=== PATIENT | female | born 1950 | race Caucasian/White ===

== ENCOUNTER → 2020-03-22 08:25 | Outpatient (REF) | payer MEDICARE, SELFPAY ==
--- NOTE | 2020-03-22 08:33 | CA_ITS ---
Transthoracic Echocardiogram Patient (Last, First, Middle): Alyse Razo A Gender: Female Date of : 1950 Age: 69 Procedure Date: 03/22/2020 Procedure Type: Transthoracic Echocardiogram Location: OP Height: 160.02 cm Weight: 102.06 kg BSA: 2.03 m2 Heart Rate: bpm BP: 154 / 86 mmHg Toy Assembly Supervisor: Referring MD: Bhanu Ramachandran MD Symptoms: i42.2 hpertrophic cmp Study Quality: Good ECG Rhythm: Sinus Conclusions: - The left ventricular systolic function is mildly decreased. The visually estimated ejection fraction is between 45-50%. - There is mild calcification of the aortic valve. - There is mild anterior mitral leaflet thickening. - There is mild dilatation of the ascending aorta measuring 3.90 cm. Findings Procedure Information Contrast agent, definity, is being given per protocol without apparent complications. Left Ventricle Normal left ventricular cavity size. There is mildly increased left ventricular wall thickness. The left ventricular systolic function is mildly decreased. The visually estimated ejection fraction is between 45-50%. The calculated ejection fraction is 47% by biplane method. E/E prime ratio is between 8 and 15 consistent with indeterminate filling pressures. Evidence suggests grade I (mild) diastolic dysfunction. Abnormal septal motion likely from postoperative state as well as from left bundle-branch block. Right Ventricle Normal right ventricular cavity size and systolic function. Atria Both atria are normal in size. Aortic Valve There is a normal trileaflet aortic valve. There is mild calcification of the aortic valve. There is no aortic valve stenosis. There is mild aortic valve regurgitation. Mitral Valve There is mild anterior mitral leaflet thickening. There is mild mitral valve regurgitation. There is no mitral valve stenosis. Pulmonic Valve The pulmonic valve was not well visualized. There is trace pulmonic valve regurgitation. Tricuspid Valve Normal tricuspid valve structure. There is trace tricuspid valve regurgitation. The pulmonary artery systolic pressure is normal. Great Vessels There is mild dilatation of the ascending aorta measuring 3.90 cm. Venous The inferior vena cava is normal in size and collapses greater than 50% with inspiration. Pericardium/Pleural There is no evidence of pericardial effusion. Prior Study Comparison Changes noted compared to prior study dated: 10/14/2018. LVEF appears to be lower than prior study. Measurements 2D Linear Measurements RVIDd: 2.58 RVIDd Index: 1.27 IVSd: 1.12 0.6-0.9/0.6-1.0 cm LVIDd: 5.44 3.9-5.3/4.2-5.9 cm LVIDd Index: 2.68 2.4-3.2/2.2-3.1 cm/m2 LVIDs: 4.19 2.0-3.6 cm LVPWd: 1.42 0.7-1.1 cm Ao Root: 3.00 2.1-3.5 cm LA Diam: 4.80 2.7-3.8/3.0-4.0 cm LAIDs Index: 2.36 1.5-2.3 cm/m2 LV Mass: 361.07 67-162/88-224 g LV Mass Index: 177.87 43-95/49-115 g/m2 LVOT Diam: 2.00 3.0+(-)1.3 cm 2D Systolic Function EF 4C: 57.20 >55% EF 2C: 33.50 >55% EF BiP: 46.50 >55% Mitral Valve MV Pk E: 0.48 MV PK A: 0.78 MV Decel Time: 204.00 E/A: 0.60 E'Lateral: 5.13 E'Medial: 3.29 E/E' Med: 14.40 E/E' Lat: 9.30 Aortic Valve AoV Pk Missael: 1.50 AoV Mn Missael: 1.02 AoV VTI: 0.29 AoV Pk Grad: 9.00 Aov Mn Grad: 5.00 ANDIE Cont.VTI: 2.06 AI Pk Missael: 4.06 AI Stewart: 1.83 LVOT LVOT Pk Missael: 1.05 LVOT Mn Missael: 0.68 LVOT VTI: 0.19 LVOT Pk Grad: 4.00 LVOT Mn Grad: 2.00 LVOT Diam: 2.00 LVOT Area: 3.14 Diastolic Function MV Pk E: 0.48 MV Pk A: 0.78 E/A: 0.60 E'Medial: 3.29 E/E' Med: 14.40 E' Laterial: 5.13 E/E' Lat: 9.30 Tricuspid Valve TR Pk Missael: 2.14 TR Pk Grad: 18.00 RA Press: 3.00 RVSP: 21.00 Great Vessels Aorta Ao Root-2D: 3.00 2.0-3.7 cm Ao Asc: 3.90 2.1-3.4 cm Ao Arch: 3.30 Updated in Other Vendor System with Status of Final Kai Mccarthy MD electronically signed on 03/23/2020 4:00:42 PM with status of Final
[2020-03-22 10:42] LABS: MANUAL DIFF FLAG NO
[2020-03-22 10:55] LABS: Basophils Absolute Auto 0.1 X10*3/uL (0.0-0.2); Basophils Percent Auto 0.9 % (0-2); Eosinophils Absolute Auto 0.2 X10*3/uL (0.0-0.4); Eosinophils Percent Auto 4.1 % (0-4); Hematocrit 41.5 % (37-47); Hemoglobin 13.3 g/dl (12.0-16.0); Imm Gran Abs Auto 0.04 X10*3/uL (0.00-0.03); Imm Gran Pct Auto 0.8 % (0.0-0.4); Lymphocytes Absolute Auto 1.4 X10*3/uL (1.2-4.9); Lymphocytes Percent Auto 25.4 % (20-40); Mean Corpuscular Hemoglobin 27.4 pg (27.0-33.0); Mean Corpuscular Volume 85.6 fL (80-98); Mean Platelet Volume 11.3 fL (9.4-12.3); Monocytes Absolute Auto 0.3 X10*3/uL (0.1-1.2); Monocytes Percent Auto 6.4 % (2-11); Neutrophils Absolute Auto 3.3 X10*3/uL (2.0-8.3); Neutrophils Percent Auto 62.4 % (45-73); Platelet Count 193 X10*3/uL (160-400); Red Blood Count 4.85 X10*6/uL (4.20-5.50); White Blood Count 5.3 X10*3/uL (4.8-10.8)
[2020-03-22 11:08] LABS: Alanine Aminotransferase 33 U/L (0-31); Alkaline Phosphatase 93 U/L (39-117); Anion Gap 10 (12-20); Aspartate Amino Transferase 38 U/L (5-31); Bilirubin Total 0.6 mg/dL (0.0-1.0); Blood Urea Nitrogen 17 mg/dL (9-16); Calcium 8.7 mg/dL (8.4-10.2); Carbon Dioxide 26 mmol/L (22-29); Chloride 108 mmol/L (96-108); Cholesterol 189 mg/dL; Estimated Glomerular Filt Rate > 60; Glucose Random 108 mg/dL (60-115); Sodium 140 mmol/L (135-145); Total Protein 6.7 g/dL (6.5-8.0)
[2020-03-22 11:33] LABS: Free T4 (Free Thyroxine) 1.02 ng/dL (0.71-1.85); Thyroid Stimulating Hormone 0.69 mIU/mL (0.32-4.0); Vitamin D 25-OH Total 53.3 ng/mL (>30)
== END ==
LOC: HO.CARD 08:25
PROVIDERS: Visit Provider Internal Medicine
DX: I42.2 Other hypertrophic cardiomyopathy (principal)
CPT/HCPCS: 36415; 80053; 82306; 82465; 84439; 84443; 85025; 93306; Q9957

== ENCOUNTER → 2020-04-12 09:08 | Outpatient (BNVA) | payer MEDICARE, SELFPAY | PROVIDERS: PCP Internal Medicine; Referring Provider Internal Medicine; Visit Provider Internal Medicine Cardiovascular Disease | DX: I42.1 Obstructive hypertrophic cardiomyopathy (principal); I44.7 Left bundle-branch block, unspecified; E66.9 Obesity, unspecified; Z87.891 Personal history of nicotine dependence; Z88.0 Allergy status to penicillin; Z79.899 Other long term (current) drug therapy | CPT/HCPCS: 93005; 99212 ==

== ENCOUNTER 2020-04-15 07:18 | Day surgery (SDC) | payer MEDICARE, SELFPAY ==
[2020-04-12 14:11] VITALS: BMI 40.4
--- NOTE | 2020-04-13 10:41 | P.CONAN_ITS ---
Documented by User: Dora Bautista 04/13/20 10:53 HPI - Anesthesia Eval Consult details Narrative: 69yo F for Colonoscopy PMFSH Past Medical History Medical History Arthritis Depression GERD (gastroesophageal reflux disease) History of fatty infiltration of liver History of left bundle branch block (LBBB) HOCM (hypertrophic obstructive cardiomyopathy) LBBB (left bundle branch block) Morbid obesity Thyroid disease Family History Family History Father Obesity Mother COPD (chronic obstructive pulmonary disease) Brother No problems noted. Son No problems noted. Daughter No problems noted. Surgical History Surgical History H/O colonoscopy History of esophagogastroduodenoscopy (EGD) Hx of cataract surgery Hx of section Hx of tubal ligation S/P cholecystectomy S/P total knee arthroplasty Status post ventricular septal myectomy Social History Social History Alcohol intake: never Smoking Status: Former smoker Smoking Quit Date: 1979 Use of substances other than those prescribed or required for medical reasons: No Advance Directives Information Provided: No Narrative Narrative: Seen by cardiology 03/2020. FERNÁNDEZ r/t weight gain and deconditioning. Echo ordered. Meds Allergies Allergy/AdvReac Type Severity Reaction Status Date / Time Penicillins [PENICILLINS] Allergy Intermediate RASH Verified 04/12/20 14:17 Home Medications Medication Instructions Recorded Confirmed Type alprazolam 1 mg tablet 1 mg PO DAILY PRN 04/12/20 04/13/20 History escitalopram oxalate 10 mg tablet 3 mg PO Q OTHER DAY PRN 04/12/20 04/13/20 History levothyroxine 125 mcg tablet 125 mcg PO DAILY 04/12/20 04/13/20 History omeprazole 20 mg capsule,delayed 20 mg PO DAILY 04/12/20 04/13/20 History release Exam Exam Date and Time: April 13, 2020 1041 Height,Weight and Vital Signs: Height 5 ft 3 in Weight 103.419 kg Pertinent Lab Results Pertinent Lab Results: Laboratory Tests 03/22/20 03/22/20 09:53 09:53 WBC 5.3 Hgb 13.3 Hct 41.5 Plt Count 193 Sodium 140 Potassium 4.0 Chloride 108 BUN 17 H Creatinine 0.64 Narrative Narrative: EKG 03/2020: NSR with LBBB, unchanged from previous Echo 03/2020: LV sys function mild decreased, LVELF @ 45-50%, mild calc of AV, mild anterior mitral leaflet thickening, mild dilation of ascending aorta @ 3.9cm Assessment and Plan Assessment Anesthesia Assessment: Chart Reviewed Documented by User: Mirza Wang 04/15/20 08:26 [facility] Past Medical History Medical History Arthritis Depression GERD (gastroesophageal reflux disease) History of fatty infiltration of liver History of left bundle branch block (LBBB) HOCM (hypertrophic obstructive cardiomyopathy) LBBB (left bundle branch block) Morbid obesity Thyroid disease Family History Family History Father Obesity Mother COPD (chronic obstructive pulmonary disease) Brother No problems noted. Son No problems noted. Daughter No problems noted. Surgical History Surgical History H/O colonoscopy History of esophagogastroduodenoscopy (EGD) Hx of cataract surgery Hx of section Hx of tubal ligation S/P cholecystectomy S/P total knee arthroplasty Status post ventricular septal myectomy Social History Social History Alcohol intake: never Smoking Status: Former smoker Smoking Quit Date: 1979 Use of substances other than those prescribed or required for medical reasons: No Advance Directives Information Provided: No Meds Allergies Allergy/AdvReac Type Severity Reaction Status Date / Time Penicillins [PENICILLINS] Allergy Intermediate RASH Verified 04/12/20 14:17 Home Medications Medication Instructions Recorded Confirmed Type alprazolam 1 mg tablet 1 mg PO DAILY PRN 04/12/20 04/13/20 History escitalopram oxalate 10 mg tablet 3 mg PO Q OTHER DAY PRN 04/12/20 04/13/20 History levothyroxine 125 mcg tablet 125 mcg PO DAILY 04/12/20 04/13/20 History omeprazole 20 mg capsule,delayed 20 mg PO DAILY 04/12/20 04/13/20 History release Exam Airway Mallampati Class: II TM Dist: >3cm Neck ROM: Full Loose/Missing/Broken Teeth: No Heart: [id number] Lungs: cta b/l Assessment and Plan Assessment Anesthesia Assessment: Anesthesia Plan Discussed, PAT Visit and Chart Reviewed Final Anesthetic Review NPO: Yes ASA Class: III Final Preanesthetic Review: No Changes in Pt Med Stat, Meds/Allgs Chart Reviewed, Consent Obtained/Reviewed and Anes Risks/Benef Reviewed Patient Risk: Low Procedure Risk: Low Assessment/Block/Sedation in SS: Assess/Block/Sedation-SS Anesthetic Plan Anesthetic Plan: MAC: Disposition: Standard PACU
[2020-04-15 07:53] VITALS: BP 125/61; PULSE 69; RESP 18; TEMP 36.6; O2SAT 97
[2020-04-15] MEDS: Lactated Ringers 1,000 ML 50 ML IVCONT (08:01)
[2020-04-15 09:13] VITALS: BP 88/41; PULSE 61; RESP 12; TEMP 36.1; O2SAT 96
--- NOTE | 2020-04-15 09:16 | PM.OP ---
Brief Operative Note Date of procedure: 04/15/20 Pre-op diagnosis: Screening Post-op diagnosis: other (Colon polyp, Diverticulosis, Internal Hemorrhoids) Procedure: Colonoscopy to cecum with biopsy and removal of polyp Surgeon: Avila Stevenson Anesthesia: MAC Estimated blood loss (mL): 3.0 Pathology: other (A. Transverse colon polyp) Condition: stable Disposition: PACU
[2020-04-15 09:28] VITALS: BP 107/59; PULSE 66; RESP 18; TEMP 36.4; O2SAT 99
--- NOTE | 2020-04-15 09:44 | HO.POSTANES ---
Post Anesthesia Evaluation Post Anesthesia Evaluation Vital Signs: Vital Signs Temp Pulse Resp BP Pulse Ox 04/15/20 09:28 97.5 F 66 18 107/59 L 99 04/15/20 09:13 97 F 61 12 88/41 L 96 04/15/20 07:53 97.8 F 69 18 125/61 97 Anesthesia: Monitored Mental Status: Awake Pain Control: Satisfactory Nausea/Vomiting: None Hydration: Adequate Anesthesia-Related Issues: No Anes. Related Issues
--- NOTE | 2020-04-15 11:59 | OP_ITS ---
SURGEON: Avila Stevenson MD INDICATIONS: The patient presents for evaluation of colorectal cancer screening and personal history of tubular adenoma of the colon. Full consent has been obtained from her for this, including risks of bleeding and perforation. PREOPERATIVE DIAGNOSIS: POSTOPERATIVE DIAGNOSIS: PROCEDURE PERFORMED: Colonoscopy to cecum with biopsy and removal of polyp. ESTIMATED BLOOD LOSS: COMPLICATIONS: ANESTHESIA: Monitored anesthesia care. ASSISTANTS: SPECIMENS: PREOPERATIVE DIAGNOSES: Colorectal cancer screening and personal history of tubular adenoma of the colon. POSTOPERATIVE DIAGNOSES: Colorectal cancer screening and personal history of tubular adenoma of the colon, colon polyp, diverticulosis and internal hemorrhoids. DESCRIPTION OF PROCEDURE: The patient was placed in the left lateral decubitus position. The digital rectal exam revealed no abnormalities. The Olympus video pediatric colonoscope was entered into the rectum and advanced easily to the cecum. Once in the cecum, I did identify normal-appearing cecal pouch with appendiceal orifice and a normal-appearing ileocecal valve. The entire cecum and ileocecal valve were well visualized and appeared normal. There was transillumination of light deep in the right lower quadrant. The scope was slowly withdrawn assessing all mucosal surfaces carefully. Preparation was excellent. In the transverse colon, there was a flat approximately 4 mm polyp, which was biopsied and completely removed with cold biopsy forceps. I did not visualize any other polyps, colitis, nor angiodysplasia. There was a mild amount of sigmoid diverticulosis. In the rectum, scope was retroflexed visualizing internal hemorrhoids, but no other pathology. The rectal mucosa appeared normal. The scope was straightened out and withdrawn from the patient. She tolerated the procedure well and was returned to the recovery area in stable condition. IMPRESSION: 1. Colon polyp, status post biopsy and removal. 2. Diverticulosis. 3. Internal hemorrhoids. PLAN: The results of the biopsy will be checked. I would recommend a repeat colonoscopy in 5 years for further surveillance. She will otherwise see me on a p.r.n. basis. Of note, she was advised to continue her omeprazole for her reflux and previous history of dysphagia. She does report that she is doing well in this regard, and she also thinks eating slowly has helped her with that issue as well. MD THU Salgado/GENI / [phone]
== END 2020-04-15 10:15 | disposition home or self-care (01) ==
PROVIDERS: PCP Internal Medicine; Visit Provider Internal Medicine
PROC: 0DJD8ZZ Inspection of Lower Intestinal Tract, Via Natural or Artificial Opening Endoscopic (ICD-10-PCS; CPT 45378; principal; 2020-04-15 08:30)
DX: Z12.11 Encounter for screening for malignant neoplasm of colon (principal); Z86.010 Personal history of colon polyps; D12.3 Benign neoplasm of transverse colon; K57.30 Diverticulosis of large intestine without perforation or abscess without bleeding; K64.8 Other hemorrhoids; K21.9 Gastro-esophageal reflux disease without esophagitis; I42.1 Obstructive hypertrophic cardiomyopathy; I44.7 Left bundle-branch block, unspecified; Z79.899 Other long term (current) drug therapy; Z88.0 Allergy status to penicillin; Z90.49 Acquired absence of other specified parts of digestive tract; Z96.653 Presence of artificial knee joint, bilateral
CPT/HCPCS: 45380; 88305

== ENCOUNTER 2020-04-22 14:25 | Outpatient (REF) | payer SELFPAY | END 2020-04-22 14:26 | disposition home or self-care (01) | LOC: HO.HAP 14:25 | PROVIDERS: PCP Internal Medicine; Visit Provider Internal Medicine | DX: Z46.1 Encounter for fitting and adjustment of hearing aid (principal) | CPT/HCPCS: V5266; V5267 ==

== ENCOUNTER 2020-04-29 07:49 | Outpatient (REF) | payer MEDICARE, SELFPAY ==
--- NOTE | 2020-04-29 07:53 | MM_ITS ---
EXAMINATION: MM SCREENING DIGITAL BREAST TOMOSYNTHESIS, BILATERAL CLINICAL INFORMATION: Screening. Asymptomatic. The lifetime risk of breast cancer based on the Tyrer-Cuzick Model is 4%. COMPARISON: Mammography: 04/24/2019, 04/01/2018 TECHNIQUE: Digital breast tomosynthesis is performed in both the craniocaudal and mediolateral oblique views along with computer-aided detection (CAD). Synthesized 2D images are generated from the tomosynthesis. Additional left MLO view is provided. FINDINGS: There are scattered areas of fibroglandular density (ACR BI-RADS breast composition Category b). Background parenchymal pattern is predominantly fatty. Scattered fibroglandular densities are stable. There are no significant masses, abnormal calcifications, or other abnormalities. MM/MM tomosynthesis screening BI IMPRESSION: No mammographic evidence of malignancy. ASSESSMENT: BI-RADS 1: Negative RECOMMENDATION: Routine annual mammography screening. This patient's information was entered into a reminder system with a target due date for their next mammogram.
== END 2020-04-29 07:50 | disposition home or self-care (01) ==
LOC: HO.MAMMO 07:49
PROVIDERS: PCP Internal Medicine; Visit Provider Internal Medicine
DX: Z12.31 Encounter for screening mammogram for malignant neoplasm of breast (principal)
CPT/HCPCS: 77063; 77067

== ENCOUNTER → 2020-05-10 08:49 | Outpatient (BNVA) | payer MEDICARE, SELFPAY | PROVIDERS: PCP Internal Medicine; Visit Provider Physician Assistant | DX: Z76.89 Persons encountering health services in other specified circumstances (principal) ==

== ENCOUNTER → 2020-05-18 08:15 | Outpatient (BNVA) | payer MEDICARE, SELFPAY | PROVIDERS: PCP Internal Medicine; Visit Provider Physician Assistant | DX: E66.01 Morbid (severe) obesity due to excess calories (principal); Z68.41 Body mass index [BMI] 40.0-44.9, adult | CPT/HCPCS: Q3014 ==

== ENCOUNTER → 2020-05-25 12:45 | Outpatient (BNVA) | payer MEDICARE, SELFPAY | PROVIDERS: PCP Internal Medicine; Visit Provider Dietitian, Registered | DX: Z76.89 Persons encountering health services in other specified circumstances (principal) ==

== ENCOUNTER 2020-06-07 14:14 | Outpatient (REF) | payer MEDICARE, SELFPAY ==
[2020-06-08 15:03] LABS: H Pylori Breath Test DETECTED (NOT DETECTED)
== END 2020-06-07 14:15 | disposition home or self-care (01) ==
LOC: HO.LNP 14:14
PROVIDERS: PCP Internal Medicine; Visit Provider Surgery
DX: E66.01 Morbid (severe) obesity due to excess calories (principal); Z68.41 Body mass index [BMI] 40.0-44.9, adult
CPT/HCPCS: 83013; 99212

== ENCOUNTER 2020-06-08 11:35 | Outpatient (REF) | payer MEDICARE, SELFPAY ==
--- NOTE | 2020-06-08 11:43 | XR_ITS ---
EXAMINATION: XR CHEST CLINICAL INFORMATION: Shortness of breath. COMPARISON: 06/24/2019 chest radiographs. TECHNIQUE: 2 views of the chest were obtained. FINDINGS: The lungs are clear. The heart and mediastinal structures are unremarkable. Multilevel sternotomy wires are intact. XR/XR chest 2V IMPRESSION: No acute cardiopulmonary process.
== END 2020-06-08 11:36 | disposition home or self-care (01) ==
LOC: HO.XRAY 11:35
PROVIDERS: PCP Internal Medicine; Visit Provider Surgery
DX: R06.02 Shortness of breath (principal)
CPT/HCPCS: 71046

== ENCOUNTER → 2020-06-15 12:58 | Outpatient (BNVA) | payer MEDICARE, SELFPAY | PROVIDERS: PCP Internal Medicine; Visit Provider Dietitian, Registered | DX: Z76.89 Persons encountering health services in other specified circumstances (principal) ==

== ENCOUNTER → 2020-06-22 12:51 | Outpatient (BNVA) | payer MEDICARE, SELFPAY | PROVIDERS: PCP Internal Medicine; Visit Provider Dietitian, Registered | DX: Z76.89 Persons encountering health services in other specified circumstances (principal) ==

== ENCOUNTER → 2020-06-27 10:24 | Outpatient (BNVA) | payer MEDICARE, SELFPAY | PROVIDERS: PCP Internal Medicine; Visit Provider Physician Assistant ==

== ENCOUNTER → 2020-06-30 10:21 | Outpatient (BNVA) | payer MEDICARE, SELFPAY | PROVIDERS: PCP Internal Medicine; Visit Provider Surgery | DX: Z01.818 Encounter for other preprocedural examination (principal); E66.9 Obesity, unspecified; R06.02 Shortness of breath; Z68.39 Body mass index [BMI] 39.0-39.9, adult | CPT/HCPCS: 99212 ==

== ENCOUNTER 2020-07-15 09:56 | Outpatient (REF) | payer MEDICARE, SELFPAY ==
[2020-07-16 14:01] LABS: H Pylori Breath Test NOT DETECTED (NOT DETECTED)
== END 2020-07-15 09:57 | disposition home or self-care (01) ==
LOC: HO.LNP 09:56
PROVIDERS: PCP Internal Medicine; Visit Provider Physician Assistant
DX: Z01.818 Encounter for other preprocedural examination (principal); Z11.0 Encounter for screening for intestinal infectious diseases
CPT/HCPCS: 83013; 99211

== ENCOUNTER → 2020-08-18 14:54 | Outpatient (BNVA) | payer MEDICARE, SELFPAY | PROVIDERS: PCP Internal Medicine; Visit Provider Internal Medicine Cardiovascular Disease | DX: Z01.818 Encounter for other preprocedural examination (principal); I44.7 Left bundle-branch block, unspecified; Z86.79 Personal history of other diseases of the circulatory system | CPT/HCPCS: 93005; 99212 ==

== ENCOUNTER → 2020-09-02 08:14 | Outpatient (REF) | payer MEDICARE, SELFPAY ==
--- NOTE | ~2020-09-02 | NM_ITS ---
Myocardial perfusion study Indication: Preoperative cardiovascular risk stratification with left bundle branch block to evaluate for myocardial ischemia Technique: The patient was brought in for a Lexiscan perfusion study on 09/02/2020. Patient performed low-level exercise and was injected 0.4 mg of Lexiscan intravenously. Within a minute of injection, 35 mCi of sestamibi was given intravenously. Images were obtained using the SPECT gamma camera interlaced with the gating device. Images were obtained in supine position. Resting perfusion study was performed on 09/05/2020. Patient was administered 35 mCi of sestamibi intravenously at rest. Images were then obtained in supine position. Images obtained with and without CT attenuation. Total DLP 123 mGy-cm. Images were processed with the software and compared side to side in short axis, horizontal long axis and vertical long axis views. Findings: The stress perfusion study showed non attenuated images show minimal reduction in the basal septum of the LV myocardium. Attenuation corrected images show moderately reduced uptake in the septum, distal anterior and apex of the LV myocardium.. The gated study shows normal LV systolic function with calculated LVEF of 56%. LV cavity is normal in size. The gated study shows normal systolic wall thickening and contraction of segments. Resting study shows non attenuated images show mildly reduced uptake in the septum and basal inferior wall of the LV myocardium. Attenuation corrected images show moderate to severely reduced uptake in the distal anterior, apex and septum of the LV myocardium.. Gating at rest reveals normal systolic wall motion with ejection fraction at 56%. The findings are consistent with no clear reversible defect suggestive of ischemia. NM/NM mary perf SPECT rest & str Impression: 1. Myocardial perfusion imaging study shows likely normal perfusion 2. Gated LVEF is 56% 3. Transient ischemic dilatation not present EKG is nondiagnostic for ischemia
--- NOTE | 2020-09-02 08:17 | CA_ITS ---
Acquisition Time: 2020-09-02 08:26:10 Total Exercise Time: 00:02:00 Test Indications: Dyspnea Medications: Protocol: LEXISCAN Max HR: 107 BPM 71% of Pred: 150 BPM Max BP: 116/066 mmHG Max Work Load: 1.0 METS Pharmacological stress test using Lexiscan while sitting. Pt tolerated well, denies any anginal sx. EKG with LBBB no arrhythmias, non-diagnostic for ischemia. Nuclear images to follow. Normotensive response to test. Test reviewed with Dr. Mccarthy. Referred By: Jarred Vital Overread By: Gillian Carbajal NP
== END ==
LOC: HO.CARD 08:14
PROVIDERS: PCP Internal Medicine; Visit Provider Internal Medicine Cardiovascular Disease
DX: Z01.818 Encounter for other preprocedural examination (principal); I44.7 Left bundle-branch block, unspecified; R06.02 Shortness of breath; E66.01 Morbid (severe) obesity due to excess calories; Z86.79 Personal history of other diseases of the circulatory system
CPT/HCPCS: 78452; 93017; A9500; J0280; J2785

== ENCOUNTER 2020-10-05 16:00 | Outpatient (RCR) | payer MEDICARE, SELFPAY | END 2020-10-05 16:58 | disposition other institution (70) | LOC: HO.PT 16:00 | PROVIDERS: PCP Internal Medicine; Visit Provider Orthopaedic Surgery | DX: M75.41 Impingement syndrome of right shoulder (principal); M77.8 Other enthesopathies, not elsewhere classified | CPT/HCPCS: 97110; 97112; 97140; 97161; 97530 ==

== ENCOUNTER 2020-10-15 08:00 | Outpatient (REF) | payer MEDICARE, SELFPAY ==
[2020-10-15 08:38] LABS: MANUAL DIFF FLAG NO
[2020-10-15 08:50] LABS: Basophils Absolute Auto 0.1 X10*3/uL (0.0-0.2); Basophils Percent Auto 1.2 % (0-2); Eosinophils Absolute Auto 0.2 X10*3/uL (0.0-0.4); Eosinophils Percent Auto 3.3 % (0-4); Hemoglobin 14.4 g/dl (12.0-16.0); Imm Gran Abs Auto 0.01 X10*3/uL (0.00-0.03); Imm Gran Pct Auto 0.2 % (0.0-0.4); Lymphocytes Absolute Auto 1.8 X10*3/uL (1.2-4.9); Lymphocytes Percent Auto 36.8 % (20-40); Mean Corpuscular Hemoglobin 27.6 pg (27.0-33.0); Mean Corpuscular Volume 86.2 fL (80-98); Mean Platelet Volume 11.3 fL (9.4-12.3); Monocytes Absolute Auto 0.4 X10*3/uL (0.1-1.2); Monocytes Percent Auto 8.8 % (2-11); Neutrophils Absolute Auto 2.4 X10*3/uL (2.0-8.3); Neutrophils Percent Auto 49.7 % (45-73); Platelet Count 184 X10*3/uL (160-400); Red Blood Count 5.22 X10*6/uL (4.20-5.50); Red Cell Distribution Width 14.7 % (11.0-16.0); White Blood Count 4.9 X10*3/uL (4.8-10.8)
[2020-10-15 09:39] LABS: Alanine Aminotransferase 79 U/L (0-31); Albumin Level 4.3 g/dL (3.5-5.0); Alkaline Phosphatase 97 U/L (39-117); Anion Gap 10 (12-20); Aspartate Amino Transferase 70 U/L (5-31); Bilirubin Total 0.6 mg/dL (0.0-1.0); Blood Urea Nitrogen 20 mg/dL (9-16); Calcium 9.7 mg/dL (8.4-10.2); Carbon Dioxide 30 mmol/L (22-29); Chloride 106 mmol/L (96-108); Cholesterol 206 mg/dL; Estimated Glomerular Filt Rate > 60; Glucose Fasting 98 mg/dL (60-99); HDL Cholesterol 62 mg/dL; LDL Cholesterol Calculated 128 mg/dl; Potassium 4.3 mmol/L (3.3-5.1); Sodium 142 mmol/L (135-145); Total Protein 7.4 g/dL (6.5-8.0); Triglycerides 84 mg/dL
[2020-10-15 09:46] LABS: Free T4 (Free Thyroxine) 1.15 ng/dL (0.71-1.85); Thyroid Stimulating Hormone 0.17 uIU/mL (0.32-4.0)
[2020-10-17 09:15] LABS: Vitamin B12 524 pg/mL (200-900)
== END 2020-10-15 08:01 | disposition home or self-care (01) ==
LOC: HO.LAB 08:00
PROVIDERS: PCP Internal Medicine; Visit Provider Internal Medicine
DX: E03.9 Hypothyroidism, unspecified (principal); E53.8 Deficiency of other specified B group vitamins; M19.90 Unspecified osteoarthritis, unspecified site; K75.4 Autoimmune hepatitis
CPT/HCPCS: 36415; 80053; 80061; 82607; 84439; 84443; 85025

== ENCOUNTER → 2020-10-27 09:23 | Outpatient (REF) | payer MEDICARE, SELFPAY ==
--- NOTE | 2020-10-27 09:26 | CA_ITS ---
Transthoracic Echocardiogram Patient (Last, First, Middle): Alyse Razo A Gender: Female Date of : 1950 Age: 70 Procedure Date: 10/27/2020 Procedure Type: Transthoracic Echocardiogram Location: OP Height: 160.02 cm Weight: 104.33 kg BSA: 2.05 m2 Heart Rate: bpm BP: 110 / 62 mmHg Drafter Civil: ANASTACIA Referring MD: Jarred Vital MD Lead Supply Worker: Jarred Vital MD Symptoms: R06.02 - Shortness of breath Study Quality: Good ECG Rhythm: Sinus Conclusions: - 1. Mildly reduced LV systolic function with LVEF of 45-50% with impaired relaxation filling pattern with very focal basal septal hypokinesis to akinesis consistent with prior septal myectomy 2. Mildly dilated left atrium 3. Mild aortic and mitral regurgitation 4. Normal RV systolic pressure 5. No pericardial effusion Findings Left Ventricle Normal left ventricular cavity size. There is normal left ventricular wall thickness. The left ventricular systolic function is mildly decreased. The visually estimated ejection fraction is between 45-50%. There is paradoxical septal motion consistent with a left bundle branch block. Spectral Doppler is indicative of an impaired relaxation filling pattern. E/E prime ratio is between 8 and 15 consistent with indeterminate filling pressures. Wall Motion Rest Echo Findings The basal inferoseptal segment is hypokinetic. The basal anteroseptal segment is akinetic. All other scored wall segments showed normal motion. Right Ventricle Normal right ventricular cavity size and systolic function. Atria The left atrium is mildly dilated. There is no evidence of interatrial shunt. The right atrium is normal in size. Aortic Valve There is mild calcification of the aortic valve. There is no aortic valve stenosis. There is mild aortic valve regurgitation. Mitral Valve There is mild anterior and posterior mitral leaflet thickening. There is mild mitral valve regurgitation. There is no mitral valve stenosis. Pulmonic Valve The pulmonic valve was not well visualized. Tricuspid Valve Likely normal tricuspid valve structure and function. There is mild tricuspid valve regurgitation. The right ventricular systolic pressure is normal. The right ventricular systolic pressure is 22 mmHg. Normal right atrial pressure. There is no evidence of pulmonary hypertension. Great Vessels The pulmonary artery was not well visualized. There is mild dilatation of the ascending aorta measuring 4.20 cm. Venous The inferior vena cava is normal in size and collapses greater than 50% with inspiration. Pericardium/Pleural There is no evidence of pericardial effusion. Prior Study Comparison No significant change compared to prior study dated: 03/22/2020. Measurements 2D Linear Measurements IVSd: 1.10 0.6-0.9/0.6-1.0 cm LVIDd: 4.68 3.9-5.3/4.2-5.9 cm LVIDd Index: 2.28 2.4-3.2/2.2-3.1 cm/m2 LVIDs: 3.41 2.0-3.6 cm LVPWd: 1.08 0.7-1.1 cm Ao Root: 3.50 2.1-3.5 cm LA Diam: 3.50 2.7-3.8/3.0-4.0 cm LAIDs Index: 1.71 1.5-2.3 cm/m2 LV Mass: 229.14 67-162/88-224 g LV Mass Index: 111.77 43-95/49-115 g/m2 LVOT Diam: 2.20 3.0+(-)1.3 cm 2D Systolic Function EF 4C: 40.30 >55% EF 2C: 52.80 >55% EF BiP: 46.80 >55% Mitral Valve MV Pk E: 0.68 MV PK A: 0.72 MV Decel Time: 387.00 E/A: 0.90 E'Lateral: 8.38 E'Medial: 3.81 E/E' Med: 17.80 E/E' Lat: 8.10 PHT: 113.00 MVA PHT: 1.95 Decel [place]: 1.75 Aortic Valve AoV Pk Missael: 1.96 AoV Mn Missael: 1.26 AoV VTI: 0.42 AoV Pk Grad: 15.00 Aov Mn Grad: 7.00 ANDIE Cont.VTI: 2.30 AI Pk Missael: 4.82 AI [place]: 2.42 LVOT LVOT Pk Missael: 1.02 LVOT Mn Missael: 0.72 LVOT VTI: 0.25 LVOT Pk Grad: 4.00 LVOT Mn Grad: 2.00 LVOT Diam: 2.20 LVOT Area: 3.80 Diastolic Function MV Pk E: 0.68 MV Pk A: 0.72 E/A: 0.90 E'Medial: 3.81 E/E' Med: 17.80 E' Laterial: 8.38 E/E' Lat: 8.10 Tricuspid Valve TR Pk Missael: 2.16 TR Pk Grad: 19.00 RA Press: 3.00 RVSP: 22.00 Great Vessels Aorta Ao Root-2D: 3.50 2.0-3.7 cm Ao Asc: 4.20 2.1-3.4 cm Ao Arch: 3.10 Updated in Other Vendor System with Status of Final Jarred Vital MD electronically signed on 10/28/2020 3:19:59 PM with status of Final
== END ==
LOC: HO.CARD 09:23
PROVIDERS: Visit Provider Internal Medicine Cardiovascular Disease
DX: R06.02 Shortness of breath (principal)
CPT/HCPCS: 93306

== ENCOUNTER 2020-11-14 13:46 | Outpatient (REF) | payer MEDICARE, SELFPAY ==
[2020-11-14 17:12] LABS: Alanine Aminotransferase 42 U/L (0-31); Albumin Level 3.9 g/dL (3.5-5.0); Alkaline Phosphatase 90 U/L (39-117); Aspartate Amino Transferase 49 U/L (5-31); Bilirubin Direct 0.2 mg/dL (0.0-0.5); Bilirubin Total 0.7 mg/dL (0.0-1.0); Total Protein 6.5 g/dL (6.5-8.0)
== END 2020-11-14 13:47 | disposition home or self-care (01) ==
LOC: HO.LAB 13:46
PROVIDERS: PCP Internal Medicine; Visit Provider Internal Medicine
DX: R79.89 Other specified abnormal findings of blood chemistry (principal); K75.4 Autoimmune hepatitis
CPT/HCPCS: 36415; 80076

== ENCOUNTER → 2020-12-08 09:52 | Outpatient (BNVA) | payer MEDICARE, SELFPAY | PROVIDERS: PCP Internal Medicine; Referring Provider Internal Medicine; Visit Provider Physician Assistant | DX: E66.9 Obesity, unspecified (principal); Z68.37 Body mass index [BMI] 37.0-37.9, adult | CPT/HCPCS: 99212 ==

== ENCOUNTER → 2020-12-14 10:51 | Outpatient (REF) | payer MEDICARE, SELFPAY | LOC: HO.SL 10:51 | PROVIDERS: PCP Internal Medicine; Visit Provider Internal Medicine | DX: G47.33 Obstructive sleep apnea (adult) (pediatric) (principal); R06.83 Snoring | CPT/HCPCS: 95806 ==

== ENCOUNTER 2020-12-14 11:24 | Outpatient (REF) | payer SELFPAY | END 2020-12-14 11:25 | disposition home or self-care (01) | LOC: HO.HAP 11:24 | PROVIDERS: Visit Provider Internal Medicine | DX: Z46.1 Encounter for fitting and adjustment of hearing aid (principal); H90.3 Sensorineural hearing loss, bilateral | CPT/HCPCS: V5266 ==

== ENCOUNTER 2021-01-06 11:00 | Outpatient (RCR) | payer MEDICARE, SELFPAY ==
--- NOTE | 2020-10-24 10:56 | MHC.PT.EP ---
[facility] [place] Office [place] Office [place] Office [address] [place] [address] [phone] F: [phone] F: [phone] F: [phone] F: [phone] Physical Therapy Plan of Care Date of Evaluation: Date of Surgery: N/A Diagnosis: bilateral foot pain - plantar fasciitis Assessment: pt presents to physical therapy with pain, decreased range of motion, decreased strength, impaired functional mobility, impaired postural awareness, and gait deviations. pt is a good candidate for skilled PT due to age, potential remediation of impairments, typical disease/condition progression and prognosis, comorbidities, and motivation. pt would benefit from tailored strengthening and stretching exercise program, functional training, gait training, postural re-training, neuromuscular re-education, modalities as needed for pain, equipment safety demonstration. Frequency and Duration: The patient will be seen 2x/wk for 6 wks Short Term Goals: pt will be I w/ HEP to promote self-management of condition. pt will improve B ankle DF to 10 deg to normalize gait pattern on even ground. Superintendent Stevedoring Goals: pt will report a statistically significant improvement in self-reported outcome measure, LEFI, to promote return to PLOF. pt will improve B calf strength to 20 single LE heel raises to normalize functional strength and improve tolerance for walking dog around the block. Treatment Plan: Modalities to reduce pain, spasms and effusion. Manual therapy to restore motion and function. Therapeutic exercise to improve strength and flexibility. Neuromuscular re-education for posture and balance. Therapeutic activities to return to functional activities of daily living. Electronically signed by: Carito Szymanski PT, DPT Please sign and return to therapist. Thank you for your referral.
--- NOTE | 2021-01-09 10:33 | MHC.PT.DC ---
[facility] [place] Office [place] Office [place] Office [address] [facility] [phone] F: [phone] F: [phone] F: [phone] F: [phone] Physical Therapy Discharge Report Diagnosis: bilateral foot pain - plantar fasciitis Date of Surgery: N/A Date of Evaluation: 10/24/20 Date of Discharge: 01/09/21 Treatments to Date: 18 Cancellations to Date: 0 No Shows to Date: 0 Discharge Status: Achieved Goals Improved Function Independent with HEP Discharge Summary: The patient overall reported a significant improvement in her pain and has been able to return to all activities with no limitations. She was given medial wedges to wear which she feels has been the most appropriate orthotic for her feet at this time. She is independent with her home exercise program. The patient is discharged from this physical therapy plan of care at this time. Electronically signed by: Carito Szymanski PT, DPT Please sign and return to therapist. Thank you for your referral.
== END 2021-01-09 10:33 | disposition home or self-care (01) ==
LOC: HO.PT 11:00
PROVIDERS: PCP Internal Medicine; Visit Provider Internal Medicine
DX: M72.2 Plantar fascial fibromatosis (principal); M79.671 Pain in right foot
CPT/HCPCS: 97110; 97112; 97150; 97161; 97530

== ENCOUNTER → 2021-01-18 12:51 | Outpatient (BNVA) | payer MEDICARE, SELFPAY | PROVIDERS: PCP Internal Medicine; Visit Provider Internal Medicine Pulmonary Disease | DX: G47.33 Obstructive sleep apnea (adult) (pediatric) (principal); Z68.39 Body mass index [BMI] 39.0-39.9, adult | CPT/HCPCS: 99202 ==

== ENCOUNTER → 2021-02-01 19:55 | Outpatient (REF) | payer MEDICARE, SELFPAY | LOC: HO.SL 19:55 | PROVIDERS: PCP Internal Medicine; Visit Provider Internal Medicine Pulmonary Disease | DX: G47.33 Obstructive sleep apnea (adult) (pediatric) (principal); G47.31 Primary central sleep apnea | CPT/HCPCS: 95810 ==

== ENCOUNTER → 2021-02-23 08:14 | Outpatient (BNVA) | payer MEDICARE, SELFPAY | PROVIDERS: PCP Internal Medicine; Visit Provider Dietitian, Registered | DX: E66.9 Obesity, unspecified (principal) | CPT/HCPCS: 97803 ==

== ENCOUNTER → 2021-02-28 15:03 | Outpatient (BNVA) | payer MEDICARE, SELFPAY | PROVIDERS: PCP Internal Medicine; Visit Provider Internal Medicine Pulmonary Disease | DX: E66.9 Obesity, unspecified (principal); Z68.39 Body mass index [BMI] 39.0-39.9, adult | CPT/HCPCS: 99212 ==

== ENCOUNTER → 2021-03-27 08:10 | Outpatient (BNVA) | payer MEDICARE, SELFPAY | PROVIDERS: Visit Provider Dietitian, Registered | DX: E66.9 Obesity, unspecified (principal); Z68.37 Body mass index [BMI] 37.0-37.9, adult | CPT/HCPCS: 97803 ==

== ENCOUNTER → 2021-05-03 08:16 | Outpatient (BNVA) | payer MEDICARE, SELFPAY | PROVIDERS: Referring Provider Physician Assistant; Visit Provider Dietitian, Registered ==

== ENCOUNTER 2021-05-10 14:35 | Outpatient (REF) | payer MEDICARE, SELFPAY ==
--- NOTE | ~2021-05-10 | MM_ITS ---
EXAMINATION: MM SCREENING DIGITAL BREAST TOMOSYNTHESIS, BILATERAL CLINICAL INFORMATION: Screening. Asymptomatic. The lifetime risk of breast cancer based on the Tyrer-Cuzick Model is 4%. COMPARISON: Mammography: 04/29/2020, 04/24/2019, 04/01/2018, 06/23/2007 TECHNIQUE: Digital breast tomosynthesis is performed in both the craniocaudal and mediolateral oblique views along with computer-aided detection (CAD). Synthesized 2D images are generated from the tomosynthesis. Additional bilateral CC and additional left MLO view are provided. FINDINGS: There are scattered areas of fibroglandular density (ACR BI-RADS breast composition Category b). Breast tissue composition borders on predominantly fatty. There is no interval mass or architectural abnormality or abnormal calcifications. No significant changes. MM/MM tomosynthesis screening BI IMPRESSION: No mammographic evidence of malignancy. ASSESSMENT: BI-RADS 1: Negative RECOMMENDATION: Routine annual mammography screening. This patient's information was entered into a reminder system with a target due date for their next mammogram.
== END 2021-05-10 14:36 | disposition home or self-care (01) ==
LOC: HO.MAMMO 14:35
PROVIDERS: Visit Provider Internal Medicine
DX: Z12.31 Encounter for screening mammogram for malignant neoplasm of breast (principal)
CPT/HCPCS: 77063; 77067

== ENCOUNTER 2021-05-12 12:00 | Outpatient (REF) | payer MEDICARE, SELFPAY ==
[2021-05-12 13:24] LABS: Alanine Aminotransferase 23 U/L (0-31); Albumin Level 3.9 g/dL (3.5-5.0); Alkaline Phosphatase 93 U/L (39-117); Aspartate Amino Transferase 31 U/L (5-31); Bilirubin Direct 0.3 mg/dL (0.0-0.5); Bilirubin Total 0.6 mg/dL (0.0-1.0); Total Protein 6.7 g/dL (6.5-8.0)
== END 2021-05-12 12:01 | disposition home or self-care (01) ==
LOC: HO.LAB 12:00
PROVIDERS: PCP Internal Medicine; Visit Provider Internal Medicine
DX: R94.5 Abnormal results of liver function studies (principal); K75.4 Autoimmune hepatitis
CPT/HCPCS: 36415; 80076

== ENCOUNTER → 2021-05-19 08:08 | Outpatient (BNVA) | payer MEDICARE, SELFPAY | PROVIDERS: Visit Provider Dietitian, Registered | DX: E66.9 Obesity, unspecified (principal); Z68.36 Body mass index [BMI] 36.0-36.9, adult | CPT/HCPCS: 97803 ==

== ENCOUNTER → 2021-08-21 09:06 | Outpatient (BNVA) | payer MEDICARE, SELFPAY | PROVIDERS: Referring Provider Internal Medicine; Visit Provider Internal Medicine Cardiovascular Disease | DX: I44.7 Left bundle-branch block, unspecified (principal); I42.9 Cardiomyopathy, unspecified; Z86.79 Personal history of other diseases of the circulatory system | CPT/HCPCS: 93005; 99212 ==

== ENCOUNTER 2021-09-06 08:34 | Outpatient (REF) | payer MEDICARE, SELFPAY ==
--- NOTE | 2021-09-14 13:25 | MHC.AU.AHA ---
Adult Audiological Evaluation Date of Visit: 09/06/21 Reason for Appointment: History of hearing loss. Patient suspects there has been a change in hearing since her last evaluation in 2014. Previous Hearing Test Results: At this clinic on 09/21/2014- Mild to severe sensorineural hearing loss bilaterally Ear History: Recent Ear Drainage: None Reported Recent Ear Pain: None Reported Recent Ear Infections: None Reported Hearing Instrument History- Right Ear: Cold Mill Supervisor: Phonak Model: Virto Q50-13 ITE Serial Number: [id number] Battery Size: 13 Repair Warranty: 10/17/2014 Loss and Damage Warranty: 10/17/2013 Dispensed By: [facility] Date of Fittin10/06/2012 Hearing Instrument History- Left Ear: Cold Mill Supervisor: Phonak Model: Virto Q50-13 ITE Serial Number: [id number] Battery Size: 13 Warranty: 10/17/2014 Loss and Damage Warranty: 10/17/2013 Dispensed By: [facility] Date of Fittin10/06/2012 Otoscopy: Right Ear: Unremarkable Left Ear: Unremarkable Tympanometry: Tympanometry performed due to: To assess integrity of the middle ear system Right Ear: Normal Middle Ear System (Type A) Left Ear: Normal Middle Ear System (Type A) Hearing Evaluation: Transducer(s) Used: Insert Earphones Method: Conventional Audiometry Stimuli Used: Pure Tones Right Ear: Description of Hearing: Mild to moderately-severe sensorineural hearing loss Left Ear: Description of Hearing: Mild to moderately-severe sensorineural hearing loss Speech Recognition Threshold (SRT): Method Used: Recorded Lists Stimuli Used: Spondee Words Right Ear: 50 dBHL Left Ear: 45 dBHL Word Discrimination: Method: Recorded Lists Word Lists Used: W-22 Right Ear: 84% at 80 dBHL Left Ear: 80% at 80 dBHL Most Comfortable Level (MCL): Right Ear: 80 dBHL Left Ear: 80 dBHL Comparison: Compared to the most recent evaluation: Thresholds have decreased bilaterally. Recommendations: Audiological re-evaluation in one year. Hearing aid maintenance performed today. Hearing aid(s) reprogrammed with updated test results. Diagnosis: Primary Diagnosis: H90.3 Bilateral Sensorineural Hearing Loss Signature: Provider: Ciro Seals, [facility]
== END 2021-09-06 08:35 | disposition home or self-care (01) ==
LOC: HO.SH 08:34
PROVIDERS: Visit Provider Internal Medicine
DX: Z01.118 Encounter for examination of ears and hearing with other abnormal findings (principal); H90.3 Sensorineural hearing loss, bilateral
CPT/HCPCS: 92557; 92567

== ENCOUNTER → 2021-09-07 09:40 | Outpatient (BNVA) | payer MEDICARE, SELFPAY | PROVIDERS: PCP Internal Medicine; Visit Provider Internal Medicine Pulmonary Disease | DX: G47.33 Obstructive sleep apnea (adult) (pediatric) (principal) | CPT/HCPCS: 99212 ==

== ENCOUNTER → 2021-09-29 11:15 | Outpatient (REF) | payer MEDICARE, SELFPAY ==
--- NOTE | 2021-09-29 11:21 | CA_ITS ---
Transthoracic Echocardiogram Patient (Last, First, Middle): Alyse Razo A Gender: Female Date of : 1950 Age: 71 Procedure Date: 09/29/2021 Procedure Type: Transthoracic Echocardiogram Location: OP Height: 160.02 cm Weight: 99.79 kg BSA: 2.01 m2 Heart Rate: bpm BP: 120 / 70 mmHg Beam Saw Operator: ANASTACIA Referring MD: Jarred Vitla MD Plaster Machine Operator: Jarred Vital MD Symptoms: I42.9 - Cardiomyopathy, unspecified Study Quality: Fair ECG Rhythm: Sinus Conclusions: - 1. Mildly reduced LV systolic function with LVEF of 45-50% 2. Mildly dilated left atrium 3. Mild aortic regurgitation 4. Normal RV systolic pressure 5. No pericardial effusion Findings Left Ventricle Normal left ventricular cavity size. There is normal left ventricular wall thickness. The left ventricular systolic function is mildly decreased. The visually estimated ejection fraction is between 45-50%. There is paradoxical septal motion consistent with a left bundle branch block. Spectral Doppler is indicative of an impaired relaxation filling pattern. E/E prime ratio is between 8 and 15 consistent with indeterminate filling pressures. Wall Motion Rest Echo Findings The basal anteroseptal segment is akinetic. All other scored wall segments showed normal motion. Right Ventricle Normal right ventricular cavity size and systolic function. Atria The left atrium is mildly dilated. There is no evidence of interatrial shunt. The right atrium is normal in size. Aortic Valve There is mild calcification of the aortic valve. There is no aortic valve stenosis. There is mild aortic valve regurgitation. Mitral Valve There is mild anterior and posterior mitral leaflet thickening. There is trace mitral valve regurgitation. There is no mitral valve stenosis. Pulmonic Valve The pulmonic valve was not well visualized. Tricuspid Valve Likely normal tricuspid valve structure and function. There is mild tricuspid valve regurgitation. The right ventricular systolic pressure is normal. The right ventricular systolic pressure is 31 mmHg. Normal right atrial pressure. There is no evidence of pulmonary hypertension. Great Vessels All visible segments of the aorta are normal in size. The pulmonary artery was not well visualized. Venous The inferior vena cava is normal in size and collapses greater than 50% with inspiration. Pericardium/Pleural There is no evidence of pericardial effusion. Prior Study Comparison No significant change compared to prior study dated: 10/27/2020. Measurements 2D Linear Measurements IVSd: 1.13 0.6-0.9/0.6-1.0 cm LVIDd: 4.49 3.9-5.3/4.2-5.9 cm LVIDd Index: 2.23 2.4-3.2/2.2-3.1 cm/m2 LVIDs: 3.41 2.0-3.6 cm LVPWd: 1.13 0.7-1.1 cm LA Diam: 3.90 2.7-3.8/3.0-4.0 cm LAIDs Index: 1.94 1.5-2.3 cm/m2 LV Mass: 225.71 67-162/88-224 g LV Mass Index: 112.29 43-95/49-115 g/m2 LVOT Diam: 2.10 3.0+(-)1.3 cm 2D Systolic Function EF 4C: 49.80 >55% EF 2C: 57.70 >55% EF BiP: 52.70 >55% Mitral Valve MV Pk E: 0.66 MV PK A: 0.80 MV Decel Time: 348.00 E/A: 0.80 E'Lateral: 5.44 E'Medial: 4.90 E/E' Med: 13.50 E/E' Lat: 12.20 PHT: 102.00 MVA PHT: 2.16 Decel Mckinley: 1.90 Aortic Valve AoV Pk Missael: 1.88 AoV Mn Missael: 1.15 AoV VTI: 0.28 AoV Pk Grad: 14.00 Aov Mn Grad: 7.00 ANDIE Cont.VTI: 2.87 AI Pk Missael: 3.72 AI Mckinley: 1.27 LVOT LVOT Pk Missael: 1.17 LVOT Mn Missael: 0.77 LVOT VTI: 0.23 LVOT Pk Grad: 5.00 LVOT Mn Grad: 3.00 LVOT Diam: 2.10 LVOT Area: 3.46 Diastolic Function MV Pk E: 0.66 MV Pk A: 0.80 E/A: 0.80 E'Medial: 4.90 E/E' Med: 13.50 E' Laterial: 5.44 E/E' Lat: 12.20 Right Ventricle TAPSE (mm): 19.50 TVS' Missael: 8.92 Tricuspid Valve TR Pk Missael: 2.01 TR Pk Grad: 16.00 RA Press: 15.00 RVSP: 31.00 Great Vessels Aorta Sinus of Valsalva: 3.50 2.0-3.[address] [place]: 3.13 1.7-3.4 cm Ao Asc: 3.40 2.1-3.4 cm Updated in Other Vendor System with Status of Final Jarred Vital MD electronically signed on 09/30/2021 1:39:35 PM with status of Final
== END ==
LOC: HO.CARD 11:15
PROVIDERS: PCP Internal Medicine; Visit Provider Internal Medicine Cardiovascular Disease
DX: I42.9 Cardiomyopathy, unspecified (principal)
CPT/HCPCS: 93306

== ENCOUNTER → 2021-10-04 08:05 | Outpatient (BNVA) | payer MEDICARE, SELFPAY | PROVIDERS: PCP Internal Medicine; Visit Provider Dietitian, Registered | DX: E66.9 Obesity, unspecified (principal); Z68.38 Body mass index [BMI] 38.0-38.9, adult; Z71.3 Dietary counseling and surveillance | CPT/HCPCS: 97803 ==

== ENCOUNTER 2021-11-10 13:42 | Emergency (ER) | payer MEDICARE, SELFPAY ==
--- NOTE | ~2021-11-10 | XR_ITS ---
EXAMINATION: XR CHEST XR NECK SOFT TISSUE CLINICAL INFORMATION: Food bolus. COMPARISON: 06/08/2020 TECHNIQUE: 2 views of the neck soft tissues. Frontal view of the chest. FINDINGS: The airways patent. The epiglottis is unremarkable. The prevertebral soft tissues are unremarkable. Degenerative changes noted at the mid cervical spine. No radiopaque foreign body. The lungs are well expanded and clear. No pleural effusion or pneumothorax. No dense consolidation. The cardiomediastinal silhouette is within normal limits. Status post median sternotomy. XR/XR soft tissue neck IMPRESSION: Clear lungs. Unremarkable appearance of the soft tissues of the neck.
--- NOTE | ~2021-11-10 | XR_ITS ---
EXAMINATION: XR CHEST XR NECK SOFT TISSUE CLINICAL INFORMATION: Food bolus. COMPARISON: 06/08/2020 TECHNIQUE: 2 views of the neck soft tissues. Frontal view of the chest. FINDINGS: The airways patent. The epiglottis is unremarkable. The prevertebral soft tissues are unremarkable. Degenerative changes noted at the mid cervical spine. No radiopaque foreign body. The lungs are well expanded and clear. No pleural effusion or pneumothorax. No dense consolidation. The cardiomediastinal silhouette is within normal limits. Status post median sternotomy. XR/XR chest 1V IMPRESSION: Clear lungs. Unremarkable appearance of the soft tissues of the neck.
[2021-11-10 13:56] VITALS: BP 142/81; PULSE 72; RESP 17; TEMP 35.6; O2SAT 96; BMI 38.0
--- NOTE | 2021-11-10 15:32 | P.EN_ITS ---
Event Note Date of Service: 11/10/21 Event Note: GI Consult-Full note dictated Imp: Possible esophageal obstruction. 71 yo female with history of esophageal obstruction due to food in 2018. This was relieved endoscopically. EGD in 2019 revealed a moderate-sized hiatal hernia but no stricture. The EG Junction was dilated with a 20mm balloon at that time but without any appreciable effect. She had normal esophageal motility studies in 2020. She now presents with symptoms of an esophageal obstruction since eat ing pork last PM. She had to regurgutate soup earlier today. She has tolerated sips of water. She appears comfortable. Rec: Assess swallowing with full cup of water. If swallows fine and does not reg urgitate at all she could probably go home and hold off on an EGD for today. If she is unable to keep the water down I will plan for an EGD today. Full consent obtained for this, including risks of bleeding and perforation. D/W patient in detail and she is comfortable with this plan. Thanks
--- NOTE | 2021-11-10 15:45 | ED.GENADULT ---
HPI - General Adult General Chief complaint: General Medical Stated complaint: FB in throat Time Seen by Provider: 11/10/21 15:30 Source: patient Mode of arrival: ambulatory History of Present Illness HPI narrative: 71-year-old female with a past medical history of arthritis, depression, GERD, left bundle-branch block, obesity, thyroid disease, presenting to ED with suspected foreign body stuck in throat since dinner last night. Admits ate pork loin, and since has had back pain and difficulty tolerating p.o. reports she was able to tolerate soup this morning however with immense pain. Denies nausea, vomiting, diarrhea, chest pain/shortness of breath Onset (ago): hour(s) Related Data Home Medications Medication Instructions Recorded Confirmed escitalopram oxalate 10 mg tablet 3 mg PO Q OTHER DAY PRN 04/12/20 08/21/21 levothyroxine 125 mcg tablet 125 mcg PO DAILY 04/12/20 08/21/21 omeprazole 20 mg capsule,delayed 20 mg PO DAILY 04/12/20 08/21/21 release cholecalciferol (vitamin D3) 50 50 mcg PO DAILY 06/07/20 08/21/21 mcg (2,000 unit) capsule clotrimazole-betamethasone 1 appl TOPICAL BID PRN 06/07/20 08/21/21 %-0.05 % topical cream multivitamin 1 tab PO DAILY 06/07/20 08/21/21 vitamin B complex (B 1 tab PO DAILY 06/07/20 08/21/21 Complex-Vitamin B12) alprazolam 1 mg tablet 1 mg PO DAILY PRN 08/18/20 08/21/21 latanoprost 0.005 % eye drops, 1 drp OPHTHALMIC (EYE) BEDTIME 08/21/21 08/21/21 emulsion (Xelpros) Allergies Allergy/AdvReac Type Severity Reaction Status Date / Time Penicillins [PENICILLINS] Allergy Intermediate RASH Verified 09/07/21 09:42 Review of Systems Review of Systems: Constitutional: No Fever, No Chills, No Fatigue, No Malaise ENT/Mouth: No Ear Pain, No Nasal Congestion, No Hoarseness, No sore throat, No Rhinorrhea, + Swallowing Difficulty/FB sensation Eyes: No Eye Pain, No Swelling, No Redness Cardiovascular: No Chest Pain, No SOB, No Dyspnea on Exertion, No Orthopnea, No Edema, No Palpitations Respiratory: No Cough, No Sputum, No Wheezing, No Dyspnea Gastrointestinal: No Nausea, No Vomiting, No Diarrhea, No Constipation, No Abdominal pain Genitourinary: No Dysuria, No Urinary Frequency, No Hematuria, No Flank Pain Musculoskeletal: No joint pain, No Myalgias, No Joint Swelling Skin: No Skin Lesions, No rash Neuro: No Weakness, No Headache Yes all other systems are reviewed and are negative [facility] Past Medical History Attestation statement: The following information was validated with the patient. Medical History Arthritis Depression GERD (gastroesophageal reflux disease) History of fatty infiltration of liver History of hypertrophic cardiomyopathy History of left bundle branch block (LBBB) LBBB (left bundle branch block) Morbid obesity Morbid obesity due to excess calories Obesity (BMI 30-39.9) Thyroid disease Surgical History H/O colonoscopy History of esophagogastroduodenoscopy (EGD) Hx of cataract surgery Hx of section Hx of tubal ligation S/P cholecystectomy S/P total knee arthroplasty Status post ventricular septal myectomy Family History Family History Father Obesity Mother COPD (chronic obstructive pulmonary disease) Brother No problems noted. Son No problems noted. Daughter No problems noted. Social History Social History Alcohol intake: never Patient Tobacco Use Status: Never used Tobacco Years Smoked: 5 years Use of substances other than those prescribed or required for medical reasons: No Advance Directives: No Advance Directives Information Provided: No Physical Exam ED Vital Signs: Vital Signs - 24 hr 11/10/21 13:56 11/10/21 16:46 11/10/21 17:37 Temperature 96.0 F L 98.0 F 97.5 F Pulse Rate 72 66 62 Respiratory Rate 17 18 20 Blood Pressure 142/81 H 142/71 H 133/72 Pulse Oximetry 96 98 96 BMI result Body Mass Index 38.0 Const General: cooperative, healthy appearing and no acute distress Orientation/consciousness: patient oriented x3 Limitations: no limitations HENMT Head: Yes normal to inspection and Yes atraumatic Ears: hearing grossly normal bilaterally General nose exam: Normal external nose present Face and sinus: Yes normal facial exam Throat: Yes posterior oropharynx normal, Yes tonsils normal, Yes uvula midline, No peritonsillar mass and No uvular edema Eyes General: appearance normal, both eyes and all related structures EOM: EOMs intact bilaterally Neck Neck: Yes normal visual inspection, Yes no meningeal signs and No anterior neck swelling Resp Effort & Inspection: normal respiratory effort, not labored, no nasal flaring, no respiratory distress, no stridor, not tachypneic and no tripod positioning Auscultation: clear to auscultation bilaterally, no rales, no rhonchi and no wheezes Cardio Rate: regular rate Heart sounds: S1 normal heart sound present and S2 normal heart sound present GI Inspection: Yes normal to inspection Palpation (GI): Soft to palpation, nontender, no guarding and not rigid Skin Rashes: no rashes Wounds: no wounds Neuro General: patient oriented x3, tone normal and no meningeal signs Gait exam (Neuro): Normal gait present Extrem General: Yes normal to inspection Course Course Course Narrative: -1545--patient tolerated small sips of water then had pain, unable to tolerate full cup >> will give IV glucagon and re-evaluate. Dr. Stevenson aware -labs unremarkable. COVID-19 negative -1642--patient was able to tolerate entire cup of water however reported continued discomfort, stating this is similar symptoms to prior food impaction. Dr. Stevenson aware and will schedule endoscopy for this afternoon Patient transferred to short-stay surgery Medical Decision Making [facility] Narrative Medical decision making narrative: 71-year-old female with a past medical history of arthritis, depression, GERD, left bundle-branch block, obesity, thyroid disease, presenting to ED with suspected foreign body stuck in throat since dinner last night. On exam vital signs stable, NAD/nontoxic appearing, in no respiratory distress, abdomen soft/nontender. Concern for food bolus. Low concern for ACS Plan: Labs, IV glucagon, p.o. challenge Medical Records Medical records reviewed: Yes I reviewed the patient's medical records. Lab Data Lab results reviewed: Yes I reviewed the patient's lab results. Result diagrams: 11/10/21 15:45 11/10/21 15:45 Labs: Lab Results 11/10/21 11/10/2122 Range/Units 15:45 15:45 17:04 WBC 6.5 (4.8-10.8) X10*3/uL RBC 5.23 (4.20-5.50) X10*6/uL Hgb 14.2 (12.0-16.0) g/dl Hct 43.2 (37.0-47.0) % MCV 82.6 (80.0-98.0) fL MCH 27.2 (27.0-33.0) pg MCHC 32.9 (31.0-35.0) g/dl RDW 16.2 H (11.0-16.0) % Plt Count 163 (160-400) X10*3/uL MPV 10.5 (9.4-12.3) fL Immature Gran % (Auto) 0.2 (0.0-0.4) % Neut % (Auto) 63.4 (45-73) % Lymph % (Auto) 27.6 (20-40) % [place] % (Auto) 6.7 (2-11) % Eos % (Auto) 1.5 (0-4) % Baso % (Auto) 0.6 (0-2) % Lymph # (Auto) 1.8 (1.2-4.9) X10*3/uL [place] # (Auto) 0.4 (0.1-1.2) X10*3/uL Eos # (Auto) 0.1 (0.0-0.4) X10*3/uL Baso # (Auto) 0.0 (0.0-0.2) X10*3/uL Abs Immat Gran (auto) 0.01 (0.00-0.03) X10*3/uL Absolute Neuts (auto) 4.1 (2.0-8.3) x10*3/uL Absolute Nucleated RBC 0.000 (0.0-0.012) X10*3/uL Nucleated RBC % (auto) 0.0 (0.0-0.2) /100WBC Sodium 139 (135-145) mmol/L Potassium 4.0 (3.3-5.1) mmol/L Chloride 105 (96-108) mmol/L Carbon Dioxide 26 (22-29) mmol/L Anion Gap 12 (12-20) BUN 16 (9-16) mg/dL Creatinine 0.78 (0.5-1.4) mg/dL Estim Creat Clear Calc 73.5 Estimated GFR > 60 Random Glucose 87 (60-115) mg/dL Calcium 9.6 (8.4-10.2) mg/dL COVID-19 (RADHA) Negative (Negative) COVID-19 Clin Com See Note ECG Data Attestation: I personally reviewed and interpreted this ECG as follows: Prior ECG tracings: available for review Interpretation: EKG sinus bradycardia at a rate of 59. No significant change when compared to prior EKGs. Left bundle-branch block noted. QTC 49. No STEMI Discharge Plan Discharge Clinical Impression: Food bolus obstruction of intestine Patient Disposition: Xfer Other Transfer Details: Short-stay surgery Instructions: Food Impaction (ED) Additional Instructions: Your blood work was reassuring. You were sent to endoscopy for removal of her food impaction. Please take smaller bites and chew your food more closely If symptoms persist or worsen please return to the emergency department Prescriptions: No Action omeprazole 20 mg capsule,delayed release(DR/EC) 20 mg PO DAILY 0RF levothyroxine 125 mcg tablet 125 mcg PO DAILY 0RF escitalopram oxalate 10 mg tablet 3 mg PO Q OTHER DAY PRN (Reason: Anxiety) 0RF alprazolam 1 mg tablet 1 mg PO DAILY PRN (Reason: Anxiety) 0RF Rx Instructions: 1.5mg cholecalciferol (vitamin D3) 50 mcg (2,000 unit) capsule 50 mcg PO DAILY 0RF multivitamin Tablet 1 tab PO DAILY 0RF vitamin B complex [B Complex-Vitamin B12] Tablet 1 tab PO DAILY 0RF clotrimazole-betamethasone 1-0.05 % cream topical BID PRN0RF Xelpros 0.005 % drops, emulsion 1 drp ophthalmic (eye) BEDTIME 0RF Referrals: Bhanu Ramachandran MD [Primary Care Provider] - Avila Stevenson [Physician] -
[2021-11-10 15:48] LABS: MANUAL DIFF FLAG NO
[2021-11-10 15:52] LABS: Basophils Percent Auto 0.6 % (0-2); Eosinophils Absolute Auto 0.1 X10*3/uL (0.0-0.4); Eosinophils Percent Auto 1.5 % (0-4); Hematocrit 43.2 % (37.0-47.0); Hemoglobin 14.2 g/dl (12.0-16.0); Imm Gran Abs Auto 0.01 X10*3/uL (0.00-0.03); Imm Gran Pct Auto 0.2 % (0.0-0.4); Lymphocytes Absolute Auto 1.8 X10*3/uL (1.2-4.9); Lymphocytes Percent Auto 27.6 % (20-40); Mean Corpuscular HGB Conc 32.9 g/dl (31.0-35.0); Mean Corpuscular Hemoglobin 27.2 pg (27.0-33.0); Mean Corpuscular Volume 82.6 fL (80.0-98.0); Mean Platelet Volume 10.5 fL (9.4-12.3); Monocytes Absolute Auto 0.4 X10*3/uL (0.1-1.2); Monocytes Percent Auto 6.7 % (2-11); Neutrophils Absolute Auto 4.1 x10*3/uL (2.0-8.3); Neutrophils Percent Auto 63.4 % (45-73); Platelet Count 163 X10*3/uL (160-400); Red Blood Count 5.23 X10*6/uL (4.20-5.50); Red Cell Distribution Width 16.2 % (11.0-16.0); White Blood Count 6.5 X10*3/uL (4.8-10.8)
[2021-11-10 16:11] LABS: Anion Gap 12 (12-20); Blood Urea Nitrogen 16 mg/dL (9-16); Calcium 9.6 mg/dL (8.4-10.2); Carbon Dioxide 26 mmol/L (22-29); Chloride 105 mmol/L (96-108); Creatinine Clr Calc Pharmacy 73.5; Estimated Glomerular Filt Rate > 60; Glucose Random 87 mg/dL (60-115); Sodium 139 mmol/L (135-145)
--- NOTE | 2021-11-10 16:41 | PC.NURSE ---
pt was able to tolerate an entire cup of water and swallowing was not an issue except at the end when she still experiences pain in mid back, this is the same thing that happened in the past. MD and RN at bedside and MD will let GI know these findings
[2021-11-10 16:46] VITALS: BP 142/71; PULSE 66; RESP 18; TEMP 36.7; O2SAT 98
--- NOTE | 2021-11-10 16:57 | ECG_ITS ---
Test Reason : CARDIAC Blood Pressure : / mmHG Vent. Rate : 059 BPM Atrial Rate : 059 BPM P-R Int : 194 ms QRS Dur : 156 ms QT Int : 494 ms P-R-T Axes : 037 -31 135 degrees QTc Int : 489 ms Sinus bradycardia Left axis deviation Left bundle branch block Abnormal ECG When compared with ECG of 25-APR-2017 09:39, No significant change was found Referred By: Penny Romero Electronically Signed By:SALLY LUDWIG MD
--- NOTE | 2021-11-10 17:12 | P.CONAN_ITS ---
Documented by User: Akanksha Bunn MD 11/10/21 17:15 HPI - Anesthesia Eval Consult details Narrative: 71yo female patient with FB food impaction, for EGD PMFSH Active Problems Active Problems: All Active Problems (Updated 08/21/21 @ 09:37 by Jarred Vital MD) Cardiomyopathy (Acute) ALIRIO (obstructive sleep apnea) (Acute) Obesity (BMI 30-39.9) (Acute) History of hypertrophic cardiomyopathy (Acute) BMI 39.0-39.9,adult (Acute) H. pylori infection (Acute) Body mass index (BMI) of 40.0 to 44.9 in adult (Acute) Morbid obesity due to excess calories (Acute) Shortness of breath (Acute) Preoperative examination (Acute) Morbid obesity (Acute) Obesity (Acute) LBBB (left bundle branch block) (Acute) Cup of water 16:42 Past Medical History Medical History Arthritis Depression GERD (gastroesophageal reflux disease) History of fatty infiltration of liver History of hypertrophic cardiomyopathy History of left bundle branch block (LBBB) LBBB (left bundle branch block) Morbid obesity Morbid obesity due to excess calories Obesity (BMI 30-39.9) Thyroid disease Family History Family History Father Obesity Mother COPD (chronic obstructive pulmonary disease) Brother No problems noted. Son No problems noted. Daughter No problems noted. Surgical History Surgical History H/O colonoscopy History of esophagogastroduodenoscopy (EGD) Hx of cataract surgery Hx of section Hx of tubal ligation S/P cholecystectomy S/P total knee arthroplasty Status post ventricular septal myectomy Social History Social History Alcohol intake: never Patient Tobacco Use Status: Never used Tobacco Years Smoked: 5 years Use of substances other than those prescribed or required for medical reasons: No Advance Directives: No Advance Directives Information Provided: No Meds Allergies Allergy/AdvReac Type Severity Reaction Status Date / Time Penicillins [PENICILLINS] Allergy Intermediate RASH Verified 09/07/21 09:42 Home Medications Medication Instructions Recorded Confirmed Last Taken Type escitalopram oxalate 10 mg tablet 3 mg PO Q OTHER DAY PRN 04/12/20 08/21/21 Unknown History levothyroxine 125 mcg tablet 125 mcg PO DAILY 04/12/20 08/21/21 04/15/20 06:00 History omeprazole 20 mg capsule,delayed 20 mg PO DAILY 04/12/20 08/21/21 Unknown History release cholecalciferol (vitamin D3) 50 50 mcg PO DAILY 06/07/20 08/21/21 Unknown History mcg (2,000 unit) capsule clotrimazole-betamethasone 1 appl TOPICAL BID PRN 06/07/20 08/21/21 Unknown History %-0.05 % topical cream multivitamin 1 tab PO DAILY 06/07/20 08/21/21 Unknown History vitamin B complex (B 1 tab PO DAILY 06/07/20 08/21/21 Unknown History Complex-Vitamin B12) alprazolam 1 mg tablet 1 mg PO DAILY PRN 08/18/20 08/21/21 Unknown History latanoprost 0.005 % eye drops, 1 drp OPHTHALMIC (EYE) BEDTIME 08/21/21 08/21/21 Unknown History emulsion (Xelpros) Exam Exam Date and Time: November 10, 2021 1712 Height,Weight and Vital Signs: Height 5 ft 3 in Weight 97.522 kg Last Vital Signs Temp 98.0 F 11/10/21 16:46 Pulse 66 11/10/21 16:46 Resp 18 11/10/21 16:46 BP 142/71 H 11/10/21 16:46 Pulse Ox 98 11/10/21 16:46 Pertinent Lab Results Pertinent Lab Results: Laboratory Tests 11/10/21 11/10/21 15:45 15:45 WBC 6.5 RBC 5.23 Hgb 14.2 Hct 43.2 MCV 82.6 MCH 27.2 MCHC 32.9 RDW 16.2 H Plt Count 163 MPV 10.5 Immature Gran % (Auto) 0.2 Neut % (Auto) 63.4 Lymph % (Auto) 27.6 [place] % (Auto) 6.7 Eos % (Auto) 1.5 Baso % (Auto) 0.6 Lymph # (Auto) 1.8 [place] # (Auto) 0.4 Eos # (Auto) 0.1 Baso # (Auto) 0.0 Abs Immat Gran (auto) 0.01 Absolute Neuts (auto) 4.1 Absolute Nucleated RBC 0.000 Nucleated RBC % (auto) 0.0 Sodium 139 Potassium 4.0 Chloride 105 Carbon Dioxide 26 Anion Gap 12 BUN 16 Creatinine 0.78 Estim Creat Clear Calc 73.5 Estimated GFR > 60 Random Glucose 87 Calcium 9.6 Narrative Narrative: Procedure Date:? 09/29/2021 Procedure Type:? Transthoracic Echocardiogram ? Conclusions: - 1. Mildly reduced LV systolic function with LVEF of 45-50% ? ? 2. Mildly dilated left atrium? 3. Mild aortic regurgitation ? 4.? Normal RV systolic pressure? 5.? No pericardial effusion? Findings Left Ventricle Normal left ventricular cavity size.? There is normal left ventricular wall thickness.? The left ventricular systolic function is mildly decreased.? The visually estimated ejection fraction is between 45-50%.? There is paradoxical septal motion consistent with a left bundle branch block.? Spectral Doppler is indicative of an impaired relaxation filling pattern.? E/E prime ratio is between 8 and 15 consistent with indeterminate filling pressures. Wall Motion Rest Echo Findings The basal anteroseptal segment is akinetic. All other scored wall segments showed normal motion. Right Ventricle Normal right ventricular cavity size and systolic function. Atria The left atrium is mildly dilated.? There is no evidence of interatrial shunt.? The right atrium is normal in size. Aortic Valve There is mild calcification of the aortic valve.? There is no aortic valve stenosis.? There is mild aortic valve regurgitation. Mitral Valve There is mild anterior and posterior mitral leaflet thickening. There is trace mitral valve regurgitation.? There is no mitral valve stenosis. Pulmonic Valve The pulmonic valve was not well visualized. Tricuspid Valve Likely normal tricuspid valve structure and function.? There is mild tricuspid valve regurgitation.? The right ventricular systolic pressure is normal.? The right ventricular systolic pressure is 31 mmHg.? Normal right atrial pressure.? There is no evidence of pulmonary hypertension. Great Vessels All visible segments of the aorta are normal in size.? The pulmonary artery was not well visualized. Venous The inferior vena cava is normal in size and collapses greater than 50% with inspiration. Pericardium/Pleural There is no evidence of pericardial effusion. Prior Study Comparison No significant change compared to prior study dated:? 10/27/2020. Documented by User: Kofi Morton MD 11/10/21 17:35 [facility] Past Medical History Medical History Arthritis Depression GERD (gastroesophageal reflux disease) History of fatty infiltration of liver History of hypertrophic cardiomyopathy History of left bundle branch block (LBBB) LBBB (left bundle branch block) Morbid obesity Morbid obesity due to excess calories Obesity (BMI 30-39.9) Thyroid disease Family History Family History Father Obesity Mother COPD (chronic obstructive pulmonary disease) Brother No problems noted. Son No problems noted. Daughter No problems noted. Family history of problems with anesthesia: No Surgical History Surgical History H/O colonoscopy History of esophagogastroduodenoscopy (EGD) Hx of cataract surgery Hx of section Hx of tubal ligation S/P cholecystectomy S/P total knee arthroplasty Status post ventricular septal myectomy History of Problems with Anesthesia: No Social History Social History Alcohol intake: never Patient Tobacco Use Status: Never used Tobacco Years Smoked: 5 years Use of substances other than those prescribed or required for medical reasons: No Advance Directives: No Advance Directives Information Provided: No Meds Allergies Allergy/AdvReac Type Severity Reaction Status Date / Time Penicillins [PENICILLINS] Allergy Intermediate RASH Verified 09/07/21 09:42 Home Medications Medication Instructions Recorded Confirmed Last Taken Type escitalopram oxalate 10 mg tablet 3 mg PO Q OTHER DAY PRN 04/12/20 08/21/21 Unknown History levothyroxine 125 mcg tablet 125 mcg PO DAILY 04/12/20 08/21/21 04/15/20 06:00 History omeprazole 20 mg capsule,delayed 20 mg PO DAILY 04/12/20 08/21/21 Unknown History release cholecalciferol (vitamin D3) 50 50 mcg PO DAILY 06/07/20 08/21/21 Unknown History mcg (2,000 unit) capsule clotrimazole-betamethasone 1 appl TOPICAL BID PRN 06/07/20 08/21/21 Unknown History %-0.05 % topical cream multivitamin 1 tab PO DAILY 06/07/20 08/21/21 Unknown History vitamin B complex (B 1 tab PO DAILY 06/07/20 08/21/21 Unknown History Complex-Vitamin B12) alprazolam 1 mg tablet 1 mg PO DAILY PRN 08/18/20 08/21/21 Unknown History latanoprost 0.005 % eye drops, 1 drp OPHTHALMIC (EYE) BEDTIME 08/21/21 08/21/21 Unknown History emulsion (Xelpros) Exam Airway Mallampati Class: II TM Dist: >3cm Neck ROM: Full Loose/Missing/Broken Teeth: No Heart: RRR Lungs: CTA Assessment and Plan Assessment Anesthesia Assessment: Anesthesia Plan Discussed and Chart Reviewed Final Anesthetic Review Family History of Problems with Anesthesia: No History of Problems with Anesthesia: No NPO: No ASA Class: III and Emergency Final Preanesthetic Review: No Changes in Pt Med Stat, Meds/Allgs Chart Reviewed, Consent Obtained/Reviewed and Anes Risks/Benef Reviewed Patient Risk: Intermediate Procedure Risk: Low Anesthetic Plan Anesthetic Plan: MAC: Disposition: Standard PACU
--- NOTE | 2021-11-10 17:23 | MHC.SHP ---
Pre-Procedural Eval Section A Date of Service: 11/10/21 The patient is an INPATIENT: No The History & Physical has been completed within 30 days and I have reviewed it.: Yes Section B Chief Complaint: FB in throat Allergies: Allergies Allergy/AdvReac Type Severity Reaction Status Date / Time Penicillins [PENICILLINS] Allergy Intermediate RASH Verified 09/07/21 09:42 Plan I have reviewed the history and physical and performed a pertinent physical examination on my patient. No changes have occurred unless specified.
[2021-11-10 17:31] LABS: COVID-19 Test Negative (Negative)
[2021-11-10 17:37] VITALS: BP 133/72; PULSE 62; RESP 20; TEMP 36.4; O2SAT 96
[2021-11-10 18:22] VITALS: BP 125/69; PULSE 61; RESP 17; TEMP 36.3; O2SAT 100
--- NOTE | 2021-11-10 18:24 | P.BOP_ITS ---
Brief Operative Note Date of Service: 11/10/21 Pre-op diagnosis: Esophageal obstruction Post-op diagnosis: other (Large food bolus in moderate-sized hiatal hernia, no definitie stricture noted) Procedure: EGD with removal of foreign body(food bolus) from hiatal hernia into stomach, and balloon dilation of EG Junction from 19-20mm Surgeon: Avila Stevenson Anesthesia: MAC Was an Managed Care Coordinator used for this Procedure?: No Estimated blood loss (mL): 0 Pathology: none sent Condition: stable Disposition: PACU
[2021-11-10 18:37] VITALS: BP 134/63; PULSE 58; RESP 16; TEMP 36.3; O2SAT 100
--- NOTE | 2021-11-10 20:48 | OP_ITS ---
SURGEON: Avila Stevenson MD INDICATIONS: The patient presents for evaluation of dysphagia. Full consent has been obtained from her for this, including risks of bleeding and perforation. PREOPERATIVE DIAGNOSIS: Dysphagia. POSTOPERATIVE DIAGNOSIS: PROCEDURE PERFORMED: Esophagogastroduodenoscopy with removal of food bolus from the hiatal hernia and pushed into the stomach, and balloon dilation of gastroesophageal junction. ESTIMATED BLOOD LOSS: COMPLICATIONS: ANESTHESIA: Monitored anesthesia care. ASSISTANTS: SPECIMENS: POSTOPERATIVE DIAGNOSES: Dysphagia, large food bolus within hiatal hernia, tortuous distal esophagus. DESCRIPTION OF PROCEDURE: The patient was placed in the left lateral decubitus position. The Olympus video gastroscope was passed in the posterior oropharynx and upper esophagus under direct vision. The scope was passed slowly to the distal esophagus. The esophagus was tortuous in the distal portion, but with normal overlying mucosa. The gastroesophageal junction appeared at 30 cm. Immediately beneath this and within the moderate-sized hiatal hernia was a large food bolus of meat and vegetables. I was able to push all this fairly easily beyond the hiatal hernia and into the stomach. The diaphragmatic indentation of the folds appeared to be at about 35 or 36 cm. Once I was able to push all the food into the stomach, I did advance to the pylorus. The duodenum was cannulated to the descending portion. The duodenum including the bulb appeared normal without mass or ulceration. The scope was withdrawn back into the stomach. The gastric antrum and body appeared normal with good peristalsis. I did retroflex, but really could not see much due to the retained food. The scope was straightened and withdrawn back into the hiatal hernia. The hiatal hernia mucosa did appear erythematous and somewhat friable, but there were no ulcerations nor mass. The gastroesophageal junction at 30 cm appeared patent and without any sign of stricture nor ring. I did use a [employer] incremental balloon to dilate the gastroesophageal junction from 19 mm to 20 mm at the recommended pressure for 60 seconds each, although the balloon itself pulled easily into and out of the hiatal hernia and there was no heme noted post-dilation. Again, the distal esophagus was tortuous, but there were no mucosal abnormalities. The scope was withdrawn from the patient. She tolerated the procedure well and was returned to the recovery area in stable condition. IMPRESSION: 1. Moderate-sized hiatal hernia with food bolus. 2. Tortuous distal esophagus. PLAN: Based on these findings I suspect she might have had the large food bolus stuck in the lower esophagus initially which caused the initial significant dysphagia. By the time we did the scope I suspect the food bolus had passed into the hiatal hernia. It was quite a large food bolus and I think that was the probable cause of the obstruction. She did have normal esophageal motility studies done about 2 years ago. At this point, I have advised her to use omeprazole twice a day for 1 month and then go back to the once a day dose that she usually takes. We have instructed her both verbally and with written instructions that she needs to eat slowly, cut up her food very carefully, stay upright for at least 3 or 4 hours after eating, and to drink fluids with her food as well. If things are stable, she will see me on a p.r.n. basis. She will call if she has any problems. This has all been discussed with her in detail and she has been given instructions in this regard as well. I did offer to call her family, but she declined that offer. MD THU Salgado/GENI / [id number] MTDD
--- NOTE | 2021-11-10 21:09 | CONS_ITS ---
DATE OF SERVICE: 11/10/2021 REASON FOR CONSULTATION: Dysphagia. HISTORY OF PRESENT ILLNESS: This has been obtained from the patient and the medical record. The patient is a 71-year-old female with a previous history of esophageal obstruction relieved endoscopically by me in 2017. She called me today describing inability to swallow any food since last evening when she was eating pork. This occurred acutely and then persisted all night. She has had some discomfort in the lower chest when she tries to swallow. She was able to keep down a cup of coffee this morning, although did drink it very slowly. She tried some soup after that, but within 2-3 spoonfuls had to regurgitate. Since that time, she has had 1 cup of water very slowly with just sips at a time. She reports that she is not having any difficulty with her secretions. She came to the ER for further evaluation at my instruction. . Prior to yesterday, she was eating comfortably. In addition to the endoscopy in 2017, during the esophageal obstruction, she underwent an upper endoscopy with me in 2019, revealing a moderate-sized hiatal hernia and a tiny area of Kaufman mucosa. There was a moderate-sized hiatal hernia, but no esophagitis nor stricture. I did dilate the gastroesophageal junction with a 20 mm balloon at that time without any real appreciable effect. She had subsequent normal esophageal motility studies in 2020. However, up until yesterday, she was eating and swallowing without any difficulties. She denies any chronic heartburn on her daily omeprazole. She denies any abdominal pain. She denies any melena nor hematochezia. She denies any jaundice. MEDICATIONS: Include citalopram, vitamin D, levothyroxine, omeprazole eyedrops, vitamins. PAST MEDICAL HISTORY: Esophageal obstruction and reflux as above. 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 Arthritis. Depression. Autoimmune hepatitis diagnosed in 2013 with liver biopsy that was treated with a course of prednisone, but has remained in remission off that for over 5 years now. Colonoscopies in 2014 and 2019 with small tubular adenomas removed. Positive H pylori breath test in 2019, treated with Biaxin, sulfa, and pantoprazole. Normal esophageal motility studies. She denies any history of SC, diabetes, stroke, lung disease or kidney disease. Septal myectomy with open-heart surgery at [facility] in [place] 2016. Cholecystectomy. C-sections. Left knee replacement 2004 and right knee replacement 2005. Cataracts bilaterally. She does have sleep apnea and uses a CPAP machine. SOCIAL HISTORY: She is . She is retired. She does not smoke nor use any significant amounts of alcohol. FAMILY HISTORY: Noncontributory. REVIEW OF SYSTEMS: CONSTITUTIONAL: Up until yesterday she was feeling well with good energy and good appetite. SKIN: No rash. No pruritus. CARDIAC: No chest pain. PULMONARY: No cough. No hemoptysis. GI: As above. PHYSICAL EXAMINATION: GENERAL: The patient is a pleasant, alert, comfortable-appearing female. SKIN: Warm and dry. Anicteric sclerae. NECK: Supple. There is no crepitus. CHEST: Clear. CARDIAC: Normal S1, S2. ABDOMEN: Soft and nontender. IMPRESSION: Given the patient's clinical history, I would be most concerned about a recurrent esophageal obstruction secondary to her ingestion of pork last evening. At this point, I would recommend that we assess her with having her drink a full glass of water. If she regurgitates that she would clearly need upper endoscopy for evaluation to relieve the obstruction and possibly perform dilation. On the other hand, if she is able to drink a cup of water very quickly and then hold it down without any regurgitation indicating that the obstruction has resolved, we could probably hold off on the endoscopy for today. In the event the endoscopy is needed. I did obtain full consent for this, including risks of bleeding and perforation. If she is able hold the water down and there is no sign of obstruction, she could probably be discharged and we could follow her up as an outpatient either with elective endoscopy or outpatient barium swallow. This has been discussed with her in detail and she is comfortable with that plan. Thank you for the consultation. MD THU Salgado/GENI / [id number] [place]
--- NOTE | 2021-11-11 10:46 | HO.POSTANES ---
Post Anesthesia Evaluation Post Anesthesia Evaluation Anesthesia: Monitored Mental Status: Awake Pain Control: Satisfactory Nausea/Vomiting: None Hydration: Adequate Anesthesia-Related Issues: No Anes. Related Issues
== END 2021-11-10 17:10 | disposition home or self-care (01) ==
PROVIDERS: Internal Medicine; Physician Assistant; Emergency Provider Student in an Organized Health Care Education/Training Program; PCP Internal Medicine
PROC: 0DJ08ZZ Inspection of Upper Intestinal Tract, Via Natural or Artificial Opening Endoscopic (ICD-10-PCS; CPT 43235; principal; 2021-11-10 17:30)
DX: T18.128A Food in esophagus causing other injury, initial encounter (principal); K44.9 Diaphragmatic hernia without obstruction or gangrene; K22.89 Other specified disease of esophagus; K21.9 Gastro-esophageal reflux disease without esophagitis; E03.8 Other specified hypothyroidism; E06.3 Autoimmune thyroiditis; Z79.899 Other long term (current) drug therapy; Z88.0 Allergy status to penicillin; Z20.822 Contact with and (suspected) exposure to COVID-19; X58.XXXA Exposure to other specified factors, initial encounter; Y93.9 Activity, unspecified; Y92.9 Unspecified place or not applicable; Y99.9 Unspecified external cause status
CPT/HCPCS: 43247; 43249; 36415; 70360; 71045; 80048; 85025; 87635; 93005; 96374; 99284; 99285; C1726; J1610; J3010

== ENCOUNTER 2021-11-20 14:30 | Outpatient (REF) | payer MEDICARE, SELFPAY ==
[2021-11-20 15:42] LABS: Alanine Aminotransferase 26 U/L (0-31); Albumin Level 3.8 g/dL (3.5-5.0); Alkaline Phosphatase 80 U/L (39-117); Aspartate Amino Transferase 32 U/L (5-31); Bilirubin Direct 0.2 mg/dL (0.0-0.5); Bilirubin Total 0.6 mg/dL (0.0-1.0); Total Protein 6.4 g/dL (6.5-8.0)
== END 2021-11-20 14:31 | disposition home or self-care (01) ==
LOC: HO.LAB 14:30
PROVIDERS: PCP Internal Medicine; Visit Provider Internal Medicine
DX: K75.4 Autoimmune hepatitis (principal)
CPT/HCPCS: 36415; 80076

== ENCOUNTER 2022-03-01 14:30 | Outpatient (REF) | payer SELFPAY | END 2022-03-01 14:31 | disposition home or self-care (01) | LOC: HO.HAP 14:30 | PROVIDERS: Visit Provider Internal Medicine | DX: Z46.1 Encounter for fitting and adjustment of hearing aid (principal); H90.3 Sensorineural hearing loss, bilateral | CPT/HCPCS: V5266; V5267 ==

== ENCOUNTER 2022-05-11 14:49 | Outpatient (REF) | payer MEDICARE, SELFPAY ==
--- NOTE | ~2022-05-11 | MM_ITS ---
EXAMINATION: MM SCREENING DIGITAL BREAST TOMOSYNTHESIS, BILATERAL CLINICAL INFORMATION: Screening. Asymptomatic. The lifetime risk of breast cancer based on the Tyrer-Cuzick Model is 4%. COMPARISON: Mammography: 05/10/2021, 04/29/2020, 04/24/2019 TECHNIQUE: Digital breast tomosynthesis is performed in both the craniocaudal and mediolateral oblique views along with computer-aided detection (CAD). Synthesized 2D images are generated from the tomosynthesis. Additional bilateral MLO views are provided. FINDINGS: There are scattered areas of fibroglandular density (ACR BI-RADS breast composition Category b). There are no significant masses, abnormal calcifications, or other abnormalities. Scattered stromal and fibroglandular densities are similar to prior exams. No architectural abnormality. No significant changes. MM/MM tomosynthesis screening BI IMPRESSION: No mammographic evidence of malignancy. ASSESSMENT: BI-RADS 1: Negative RECOMMENDATION: Routine annual mammography screening. This patient's information was entered into a reminder system with a target due date for their next mammogram.
== END 2022-05-11 14:50 | disposition home or self-care (01) ==
LOC: HO.MAMMO 14:49
PROVIDERS: PCP Internal Medicine; Visit Provider Internal Medicine
DX: Z12.31 Encounter for screening mammogram for malignant neoplasm of breast (principal)
CPT/HCPCS: 77063; 77067

== ENCOUNTER 2022-05-16 08:48 | Outpatient (REF) | payer SELFPAY ==
--- NOTE | 2022-05-16 11:59 | MHC.AU.HA3 ---
Hearing Instrument Follow-Up- Binaural Date of Visit: 05/16/22 Right Ear: Make, Model, Color, Serial Number: Mikey Gonzalez Q50-13 [id number] ITEs SN: [id number] Color: [employer] Warranty: 10/17/2014 News Internship Loss and Damage Warranty: 10/17/2013 Battery Size: 13 Type of Wax Guard: CeruStop Dispensed By: [facility] Date of Fittin10/06/2012 Left Ear: Make, Model, Color, Serial Number: Mikey Marcoso Q50-13 FS ITEs SN: [id number] Color: [employer] Warranty: 10/17/2014 [employer] Internship Loss and Damage Warranty: 10/17/2013 Battery Size: 13 Type of Wax Guard: CeruStop Dispensed By: [facility] Date of Fittin10/06/2012 Follow-Up Summary: Alyse reported that both hearing aids are intermittent, turning off spontaneously for a few seconds then popping back on. She reported this same issue happened in 2014. Her hearing aid was sent out for repair at that time; however, the issue continued and she reportedly just got used to it. Now it seems to happen in both hearing aids and more frequently. Cleaned hearing aids. Some wax noted in hearing aid behind wax guard - cleaned out. Replaced wax guards and vacuumed microphones. Ran hearing aids through dehumidifier for any moisture concerns. A listening check demonstrated that the hearing aids are in good working order - unable to replicate intermittency in office. Alyse noted that she mostly notices the intermittency in loud environments. Made slight programming changes to lower compression ratios. Advised if problem persists, she would need to consider sending hearing aids for a service agent repair; however, due to their age, discussed option for new hearing aids as well. Recommendations: Hearing instrument maintenance in 6 months, or sooner if needed. Patient will call if problems persist. Diagnosis Code(s): Primary Diagnosis: H90.3 Bilateral Sensorineural Hearing Loss Signature: Provider: Natalie Waldron, [facility]
== END 2022-05-16 08:49 | disposition home or self-care (01) ==
LOC: HO.HAP 08:48
PROVIDERS: Visit Provider Internal Medicine
DX: Z46.1 Encounter for fitting and adjustment of hearing aid (principal); H90.3 Sensorineural hearing loss, bilateral
CPT/HCPCS: 92593

== ENCOUNTER → 2022-09-07 10:24 | Outpatient (BNVA) | payer MEDICARE, SELFPAY | PROVIDERS: PCP Internal Medicine; Visit Provider Internal Medicine Pulmonary Disease | DX: G47.33 Obstructive sleep apnea (adult) (pediatric) (principal); E66.01 Morbid (severe) obesity due to excess calories; Z68.41 Body mass index [BMI] 40.0-44.9, adult; Z99.89 Dependence on other enabling machines and devices | CPT/HCPCS: 99212 ==

== ENCOUNTER 2022-10-29 07:59 | Outpatient (REF) | payer MEDICARE, SELFPAY ==
--- NOTE | ~2022-10-29 | FL_ITS ---
EXAMINATION: FL UPPER GI WITH BARIUM SWALLOW CLINICAL INDICATION: Epigastric pain and gastroesophageal reflux. COMPARISON: None available. TECHNIQUE: Routine barium swallow and upper GI exam was performed. FINDINGS: Following oral administration of thick barium and effervescent granules, there is normal propagation of bolus from the oral cavity through the pharynx and esophagus and into the stomach without any evidence of obstruction, narrowing or stricture. On placing patient supine and prone lying, there is a moderate-sized nonreducible hiatal hernia. Rest of the course and caliber of the stomach, duodenal bulb and the sweep is normal FL/FL upper GI w Ba Swallow IMPRESSION: Nonreducible moderate-sized hiatal hernia. FLUOROSCOPY TIME: 1.7 minutes. DOSE AREA PRODUCT: 31.185 Gy-cm2.
== END 2022-10-29 08:00 | disposition home or self-care (01) ==
LOC: HO.XRAY 07:59
PROVIDERS: PCP Internal Medicine; Visit Provider Internal Medicine
DX: K21.9 Gastro-esophageal reflux disease without esophagitis (principal); K44.9 Diaphragmatic hernia without obstruction or gangrene
CPT/HCPCS: 74240

== ENCOUNTER 2022-11-01 12:54 | Outpatient (REF) | payer MEDICARE, SELFPAY ==
[2022-11-01 14:04] LABS: Anion Gap 13 (12-20); Blood Urea Nitrogen 16 mg/dL (9-16); C Reactive Protein 0.17 mg/dL (< or = 0.50); Calcium 9.6 mg/dL (8.4-10.2); Carbon Dioxide 26 mmol/L (22-29); Chloride 107 mmol/L (96-108); Estimated Glomerular Filt Rate > 60; Glucose Random 85 mg/dL (60-115); Potassium 4.2 mmol/L (3.3-5.1); Sodium 142 mmol/L (135-145); Uric Acid 5.8 mg/dL (2.4-5.7)
[2022-11-01 14:07] LABS: Erythrocyte Sedimentation Rate 3 MM/HR (0-20)
== END 2022-11-01 12:55 | disposition home or self-care (01) ==
LOC: HO.LAB 12:54
PROVIDERS: PCP Internal Medicine; Visit Provider Internal Medicine
DX: E03.9 Hypothyroidism, unspecified (principal)
CPT/HCPCS: 36415; 80048; 84550; 85652; 86140

== ENCOUNTER 2022-11-21 13:48 | Outpatient (REF) | payer MEDICARE, SELFPAY ==
[2022-11-21 15:53] LABS: Free T4 (Free Thyroxine) 1.06 ng/dL (0.71-1.85); Thyroid Stimulating Hormone 0.18 uIU/mL (0.32-4.0)
== END 2022-11-21 13:49 | disposition home or self-care (01) ==
LOC: HO.LAB 13:48
PROVIDERS: PCP Internal Medicine; Visit Provider Internal Medicine
DX: E03.9 Hypothyroidism, unspecified (principal)
CPT/HCPCS: 36415; 84439; 84443

== ENCOUNTER 2022-11-30 06:41 | Outpatient (REF) | payer MEDICARE, SELFPAY ==
[2022-11-30 06:54] LABS: MANUAL DIFF FLAG NO
[2022-11-30 07:30] LABS: Basophils Absolute Auto 0.1 X10*3/uL (0.0-0.2); Basophils Percent Auto 1.5 % (0-2); Eosinophils Absolute Auto 0.2 X10*3/uL (0.0-0.4); Eosinophils Percent Auto 3.9 % (0-4); Hematocrit 45.4 % (37.0-47.0); Hemoglobin 14.6 g/dl (12.0-16.0); Imm Gran Abs Auto 0.01 X10*3/uL (0.00-0.03); Imm Gran Pct Auto 0.2 % (0.0-0.4); Lymphocytes Absolute Auto 2.3 X10*3/uL (1.2-4.9); Mean Corpuscular HGB Conc 32.2 g/dl (31.0-35.0); Mean Corpuscular Hemoglobin 26.7 pg (27.0-33.0); Mean Corpuscular Volume 83.2 fL (80.0-98.0); Mean Platelet Volume 11.5 fL (9.4-12.3); Monocytes Absolute Auto 0.5 X10*3/uL (0.1-1.2); Monocytes Percent Auto 10.1 % (2-11); Neutrophils Absolute Auto 1.7 x10*3/uL (2.0-8.3); Neutrophils Percent Auto 35.3 % (45-73); Platelet Count 172 X10*3/uL (160-400); Red Blood Count 5.46 X10*6/uL (4.20-5.50); Red Cell Distribution Width 16.4 % (11.0-16.0); White Blood Count 4.7 X10*3/uL (4.8-10.8)
[2022-11-30 07:56] LABS: Alanine Aminotransferase 381 U/L (0-31); Alkaline Phosphatase 112 U/L (39-117); Anion Gap 12 (12-20); Aspartate Amino Transferase 303 U/L (5-31); Blood Urea Nitrogen 16 mg/dL (9-16); C Reactive Protein 0.19 mg/dL (< or = 0.50); Calcium 9.8 mg/dL (8.4-10.2); Carbon Dioxide 26 mmol/L (22-29); Chloride 108 mmol/L (96-108); Cholesterol 154 mg/dL; Estimated Glomerular Filt Rate > 60; Glucose Fasting 96 mg/dL (60-99); HDL Cholesterol 43 mg/dL; LDL Cholesterol Calculated 91 mg/dl; Sodium 142 mmol/L (135-145); Total Protein 7.6 g/dL (6.5-8.0); Triglycerides 101 mg/dL
[2022-11-30 08:52] LABS: Vitamin B12 1396 pg/mL (200-900)
== END 2022-11-30 06:42 | disposition home or self-care (01) ==
LOC: HO.LAB 06:41
PROVIDERS: PCP Internal Medicine; Visit Provider Internal Medicine
DX: K21.9 Gastro-esophageal reflux disease without esophagitis (principal); E03.9 Hypothyroidism, unspecified; R53.83 Other fatigue
CPT/HCPCS: 36415; 80053; 80061; 82607; 85025; 86140

== ENCOUNTER 2022-12-05 13:49 | Outpatient (REF) | payer MEDICARE, SELFPAY ==
[2022-12-05 14:48] LABS: INTERNATIONAL NORM RATIO 1.1 (0.9-1.1); Prothrombin Time 12.3 SEC (10.0-13.1)
[2022-12-05 15:01] LABS: Alanine Aminotransferase 307 U/L (0-31); Albumin Level 3.8 g/dL (3.5-5.0); Alkaline Phosphatase 100 U/L (39-117); Anion Gap 11 (12-20); Aspartate Amino Transferase 218 U/L (5-31); Bilirubin Direct 0.2 mg/dL (0.0-0.5); Bilirubin Total 0.5 mg/dL (0.0-1.0); Blood Urea Nitrogen 19 mg/dL (9-16); Calcium 9.8 mg/dL (8.4-10.2); Carbon Dioxide 26 mmol/L (22-29); Chloride 107 mmol/L (96-108); Estimated Glomerular Filt Rate > 60; Glucose Random 90 mg/dL (60-115); Sodium 140 mmol/L (135-145); Total Protein 7.1 g/dL (6.5-8.0)
== END 2022-12-05 13:50 | disposition home or self-care (01) ==
LOC: HO.LAB 13:49
PROVIDERS: PCP Internal Medicine; Visit Provider Internal Medicine
DX: K75.4 Autoimmune hepatitis (principal); R79.89 Other specified abnormal findings of blood chemistry
CPT/HCPCS: 36415; 80048; 80076; 85610

== ENCOUNTER 2022-12-10 05:50 | Outpatient (REF) | payer MEDICARE, SELFPAY ==
[2022-12-10 08:37] LABS: Alanine Aminotransferase 243 U/L (0-31); Albumin Level 3.7 g/dL (3.5-5.0); Alkaline Phosphatase 92 U/L (39-117); Aspartate Amino Transferase 173 U/L (5-31); Bilirubin Direct 0.2 mg/dL (0.0-0.5); Bilirubin Total 0.5 mg/dL (0.0-1.0)
== END 2022-12-10 05:51 | disposition home or self-care (01) ==
LOC: HO.LAB 05:50
PROVIDERS: PCP Internal Medicine; Visit Provider Internal Medicine
DX: K75.4 Autoimmune hepatitis (principal)
CPT/HCPCS: 36415; 80076

== ENCOUNTER 2022-12-14 06:07 | Outpatient (REF) | payer MEDICARE, SELFPAY ==
[2022-12-14 08:20] LABS: Alanine Aminotransferase 210 U/L (0-31); Alkaline Phosphatase 93 U/L (39-117); Aspartate Amino Transferase 160 U/L (5-31); Bilirubin Direct 0.3 mg/dL (0.0-0.5); Bilirubin Total 0.8 mg/dL (0.0-1.0); Total Protein 7.3 g/dL (6.5-8.0)
== END 2022-12-14 06:08 | disposition home or self-care (01) ==
LOC: HO.LAB 06:07
PROVIDERS: PCP Internal Medicine; Visit Provider Internal Medicine
DX: K75.4 Autoimmune hepatitis (principal); R79.89 Other specified abnormal findings of blood chemistry
CPT/HCPCS: 36415; 80076

== ENCOUNTER 2022-12-21 07:43 | Outpatient (REF) | payer MEDICARE, SELFPAY ==
--- NOTE | ~2022-12-21 | US_ITS ---
EXAMINATION: US ABDOMEN COMPLETE CLINICAL INFORMATION: Elevated liver tests. History of autoimmune hepatitis. COMPARISON: Ultrasound abdomen complete 02/07/2017. CT abdomen 02/03/2014. TECHNIQUE: Real-time imaging of the abdominal viscera. FINDINGS: PANCREAS: 0.5 x 0.5 x 0.6 cm cyst is seen in the body of the pancreas. ABDOMINAL AORTA: The proximal, mid, and distal segments are normal in caliber. INFERIOR VENA CAVA: Visualized portions are normal. LIVER: The echotexture of the liver is slightly heterogeneous. The liver is normal in size. The liver contour is normal. Parenchymal echogenicity is normal. No focal hepatic lesion. There is no intrahepatic biliary duct dilatation seen. GALLBLADDER: Surgically absent. COMMON BILE DUCT: Normal in caliber measuring 0.8 cm in diameter. RIGHT KIDNEY: Normal. No hydronephrosis. No renal calculi or focal parenchymal lesions. The kidney measures 9.8 cm in maximum dimension. LEFT KIDNEY: 2.0 x 2.2 x 2.1 cm simple cyst is seen in the mid kidney. No imaging follow-up is recommended. 0.4 x 0.3 x 0.5 cm nonobstructing calculus is seen in the upper pole. No hydronephrosis. The kidney measures 11.1 cm in maximum dimension. SPLEEN: Normal. The spleen measures 9.5 cm in maximum dimension. FREE FLUID: None. US/US abdomen complete IMPRESSION: 1. 0.6 cm cyst in the body of the pancreas. Follow-up in 6 months is recommended. 2. 0.5 cm nonobstructing calculus in the upper pole of the left kidney. 3. Prior cholecystectomy.
== END 2022-12-21 07:44 | disposition home or self-care (01) ==
LOC: HO.US 07:43
PROVIDERS: PCP Internal Medicine; Visit Provider Internal Medicine
DX: R94.5 Abnormal results of liver function studies (principal)
CPT/HCPCS: 76700

== ENCOUNTER → 2022-12-24 13:38 | Outpatient (REF) | payer MEDICARE, SELFPAY ==
--- NOTE | 2022-12-24 13:54 | CA_ITS ---
Transthoracic Echocardiogram Patient (Last, First, Middle): Alyse Razo A Gender: Female Date of : 1950 Age: 72 Procedure Date: 12/24/2022 Procedure Type: Transthoracic Echocardiogram Location: OP Height: 160.02 cm Weight: 97.52 kg BSA: 1.99 m2 Heart Rate: 64 bpm BP: 140 / 75 mmHg Sex Offender Treatment Professional: MAL Referring MD: Bhanu Ramachandran MD Clay Pigeon Setter: Jarred Vital MD Symptoms: OBSTRUCTIVE HYPERTROPHIC CARDIOMYOPATHY Study Quality: Technically Difficult/Contrast ECG Rhythm: Sinus Conclusions: - 1. Moderate to severe LV systolic dysfunction with LVEF of 30 35% with impaired relaxation filling pattern 2. Mild aortic regurgitation 3. Mildly dilated ascending aorta at 4.2 cm 4. Normal RV systolic pressure 5. No gross pericardial effusion Findings Procedure Information Contrast agent, definity, is being given per protocol without apparent complications. Left Ventricle Normal left ventricular cavity size. There is normal left ventricular wall thickness. The left ventricular systolic function is moderate to severely decreased. The visually estimated ejection fraction is between 30-35%. Spectral Doppler is indicative of an impaired relaxation filling pattern. E/E prime ratio is between 8 and 15 consistent with indeterminate filling pressures. Right Ventricle Normal right ventricular cavity size. There is normal right ventricular systolic function. Atria The left atrium is normal in size. Interatrial shunt cannot be excluded. The right atrium is normal in size. Aortic Valve There is mild calcification of the aortic valve. There is no aortic valve stenosis. There is mild aortic valve regurgitation. Mitral Valve There is mild anterior and posterior mitral leaflet thickening. There is trace mitral valve regurgitation. There is no mitral valve stenosis. Pulmonic Valve The pulmonic valve was not well visualized. Tricuspid Valve Likely normal tricuspid valve structure and function. There is trace tricuspid valve regurgitation. The right ventricular systolic pressure is normal. The right ventricular systolic pressure is 15 mmHg. Normal right atrial pressure. There is no evidence of pulmonary hypertension. Great Vessels The pulmonary artery was not well visualized. There is mild dilatation of the ascending aorta measuring 4.20 cm. Venous The inferior vena cava is normal in size and collapses greater than 50% with inspiration. Pericardium/Pleural There is no evidence of pericardial effusion. Prior Study Comparison Changes noted compared to prior study dated: 06/13/2021. LV systolic function is significantly reduced Measurements 2D Linear Measurements IVSd: 1.07 0.6-0.9/0.6-1.0 cm LVIDd: 5.03 3.9-5.3/4.2-5.9 cm LVIDd Index: 2.53 2.4-3.2/2.2-3.1 cm/m2 LVIDs: 3.93 2.0-3.6 cm LVPWd: 1.28 0.7-1.1 cm LA Diam: 2.90 2.7-3.8/3.0-4.0 cm LAIDs Index: 1.46 1.5-2.3 cm/m2 LV Mass: 285.67 67-162/88-224 g LV Mass Index: 143.55 43-95/49-115 g/m2 LVOT Diam: 2.10 3.0+(-)1.3 cm 2D Systolic Function EF 4C: 31.70 >55% EF 2C: 31.20 >55% EF BiP: 30.60 >55% Mitral Valve MV Pk E: 0.35 MV PK A: 0.90 MV Decel Time: 364.00 E/A: 0.40 E'Lateral: 4.90 E'Medial: 2.84 E/E' Med: 12.20 E/E' Lat: 7.10 PHT: 107.00 MVA PHT: 2.06 Decel [place]: 0.95 Aortic Valve AoV Pk Missael: 1.65 AoV Mn Missael: 1.15 AoV VTI: 0.30 AoV Pk Grad: 11.00 Aov Mn Grad: 6.00 ANDIE Cont.VTI: 2.10 AI Pk Missael: 4.19 AI [place]: 1.77 LVOT LVOT Pk Missael: 1.08 LVOT Mn Missael: 0.70 LVOT VTI: 0.18 LVOT Pk Grad: 5.00 LVOT Mn Grad: 2.00 LVOT Diam: 2.10 LVOT Area: 3.46 Diastolic Function MV Pk E: 0.35 MV Pk A: 0.90 E/A: 0.40 E'Medial: 2.84 E/E' Med: 12.20 E' Laterial: 4.90 E/E' Lat: 7.10 Right Ventricle TAPSE (mm): 18.70 TVS' Missael: 7.95 Tricuspid Valve TR Pk Missael: 1.75 TR Pk Grad: 12.00 RA Press: 3.00 RVSP: 15.00 Great Vessels Aorta Sinus of Valsalva: 3.70 2.0-3.5 cm Ao Asc: 4.20 2.1-3.4 cm Pulmonary Valve PV Pk Missael: 1.02 Peak PV Grad: 4.00 Updated in Other Vendor System with Status of Final Jarred Vital MD electronically signed on 12/25/2022 9:43:51 AM with status of Final
== END ==
LOC: HO.CARD 13:38
PROVIDERS: PCP Internal Medicine; Visit Provider Internal Medicine
DX: I42.1 Obstructive hypertrophic cardiomyopathy (principal); I44.7 Left bundle-branch block, unspecified
CPT/HCPCS: 93306; Q9957

== ENCOUNTER → 2022-12-24 13:54 | Outpatient (BNV) | payer MEDICARE, SELFPAY | PROVIDERS: PCP Internal Medicine; Visit Provider Internal Medicine Cardiovascular Disease | DX: I35.1 Nonrheumatic aortic (valve) insufficiency (principal); I35.8 Other nonrheumatic aortic valve disorders | CPT/HCPCS: 93306 ==

== ENCOUNTER 2022-12-26 11:08 | Outpatient (AMB) | payer MEDICARE, SELFPAY ==
[2022-12-26 11:11] VITALS: BP 120/82; PULSE 60; BMI 37.9
--- NOTE | 2022-12-26 11:11 | MHC.OFFVIS ---
Intake Vital Signs 12/26/22 11:11 Height 5 ft 3 in Weight 213 lb 13.574 oz BMI 37.9 BP 120/82 Blood Pressure Location Lt brachial Position Sitting Pulse 60 Intake Visit Reasons: overdue follow-up with ekg after echo Intake Note: Overdue follow-up with ekg after echo feelingn Manager [place]ow Required: No Allergies Penicillins [PENICILLINS] Allergy (Intermediate, Verified 09/07/22 10:29) RASH Medication List - Last Reconciled 12/26/22 by Jarred Vital MD alprazolam 1 mg PO DAILY PRN cholecalciferol (vitamin D3) 50 mcg PO DAILY clotrimazole-betamethasone 1-0.05 % appl topical BID PRN escitalopram oxalate 3 mg PO Q OTHER DAY PRN latanoprost 0.005% (Xelpros) 1 drp ophthalmic (eye) BEDTIME levothyroxine 125 mcg PO DAILY multivitamin 1 tab PO DAILY omeprazole 20 mg PO DAILY prednisone 0 mg PO vitamin B complex (B Complex-Vitamin B12 tablet) 1 tab PO DAILY HPI HPI Comments History of Present Illness Details Alyse comes after a very long gap. She had a recent echocardiogram which shows worsening LV systolic function with LVEF of 30-35%. She complains of exertional shortness of breath NYHA class 2. She hour denies any orthopnea, PND. She blames or shortness of breath due to her weight. Denies any lightheadedness, syncope. No prolonged palpitation irregular heartbeat. [facility] Medical History Arthritis Depression GERD (gastroesophageal reflux disease) History of fatty infiltration of liver History of hypertrophic cardiomyopathy History of left bundle branch block (LBBB) LBBB (left bundle branch block) Morbid obesity Morbid obesity due to excess calories Obesity (BMI 30-39.9) Thyroid disease Surgical History H/O colonoscopy History of esophagogastroduodenoscopy (EGD) Hx of cataract surgery Hx of section Hx of tubal ligation S/P cholecystectomy S/P total knee arthroplasty Status post ventricular septal myectomy Family History Father Obesity Mother COPD (chronic obstructive pulmonary disease) Brother No problems noted. Son No problems noted. Daughter No problems noted. Social History Alcohol intake: never Patient Tobacco Use Status: Never used Tobacco Years Smoked: 5 years Review of Systems Const Denies chills, Denies fatigue, Denies fever(s), Denies frequent falls, Denies weakness, Denies weight gain and Denies weight loss ENT Denies dizziness Card Denies chest pain, Denies leg edema, Denies lightheadedness, Denies palpitations, Denies dyspnea, Denies dyspnea on exertion, Denies orthopnea and Denies other (loss of consciousness) Resp Denies cough, Denies dyspnea and Denies dyspnea on exertion GI Denies hematochezia and Denies change in stool character Musc Denies abnormal gait, Denies muscle weakness, Denies numbness, Denies radiating pain into limb and Denies tingling Neuro Denies abnormal gait, Denies dizziness, Denies frequent falls, Denies numbness, Denies tingling and Denies weakness Endo Denies fatigue and Denies palpitations Physical Exam Vital Signs: Last Vital Signs Pulse 60 12/26/22 11:11 BP 120/82 12/26/22 11:11 BMI result Body Mass Index 37.9 Const General: cooperative, comfortable, no acute distress, alert and awake Nutritional Appearance: obese Orientation/consciousness: patient oriented x3 Limitations: no limitations Neck Neck: Yes trachea midline, Yes supple and Yes no JVD Resp Effort & Inspection: normal respiratory effort Auscultation: clear to auscultation bilaterally Cardio Jugular venous distension: no JVD Palpation: normal PMI Rate: regular rate Rhythm: regular rhythm Heart sounds: S1 normal heart sound present, S2 normal heart sound present and Murmur heart sound present systolic early, harsh, III/, at the right sternal border and other (No dynamic component) GI Auscultation: normal bowel sounds Neuro General: patient oriented x3 and no focal motor deficits Extrem General: Yes no clubbing, cyanosis or edema Psych Appearance: grossly normal Office Procedures EKG Details: EKG shows normal sinus rhythm with left bundle-branch block 59083-[id number], Complete Assessment & Plan Assessment & Plan (1) Cardiomyopathy: Code(s): I42.9 - Cardiomyopathy, unspecified Plan: New development of moderate to severe LV systolic dysfunction most likely left bundle-branch block related. However ischemia needs to be ruled out. Will suggest a vasodilating myocardial perfusion imaging in near future. She is currently having NYHA class 2 symptoms. Will start on guideline based medical therapy with Entresto 24-26 mg b.i.d. and Coreg 3.125 mg b.i.d.. Side effects were discussed. Advised to monitor blood pressure at home. Follow-up BMP in 1 week. Daily weight monitoring avoidance of salt loading was discussed. Signs and symptoms of heart failure were discussed. Continue maximize neurohormonal modulation. Importance of this was discussed. Follow up in the clinic in 4 weeks to continue to maximize medical therapy. Follow-up limited echocardiogram in 3 months time. If she has persistent moderate to severe LV systolic dysfunction at that point in time will require cardiac resynchronization therapy. Importance of compliance with medications and follow-up was discussed. Gradual and sustained weight loss program was discussed. Will follow up in the clinic in 4 weeks, 8 weeks and 3 months. Thank you for allowing me to partake in her care. Orders: Orders Basic Metabolic Panel 1 Week I42.9 - Cardiomyopathy, unspecified CA echo limited 3 Months I42.9 - Cardiomyopathy, unspecified CA lexiscan stress w mary Today I42.9 - Cardiomyopathy, unspecified Medications: New carvedilol (Coreg) must administer with a meal/food 3.125 mg PO BID 60 tabs 3RF sacubitril-valsartan 24-26 mg (Entresto) 1 tab PO BID 60 tabs 2RF Coding Level of Care Code Est Pt Level 4 (99830) Diagnoses Cardiomyopathy I42.9 CPT Codes EKG - CPT: 20374-[id number], Complete ([id number])
== END 2022-12-26 11:45 | disposition home or self-care (01) ==
PROVIDERS: PCP Internal Medicine; Visit Provider Internal Medicine Cardiovascular Disease
DX: I42.9 Cardiomyopathy, unspecified (principal)
CPT/HCPCS: 93010; 99214

== ENCOUNTER → 2022-12-26 11:08 | Outpatient (BNVA) | payer MEDICARE, SELFPAY | PROVIDERS: PCP Internal Medicine; Visit Provider Internal Medicine Cardiovascular Disease | DX: I42.9 Cardiomyopathy, unspecified (principal); Z79.52 Long term (current) use of systemic steroids | CPT/HCPCS: 93005; 99212 ==

== ENCOUNTER 2023-01-03 06:36 | Outpatient (REF) | payer MEDICARE, SELFPAY ==
[2023-01-03 06:53] LABS: MANUAL DIFF FLAG NO
[2023-01-03 07:30] LABS: Basophils Absolute Auto 0.1 X10*3/uL (0.0-0.2); Basophils Percent Auto 0.6 % (0-2); Eosinophils Absolute Auto 0.1 X10*3/uL (0.0-0.4); Eosinophils Percent Auto 0.9 % (0-4); Hematocrit 42.8 % (37.0-47.0); Hemoglobin 13.7 g/dl (12.0-16.0); Imm Gran Abs Auto 0.04 X10*3/uL (0.00-0.03); Imm Gran Pct Auto 0.4 % (0.0-0.4); Lymphocytes Absolute Auto 3.2 X10*3/uL (1.2-4.9); Lymphocytes Percent Auto 35.4 % (20-40); Mean Corpuscular Hemoglobin 26.5 pg (27.0-33.0); Mean Corpuscular Volume 82.8 fL (80.0-98.0); Monocytes Absolute Auto 0.7 X10*3/uL (0.1-1.2); Monocytes Percent Auto 7.2 % (2-11); Neutrophils Percent Auto 55.5 % (45-73); Platelet Count 163 X10*3/uL (160-400); Red Blood Count 5.17 X10*6/uL (4.20-5.50); Red Cell Distribution Width 16.8 % (11.0-16.0); White Blood Count 9.1 X10*3/uL (4.8-10.8)
[2023-01-03 08:26] LABS: Alanine Aminotransferase 24 U/L (0-31); Albumin Level 3.6 g/dL (3.5-5.0); Alkaline Phosphatase 49 U/L (39-117); Anion Gap 15 (12-20); Aspartate Amino Transferase 23 U/L (5-31); Bilirubin Direct 0.1 mg/dL (0.0-0.5); Bilirubin Total 0.4 mg/dL (0.0-1.0); Blood Urea Nitrogen 26 mg/dL (9-16); C Reactive Protein < 0.10 mg/dL (< or = 0.50); Calcium 8.7 mg/dL (8.4-10.2); Carbon Dioxide 23 mmol/L (22-29); Chloride 106 mmol/L (96-108); Estimated Glomerular Filt Rate > 60; Glucose Random 83 mg/dL (60-115); Potassium 3.9 mmol/L (3.3-5.1); Sodium 140 mmol/L (135-145); Total Protein 6.3 g/dL (6.5-8.0)
[2023-01-03 08:34] LABS: Erythrocyte Sedimentation Rate 2 MM/HR (0-20)
[2023-01-10 14:43] LABS: Anti Nuclear Antibody Screen NEGATIVE (NEGATIVE)
[2023-01-11 13:49] LABS: Smooth Muscle Antibody 89 U (<20)
== END 2023-01-03 06:37 | disposition home or self-care (01) ==
LOC: HO.LAB 06:36
PROVIDERS: Absent Provider Internal Medicine; PCP Internal Medicine; Visit Provider Internal Medicine Cardiovascular Disease
DX: K75.4 Autoimmune hepatitis (principal); R79.89 Other specified abnormal findings of blood chemistry
CPT/HCPCS: 36415; 80048; 80076; 85025; 85652; 86015; 86038; 86140

== ENCOUNTER → 2023-01-22 07:44 | Outpatient (REF) | payer MEDICARE, SELFPAY ==
--- NOTE | ~2023-01-22 | NM_ITS ---
Myocardial perfusion study Indication: Cardiomyopathy to evaluate for myocardial ischemia Technique: The patient was brought in for a Lexiscan perfusion study on 01/22/2023. Patient performed low-level exercise and was injected 0.4 mg of Lexiscan intravenously. Within a minute of injection, 35 mCi of sestamibi was given intravenously. Images were obtained using the SPECT gamma camera interlaced with the gating device. Images were obtained in supine position. Resting perfusion study was performed on 01/23/2023. Patient was administered 35 mCi of sestamibi intravenously at rest. Images were then obtained in supine position. Images obtained with and without CT attenuation. Total DLP 129 mGy-cm. Images were processed with the software and compared side to side in short axis, horizontal long axis and vertical long axis views. Findings: The stress perfusion study showed non attenuated images show very focal mildly reduced uptake in the distal anterior wall of the LV myocardium as well as mildly reduced uptake in the septum of the LV myocardium. Attenuation corrected images show mildly reduced uptake in the septum as well as distal anterior and apical wall of the LV myocardium.. The gated study shows normal LV systolic function with calculated LVEF of 63%. LV cavity is normal in size. The gated study shows normal systolic wall thickening and contraction of segments. Resting study shows no change in perfusion pattern compared to stress perfusion study. Gating at rest reveals normal systolic wall motion with ejection fraction at 53%. The findings are consistent with no clear significant reversible defect suggestive of ischemia. Likely normal myocardial perfusion. NM/NM mary perf SPECT rest & str Impression: 1. Myocardial perfusion imaging study shows likely normal myocardial perfusion 2. Gated LVEF is 53% 3. Transient ischemic dilatation not present EKG is nondiagnostic for ischemia
--- NOTE | 2023-01-22 07:47 | CA_ITS ---
Acquisition Time: 2023-01-22 07:57:19 Total Exercise Time: 00:07:02 Test Indications: Dyspnea CARDIOMYOPATHY Medications: ESCITALOPRAM LEVOTHYROXINE OMEPRAZOLE PREDNISONE ENTRESTO COREG Protocol: LEXISCAN Max HR: 095 BPM 64% of Pred: 148 BPM Max BP: 142/064 mmHG Max Work Load: 1.5 METS Pharm test per protocol with Lexiscan injection while walking slowly on the treadmill due to bradycardia (reduced speed to 0.8) , without angfinal symptoms, without arrhythmias, with normotensive response to injection, with nondiagnositic EKGs. Nuclear images pending. Test reviewed with Dr. Vital Referred By: Jarred Vital Overread By: JARRED VITAL MD
== END ==
LOC: HO.CARD 07:44
PROVIDERS: PCP Internal Medicine; Visit Provider Internal Medicine Cardiovascular Disease
DX: I42.9 Cardiomyopathy, unspecified (principal)
CPT/HCPCS: 78452; 93017; A9500; J0280; J2785

== ENCOUNTER → 2023-01-22 08:30 | Outpatient (BNV) | payer MEDICARE, SELFPAY | PROVIDERS: PCP Internal Medicine; Visit Provider Internal Medicine Cardiovascular Disease | DX: R06.00 Dyspnea, unspecified (principal); I42.9 Cardiomyopathy, unspecified | CPT/HCPCS: 78452; 93016; 93018 ==

== ENCOUNTER 2023-01-23 11:08 | Outpatient (REF) | payer MEDICARE, SELFPAY ==
[2023-01-23 13:25] LABS: Free T4 (Free Thyroxine) 1.01 ng/dL (0.71-1.85); Thyroid Stimulating Hormone 0.35 uIU/mL (0.32-4.0)
[2023-01-24 09:33] LABS: Thyroid Peroxidase Antibodies 1 IU/mL (<9)
== END 2023-01-23 11:09 | disposition home or self-care (01) ==
LOC: HO.LAB 11:08
PROVIDERS: PCP Internal Medicine; Visit Provider Internal Medicine
DX: E03.9 Hypothyroidism, unspecified (principal)
CPT/HCPCS: 36415; 84439; 84443; 86376

== ENCOUNTER 2023-01-29 15:18 | Outpatient (AMB) | payer MEDICARE, SELFPAY ==
[2023-01-29 15:19] VITALS: BP 120/72; PULSE 60; BMI 39.0
--- NOTE | 2023-01-29 15:19 | MHC.OFFVIS ---
Intake Vital Signs 01/29/23 15:19 Height 5 ft 3 in Weight 220 lb 7.396 oz BMI 39.0 BP 120/72 Blood Pressure Location Lt brachial Position Sitting Pulse 60 Intake Visit Reasons: 4 week follow up after testing per NS Intake Note: 4 week f/u after testing Senior Industrial Engineer Required: No Allergies Penicillins [PENICILLINS] Allergy (Intermediate, Verified 01/29/23 15:25) RASH Medication List - Last Reconciled 01/29/23 by Luly Campos CONCESSIONIST-C carvedilol (Coreg) 3.125 mg PO BID escitalopram oxalate 3 mg PO Q OTHER DAY PRN latanoprost 0.005% (Xelpros) 1 drp ophthalmic (eye) BEDTIME levothyroxine 125 mcg PO DAILY prednisone 0 mg PO sacubitril-valsartan 24-26 mg (Entresto) 1 tab PO BID HPI 4 week follow up after testing per NS HPI Details Alyse is a 72-year-old female past medical history of morbid obesity, obstructive sleep apnea, left bundle branch block, hypertrophic cardiomyopathy status post ventricular septal myectomy, who was noted to have a new reduction in EF on recent echo. She was started on guideline directed medical therapy and nuclear stress test was performed. She now presents for follow-up. Today she reports that she has experienced some mild lightheadedness with position changes on her new medications. She has not had any presyncope, syncope, fall was. She has been monitoring her blood pressure at home but does question the accuracy of her wrist cuff. She is not experiencing chest discomfort at rest or with activity. She does have shortness of breath with exertion, walking up inclines or stairs. This symptom has been stable and not worsened since last visit. No PND, orthopnea or edema. Taking meds as directed. Has multiple questions regarding her condition. [facility] Medical History Arthritis Depression GERD (gastroesophageal reflux disease) History of fatty infiltration of liver History of hypertrophic cardiomyopathy History of left bundle branch block (LBBB) LBBB (left bundle branch block) Morbid obesity Morbid obesity due to excess calories Obesity (BMI 30-39.9) Thyroid disease Surgical History H/O colonoscopy History of esophagogastroduodenoscopy (EGD) Hx of cataract surgery Hx of section Hx of tubal ligation S/P cholecystectomy S/P total knee arthroplasty Status post ventricular septal myectomy Family History Father Obesity Mother COPD (chronic obstructive pulmonary disease) Brother No problems noted. Son No problems noted. Daughter No problems noted. Social History Alcohol intake: never Patient Tobacco Use Status: Never used Tobacco Years Smoked: 5 years Review of Systems Const All systems reviewed & are unremarkable except as noted in HPI and below ENT Reports dizziness (With bending over) Card Denies chest pain, Denies chest pain at rest, Denies chest pain with activity, Denies rapid heart rate, Denies pedal edema, Denies edema, Denies leg edema, Denies lightheadedness, Denies palpitations, Denies dyspnea, Reports dyspnea on exertion and Denies orthopnea Resp Denies cough, Denies dyspnea and Reports dyspnea on exertion GI Denies hematochezia and Denies change in stool character Musc Denies abnormal gait, Reports limited range of motion, Reports muscle cramps, Denies muscle weakness, Denies numbness, Denies radiating pain into limb, Denies stiffness and Denies tingling Neuro Denies abnormal gait, Reports dizziness (With bending over), Denies numbness and Denies tingling Endo Denies palpitations Physical Exam Vital Signs: Last Vital Signs Pulse 60 01/29/23 15:19 BP 120/72 01/29/23 15:19 BMI result Body Mass Index 39.0 Const General: cooperative, comfortable and no acute distress Orientation/consciousness: patient oriented x3 HEENT Head: Yes normal to inspection Eyes Sclerae: sclerae normal Neck Neck: Yes normal visual inspection Carotids: normal carotid upstroke Chest Chest palpation & inspection: normal inspection of the chest Resp Effort & Inspection: normal respiratory effort Auscultation: clear to auscultation bilaterally, no rales, no rhonchi and no wheezes Cardio Jugular venous distension: no JVD Rate: regular rate Rhythm: regular rhythm Heart sounds: S1 normal heart sound present, S2 normal heart sound present, Murmur heart sound present (Systolic, right sternal border) and no rubs Peripheral pulses: Peripheral pulses 2+ throughout GI Inspection: Yes normal to inspection Skin General skin exam: no rashes or lesions noted Neuro General: patient oriented x3 Extrem General: Yes normal to inspection and No no pedal edema Psych Appearance: grossly normal Mental Status: mental status grossly normal Speech and movement: Normal speech and movement present Assessment & Plan Assessment & Plan (1) Cardiomyopathy: Code(s): I42.9 - Cardiomyopathy, unspecified Plan: History of hypertrophic cardiomyopathy with ventricular septal myectomy. Prior echo 09/29/2021 showed EF 45-50%, paradoxical septal motion consistent with left bundle branch block, basal anterior septal akinetic. A repeat echocardiogram done 12/24/2022 shows EF 30-35%. On follow-up visit she was started on carvedilol and Entresto. Labs done 1 week later show potassium 3.9, creatinine 0.67. For further evaluation she underwent a pharmacological nuclear stress test on 01/23/2023 showing normal myocardial perfusion imaging, EF 53%. Today she reports ongoing symptom of shortness of breath with exertion. NYHA class 2. Blood pressure 120/72. Will increase Entresto to 49/51 mg b.i.d.. Resting heart rate is 60. Will continue carvedilol at current dose. Reviewed need for periodic blood pressure monitoring. Unclear accuracy of her home cough. When checked by the biomedical repair technician there was a significant difference between manual and her home cuff however when done by me the numbers do match. Instructed to call if she is having issues with lightheadedness. Currently she will feel it only with quick position changes. Signs and symptoms of heart failure reviewed. Spent time going over the diagnosis of nonischemic cardiomyopathy, left bundle-branch block. Her finding of left bundle branch block may have contributed to her reduced EF. Will start in cardiac rehab. Plan for limited echo 3 months after start of guideline directed medical therapy. Due March 2023. Cardiology follow-up when test result is available (2) History of hypertrophic cardiomyopathy: Code(s): Z86.79 - Personal history of other diseases of the circulatory system Plan: Status post ventricular septal myectomy (3) LBBB (left bundle branch block): Code(s): I44.7 - Left bundle-branch block, unspecified Plan: Chronic. If EF remains less than 35% and ICD is indicated then recommend HEAVY MACHINERY OPERATOR-D. (4) Obesity (BMI 30-39.9): Code(s): E66.9 - Obesity, unspecified Plan: Benefits of weight loss, increasing physical activity reviewed with her. Medications: New sacubitril-valsartan 49-51 mg (Entresto) 1 tab PO BID 60 tabs 4RF Discontinued sacubitril-valsartan 24-26 mg (Entresto) Discontinued Reason: Doctor's Order 1 tab PO BID 60 tabs 2RF Coding Level of Care Code Est Pt Level 4 (49733) Diagnoses Cardiomyopathy I42.9 History of hypertrophic cardiomyopathy Z86.79 LBBB (left bundle branch block) I44.7 Obesity (BMI 30-39.9) E66.9 Time Spent (min) 35 Comment Chart review, documentation, interview, assessment, education
== END 2023-01-29 15:59 | disposition home or self-care (01) ==
PROVIDERS: PCP Internal Medicine; Referring Provider Internal Medicine; Visit Provider Nurse Practitioner Family
DX: I42.9 Cardiomyopathy, unspecified (principal); Z86.79 Personal history of other diseases of the circulatory system; I44.7 Left bundle-branch block, unspecified; E66.9 Obesity, unspecified
CPT/HCPCS: 99214

== ENCOUNTER → 2023-01-29 15:18 | Outpatient (BNVA) | payer MEDICARE, SELFPAY | PROVIDERS: PCP Internal Medicine; Referring Provider Internal Medicine; Visit Provider Nurse Practitioner Family | DX: I42.9 Cardiomyopathy, unspecified (principal); I44.7 Left bundle-branch block, unspecified; E66.9 Obesity, unspecified; Z86.79 Personal history of other diseases of the circulatory system | CPT/HCPCS: 99212 ==

== ENCOUNTER 2023-02-04 15:13 | Outpatient (REF) | payer MEDICARE, SELFPAY ==
[2023-02-04 16:44] LABS: Alanine Aminotransferase 23 U/L (0-31); Albumin Level 4.1 g/dL (3.5-5.0); Alkaline Phosphatase 60 U/L (39-117); Aspartate Amino Transferase 28 U/L (5-31); Bilirubin Direct 0.2 mg/dL (0.0-0.5); Bilirubin Total 0.4 mg/dL (0.0-1.0); Total Protein 7.1 g/dL (6.5-8.0)
== END 2023-02-04 15:14 | disposition home or self-care (01) ==
LOC: HO.LAB 15:13
PROVIDERS: PCP Internal Medicine; Visit Provider Internal Medicine
DX: K75.4 Autoimmune hepatitis (principal)
CPT/HCPCS: 36415; 80076

== ENCOUNTER 2023-02-26 09:37 | Outpatient (AMB) | payer MEDICARE, SELFPAY ==
--- NOTE | 2023-02-26 09:55 | MHC.OFFVIS ---
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 Installer Required: No Allergies Penicillins [PENICILLINS] Allergy (Intermediate, Verified 02/26/23 10:01) RASH Medication List - Last Reconciled 02/26/23 by Luly Campos NP-C carvedilol (Coreg) 3.125 mg PO BID escitalopram oxalate 3 mg PO Q OTHER DAY PRN latanoprost 0.005% (Xelpros) 1 drp ophthalmic (eye) BEDTIME levothyroxine 125 mcg PO DAILY prednisone 0 mg PO sacubitril-valsartan 49-51 mg (Entresto) 1 tab PO BID HPI 8 week follow up per NS HPI Details Alyse is a 72-year-old female past medical history of morbid obesity, obstructive sleep apnea, left bundle branch block, hypertrophic cardiomyopathy status post ventricular septal myectomy, who was noted to have a new reduction in EF on recent echo. She was started on guideline directed medical therapy and nuclear stress test was performed. On last visit her Entresto was titrated upward. Today she reports that she has been doing well since her last visit a month ago. Her appointment was not do as of yet however she is here today and chooses to continue with this visit. She says that her prior mild lightheadedness has fully resolved. She continues to have some mild shortness of breath with activity. No chest discomfort with exertion. No palpitations, presyncope, syncope, PND, orthopnea or edema. She tells me that she is a compulsive eater and has struggled with her weight throughout her life. She walks her dog routinely insert she tolerates it well.. Taking all meds as directed. [facility] Medical History Obesity (BMI 30-39.9) History of hypertrophic cardiomyopathy Morbid obesity due to excess calories Morbid obesity History of left bundle branch block (LBBB) Thyroid disease Arthritis GERD (gastroesophageal reflux disease) Depression History of fatty infiltration of liver LBBB (left bundle branch block) Surgical History H/O colonoscopy Hx of cataract surgery History of esophagogastroduodenoscopy (EGD) Status post ventricular septal myectomy Hx of section Hx of tubal ligation S/P cholecystectomy S/P total knee arthroplasty Family History Father Obesity Mother COPD (chronic obstructive pulmonary disease) Brother No problems noted. Son No problems noted. Daughter No problems noted. Social History Alcohol intake: never Patient Tobacco Use Status: Never used Tobacco Years Smoked: 5 years Review of Systems Const All systems reviewed & are unremarkable except as noted in HPI and below ENT Denies dizziness Card Denies chest pain, Denies chest pain at rest, Denies chest pain with activity, Denies rapid heart rate, Denies pedal edema, Denies edema, Denies leg edema, Denies lightheadedness, Denies palpitations, Denies dyspnea, Reports dyspnea on exertion and Denies orthopnea Resp Denies cough, Denies dyspnea and Reports dyspnea on exertion GI Denies hematochezia and Denies change in stool character Musc Denies abnormal gait, Reports limited range of motion, Reports muscle cramps, Denies muscle weakness, Denies numbness, Denies radiating pain into limb, Denies stiffness and Denies tingling Neuro Denies abnormal gait, Denies dizziness, Denies numbness and Denies tingling Endo Denies palpitations Physical Exam Vital Signs: Last Vital Signs Pulse 51 02/26/23 09:56 BP 114/72 02/26/23 09:56 BMI result Body Mass Index 40.5 Const General: cooperative, healthy appearing, comfortable and no acute distress Orientation/consciousness: patient oriented x3 Neck Neck: Yes normal visual inspection Resp Effort & Inspection: normal respiratory effort Auscultation: clear to auscultation bilaterally, no crackles, no rales, no rhonchi and no wheezes Cardio Jugular venous distension: no JVD Rate: regular rate Rhythm: regular rhythm Heart sounds: S1 normal heart sound present, S2 normal heart sound present, no murmurs and no rubs Neuro General: patient oriented x3 Extrem General: Yes normal to inspection Psych Appearance: grossly normal Mental Status: mental status grossly normal Speech and movement: Normal speech and movement present Assessment & Plan Assessment & Plan (1) Cardiomyopathy: Code(s): I42.9 - Cardiomyopathy, unspecified Qualifiers: Cardiomyopathy type: unspecified Qualified Code(s): I42.9 - Cardiomyopathy, unspecified Plan: History of hypertrophic cardiomyopathy with ventricular septal myectomy. Prior echo 09/29/2021 showed EF 45-50%, paradoxical septal motion consistent with left bundle branch block, basal anterior septal akinetic. A repeat echocardiogram done 12/24/2022 shows EF 30-35%. On follow-up visit she was started on carvedilol and Entresto. She underwent a pharmacological nuclear stress test on 01/23/2023 showing normal myocardial perfusion imaging, EF 53%. On last visit she reported shortness of breath with exertion. NYHA class 2. Her Entresto dose was increased to 49/51 mg b.i.d.. Resting heart rate is 50s to 60s. Unable to further titrate carvedilol. Today she reports she is feeling better overall. She has not had any lightheadedness which she had previously described. She continues with some mild shortness of breath with activity. Reviewed diagnosis of nonischemic cardiomyopathy, left bundle-branch block. Her finding of left bundle branch block may have contributed to her reduced EF. She has a limited echocardiogram due early next month to reassess EF and wall motion on appropriate medical management. She has a appointment already scheduled with Dr. Vital at the end of March which she wishes to keep. She wants to discuss those test results and further treatment plan going forward with him. Signs and symptoms of heart failure reviewed. (2) History of hypertrophic cardiomyopathy: Code(s): Z86.79 - Personal history of other diseases of the circulatory system Plan: Status post ventricular septal myectomy (3) LBBB (left bundle branch block): Code(s): I44.7 - Left bundle-branch block, unspecified Plan: Chronic. If EF remains less than 35% and ICD is indicated then recommend MANUFACTURERS AGENT-D. (4) Obesity (BMI 30-39.9): Code(s): E66.9 - Obesity, unspecified Plan: Benefits of weight loss, increasing physical activity reviewed with her. Coding Level of Care Code Est Pt Level 3 (09341) Diagnoses Cardiomyopathy, unspecified type I42.9 Cardiomyopathy type: unspecified History of hypertrophic cardiomyopathy Z86.79 LBBB (left bundle branch block) I44.7 Obesity (BMI 30-39.9) E66.9 Time Spent (min) 22
[2023-02-26 09:56] VITALS: BP 114/72; PULSE 51; BMI 40.5
== END 2023-02-26 10:29 | disposition home or self-care (01) ==
PROVIDERS: PCP Internal Medicine; Visit Provider Nurse Practitioner Family
DX: I42.9 Cardiomyopathy, unspecified (principal); Z86.79 Personal history of other diseases of the circulatory system; I44.7 Left bundle-branch block, unspecified; E66.9 Obesity, unspecified
CPT/HCPCS: 99213

== ENCOUNTER → 2023-02-26 09:37 | Outpatient (BNVA) | payer MEDICARE, SELFPAY | PROVIDERS: PCP Internal Medicine; Visit Provider Nurse Practitioner Family | DX: I42.9 Cardiomyopathy, unspecified (principal); I44.7 Left bundle-branch block, unspecified; E66.9 Obesity, unspecified; Z86.79 Personal history of other diseases of the circulatory system; Z68.41 Body mass index [BMI] 40.0-44.9, adult | CPT/HCPCS: 99212 ==

== ENCOUNTER 2023-03-07 14:21 | Outpatient (REF) | payer MEDICARE, SELFPAY ==
[2023-03-05 08:58] VITALS: BP 126/58; BP 92/54; BP 94/52; BMI 40.5
--- NOTE | ~2023-03-07 | US_ITS ---
EXAMINATION: MM DIAGNOSTIC DIGITAL BREAST TOMOSYNTHESIS, BILATERAL US BREAST LIMITED, LEFT MAMMOGRAPHY: CLINICAL INFORMATION: Patient feels palpable abnormality at the 9:00 axis left breast, approximately 4 mm . Due for screening bilaterally. COMPARISON: Mammography: 05/11/2022, 05/10/2021, 04/29/2020, 04/24/2019 TECHNIQUE: Digital breast tomosynthesis is performed in both the craniocaudal and mediolateral oblique views along with computer-aided detection (CAD). Synthesized 2D images are generated from the tomosynthesis. In addition, full-field nipple in profile 3-D views were performed bilaterally CC and MLO projections. FINDINGS: There are scattered areas of fibroglandular density (ACR BI-RADS breast composition Category b). There are no suspicious masses, suspicious grouped calcifications, or areas of architectural distortion. The parenchymal pattern is stable from prior exams. There is no mammographic abnormality in the 9:00 axis of the left breast near adjacent to the marker placed by the technologist. ULTRASOUND: CLINICAL INFORMATION: Patient feels palpable abnormality at the 9:00 axis left breast, approximately 4 mm . COMPARISON: None relevant. TECHNIQUE: Targeted sonographic evaluation was performed using a high frequency linear transducer. Attention was paid to the palpable focus as directed by the patient 9:00 axis left breast. Selected archived documentation. FINDINGS: LEFT BREAST: There is a mixture of fatty and fibroglandular tissue. No suspicious mass is seen. There is no pathologic acoustic shadowing. There is no cystic abnormality. There is no sonographic correlate to the region of palpable concern. US/US breast LT limited mamm only IMPRESSION: There are no findings suspicious for malignancy in either breast. Palpable focus of abnormality 9:00 axis left breast demonstrates no sonographic or mammographic correlate. Recommend clinical management. Decision to biopsy a palpable abnormality without imaging correlate must be determined on a clinical basis. Otherwise, annual screening advised. OVERALL ASSESSMENT: Mammography: BI-RADS 1 - Negative Ultrasound: BI-RADS 1 - Negative RECOMMENDATION: 1. Patient should be managed based on the clinical impression. Decision to proceed with biopsy should be based on clinical grounds and degree of clinical concern. 2. Otherwise, routine annual screening mammography. Results were provided to the patient at time of visit by the technologist. This patient's information was entered into a reminder system with a target due date for their next mammogram.
[2023-03-07 15:39] LABS: Alanine Aminotransferase 17 U/L (0-31); Albumin Level 3.9 g/dL (3.5-5.0); Alkaline Phosphatase 61 U/L (39-117); Aspartate Amino Transferase 25 U/L (5-31); Bilirubin Direct 0.1 mg/dL (0.0-0.5); Bilirubin Total 0.3 mg/dL (0.0-1.0); Total Protein 6.5 g/dL (6.5-8.0)
== END 2023-03-07 14:22 | disposition home or self-care (01) ==
LOC: HO.MAMMO 14:21
PROVIDERS: Absent Provider Internal Medicine; PCP Internal Medicine; Visit Provider Internal Medicine
DX: N63.25 Unspecified lump in the left breast, overlapping quadrants (principal); K75.4 Autoimmune hepatitis; R79.89 Other specified abnormal findings of blood chemistry
CPT/HCPCS: 36415; 76642; 77062; 77066; 80076

== ENCOUNTER → 2023-03-11 12:37 | Outpatient (REF) | payer MEDICARE, SELFPAY ==
--- NOTE | 2023-03-11 12:39 | CA_ITS ---
Transthoracic Echocardiogram Patient (Last, First, Middle): Alyse Razo A Gender: Female Date of : 1950 Age: 72 Procedure Date: 03/11/2023 Procedure Type: Transthoracic Echocardiogram Location: OP Height: 157.48 cm Weight: 106.6 kg BSA: 2.05 m2 Heart Rate: 56 bpm BP: 114 / 72 mmHg [employer] Supervisor: SB Referring MD: Jarred Vital MD Symptoms: I42.9 - Cardiomyopathy, unspecified Study Quality: Technically Difficult ECG Rhythm: Bradycardia Conclusions: - The left ventricular systolic function is normal. The visually estimated ejection fraction is between 55-60%. Findings Procedure Information Contrast agent, definity, is being given per protocol without apparent complications. The quality of the study was technically difficult. The study quality is limited by patients body habitus. Left Ventricle Normal left ventricular cavity size. The left ventricular systolic function is normal. The visually estimated ejection fraction is between 55-60%. There is paradoxical septal motion consistent with post-operative status and paradoxical septal motion consistent with a left bundle branch block. Prior Study Comparison Changes noted compared to prior study dated: 12/24/2022. LVEF seems to be in normal range. Measurements 2D Linear Measurements IVSd: 1.20 0.6-0.9/0.6-1.0 cm LVIDd: 4.70 3.9-5.3/4.2-5.9 cm LVIDd Index: 2.29 2.4-3.2/2.2-3.1 cm/m2 LVIDs: 3.10 2.0-3.6 cm LVOT Diam: 2.00 3.0+(-)1.3 cm 2D Systolic Function EF 4C: 59.10 >55% EF 2C: 62.70 >55% EF BiP: 58.70 >55% LVOT LVOT Pk Missael: 1.04 LVOT Mn Missael: 0.76 LVOT VTI: 0.23 LVOT Pk Grad: 4.00 LVOT Mn Grad: 3.00 LVOT Diam: 2.00 LVOT Area: 3.14 Updated in Other Vendor System with Status of Final Kai Mccarthy MD electronically signed on 03/12/2023 11:42:22 AM with status of Final
== END ==
LOC: HO.CARD 12:37
PROVIDERS: PCP Internal Medicine; Visit Provider Internal Medicine Cardiovascular Disease
DX: I42.9 Cardiomyopathy, unspecified (principal)
CPT/HCPCS: 93308; Q9957

== ENCOUNTER → 2023-03-11 12:39 | Outpatient (BNV) | payer MEDICARE, SELFPAY ==
[2023-03-05 08:58] VITALS: BP 126/58; BP 92/54; BP 94/52; BMI 40.5
== END ==
PROVIDERS: PCP Internal Medicine; Visit Provider Internal Medicine
DX: I42.9 Cardiomyopathy, unspecified (principal)
CPT/HCPCS: 93308

== ENCOUNTER 2023-04-02 13:23 | Outpatient (AMB) | payer MEDICARE, SELFPAY ==
[2023-03-05 08:58] VITALS: BP 126/58; BP 92/54; BP 94/52; BMI 40.5
[2023-04-01 16:08] VITALS: BP 108/64; BMI 40.5
[2023-04-02 13:25] VITALS: BP 120/74; PULSE 59; BMI 39.8
--- NOTE | 2023-04-02 13:25 | MHC.OFFVIS ---
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 However she continues to be symptomatic with exertional shortness of breath. She denies any orthopnea, PND, leg edema. Takes all her medications. Denies palpitations, lightheadedness, syncope. COUNTS INCLUDE 234 BEDS AT THE [facility] Medical History Obesity (BMI 30-39.9) History of hypertrophic cardiomyopathy Morbid obesity due to excess calories Morbid obesity History of left bundle branch block (LBBB) Thyroid disease Arthritis GERD (gastroesophageal reflux disease) Depression History of fatty infiltration of liver LBBB (left bundle branch block) Surgical History H/O colonoscopy Hx of cataract surgery History of esophagogastroduodenoscopy (EGD) Status post ventricular septal myectomy Hx of section Hx of tubal ligation S/P cholecystectomy S/P total knee arthroplasty Family History Father Obesity Mother COPD (chronic obstructive pulmonary disease) Brother No problems noted. Son No problems noted. Daughter No problems noted. Social History Alcohol intake: never Patient Tobacco Use Status: Never used Tobacco Years Smoked: 5 years Review of Systems Const Denies chills, Denies fatigue, Denies fever(s), Denies frequent falls, Denies weakness, Denies weight gain and Denies weight loss ENT Denies dizziness Card Denies chest pain, Denies leg edema, Denies lightheadedness, Denies palpitations, Denies dyspnea, Denies dyspnea on exertion, Denies orthopnea and Denies other (loss of consciousness) Resp Denies cough, Denies dyspnea and Denies dyspnea on exertion GI Denies hematochezia and Denies change in stool character Musc Denies abnormal gait, Denies muscle weakness, Denies numbness, Denies radiating pain into limb and Denies tingling Neuro Denies abnormal gait, Denies dizziness, Denies frequent falls, Denies numbness, Denies tingling and Denies weakness Endo Denies fatigue and Denies palpitations Physical Exam Vital Signs: Last Vital Signs Pulse 59 04/02/23 13:25 BP 120/74 04/02/23 13:25 BMI result Body Mass Index 39.8 Const General: cooperative, healthy appearing, comfortable and no acute distress Orientation/consciousness: patient oriented x3 Neck Neck: Yes normal visual inspection Resp Effort & Inspection: normal respiratory effort Auscultation: clear to auscultation bilaterally, no crackles, no rales, no rhonchi and no wheezes Cardio Jugular venous distension: no JVD Rate: regular rate Rhythm: regular rhythm Heart sounds: S1 normal heart sound present, S2 normal heart sound present, no murmurs and no rubs Neuro General: patient oriented x3 Extrem General: Yes normal to inspection Psych Appearance: grossly normal Mental Status: mental status grossly normal Speech and movement: Normal speech and movement present Assessment & Plan Assessment & Plan (1) Cardiomyopathy: Code(s): I42.9 - Cardiomyopathy, unspecified Qualifiers: Cardiomyopathy type: unspecified Qualified Code(s): I42.9 - Cardiomyopathy, unspecified Plan: Nonischemic cardiomyopathy most likely left bundle-branch block mediated. Currently normalized LV ejection fraction on neurohormonal modulation with Entresto and carvedilol. Importance of this was discussed continue with phase 2 cardiac rehabilitation. She continues to have symptoms of exertional shortness of breath which I think is related to deconditioning and weight. We discussed will continue to participate in physical activity as tolerated and participate in weight loss program. She may benefit from Ozempic therapy. (2) History of hypertrophic cardiomyopathy: Code(s): Z86.79 - Personal history of other diseases of the circulatory system Plan: Prior history of hypertrophic cardiomyopathy status post septal reduction therapy in [facility]. Has done well with it. She developed postoperative left bundle-branch block which is remained stable. No other interventions required. Continue participate in lifestyle modification. Follow up in the clinic in 6 months time, sooner p.r.n.. Thank you for allowing me to partake in her care Coding Level of Care Code Est Pt Level 4 (73714) Diagnoses Cardiomyopathy, unspecified type I42.9 Cardiomyopathy type: unspecified History of hypertrophic cardiomyopathy Z86.79
== END 2023-04-02 13:45 | disposition home or self-care (01) ==
PROVIDERS: PCP Internal Medicine; Visit Provider Internal Medicine Cardiovascular Disease
DX: I42.9 Cardiomyopathy, unspecified (principal); Z86.79 Personal history of other diseases of the circulatory system
CPT/HCPCS: 99214

== ENCOUNTER → 2023-04-02 13:23 | Outpatient (BNVA) | payer MEDICARE, SELFPAY ==
[2023-03-05 08:58] VITALS: BP 126/58; BP 92/54
[2023-04-01 16:08] VITALS: BP 108/64; BMI 40.5
== END ==
PROVIDERS: PCP Internal Medicine; Visit Provider Internal Medicine Cardiovascular Disease
DX: I44.7 Left bundle-branch block, unspecified (principal); I42.9 Cardiomyopathy, unspecified; E66.01 Morbid (severe) obesity due to excess calories; Z68.39 Body mass index [BMI] 39.0-39.9, adult; Z87.74 Personal history of (corrected) congenital malformations of heart and circulatory system
CPT/HCPCS: 99212

== ENCOUNTER 2023-04-08 14:42 | Outpatient (REF) | payer MEDICARE, SELFPAY ==
[2023-03-05 08:58] VITALS: BP 126/58; BP 92/54
[2023-04-01 16:08] VITALS: BP 108/64; BMI 40.5
[2023-04-08 15:46] LABS: Alanine Aminotransferase 16 U/L (0-31); Albumin Level 3.9 g/dL (3.5-5.0); Alkaline Phosphatase 71 U/L (39-117); Aspartate Amino Transferase 23 U/L (5-31); Bilirubin Direct 0.1 mg/dL (0.0-0.5); Bilirubin Total 0.3 mg/dL (0.0-1.0); Total Protein 6.8 g/dL (6.5-8.0)
== END 2023-04-08 14:43 | disposition home or self-care (01) ==
LOC: HO.LAB 14:42
PROVIDERS: PCP Internal Medicine; Visit Provider Internal Medicine
DX: K75.4 Autoimmune hepatitis (principal); R79.89 Other specified abnormal findings of blood chemistry
CPT/HCPCS: 36415; 80076

== ENCOUNTER 2023-04-23 15:17 | Outpatient (REF) | payer MEDICARE, SELFPAY ==
[2023-03-05 08:58] VITALS: BP 126/58; BP 92/54
[2023-04-01 16:08] VITALS: BP 108/64; BMI 40.5
== END 2023-04-23 15:18 | disposition home or self-care (01) ==
LOC: HO.SH 15:17
PROVIDERS: Visit Provider Internal Medicine
DX: Z01.118 Encounter for examination of ears and hearing with other abnormal findings (principal); H90.3 Sensorineural hearing loss, bilateral
CPT/HCPCS: 92557

== ENCOUNTER 2023-04-23 16:32 | Outpatient (REF) | payer SELFPAY ==
[2023-03-05 08:58] VITALS: BP 126/58; BP 92/54
[2023-04-01 16:08] VITALS: BP 108/64; BMI 40.5
--- NOTE | 2023-04-24 08:32 | MHC.AU.MED ---
Medical Clearance for Hearing Instrumentation Date: 04/23/23 Patient Name: Alyse Razo Date of : 1950 Primary Care Provider: Avila Stevenson MD We have seen your patient on 04/23/23 and have determined that they are a candidate for amplification (See accompanying report). Specifically, they would benefit from: Hearing aid use in both ears There is a statute that addresses Medical Evaluation Requirements prior to fitting a patient with a hearing aid. According to [place] statute 265 CMR:6.03(1), (a) General. Except as provided in 265 CMR 6.03(1)(b), a speech and hearing director shall not sell a hearing aid unless the prospective user has presented to the speech and hearing director a written statement signed by a licensed physician that states that the patient's hearing loss has been medically evaluated and the patient may be considered a candidate for a hearing aid. The medical evaluation must have taken place within the preceding six months. Please note: Due to the [place] Statute referenced above, we cannot accept a signature other than that of a licensed physician. JIRA ADMINISTRATOR and PA signatures cannot be accepted. I am in agreement with the above recommendation. There is no medical contraindication for hearing instrumentation. Physician Signature Date Physician Name (Printed)
--- NOTE | 2023-04-24 11:38 | MHC.AU.HA1 ---
Hearing Aid Evaluation Date of Visit: 03/23/23 Historical Information: Description of Hearing: Mild to moderately-severe sensorineural hearing loss, bilaterally Current personal amplification information: Phonak Virto Q50-13 ITEs fit in September 2012 Summary: Alyse lost her left Virto hearing aid. She was recently evaluated at [facility] through her [facility] [employer]earing Benefit and she purchased a pair of Phonak Audeo L50-R hearing aids which she is using with power domes. She is still within the 60-day trial period and is considering returning them, as she would prefer to remain a patient here. Discussed styles, technology level, and pricing. Given that she was a successful hearing aid user with custom devices for over 10 years, Alyse opted to pursue new custom hearing aids here. Impressions were taken, bilaterally, without incident. Discussed battery-powered (312 vs 13) or rechargeable. Alyse chose to stay with the Phonak computer numerical control operator with the 312 battery-powered ITE FS devices. Hearing Aid Prescription: Based on the individual?s shared listening needs, communication environments, dexterity, desire for connectivity, and personal preferences, the following prescription for amplification has been made: Right ear: Make, Model, Color: Phonak Virto P50-312 FS ITEs Color: [place] Battery Size: 312 Left ear: Left ear prescription to be same as Right Hearing Aid above: Make, Model, Color: Phonak Virto P50-312 FS ITEs Color: [place] Battery Size: 312 Plan of Care: Patient wishes to purchase hearing aids as prescribed Action Taken/Action Needed: Medical Clearance to be requested from PCP/ENT. Hearing Instrument Fitting to be scheduled when materials arrive Primary Diagnosis: H90.3 Bilateral Sensorineural Hearing Loss Signature: Provider: Natalie Waldron, [facility]
== END 2023-04-23 16:33 | disposition home or self-care (01) ==
LOC: HO.HAP 16:32
PROVIDERS: Visit Provider Internal Medicine
DX: Z46.1 Encounter for fitting and adjustment of hearing aid (principal); H90.3 Sensorineural hearing loss, bilateral
CPT/HCPCS: 92591

== ENCOUNTER 2023-05-08 12:27 | Outpatient (REF) | payer MEDICARE, SELFPAY ==
[2023-03-05 08:58] VITALS: BP 126/58; BP 92/54
[2023-04-30 16:00] VITALS: BP 108/64; BMI 40.5
[2023-05-08 12:38] LABS: MANUAL DIFF FLAG NO
[2023-05-08 14:03] LABS: Basophils Absolute Auto 0.1 X10*3/uL (0.0-0.2); Eosinophils Absolute Auto 0.1 X10*3/uL (0.0-0.4); Eosinophils Percent Auto 2.1 % (0-4); Hematocrit 42.5 % (37.0-47.0); Hemoglobin 13.6 g/dl (12.0-16.0); Imm Gran Abs Auto 0.02 X10*3/uL (0.00-0.03); Imm Gran Pct Auto 0.3 % (0.0-0.4); Lymphocytes Absolute Auto 1.8 X10*3/uL (1.2-4.9); Mean Corpuscular Volume 87.4 fL (80.0-98.0); Mean Platelet Volume 11.9 fL (9.4-12.3); Monocytes Absolute Auto 0.4 X10*3/uL (0.1-1.2); Neutrophils Absolute Auto 3.5 x10*3/uL (2.0-8.3); Neutrophils Percent Auto 59.6 % (45-73); Platelet Count 176 X10*3/uL (160-400); Red Blood Count 4.86 X10*6/uL (4.20-5.50); Red Cell Distribution Width 15.9 % (11.0-16.0); White Blood Count 5.8 X10*3/uL (4.8-10.8)
[2023-05-08 14:40] LABS: Alanine Aminotransferase 19 U/L (0-31); Albumin Level 4.1 g/dL (3.5-5.0); Alkaline Phosphatase 75 U/L (39-117); Anion Gap 11 (12-20); Aspartate Amino Transferase 28 U/L (5-31); Bilirubin Total 0.5 mg/dL (0.0-1.0); Blood Urea Nitrogen 17 mg/dL (9-16); Calcium 9.6 mg/dL (8.4-10.2); Carbon Dioxide 28 mmol/L (22-29); Chloride 106 mmol/L (96-108); Estimated Glomerular Filt Rate > 60; Glucose Random 101 mg/dL (60-115); Potassium 4.1 mmol/L (3.3-5.1); Sodium 141 mmol/L (135-145); Total Protein 7.1 g/dL (6.5-8.0)
[2023-05-08 14:55] LABS: Free T4 (Free Thyroxine) 1.01 ng/dL (0.71-1.85)
[2023-05-08 15:00] LABS: Vitamin B12 404 pg/mL (200-900)
== END 2023-05-08 12:28 | disposition home or self-care (01) ==
LOC: HO.LAB 12:27
PROVIDERS: PCP Internal Medicine; Visit Provider Internal Medicine
DX: E03.9 Hypothyroidism, unspecified (principal); R53.83 Other fatigue; G47.33 Obstructive sleep apnea (adult) (pediatric)
CPT/HCPCS: 36415; 80053; 82607; 84439; 84443; 85025

== ENCOUNTER 2023-05-15 13:22 | Outpatient (REF) | payer MEDICARE, SELFPAY ==
[2023-03-05 08:58] VITALS: BP 126/58; BP 92/54
[2023-04-30 16:00] VITALS: BP 108/64; BMI 40.5
[2023-05-15 15:29] LABS: Alanine Aminotransferase 21 U/L (0-31); Alkaline Phosphatase 72 U/L (39-117); Aspartate Amino Transferase 31 U/L (5-31); Bilirubin Direct 0.2 mg/dL (0.0-0.5); Bilirubin Total 0.6 mg/dL (0.0-1.0)
== END 2023-05-15 13:23 | disposition home or self-care (01) ==
LOC: HO.LABR 13:22
PROVIDERS: PCP Internal Medicine; Visit Provider Internal Medicine
DX: K75.4 Autoimmune hepatitis (principal)
CPT/HCPCS: 36415; 80076

== ENCOUNTER 2023-06-05 13:30 | Outpatient (RCR) | payer MEDICARE, SELFPAY ==
[2023-03-05 08:58] VITALS: BP 126/58; BP 92/54; BP 94/52; BMI 40.5
--- NOTE | 2023-03-05 15:16 | MHC.CR.ITI ---
[address] [phone] F: [phone] Please see additional notes from [facility] Initial Assessment/ITP Cardiac Rehab Initial Assessment/ITP Start: 03/05/23 08:42 Freq: Status: Active Protocol: Activity Type Activity Date Activity User E-sign Co-sign Detail Recorded Client Recorded Date Recorded By Document 03/05/23 08:58 YVES [id number] 03/05/23 09:06 YVES 03/05/23 08:58 Cardiac Rehab ITP Initial [Excercise] -Dough Mixer Helper Required No -Preferred Language Upper Sorbian -Number of sessions approved 36 -Diagnosis CHF EF < or = 35% I50.9 -Other Diagnosis cardiomyopathy, LBBB, thyroid disease, GERD, Arthritis, Obesity, Depression -Comments Echo from 12/24 EF 30-35% 01/23/2023 nuclear stress test showing more normal myocardial profusion 53% Repeat Echo scheduled next month to reassess EF. Feelings that her LBBB contributed to reduced EF. Last visit with Cardiology reviewed S&S of HF. 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 [Functional Assessment] -6 Min Walk (distance in ft) 1,025 -Stress Test (Mode) walk -METS Achieved 2.49 -Resting HR 58 -Resting BP 92/54 -Resting SpO2 96 -Exercise HR 97 -Exercise BP 126/58 -Exercise SpO2 97 -RPE 9 -Dyspnea No -ECG Summary SR -Comments LBBB [Pre Rehab] -Pre Rehab Home Exercise Yes -Mode walk -Exercise Minutes/Day 25 -Exercise Days/Week 7DAYS/week -Intensity low -Risk Stratification: Intermediate Mild to Risk Participants moderate depressed LV function (EF 31 -49%) -Fall Risk No -Assistive Devices None [Exercise Plan] [Intervention] -Exercise Prescription NuStep, Recumbent Bike, Recumbent Elliptical, Rower,Treadmill ,UBE,Upright Bike,Weights -Duration Intensity 36 Sessions -Frequency 2-3x/week -Angina with Exercise Yes [Exercise Education] -Exercise Education Exercise orientation, Exercise safety ,Home exercise, RPE,Self pulse checking,Signs and symptoms, Warmup/cooldown -Date Completed 03/05/23 -Initials csp -Education Summary taught self pulse and she has home BP cuff. [Exercise Goals] -Exercise Most Days of the Week Yes -Exercise 30-45 mins/day Yes -Target HR Range +20 - +30 beats above resting -Target RPE range 11-13 -Increase METS next 30 days 0.5-1.0 METS Every two weeks -METs goal by Discharge 5 METS [Nutrition] [Hyperlipidemia] -Hyperlipidemia No -Are lab results available Yes -Lipid Draw Date 11/30/22 -Total Cholesterol 154 -LDL 91 -HDL 43 -Tryglycerides 100 [Diabetes] -Diabetes No -Are lab results available Yes -Fasting Glucose 96 -Date 11/30/22 -HbA1C 5.40 -Date 06/24/19 -Monitors Glucose No -Frequency N/A [Weight Management] -Height 5 ft 3 in -Weight 103.6 kg -BMI 40.45 -Recommended Diet DASH, Low Sodium, Low saturated fat [Drug/Alchohol Use] -Drug/Alcohol Use No [Nutritional Screen (Rate Your Plate)] -Score 60 -Interpretation of Score already making healthy choices -Comments needs to reduce portion size. [Nutrition Plan] [Intervention] -Referral(s) Nutrition Brochures [Nutrition Education] -Nutrition Education Hydration, Nutrition, Reading food labels,Signs and symptoms of Hypo/Hyper- glycemia -Date Completed 03/05/23 -Initials csp -Education Summary Pt is writing down ways to decrease food intake and remind herself to drink water [Nutrition Goals] -Goals BMI < 25, Fasting BG 80- 120 mg/dL,HDL > 40,LDL < 70, Total CHOL < 200 -Weight goal 150 -Comments use life style changes and increasing hydration to try and decrease amount she is eating [Psycho/Social] -Stage of Change Action -Learning Barriers Hearing -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 -Plan of Action/Follow-up Has dx of depression and is on medication presently has counselor and active with therapy -Comments should have 2 hearing aides. Has just 1 right now. -Patient Self-Reports Depression Yes -Family Support Lives alone -Comments has a dog, her name is Janiya Georges [Psycho/Social Plan] [Intervention] -Referral(s) No consult needed [Psycho/Social Education] -Psycho/Social Education Advanced directives, Coping techniques, Positive support system, Relaxation Techniques, Reviewed PHQ9 Score w/pt, Signs and symptoms of CAD ,Stress management -Date Completed 03/05/23 -Initials csp -Education Summary No longer sexually active . Has positive support system with children. Enjoys music and walking [Psycho/Social Goals] -Goals Improve depressive symptoms -Comments feels blah sometimes [Other Core Comp] [Risk Factors] -Risk Factors Hypertension, Obesity [Hypertension] -Hypertention No -Resting BP: 94/52 [Tobacco Use] -Patient Tobacco Use Status Never used Tobacco [Heart Failure] -Heart Failure Yes -EF% 30-35 -Dyspnea at Rest No -Dyspnea with Exercise Yes -Last Hospitalization 5yrs ago -Comments In for some confusion [Other Core Comp Plan] [Intervention] -Referral(s) Self Monitoring BP [Other Core Comp Education] -Other Core Comp Education HF Disease progression, Medication compliance,Risk factor modifications, RPD Scale/SOB management, Understanding hypertension -Date Completed 03/05/23 -Initials csp -Education Summary GIVEN HAND OUTS AND BOOK ABOUT HEART HEALTH/ CHF/EX/DIET/ REVIEWED RPD SCALE/DISEASE PROGRESSION DISCUSSION ABOUT HEART FAILURE [Other Core Comp Goals] -Goals Improve dyspnea ,Manage risk factors,Manage signs and symptoms of CHF ,Medication compliance, Resting BP < 130/80 [Medication Plan] [Intervention] -Medications prednisone carvedilol 3. 125 mg bid Entrest 49-52mg bid citalopran 15 mg daily Levothyroxine 0 .125mg daily -Compliance Patient reports compliance w/ prescribed meds [Medication Education] -Education Importance of medication compliance, Medication purpose, Medication schedule, Medication side effects -Date Completed 03/05/23 -Initials csp -Education Summary sets up meds each night and takes daily REVIEWED WHAT TO DO IF SHE HAS ANY MISSED DOSES WITH EACH MED. [Medication Goals] -Goals Adherence to medication compliance [Treatment Times] -Rehab Services with ECG Monitor -Time 1300 -End Time 1500 -Visit Duration 120
[2023-04-01 16:08] VITALS: BP 108/64; BMI 40.5
--- NOTE | 2023-04-01 16:20 | MHC.CR.ITR ---
[address] [phone] F: [phone] Please see additional notes from [facility] Cardiac Rehab Reassessment/ITP Cardiac Rehab Reassessment/ITP Start: 03/05/23 08:42 Freq: Status: Active Protocol: Activity Type Activity Date Activity User E-sign Co-sign Detail Recorded Client Recorded Date Recorded By Document 04/01/23 16:08 YVES Desktop 04/01/23 16:20 ANTWONNicole 04/01/23 16:08 Cardiac Rehab Reassessment/ITP [Exercise] -Tree Scout Required No -Preferred Language Occitan -Progress Note Type 30-Day Note -Total Sessions Attended 8 -Comments Echo from 12/24 EF 30-35% 01/23/2023 nuclear stress test showing more normal myocardial profusion 53% Repeat Echo scheduled next month to reassess EF. Feelings that her LBBB contributed to reduced EF. Last visit with Cardiology reviewed S&S of HF. 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 30 day reassessment: Pt has been attending CR as scheduled. She is engaged and participates in ex and education. No signs of ectopy and no CV symptoms reported . She remains in SR with noted LBBB. She has been stediliy increasing her work load resulting in increased Mets achieved. [Functional Assessment] -ECG Summary SR (LBBB) -Home-Based Rehab Pt approved for home-based exercise -Comments She walks a little at home -Fall Risk No [Exercise Plan] [Intervention] -Exercise Prescription NuStep, Recumbent Bike, Recumbent Elliptical, Rower,Treadmill ,UBE,Upright Bike,Weights -Duration Intensity 36 Sessions -Exercise Minutes/Day 45 -Exercise Days/Week 3 -Angina with Exercise Yes -Peak METs 3.3 [Home Exercise] -Mode walk -Frequency 15 min -Comments 3 days a week [Exercise Education] -Exercise Education Exercise orientation, Exercise safety ,Home exercise, RPE,Self pulse checking,Signs and symptoms, Warmup/cooldown -Date Completed 03/05/23 -Initials csp -Education Summary taught self pulse and she has home BP cuff. 30 Day Reassessment: Checks her BP and Pulse at home periodically [Exercise Goals] -Exercise Most Days of the Week Yes -Exercise 30-45 mins/day Yes -Target HR Range +20 - +30 beats above resting -Target RPE range 11-13 -Increase METS next 30 days 0.5-1.0 METS Every two weeks -METs goal by Discharge 5 METS [Nutrition] [Hyperlipidemia] -Are lab results available Yes -Hyperlipidemia No [Diabetes] -Diabetes No -Fasting Glucose 96 -Date 11/30/22 -HbA1C 5.40 -Date 06/24/19 [Weight Management] -Weight 104.5 kg -BMI 40.45 -Comments slight increase in wt noted [Drug/Alchohol Use] -Drug/Alcohol Use No -Change in Use No [Nutrition Plan] [Intervention] -Attended Nutrition Brochures [Nutrition Education] -Nutrition Education Hydration, Nutrition, Reading food labels,Signs and symptoms of Hypo/Hyper- glycemia -Date Completed 03/05/23 -Initials csp -Education Summary Pt is writing down ways to decrease food intake and remind herself to drink water [Nutrition Goals] -Goals BMI < 25, Fasting BG 80- 120 mg/dL,HDL > 40,LDL < 70, Total CHOL < 200 -Weight goal 150 -Comments use life style changes and increasing hydration to try and decrease amount she is eating 30 day: Participated in education about sodium intake being 200 mg or less per day. Maintaining good hydration, and nutrition for healthy heart. [Psycho/Social] -Stage of Change Action -Occupation Retired -PHQ9 Score 8 -Interpretation of Score moderate risk for depression. -Plan of Action/Follow-up Has dx of depression and is on medication presently has counselor and active with therapy 30 day: No real change in emotional state , but she seems to enjoy coming to CR and engages with staff and other patients. -Patient Self-Reports Depression Yes -Comments should have 2 hearing aides. Has just 1 right now. [Psycho/Social Plan] [Intervention] -Attended No consult needed [Psycho/Social Education] -Psycho/Social Education Advanced directives, Coping techniques, Positive support system, Relaxation Techniques, Reviewed PHQ9 Score w/pt, Signs and symptoms of CAD ,Stress management -Date Completed 03/05/23 -Initials csp -Education Summary No longer sexually active . Has positive support system with children. Enjoys music and walking [Psycho/Social Goals] -Goals Improve depressive symptoms -Comments feels blah sometimes 30 Day no change [Other Core Comp] [Hypertension] -Hypertention No -Resting BP: 108/64 -Medication Changes No -Comments Meds are up to date [Tobacco Use] -Change in Use No [Heart Failure] -Heart Failure Yes -Dyspnea at Rest No -Dyspnea with Exercise Yes -Comments In for some confusion [Other Core Comp Plan] [Intervention] -Attended Self Monitoring BP [Other Core Comp Education] -Other Core Comp Education HF Disease progression, Medication compliance,Risk factor modifications, RPD Scale/SOB management, Understanding hypertension -Date Completed 03/05/23 -Initials csp -Education Summary GIVEN HAND OUTS AND BOOK ABOUT HEART HEALTH/ CHF/EX/DIET/ REVIEWED RPD SCALE/DISEASE PROGRESSION DISCUSSION ABOUT HEART FAILURE 30 day: No real changes in wt eliciting any concern for CF. No edema noted in LE's. Reviewed importance of weight daily. Med compliance also important part of managing heart health. [Other Core Comp Goals] -Goals Improve dyspnea ,Manage risk factors,Manage signs and symptoms of CHF ,Medication compliance, Resting BP < 130/80 -Comments 30 Day: Pt is not having any SOB, She understands S&S of HF, she maintains BP within range, she is working on modifiable risk factors by improving diet and participating in CR, She reports medication compliance. [Medication Plan] [Intervention] -Medications prednisone carvedilol 3. 125 mg bid Entrest 49-52mg bid citalopran 15 mg daily Levothyroxine 0 .125mg daily -Compliance Patient reports compliance w/ prescribed meds [Medication Education] -Education Importance of medication compliance, Medication purpose, Medication schedule, Medication side effects -Date Completed 03/05/23 -Initials csp -Education Summary sets up meds each night and takes daily REVIEWED WHAT TO DO IF SHE HAS ANY MISSED DOSES WITH EACH MED. [Medication Goals] -Goals Adherence to medication compliance -Comments 30 day: continues with adherence
[2023-04-30 16:00] VITALS: BP 108/64; BMI 40.5
--- NOTE | 2023-04-30 16:45 | MHC.CR.ITR ---
[address] [phone] F: [phone] Please see additional notes from [facility] Cardiac Rehab Reassessment/ITP Cardiac Rehab Reassessment/ITP Start: 03/05/23 08:42 Freq: Status: Active Protocol: Activity Type Activity Date Activity User E-sign Co-sign Detail Recorded Client Recorded Date Recorded By Document 04/30/23 16:00 YVES Desktop 04/30/23 16:45 YVES 04/30/23 16:00 Cardiac Rehab Reassessment/ITP [Exercise] -[employer] Unified Communications Engineer Required No -Preferred Language Upper Sorbian -Progress Note Type 60-Day Note -Total Sessions Attended 18 -Comments Echo from 12/24 EF 30-35% 01/23/2023 nuclear stress test showing more normal myocardial profusion 53% Repeat Echo scheduled next month to reassess EF. Feelings that her LBBB contributed to reduced EF. Last visit with Cardiology reviewed S&S of HF. 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 30 day reassessment: Pt has been attending CR as scheduled. She is engaged and participates in ex and education. No signs of ectopy and no CV symptoms reported . She remains in SR with noted LBBB. She has been steadily increasing her work load resulting in increased Mets achieved. 60 Day reassessment: Alyse is doing very well in CR. She is achieving a MET of 3.9 [Functional Assessment] -ECG Summary SR (LBBB) -Home-Based Rehab Pt approved for home-based exercise -Comments She walks a little at home -Fall Risk No [Exercise Plan] [Intervention] -Exercise Prescription NuStep, Recumbent Bike, Recumbent Elliptical, Rower,Treadmill ,UBE,Upright Bike,Weights -Duration Intensity 36 Sessions -Exercise Minutes/Day 45 -Exercise Days/Week 3 -Angina with Exercise Yes -Peak METs 3.9 [Home Exercise] -Mode walk -Frequency 15 min -Comments 3 days a week [Exercise Education] -Exercise Education Exercise orientation, Exercise safety ,Home exercise, RPE,Self pulse checking,Signs and symptoms, Warmup/cooldown -Date Completed 03/05/23 -Initials csp -Education Summary taught self pulse and she has home BP cuff. 30 Day Reassessment: Checks her BP and Pulse at home periodically 60 Day Assessment: She understands RPE and uses effectively. [Exercise Goals] -Exercise Most Days of the Week Yes -Exercise 30-45 mins/day Yes -Target HR Range +20 - +30 beats above resting -Target RPE range 11-13 -Increase METS next 30 days 0.5-1.0 METS Every two weeks -METs goal by Discharge 5 METS [Nutrition] [Hyperlipidemia] -Are lab results available Yes -Hyperlipidemia No [Diabetes] -Diabetes No -Fasting Glucose 96 -Date 11/30/22 -HbA1C 5.40 -Date 06/24/19 [Weight Management] -Weight 104.5 kg -BMI 40.45 -Comments slight increase in wt noted [Drug/Alchohol Use] -Drug/Alcohol Use No -Change in Use No [Nutrition Plan] [Intervention] -Attended Nutrition Brochures,Not Applicable [Nutrition Education] -Nutrition Education Hydration, Nutrition, Reading food labels,Signs and symptoms of Hypo/Hyper- glycemia -Date Completed 03/05/23 -Initials csp -Education Summary Pt is writing down ways to decrease food intake and remind herself to drink water [Nutrition Goals] -Goals BMI < 25, Fasting BG 80- 120 mg/dL,HDL > 40,LDL < 70, Total CHOL < 200 -Weight goal 150 -Comments use life style changes and increasing hydration to try and decrease amount she is eating 30 day: Participated in education about sodium intake being 200 mg or less per day. Maintaining good hydration, and nutrition for healthy heart. 60 Day: weight is same. [Psycho/Social] -Stage of Change Action -Occupation Retired -PHQ9 Score 8 -Interpretation of Score moderate risk for depression. -Plan of Action/Follow-up Has dx of depression and is on medication presently has counselor and active with therapy 30 day: No real change in emotional state , but she seems to enjoy coming to CR and engages with staff and other patients. 60 Day: Pt is stable. Very engaged in therapy and with patients. -Patient Self-Reports Depression Yes -Comments should have 2 hearing aides. Has just 1 right now. [Psycho/Social Plan] [Intervention] -Attended No consult needed [Psycho/Social Education] -Psycho/Social Education Advanced directives, Coping techniques, Positive support system, Relaxation Techniques, Reviewed PHQ9 Score w/pt, Signs and symptoms of CAD ,Stress management -Date Completed 03/05/23 -Initials csp -Education Summary No longer sexually active . Has positive support system with children. Enjoys music and walking [Psycho/Social Goals] -Goals Improve depressive symptoms -Comments feels blah sometimes 30 Day no change 60 Day: Pt contiinues to be stable emotionally. [Other Core Comp] [Hypertension] -Hypertention No -Resting BP: 108/64 -Medication Changes No -Comments Meds are up to date [Tobacco Use] -Change in Use No [Heart Failure] -Heart Failure Yes -Dyspnea at Rest No -Dyspnea with Exercise Yes -Comments In for some confusion [Other Core Comp Plan] [Intervention] -Attended Self Monitoring BP [Other Core Comp Education] -Other Core Comp Education HF Disease progression, Medication compliance,Risk factor modifications, RPD Scale/SOB management, Understanding hypertension -Date Completed 03/05/23 -Initials csp -Education Summary GIVEN HAND OUTS AND BOOK ABOUT HEART HEALTH/ CHF/EX/DIET/ REVIEWED RPD SCALE/DISEASE PROGRESSION DISCUSSION ABOUT HEART FAILURE 30 day: No real changes in wt eliciting any concern for CF. No edema noted in LE's. Reviewed importance of weight daily. Med compliance also important part of managing heart health. 60 Day: Pt is working on risk factor modifications, with diet and ex especially. BP's have been good and she does not experience SOB. [Other Core Comp Goals] -Goals Improve dyspnea ,Manage risk factors,Manage signs and symptoms of CHF ,Medication compliance, Resting BP < 130/80 -Comments 30 Day: Pt is not having any SOB, She understands S&S of HF, she maintains BP within range, she is working on modifiable risk factors by improving diet and participating in CR, She reports medication compliance. 60 day: No concerns for BP . [Medication Plan] [Intervention] -Medications prednisone carvedilol 3. 125 mg bid Entrest 49-52mg bid citalopran 15 mg daily Levothyroxine 0 .125mg daily -Compliance Patient reports compliance w/ prescribed meds [Medication Education] -Education Importance of medication compliance, Medication purpose, Medication schedule, Medication side effects -Date Completed 03/05/23 -Initials csp -Education Summary sets up meds each night and takes daily REVIEWED WHAT TO DO IF SHE HAS ANY MISSED DOSES WITH EACH MED. [Medication Goals] -Goals Adherence to medication compliance -Comments 30 day: continues with adherence
[2023-05-28 10:15] VITALS: BP 108/64; BMI 40.5
--- NOTE | 2023-05-28 10:34 | MHC.CR.ITR ---
[address] [phone] F: [phone] Please see additional notes from [address] [phone] F: [phone] Please see additional notes from [facility] Cardiac Rehab Reassessment/ITP Cardiac Rehab Reassessment/ITP Start: 03/05/23 08:42 Freq: Status: Active Protocol: Activity Type Activity Date Activity User E-sign Co-sign Detail Recorded Client Recorded Date Recorded By Document 05/28/23 10:15 DELICIA [id number] 05/28/23 10:33 DELICIA 05/28/23 10:15 Cardiac Rehab Reassessment/ITP [Exercise] -Head Up Operator Required No -Preferred Language Indonesian -Progress Note Type 90-Day Note -Total Sessions Attended 22 -Comments Echo from 12/24 EF 30-35% 01/23/2023 nuclear stress test showing more normal myocardial profusion 53% Repeat Echo scheduled next month to reassess EF. Feelings that her LBBB contributed to reduced EF. Last visit with Cardiology reviewed S&S of HF. 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 30 day reassessment: Pt has been attending CR as scheduled. She is engaged and participates in ex and education. No signs of ectopy and no CV symptoms reported . She remains in SR with noted LBBB. She has been steadily increasing her work load resulting in increased Mets achieved. 60 Day reassessment: Alyse is doing very well in CR. She is achieving a MET of 3.9 90 Day reassessment: Alyse continues to do well in Cardiac Rehab. Mets as above. [Functional Assessment] -ECG Summary SR (LBBB) -Home-Based Rehab Pt approved for home-based exercise -Comments She walks a little at home. 90 Day- No change from above. Expresses she is thinking about home exercise; she is comfortable with cardiac rehab exercises only. -Fall Risk No [Exercise Plan] [Intervention] -Exercise Prescription NuStep, Recumbent Bike, Recumbent Elliptical, Rower,Treadmill ,UBE,Upright Bike,Weights -Duration Intensity 36 Sessions -Exercise Minutes/Day 45 -Exercise Days/Week 3 -Angina with Exercise Yes -Peak METs 3.9 [Home Exercise] -Mode walk -Frequency 15 min -Comments 3 days a week [Exercise Education] -Exercise Education Exercise orientation, Exercise safety ,Home exercise, RPE,Self pulse checking,Signs and symptoms, Warmup/cooldown -Date Completed 03/05/23 -Initials csp -Education Summary taught self pulse and she has home BP cuff. 30 Day Reassessment: Checks her BP and Pulse at home periodically 60 Day Assessment: She understands RPE and uses effectively. 90 Day Reassessment: Reports RPE. No CV symptoms. Participates in group warm up. [Exercise Goals] -Exercise Most Days of the Week Yes -Exercise 30-45 mins/day Yes -Target HR Range +20 - +30 beats above resting -Target RPE range 11-13 -Increase METS next 30 days 0.5-1.0 METS Every two weeks -METs goal by Discharge 5 METS [Nutrition] [Hyperlipidemia] -Are lab results available Yes -Hyperlipidemia No [Diabetes] -Diabetes No -Fasting Glucose 96 -Date 11/30/22 -HbA1C 5.40 -Date 06/24/19 [Weight Management] -Weight 104.5 kg -BMI 40.45 -Comments slight increase in wt noted 90 Day Reassessment: Weight remains 104.5KG [Drug/Alchohol Use] -Drug/Alcohol Use No -Change in Use No [Nutrition Plan] [Intervention] -Attended Nutrition Brochures,Not Applicable [Nutrition Education] -Nutrition Education Hydration, Nutrition, Reading food labels,Signs and symptoms of Hypo/Hyper- glycemia -Date Completed 03/05/23 -Initials csp -Education Summary Pt is writing down ways to decrease food intake and remind herself to drink water [Nutrition Goals] -Goals BMI < 25, Fasting BG 80- 120 mg/dL,HDL > 40,LDL < 70, Total CHOL < 200 -Weight goal 150 -Comments use life style changes and increasing hydration to try and decrease amount she is eating 30 day: Participated in education about sodium intake being 200 mg or less per day. Maintaining good hydration, and nutrition for healthy heart. 60 Day: weight is same. 90 Day: No change in weight. Consistent with her cardiac rehab attendance. 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 [Psycho/Social] -Stage of Change Action -Occupation Retired -PHQ9 Score 8 -Interpretation of Score moderate risk for depression. -Plan of Action/Follow-up Has dx of depression and is on medication presently has counselor and active with therapy 30 day: No real change in emotional state , but she seems to enjoy coming to CR and engages with staff and other patients. 60 Day: Pt is stable. Very engaged in therapy and with patients. 90 Day: No change from the above. Continues to be engaged in therapy and with other patients. -Patient Self-Reports Depression Yes -Comments should have 2 hearing aides. Has just 1 right now. [Psycho/Social Plan] [Intervention] -Attended No consult needed [Psycho/Social Education] -Psycho/Social Education Advanced directives, Coping techniques, Positive support system, Relaxation Techniques, Reviewed PHQ9 Score w/pt, Signs and symptoms of CAD ,Stress management -Date Completed 03/05/23 -Initials csp -Education Summary No longer sexually active . Has positive support system with children. Enjoys music and walking 90 Day: Stress reduction class planned for . No expression of anxiety or depression. [Psycho/Social Goals] -Goals Improve depressive symptoms -Comments feels blah sometimes 30 Day no change 60 Day: Pt contiinues to be stable emotionally. 90 [Other Core Comp] [Hypertension] -Hypertention No -Resting BP: 108/64 -Medication Changes No -Comments Meds are up to date 90 Day: Recent BP's are: 110/ 62 at rest, 132 /62 with exercise, and 108/58 post exercise. [Tobacco Use] -Change in Use No [Heart Failure] -Heart Failure Yes -Dyspnea at Rest No -Dyspnea with Exercise Yes -Comments In for some confusion 90 Day Reassessment: No S/S of CHF [Other Core Comp Plan] [Intervention] -Attended Self Monitoring BP [Other Core Comp Education] -Other Core Comp Education HF Disease progression, Medication compliance,Risk factor modifications, RPD Scale/SOB management, Understanding hypertension -Date Completed 03/05/23 -Initials csp -Education Summary GIVEN HAND OUTS AND BOOK ABOUT HEART HEALTH/ CHF/EX/DIET/ REVIEWED RPD SCALE/DISEASE PROGRESSION DISCUSSION ABOUT HEART FAILURE 30 day: No real changes in wt eliciting any concern for CF. No edema noted in LE's. Reviewed importance of weight daily. Med compliance also important part of managing heart health. 60 Day: Pt is working on risk factor modifications, with diet and ex especially. BP's have been good and she does not experience SOB. 90 Day- Continues without SOB. VSS. No S/S of CHF or issues with medications. [Other Core Comp Goals] -Goals Improve dyspnea ,Manage risk factors,Manage signs and symptoms of CHF ,Medication compliance, Resting BP < 130/80 -Comments 30 Day: Pt is not having any SOB, She understands S&S of HF, she maintains BP within range, she is working on modifiable risk factors by improving diet and participating in CR, She reports medication compliance. 60 day: No concerns for BP . 90 Day Reassessment: VSS, no s/s CHF , no issues with medication reported when asked. No SOB. [Medication Plan] [Intervention] -Medications prednisone carvedilol 3. 125 mg bid Entrest 49-52mg bid citalopran 15 mg daily Levothyroxine 0 .125mg daily -Compliance Patient reports compliance w/ prescribed meds [Medication Education] -Education Importance of medication compliance, Medication purpose, Medication schedule, Medication side effects -Date Completed 03/05/23 -Initials csp -Education Summary sets up meds each night and takes daily REVIEWED WHAT TO DO IF SHE HAS ANY MISSED DOSES WITH EACH MED. [Medication Goals] -Goals Adherence to medication compliance -Comments 30 day: continues with adherence 90 Day Reassessment: continues with adherence
[2023-06-27 12:27] VITALS: BP 108/64; BP 126/58; BP 92/54; BMI 40.5
--- NOTE | 2023-06-27 12:41 | MHC.CR.ITD ---
[address] [phone] F: [phone] Please see additional notes from [facility] Discharged after 22 sessions., per patient's choice. Cardiac Rehab Discharge/ITP Cardiac Rehab Discharge/ITP Start: 03/05/23 08:42 Freq: Status: Active Protocol: Activity Type Activity Date Activity User E-sign Co-sign Detail Recorded Client Recorded Date Recorded By Document 06/27/23 12:27 YVES Desktop 06/27/23 12:40 YVES 06/27/23 12:27 Cardiac Rehab Discharge/ITP [Exercise] -Oven Unloader Required No -Preferred Language Mosotho -Total Sessions Attended 22 -Comments Echo from 12/24 EF 30-35% 01/23/2023 nuclear stress test showing more normal myocardial profusion 53% Repeat Echo scheduled next month to reassess EF. Feelings that her LBBB contributed to reduced EF. Last visit with Cardiology reviewed S&S of HF. 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 30 day reassessment: Pt has been attending CR as scheduled. She is engaged and participates in ex and education. No signs of ectopy and no CV symptoms reported . She remains in SR with noted LBBB. She has been steadily increasing her work load resulting in increased Mets achieved. 60 Day reassessment: Alyse is doing very well in CR. She is achieving a MET of 3.9 90 Day reassessment: Alyse continues to do well in Cardiac Rehab. Mets as above. Discharge. Patient has not attended any further visits from her last visit. She completed 22 visits. Max met at last visits was 3.9. She was supposed to return this week for visits but did not. Called her and she said its just too cold to come, however she is going to [facility] 3 times a week and she is doing seated stepper for 30 min. She takes with her all the education about diet and understands the importance of modificable risk factor management including continued exercise. 6 min walk not completed, nor PHQ9 or Rate my plate. [Functional Assessment] -6 Min Walk (distance in ft) 1,025 -Stress Test (Mode) walk -METS Achieved 2.49 -Resting HR 58 -Resting BP 92/54 -Resting SpO2 96 -Exercise HR 97 -Exercise BP 126/58 -RPE 9 -ECG Summary SR (LBBB) -Fall Risk No [Exercise Plan] [Intervention] -Exercise Prescription NuStep, Recumbent Bike, Recumbent Elliptical, Rower,Treadmill ,UBE,Upright Bike,Weights -Duration Intensity 36 Sessions -Exercise Minutes/Day 45 -Exercise Days/Week 3 -Angina with Exercise Yes -Peak METs 3.9 [Home Exercise] -Mode walk -Frequency 15 min -Comments 3 days a week [Exercise Education] -Exercise Education Exercise orientation, Exercise safety ,Home exercise, RPE,Self pulse checking,Signs and symptoms, Warmup/cooldown -Date Completed 03/05/23 -Initials csp -Education Summary taught self pulse and she has home BP cuff. 30 Day Reassessment: Checks her BP and Pulse at home periodically 60 Day Assessment: She understands RPE and uses effectively. 90 Day Reassessment: Reports RPE. No CV symptoms. Participates in group warm up. [Exercise Goals] -Exercise Most Days of the Week Yes -Exercise 30-45 mins/day Yes -Target HR Range +20 - +30 beats above resting -Target RPE range 11-13 -Increase METS next 30 days 0.5-1.0 METS Every two weeks -METs goal by Discharge 5 METS -Comments Discharging to ex on her own. She understands to ex to max HR and keep ex between 11-13 on RPE scale. [Nutrition] [Hyperlipidemia] -Are lab results available Yes -Hyperlipidemia No -Lipid Draw Date 11/30/22 -Total Cholesterol 154 -LDL 91 -HDL 43 -Tryglycerides 100 -Comments No lab changes at discharge. [Diabetes] -Diabetes No -Fasting Glucose 96 -Date 11/30/22 -HbA1C 5.40 -Date 06/24/19 -Medication Changes No [Weight Management] -Weight 104.5 kg -BMI 40.45 -Comments slight increase in wt noted 90 Day Reassessment: Weight remains 104.5KG Pt reports at discharge she will continue to try and lose weight and pay attention to diet. Understands her weight is a modifiable risk factor. [Drug/Alchohol Use] -Drug/Alcohol Use No -Change in Use No [Nutrition Plan] [Intervention] -Attended Nutrition Brochures,Not Applicable [Nutrition Education] -Nutrition Education Hydration, Nutrition, Reading food labels,Signs and symptoms of Hypo/Hyper- glycemia -Date Completed 03/05/23 -Initials csp -Education Summary Pt is writing down ways to decrease food intake and remind herself to drink water [Nutrition Goals] -Goals BMI < 25, Fasting BG 80- 120 mg/dL,HDL > 40,LDL < 70, Total CHOL < 200 -Weight goal 150 -Comments use life style changes and increasing hydration to try and decrease amount she is eating 30 day: Participated in education about sodium intake being 200 mg or less per day. Maintaining good hydration, and nutrition for healthy heart. 60 Day: weight is same. 90 Day: No change in weight. Consistent with her cardiac rehab attendance. behavioral health specialist will discuss home exercise again. [Psycho/Social] -Stage of Change Action -Occupation Retired -PHQ9 Score 8 -Interpretation of Score moderate risk for depression. -Plan of Action/Follow-up Has dx of depression and is on medication presently has counselor and active with therapy 30 day: No real change in emotional state , but she seems to enjoy coming to CR and engages with staff and other patients. 60 Day: Pt is stable. Very engaged in therapy and with patients. 90 Day: No change from the above. Continues to be engaged in therapy and with other patients. Discharge: denies depression: PHQ9 not repeated. -Patient Self-Reports Depression Yes -Comments should have 2 hearing aides. Has just 1 right now. -Medication Changes No [Psycho/Social Plan] [Intervention] -Attended No consult needed [Psycho/Social Education] -Psycho/Social Education Advanced directives, Coping techniques, Positive support system, Relaxation Techniques, Reviewed PHQ9 Score w/pt, Signs and symptoms of CAD ,Stress management -Date Completed 03/05/23 -Initials csp -Education Summary No longer sexually active . Has positive support system with children. Enjoys music and walking 90 Day: Stress reduction class planned for . No expression of anxiety or depression. [Psycho/Social Goals] -Goals Improve depressive symptoms -Comments feels blah sometimes 30 Day no change 60 Day: Pt continues to be stable emotionally. Discharge: denies feeling depressed. [Other Core Comp] [Hypertension] -Hypertention No -Resting BP: 108/64 -Medication Changes No -Comments Meds are up to date 90 Day: Recent BP's are: 110/ 62 at rest, 132 /62 with exercise, and 108/58 post exercise. last BP on 04/2023 110/52 [Tobacco Use] -Change in Use No [Heart Failure] -Dyspnea at Rest No -Dyspnea with Exercise Yes -Comments In for some confusion 90 Day Reassessment: No S/S of CHF [Other Core Comp Plan] [Intervention] -Attended Self Monitoring BP [Other Core Comp Education] -Other Core Comp Education HF Disease progression, Medication compliance,Risk factor modifications, RPD Scale/SOB management, Understanding hypertension -Date Completed 03/05/23 -Initials csp -Education Summary GIVEN HAND OUTS AND BOOK ABOUT HEART HEALTH/ CHF/EX/DIET/ REVIEWED RPD SCALE/DISEASE PROGRESSION DISCUSSION ABOUT HEART FAILURE 30 day: No real changes in wt eliciting any concern for CF. No edema noted in LE's. Reviewed importance of weight daily. Med compliance also important part of managing heart health. 60 Day: Pt is working on risk factor modifications, with diet and ex especially. BP's have been good and she does not experience SOB. 90 Day- Continues without SOB. VSS. No S/S of CHF or issues with medications. Discharges: [Other Core Comp Goals] -Goals Improve dyspnea ,Manage risk factors,Manage signs and symptoms of CHF ,Medication compliance, Resting BP < 130/80 -Comments 30 Day: Pt is not having any SOB, She understands S&S of HF, she maintains BP within range, she is working on modifiable risk factors by improving diet and participating in CR, She reports medication compliance. 60 day: No concerns for BP . 90 Day Reassessment: VSS, no s/s CHF , no issues with medication reported when asked. No SOB. Discharge: no changes [Medication Plan] [Intervention] -Medications prednisone carvedilol 3. 125 mg bid Entrest 49-52mg bid citalopran 15 mg daily Levothyroxine 0 .125mg daily -Compliance Patient reports compliance w/ prescribed meds [Medication Education] -Education Importance of medication compliance, Medication purpose, Medication schedule, Medication side effects -Date Completed 03/05/23 -Initials csp -Education Summary sets up meds each night and takes daily REVIEWED WHAT TO DO IF SHE HAS ANY MISSED DOSES WITH EACH MED. [Medication Goals] -Goals Adherence to medication compliance -Comments 30 day: continues with adherence 90 Day Reassessment: continues with adherence Discharge: Pt continues with medication compliance and plans to keep with it.
== END 2023-07-15 12:12 | disposition home or self-care (01) ==
LOC: HO.CR 13:30
PROVIDERS: PCP Internal Medicine; Visit Provider Nurse Practitioner Family
DX: I50.30 Unspecified diastolic (congestive) heart failure (principal)
CPT/HCPCS: 93798

== ENCOUNTER 2023-06-26 16:07 | Outpatient (REF) | payer MEDICARE, SELFPAY ==
[2023-03-05 08:58] VITALS: BP 126/58; BP 92/54
[2023-05-28 10:15] VITALS: BP 108/64; BMI 40.5
[2023-06-26 17:01] LABS: Alanine Aminotransferase 25 U/L (0-31); Albumin Level 4.1 g/dL (3.5-5.0); Alkaline Phosphatase 83 U/L (39-117); Aspartate Amino Transferase 28 U/L (5-31); Bilirubin Direct 0.1 mg/dL (0.0-0.5); Bilirubin Total 0.4 mg/dL (0.0-1.0); Total Protein 7.1 g/dL (6.5-8.0)
== END 2023-06-26 16:08 | disposition home or self-care (01) ==
LOC: HO.LAB 16:07
PROVIDERS: PCP Internal Medicine; Visit Provider Internal Medicine
DX: K75.4 Autoimmune hepatitis (principal)
CPT/HCPCS: 36415; 80076

== ENCOUNTER 2023-08-02 14:57 | Outpatient (REF) | payer MEDICARE, SELFPAY ==
[2023-08-02 15:50] LABS: Alanine Aminotransferase 27 U/L (0-31); Alkaline Phosphatase 81 U/L (39-117); Aspartate Amino Transferase 31 U/L (5-31); Bilirubin Direct 0.2 mg/dL (0.0-0.5); Bilirubin Total 0.4 mg/dL (0.0-1.0); Total Protein 6.9 g/dL (6.5-8.0)
== END 2023-08-02 14:58 | disposition home or self-care (01) ==
LOC: HO.LAB 14:57
PROVIDERS: PCP Internal Medicine; Visit Provider Internal Medicine
DX: K75.4 Autoimmune hepatitis (principal); R79.89 Other specified abnormal findings of blood chemistry
CPT/HCPCS: 36415; 80076

== ENCOUNTER 2023-09-14 07:10 | Outpatient (REF) | payer MEDICARE, SELFPAY ==
[2023-09-14 07:33] LABS: MANUAL DIFF FLAG NO
[2023-09-14 07:54] LABS: Basophils Absolute Auto 0.1 X10*3/uL (0.0-0.2); Basophils Percent Auto 0.9 % (0-2); Eosinophils Absolute Auto 0.2 X10*3/uL (0.0-0.4); Eosinophils Percent Auto 3.7 % (0-4); Hemoglobin 13.2 g/dl (12.0-16.0); Imm Gran Abs Auto 0.01 X10*3/uL (0.00-0.03); Imm Gran Pct Auto 0.2 % (0.0-0.4); Lymphocytes Absolute Auto 1.7 X10*3/uL (1.2-4.9); Lymphocytes Percent Auto 26.1 % (20-40); Mean Corpuscular HGB Conc 32.2 g/dl (31.0-35.0); Mean Corpuscular Hemoglobin 27.3 pg (27.0-33.0); Mean Corpuscular Volume 84.9 fL (80.0-98.0); Monocytes Absolute Auto 0.5 X10*3/uL (0.1-1.2); Monocytes Percent Auto 8.3 % (2-11); Neutrophils Percent Auto 60.8 % (45-73); Platelet Count 168 X10*3/uL (160-400); Red Blood Count 4.83 X10*6/uL (4.20-5.50); Red Cell Distribution Width 14.9 % (11.0-16.0); White Blood Count 6.5 X10*3/uL (4.8-10.8)
[2023-09-14 08:35] LABS: Alanine Aminotransferase 16 U/L (0-31); Albumin Level 3.8 g/dL (3.5-5.0); Alkaline Phosphatase 81 U/L (39-117); Aspartate Amino Transferase 24 U/L (5-31); Bilirubin Direct 0.1 mg/dL (0.0-0.5); Bilirubin Total 0.4 mg/dL (0.0-1.0); Total Protein 6.5 g/dL (6.5-8.0)
[2023-09-14 08:44] LABS: Alanine Aminotransferase 17 U/L (0-31); Albumin Level 3.7 g/dL (3.5-5.0); Alkaline Phosphatase 80 U/L (39-117); Anion Gap 9 (12-20); Aspartate Amino Transferase 23 U/L (5-31); Bilirubin Total 0.3 mg/dL (0.0-1.0); Blood Urea Nitrogen 21 mg/dL (9-16); Calcium 8.9 mg/dL (8.4-10.2); Carbon Dioxide 25 mmol/L (22-29); Chloride 111 mmol/L (96-108); Cholesterol 155 mg/dL (<200); Estimated Glomerular Filt Rate > 60; Glucose Random 105 mg/dL (60-115); HDL Cholesterol 49 mg/dL (>40); LDL Cholesterol Calculated 92 mg/dL (<100); Sodium 141 mmol/L (135-145); Total Protein 6.4 g/dL (6.5-8.0); Triglycerides 71 mg/dL (<150)
[2023-09-14 09:01] LABS: Free T4 (Free Thyroxine) 0.94 ng/dL (0.71-1.85); Thyroid Stimulating Hormone 0.19 uIU/mL (0.32-4.0)
== END 2023-09-14 07:11 | disposition home or self-care (01) ==
LOC: HO.LAB 07:10
PROVIDERS: Absent Provider Internal Medicine; PCP Internal Medicine; Visit Provider Internal Medicine
DX: K75.4 Autoimmune hepatitis (principal); R79.89 Other specified abnormal findings of blood chemistry; E03.9 Hypothyroidism, unspecified; G47.33 Obstructive sleep apnea (adult) (pediatric); K21.9 Gastro-esophageal reflux disease without esophagitis
CPT/HCPCS: 36415; 80053; 80061; 80076; 82248; 84439; 84443; 85025

== ENCOUNTER 2023-09-26 12:11 | Outpatient (AMB) | payer MEDICARE, SELFPAY ==
[2023-03-05 08:58] VITALS: BP 126/58; BP 92/54
[2023-04-01 16:08] VITALS: BP 108/64; BMI 40.5
[2023-09-26 12:33] VITALS: BP 120/60; PULSE 57; BMI 40.5
--- NOTE | 2023-09-26 12:33 | MHC.OFFVIS ---
Vital Signs 09/26/23 12:33 Height 5 ft 3 in Weight 228 lb 13.437 oz BMI 40.5 BP 120/60 Blood Pressure Location Lt brachial Position Sitting Pulse 57 Pulse Source Pulse Oximeter Intake Visit Reasons: 6 mth f/up Contracts Representative Required: No Allergies Penicillins [PENICILLINS] Allergy (Intermediate, Verified 09/26/23 12:35) RASH Medication List - Last Reconciled 09/26/23 by Jarred Vital MD carvedilol 3.125 mg PO BID escitalopram oxalate 3 mg PO Q OTHER DAY PRN latanoprost 0.005% (Xelpros) 1 drp ophthalmic (eye) BEDTIME levothyroxine 125 mcg PO DAILY sacubitril-valsartan 49-51 mg (Entresto) 1 tab PO BID 90 days HPI Comments Details: Alyse comes for follow-up. She says overall she has not feeling well because she is depressed. She continues to struggle with her weight. She is taking all her medications. She is worried that she might run out of her Entresto. However she is taking it currently. Denies any lightheadedness, syncope. No worsening shortness of breath, orthopnea, PND, leg edema. No prolonged palpitation irregular heartbeat. FORMERLY [facility], [facility] Medical History (Updated 09/26/23 @ 12:55 by Jarred Vital MD) Congestive heart failure with left ventricular diastolic dysfunction, NYHA class 2 Obesity (BMI 30-39.9) History of hypertrophic cardiomyopathy Morbid obesity due to excess calories Morbid obesity History of left bundle branch block (LBBB) Thyroid disease Arthritis GERD (gastroesophageal reflux disease) Depression History of fatty infiltration of liver LBBB (left bundle branch block) Surgical History H/O colonoscopy Hx of cataract surgery History of esophagogastroduodenoscopy (EGD) Status post ventricular septal myectomy Hx of section Hx of tubal ligation S/P cholecystectomy S/P total knee arthroplasty Family History Father Obesity Mother COPD (chronic obstructive pulmonary disease) Brother No problems noted. Son No problems noted. Daughter No problems noted. Social History Alcohol intake: never Patient Tobacco Use Status: Never used Tobacco Years Smoked: 5 years Review of Systems ENT Reports dizziness Card Denies chest pain, Denies chest pain at rest, Denies chest pain with activity, Denies rapid heart rate, Denies pedal edema, Denies edema, Denies leg edema, Denies lightheadedness, Denies palpitations, Reports dyspnea, Denies dyspnea on exertion and Denies orthopnea Resp Denies cough, Reports dyspnea and Denies dyspnea on exertion GI Denies hematochezia and Denies change in stool character Musc Denies abnormal gait, Reports limited range of motion, Reports muscle cramps, Denies muscle weakness, Denies numbness, Denies radiating pain into limb, Denies stiffness and Denies tingling Neuro Denies abnormal gait, Reports dizziness, Denies numbness and Denies tingling Endo Denies palpitations Physical Exam Vital Signs: Last Vital Signs Pulse 57 09/26/23 12:33 BP 120/60 09/26/23 12:33 BMI result Body Mass Index 40.5 Const General: cooperative, healthy appearing, comfortable and no acute distress Orientation/consciousness: patient oriented x3 Neck Neck: Yes normal visual inspection Resp Effort & Inspection: normal respiratory effort Auscultation: clear to auscultation bilaterally, no crackles, no rales, no rhonchi and no wheezes Cardio Jugular venous distension: no JVD Rate: regular rate Rhythm: regular rhythm Heart sounds: S1 normal heart sound present, S2 normal heart sound present, no murmurs and no rubs Neuro General: patient oriented x3 Extrem General: Yes normal to inspection Psych Appearance: grossly normal Mental Status: mental status grossly normal Speech and movement: Normal speech and movement present Assessment & Plan Assessment & Plan (1) Cardiomyopathy: Code(s): I42.9 - Cardiomyopathy, unspecified Category: Medical Qualifiers: Cardiomyopathy type: unspecified Qualified Code(s): I42.9 - Cardiomyopathy, unspecified Plan: Patient with cardiomyopathy process which has now normalized on neurohormonal modulation with carvedilol as well as Entresto therapy. Importance of continue with medical therapy was discussed. Avoidance of cardiotoxic agent was discussed. She has no signs or symptoms of heart failure and does not require additional diuretic therapy. Signs and symptoms of heart failure were discussed. Follow-up echocardiogram in 6 months time. Continue participate in physical activity as tolerated and weight loss program. Continue CPAP therapy. (2) History of hypertrophic cardiomyopathy: Code(s): Z86.79 - Personal history of other diseases of the circulatory system Category: Medical Plan: Prior history of hypertrophic cardiomyopathy status post septal myectomy which led to left bundle-branch block might be the reason for cardiomyopathy process. Currently no signs or symptoms of LVOT obstruction. Continue monitor by echocardiogram on annual basis. Will follow up in the clinic in 6 months time with EKG. Thank you for allowing me to partake in the care
== END 2023-09-26 13:09 | disposition home or self-care (01) ==
PROVIDERS: PCP Internal Medicine; Visit Provider Internal Medicine Cardiovascular Disease
DX: I42.9 Cardiomyopathy, unspecified (principal); Z86.79 Personal history of other diseases of the circulatory system
CPT/HCPCS: 99214

== ENCOUNTER → 2023-09-26 12:11 | Outpatient (BNVA) | payer MEDICARE, SELFPAY | PROVIDERS: PCP Internal Medicine; Visit Provider Internal Medicine Cardiovascular Disease | DX: I42.9 Cardiomyopathy, unspecified (principal); I11.0 Hypertensive heart disease with heart failure; I50.30 Unspecified diastolic (congestive) heart failure; I44.7 Left bundle-branch block, unspecified; Z86.79 Personal history of other diseases of the circulatory system | CPT/HCPCS: 99212 ==

== ENCOUNTER 2023-10-10 12:33 | Outpatient (REF) | payer MEDICARE, SELFPAY ==
--- NOTE | ~2023-10-10 | XR_ITS ---
EXAMINATION: XR SINUSES CLINICAL INFORMATION: Sinus pressure. COMPARISON: 05/08/2019. TECHNIQUE: 4 views of the sinuses. FINDINGS: Frontal sinuses are well aerated. No gross air-fluid level appreciated in the maxillary sinuses. Hazy opacities in the ethmoid sinuses. Limited visualization due to patient positioning and overlying bony structures. XR/XR sinus min 3V IMPRESSION: Hazy opacities in the ethmoid sinuses. Limited visualization due to patient positioning and overlying bony structures. CT scan should be considered for further evaluation as CT scan is much more sensitive for evaluation of intracranial pathology, sinus disease.
== END 2023-10-10 12:34 | disposition home or self-care (01) ==
LOC: HO.XRAY 12:33
PROVIDERS: PCP Internal Medicine; Visit Provider Internal Medicine
DX: J34.89 Other specified disorders of nose and nasal sinuses (principal)
CPT/HCPCS: 70220

== ENCOUNTER 2023-10-16 11:44 | Outpatient (REF) | payer MEDICARE, SELFPAY ==
[2023-10-16 13:00] LABS: Alanine Aminotransferase 16 U/L (0-31); Albumin Level 3.8 g/dL (3.5-5.0); Alkaline Phosphatase 66 U/L (39-117); Aspartate Amino Transferase 19 U/L (5-31); Bilirubin Direct 0.1 mg/dL (0.0-0.5); Bilirubin Total 0.4 mg/dL (0.0-1.0); Total Protein 6.6 g/dL (6.5-8.0)
== END 2023-10-16 11:45 | disposition home or self-care (01) ==
LOC: HO.LABR 11:44
PROVIDERS: Visit Provider Internal Medicine
DX: K75.4 Autoimmune hepatitis (principal); R79.89 Other specified abnormal findings of blood chemistry
CPT/HCPCS: 36415; 80076

== ENCOUNTER 2023-11-20 13:22 | Outpatient (REF) | payer MEDICARE, SELFPAY ==
[2023-11-20 14:43] LABS: Alanine Aminotransferase 15 U/L (0-31); Albumin Level 4.1 g/dL (3.5-5.0); Alkaline Phosphatase 68 U/L (39-117); Aspartate Amino Transferase 25 U/L (5-31); Bilirubin Direct 0.2 mg/dL (0.0-0.5); Bilirubin Total 0.7 mg/dL (0.0-1.0); Total Protein 6.7 g/dL (6.5-8.0)
== END 2023-11-20 13:23 | disposition home or self-care (01) ==
LOC: HO.LAB 13:22
PROVIDERS: PCP Internal Medicine; Visit Provider Internal Medicine
DX: K75.4 Autoimmune hepatitis (principal); R79.89 Other specified abnormal findings of blood chemistry
CPT/HCPCS: 36415; 80076

== ENCOUNTER 2023-11-26 09:38 | Outpatient (REF) | payer SELFPAY | END 2023-11-26 09:39 | disposition home or self-care (01) | LOC: HO.HAP 09:38 | PROVIDERS: Visit Provider Internal Medicine | DX: Z46.1 Encounter for fitting and adjustment of hearing aid (principal); H90.3 Sensorineural hearing loss, bilateral | CPT/HCPCS: V5266 ==

== ENCOUNTER 2023-12-07 15:08 | Day surgery (SDC) | payer MEDICARE, SELFPAY ==
--- NOTE | ~2023-12-07 | XR_ITS ---
EXAMINATION: XR CHEST CLINICAL INFORMATION: Evaluate for food bolus. Patient states food stuck in throat today COMPARISON: Chest radiograph 11/10/2021 TECHNIQUE: 2 views of the chest were obtained. FINDINGS: The heart and mediastinal borders are unremarkable. No focal consolidation. No pleural effusion. Patulous esophagus with air-fluid level in the mid chest. Status post median sternotomy. XR/XR chest 2V IMPRESSION: Patulous esophagus with air-fluid level in the mid chest. Consider barium swallow study for further evaluation of esophageal motility.
[2023-12-07 15:15] VITALS: BP 156/84; PULSE 63; RESP 18; TEMP 36.6; O2SAT 99; BMI 38.6
--- NOTE | 2023-12-07 15:15 | ED_ITS ---
HPI - General Adult General Chief complaint: General Medical Stated complaint: Food stuck in throat Time Seen by Provider: 12/07/23 15:59 Source: patient Mode of arrival: ambulatory Limitations: no limitations History of Present Illness ED Provider: Orlando MORALES HPI narrative: Female history of left bundle-branch block, fatty infiltration of the liver, depression, GERD, thyroid disease, left bundle-branch block, obesity, congestive heart failure with left ventricular diastolic dysfunction presents to the emergency department with foreign body sensation in throat, patient ate chicken at approximately 13:00 today and since then has been struggling as she feels like there is something stuck in her throat. She has a history of this, in the past she has required EGD for retrieval of food bolus. Patient also complaining of substernal nonradiating chest pain. This also started at approximately 1. Last time she ate was at approximately 01:30 she states she tried to drink something to push it down. She reached out to GI who advised her to come into the emergency department. Denies nausea, vomiting, abdominal pain, headache, vision changes, dizziness and weakness. Related Data Home Medications ?Medication ?Instructions ?Recorded ?Confirmed escitalopram oxalate 10 mg tablet 3 mg PO Q OTHER DAY PRN Anxiety 04/12/20 09/26/23 levothyroxine 125 mcg tablet 125 mcg PO DAILY 04/12/20 09/26/23 latanoprost 0.005 % eye drops, 1 drp ophthalmic (eye) BEDTIME 08/21/21 09/26/23 emulsion (Xelpros) Previous Rx's ?Medication ?Instructions ?Recorded sacubitril 49 mg-valsartan 51 mg 1 tab PO BID 90 days #180 tabs 09/26/23 tablet (Entresto) carvedilol 3.125 mg tablet 3.125 mg PO BID #180 tabs 09/27/23 Allergies Allergy/AdvReac Type Severity Reaction Status Date / Time Penicillins [PENICILLINS] Allergy Intermediate RASH Verified 12/07/23 15:19 Review of Systems 2 Review of Systems: Yes all other systems are reviewed and are negative [facility] Past Medical History Attestation statement: The following information was validated with the patient. Source: old records reviewed and nursing notes reviewed Medical History (Updated 12/07/23 @ 16:55 by TRACEY Padron) Congestive heart failure with left ventricular diastolic dysfunction, NYHA class 2 Obesity (BMI 30-39.9) History of hypertrophic cardiomyopathy Morbid obesity due to excess calories Morbid obesity History of left bundle branch block (LBBB) Thyroid disease Arthritis GERD (gastroesophageal reflux disease) Depression History of fatty infiltration of liver LBBB (left bundle branch block) Surgical History H/O colonoscopy Hx of cataract surgery History of esophagogastroduodenoscopy (EGD) Status post ventricular septal myectomy Hx of section Hx of tubal ligation S/P cholecystectomy S/P total knee arthroplasty Family History Family History Father Obesity Mother COPD (chronic obstructive pulmonary disease) Brother No problems noted. Son No problems noted. Daughter No problems noted. Social History Social History Alcohol intake: never Patient Tobacco Use Status: Never used Tobacco Years Smoked: 5 years Advance Directives: No Advance Directives Information Provided: No Do you have a plan to hurt others: No Plan Physical Exam ED Vital Signs: Vital Signs - 24 hr 12/07/23 15:15 12/07/23 16:04 12/07/23 16:31 Temperature 97.9 F Pulse Rate 63 68 71 Respiratory Rate 18 37 H Blood Pressure 156/84 H 168/78 H 163/77 H Pulse Oximetry 99 100 Oxygen Delivery Method Room Air Room Air 12/07/23 16:36 Temperature 98.2 F Pulse Rate 71 Respiratory Rate 18 Blood Pressure 163/77 H Pulse Oximetry 100 Oxygen Delivery Method Room Air BMI result Body Mass Index 38.6 vss Appearance: Alert.? Oriented X3.? No acute distress.? Patient appears uncomfortable Head: Normocephalic, atraumatic, no step-offs or deformities Eyes: Pupils equal, round and reactive to light.? ENT: Pharynx normal.? Neck: Normal inspection.? Neck supple.? CVS: Normal heart rate and rhythm.? Pulses normal.? Respiratory: No respiratory distress.? Breath sounds normal.? Abdomen: Soft and nontender.? Skin: Skin warm and dry.? Normal skin color.? Normal skin turgor.? Extremities: No lower extremity edema.? No calf ttp. 5/5 strength to bilateral upper and lower extremities Neuro: Oriented X 3.? No motor deficit.? No sensory deficit. CN 2-12 intact Course Course Course Narrative: This is a Rapid Medical Examination (RME) performed by Tee Willson PA-C in triage. Full HPI, ROS, assessment and treatment plan per primary provider in the Main ED. 73 yo female hx of food bolus obstruction requiring surgery, arthritis, depression, GERD, LBBB, obesity, thyroid disease, here for eval of food bolus in throat. reports eating chicken when it became lodged in her through approx 1 hour ago. unable to get food/ liquids down. Patient visibly short of breath. director life sciences aware and patient brought back to main ED bed. Plan: xr ordered. Reevaluation(s) Reevaluation #1: Patulous esophagus with air-fluid level in the mid chest. Consider barium swallow for further evaluation of esophageal motility, patient can not tolerate p.o. therefore barium swallow not indicated. GI will take patient to the OR for an EGD. Patient has history of this and similar presentations. I will obtain basic labs and EKG as patient is complaining of chest discomfort this is likely secondary to food bolus in unlikely from ACS. Patient also very anxious will give IV Ativan to help. Also give 0.4 nitro and 10 mL of water per request of GI. Patient will be hooked up to the telemetry monitor to observe any cardiac changes at cut arise. Time: 16:29 Reevaluation #2: Patient will go to OR labs pending. ED Send to Surgery order placed. Medications Administered Discontinued Medications Generic Name Dose Route Start Last Admin Trade Name Javiq PRN Reason Stop Dose Admin Lorazepam 0.5 mg 12/07/23 16:26 12/07/23 16:32 Lorazepam 2 Mg/Ml Vial IVPUSH 12/07/23 16:27 0.5 mg STAT STA Administration Nitroglycerin 0.4 mg 12/07/23 16:18 12/07/23 16:31 Nitroglycerin 0.4 Mg Tab.Subl SUBLINGUAL 12/07/23 16:19 0.4 mg ONCE ONE Administration Medical Decision Making Medical Decision Making [facility] Narrative: [id number] 73-year-old female presents with sensation that food bolus stuck in her throat/chest. Worsening since 13:00 after eating chicken. History of this in the past requiring EGD. Physical exam patient appears uncomfortable, no signs of acute respiratory distress. Vital signs are stable. History and physical exam are concerning for possible esophageal stricture versus Schatzki rings. Unlikely ACS, PE, dissection. Plan- labs, imaging, ekg Differential Diagnosis Differential Diagnoses: The differential diagnosis associated with the presentation includes History and physical exam are concerning for possible esophageal stricture versus Schatzki rings. Unlikely ACS, PE, dissection. Admission/Observation Consideration of admission/observation: Escalation of care including admission/observation considered Possible Consult Healthcare Provider Management of the patient was discussed with: Clinique Counter Manager (GI ) Lab Data MDM Lab Attestation statement: I reviewed the patient's lab results. 12/07/23 16:49 12/07/23 16:49 Independent Interpretation I performed an independent interpretation of an: EKG (Vent. Rate : 069 BPM Atrial Rate : 069 BPM P-R Int : 212 ms QRS Dur : 166 ms QT Int : 478 ms P-R-T Axes : 059 -28 118 degrees QTc Int : 512 ms Sinus rhythm with 1st degree A-V block Left bundle branch block Abnormal ECG When compared with ECG of 10-NOV-2021 17:02, No s) and Plain X-Ray (XR/XR chest 2V IMPRESSION: Patulous esophagus with air-fluid level in the mid chest. Consider barium swallow study for further evaluation of esophageal motility.) Radiology Impression Discussion of test interpretation with radiology: I have reviewed the radiologist's reading. External Record Review External record reviewed: Inpatient record, Office record, Outpatient record, Prior outpatient labs, Prior outpatient radiology, Primary care record and Outside ED record Chronic Conditions Patient?s care impacted by: Other (cardiomyopathy, lbbb, obesity, gato) Critical Care Time Critical Care Time Critical Care Time: Yes Total Critical Care Time: 35 Attestation: I attest to this time spent taking care of the patient, obtaining history, physical, reviewing labs, imaging, speaking to my attending, specialist or hospitalist. Discharge Plan Discharge Clinical Impression: Food bolus obstruction of intestine Patient Disposition: Still a Patient Prescriptions: No Action carvedilol 3.125 mg tablet 3.125 mg PO BID Qty: 180 2RF levothyroxine 125 mcg tablet 125 mcg PO DAILY escitalopram oxalate 10 mg tablet 3 mg PO Q OTHER DAY PRN (Reason: Anxiety) Xelpros 0.005 % drops, emulsion 1 drp ophthalmic (eye) BEDTIME Entresto 49-51 mg tablet 1 tab PO BID 90 Days Qty: 180 3RF Print Language: Angolan
--- OUTSIDE RECORDS SUMMARY | 2023-12-07 15:55 | XMS_ITS | Continuity of Care Document ---
Author Organization [facility] ter Address [address] [place] [id number]- Care Team Providers Care Director Records Management Name Role Phone Bhanu Ramachandran MD Primary Care Physician Encounter [facility] Date(s): 07/25/20 - 07/25/[address] [id number] Discharge Disposition: A-D/C Home Attending Physician: Charmaine Mendoza MD Admitting Physician: Charmaine Mendoza MD Referring Physician: Graham [GI] Avila KEYS Allergies, Adverse Reactions, Alerts Substance Reaction Severity Status penicillin rash Active Medications aspirin 81 mg oral tablet 1 tablet = 81 mg, By Mouth, Daily, 0 Refills, Maintenance, 12/21/13 13:16:27 Start Date: 12/21/13 Status: Ordered Calcium 600 +D oral tablet 1 tablet, By Mouth, 2 times a day, # 270 tablet, 0 Refills, Maintenance, 03/22/16 11:05:49, Tablet Start Date: 03/22/16 Status: Ordered Celebrex 200 mg oral capsule By Mouth, Daily, PRN as needed for pain, 0 Refills Start Date: 12/31/05 Status: Ordered Centrum Silver By Mouth, Daily, 0, 0, 12/31/05 9:45:44, Print GOMEZ Number, [id number], Constant Indicator Start Date: 12/31/05 Status: Ordered citalopram 10 mg oral tablet 1 tablet = 10 mg, By Mouth, Daily, 0 Refills, Maintenance, 12/21/13 13:15:40 Start Date: 12/21/13 Status: Ordered levothyroxine 0.112 mg oral tablet 1 tablet = 112 mcg, By Mouth, Daily, 0 Refills, Maintenance, 05/24/14 14:59:07 Start Date: 05/24/14 Status: Ordered levothyroxine 125 mcg (0.125 mg) oral tablet 1 tablet = 125 mcg, By Mouth, Daily, # 90 tablet, 3 Refills, Maintenance, 05/14/16 12:17:49, Tablet Start Date: 05/14/16 Status: Ordered magnesium citrate 125 mg oral capsule See Instructions, 2 capsule By Mouth twice daily, 0 Refills, Maintenance, 03/22/16 11:06:23, Capsule Start Date: 03/22/16 Status: Ordered metoprolol 50 mg oral tablet, extended release 50 mg, 1, tablet, By Mouth, Daily, # 30 tablet, Refills 0, Maintenance, 03/22/16 11:07:31 Start Date: 03/22/16 Status: Ordered Metoprolol Tartrate 50 mg oral tablet 1.5 tablet = 75 mg, By Mouth, 2 times a day, # 180 tablet, 3 Refills, Maintenance, 09/08/17 16:41:20, 1.5 tablet By Mouth 2 times a day,x60 days Start Date: 09/08/17 Stop Date: 05/06/18 Status: Ordered Motrin IB 200 mg oral tablet 2 tablet = 400 mg, By Mouth, Every 4 hours, PRN for pain, # 120 tablet, 0 Refills, Maintenance, 03/22/16 11:07:07, Tablet Start Date: 03/22/16 Status: Ordered PredniSONE = 2.5 mg, By Mouth, Daily, 0 Refills, Maintenance, 05/24/14 14:59:18 Start Date: 05/24/14 Status: Ordered Vitamin D3 = 2,000 International_Units, By Mouth, Daily, 2 TABS, 0 Refills, Maintenance, 12/21/13 13:16:36 Start Date: 12/21/13 Status: Ordered Vitamin D3 5000 intl units oral capsule 1 capsule = 5,000 International_Units, By Mouth, Daily, 0 Refills, Maintenance, 05/14/16 11:14:19 Start Date: 05/14/16 Status: Ordered Problem List Condition Effective Dates Status Health Status Inform ant Cardiomyopathy, hypertrophic obstructive(Confirmed) Active Hypertension(Confirmed) Active Social History Social History Type Response Smoking Status Never smoker; Tobacc o user in household: No; Other: quit smoking 1979; entered on: 03/22/16 Sex
--- OUTSIDE RECORDS SUMMARY | 2023-12-07 15:55 | XMS_ITS | Continuity of Care Document ---
Author Organization [facility] Address [address] [place] [id number]- Care Team Providers Care Pharmacy Helper Name Role Phone Bhanu Ramachandran MD Primary Care Physician [phone] [place] [facility]10[place]23 - 02/09/23 [facility] [address] [place] [id number] Allergies, Adverse Reactions, Alerts Substance Reaction Severity [...] 0, 0, 12/31/05 9:45:44, Print GOMEZ Number, [id number], Constant Indicator Start Date: 12/31/05 Status: Ordered [...] Date: 05/14/16 Status: Ordered Problem List Condition Confirmation Course Effective Dates Status Health St atus Informant Cardiomyopathy, hypertrophic obstructive Confirmed Active Hypertension Confirmed Active Social History Social History Type Response Smoking Status Never smoker; Tobacc o user in household: No; Other: quit smoking 1979; entered on: 03/22/16 Sex Patient Care team information Care Team Personnel Name: Bhanu Ramachandran MD Position: [facility] Outreach Member Role: PCP Address: Address: [address] [place] [address] [place] [address]- Name: Vicky Sarah NP Position: [facility] Outreach Member Role: Lifetime Consulting Physician Address: Address: [address] [place] [id number]- Care Team Related Persons Name: JAKE CROSS Name: LEN SYKES Address: home [address] [place] [id number]
--- OUTSIDE RECORDS SUMMARY | 2023-12-07 15:55 | XMS_ITS | Patient Health Record ---
Author Organization [facility] Address [address] [place] [address] Care Team Providers Care Export Clerk Name Role Phone Bhanu Ramachandran MD Primary Care Provider Avila Ernst [phone] ALLERGIES Allergen (clinical drug ingredient) Drug/Non Drug Allergy documented on EMR Reaction Allergy Type Onset Date Status Penicillin Unknown Drug Allergy Active RESULTS Component Value Reference Range Notes Liver Panel Reviewed date:12/11/2022 06:49:17 PM Interpretation: Performing Lab:[facility], [address] [place] [phone] Notes/Report: Bilirubin Total 0.5 0.0-1.0 mg/dL Bilirubin Direct 0.2 0.0-0.5 mg/dL Aspartate Amino Transferase 173 5-31 U/L Alanine Aminotransferase 243 0-31 U/L Total Protein 7.0 6.5-8.0 g/dL Albumin Level 3.7 3.5-5.0 g/dL Alkaline Phosphatase 92 39-117 U/L Liver Panel Reviewed date:12/16/2022 06:22:49 PM Interpretation: Performing Lab:[facility], [address] [place] [phone] Notes/Report: Bilirubin Total 0.8 0.0-1.0 mg/dL Bilirubin Direct 0.3 0.0-0.5 mg/dL Aspartate Amino Transferase 160 5-31 U/L Alanine Aminotransferase 210 0-31 U/L Total Protein 7.3 6.5-8.0 g/dL Albumin Level 4.0 3.5-5.0 g/dL Alkaline Phosphatase 93 39-117 U/L Complete Blood Count Auto Di ff Reviewed date:01/03/2023 12:50:56 PM Interpretation: Performing Lab:[facility], [address] [place] [phone] Notes/Report: White Blood Count 9.1 4.8-10.8 X10*3/uL Red Blood Count 5.17 4.20-5.50 X10*6/uL Hemoglobin 13.7 12.0-16.0 g/dl Hematocrit 42.8 37.0-47.0 % Mean Corpuscular Volume 82.8 80.0-98.0 fL Mean Corpuscular Hemoglobin 26.5 27.0-33.0 pg Mean Corpuscular HGB Conc 32.0 31.0-35.0 g/dl Red Cell Distribution Width 16.8 11.0-16.0 % Platelet Count 163 160-400 X10*3/uL Mean Platelet Volume 11.0 9.4-12.3 fL Neutrophils Percent Auto 55.5 45-73 % Imm Gran Pct Auto 0.4 0.0-0.4 % Lymphocytes Percent Auto 35.4 20-40 % Monocytes Percent Auto 7.2 2-11 % Eosinophils Percent Auto 0.9 0-4 % Basophils Percent Auto 0.6 0-2 % NRBC Pct Auto 0.0 0.0-0.2 /100WBC Neutrophils Absolute Auto 5.0 2.0-8.3 x10*3/u L Imm Gran Abs Auto 0.04 0.00-0.03 X10*3/uL Lymphocytes Absolute Auto 3.2 1.2-4.9 X10*3/u L Monocytes Absolute Auto 0.7 0.1-1.2 X10*3/uL Eosinophils Absolute Auto 0.1 0.0-0.4 X10*3/u L Basophils Absolute Auto 0.1 0.0-0.2 X10*3/uL NRBC Abs Auto 0.000 0.0-0.012 X10*3/uL Erythrocyte Sedimentation Ra te Reviewed date:01/03/2023 12:51:41 PM Interpretation: Performing Lab:[facility], [address] [place] [phone] Notes/Report: Erythrocyte Sedimentation Rate 2 0-20 MM/HR Patients with polycythemia and many hemoglobin abnormalities may have depressed sed rates whereas patients with anemia may have elevated sed rates. Liver Panel Reviewed date:01/06/2023 06:37:33 PM Interpretation: Performing Lab:[address] [phone] Notes/Report: Bilirubin Total 0.4 0.0-1.0 mg/dL Bilirubin Direct 0.1 0.0-0.5 mg/dL Aspartate Amino Transferase 23 5-31 U/L Alanine Aminotransferase 24 0-31 U/L Total Protein 6.3 6.5-8.0 g/dL Albumin Level 3.6 3.5-5.0 g/dL Alkaline Phosphatase 49 39-117 U/L Basic Metabolic Panel Reviewed date:01/03/2023 12:51:19 PM Interpretation: Performing Lab:[address] [phone] Notes/Report: Sodium 140 135-145 mmol/L Potassium 3.9 3.3-5.1 mmol/L Chloride 106 96-108 mmol/L Carbon Dioxide 23 22-29 mmol/L Anion Gap 15 12-20 Blood Urea Nitrogen 26 9-16 mg/dL Creatinine 0.67 0.5-1.4 mg/dL Estimated Glomerular Filt Rate > 60 NOTE: For -Guaman[place] individuals, multiply the result by 1.210. Chronic Kidney Disease: Estimated GFR < 60 mL/min/1.73m2 Severe Kidney Disease: Estimated GFR < 15 mL/min/1.73m2 Glucose Random 83 60-115 mg/dL Calcium 8.7 8.4-10.2 mg/dL C Reactive Protein Reviewed date:01/03/2023 12:51:32 PM Interpretation: Performing Lab:[address] [phone] Notes/Report: C Reactive Protein < 0.10 < or = 0.50 mg/dL LIZA Reflex Titer and Pattern Reviewed date:01/11/2023 11:33:39 AM Interpretation: Performing Lab:[address] [phone] Notes/Report: Anti Nuclear Antibody Screen NEGATIVE NEGATIVE LIZA IFA is a first line screen for detecting the presence of up to approximately 150 autoantibodies in various autoimmune diseases. A negative LIZA IFA result suggests an LIZA-associated autoimmune disease is not present at this time, but is not definitive. If there is high clinical suspicion for Sjogren's syndrome, testing for anti-SS-A/Ro antibody should be considered. Anti-Lola-1 antibody should be considered for clinically suspected inflammatory myopathies. AC-0: Negative International Consensus on LIZA Patterns (https://doi.org/10.1515/cc we-4902-1875) For additional information, please refer to http://education.ibeatyou.righTune/faq/TMQ017 (This link is being provided for informational/ educational purposes only.) THIS TEST WAS PERFORMED AT: [facility] [address] [place] [phone] RACHEL CUEVAS MD Anti Nuclear Antibody Titer TNP Anti Nuclear Antibody Pattern TNP LIZA Titer 2 TNP LIZA Pattern 2 TNP LIZA Titer 3 TNP LIZA Pattern 3 TNP Smooth Muscle Antibody Reviewed date:01/12/2023 12:09:43 PM Interpretation: Performing Lab:[address] [phone] Notes/Report: Smooth Muscle Antibody 89 <20 U Reference Range: <20 U: Negative >or=20 U: Positive Antibodies recognizing actin are the main component of smooth muscle antibodies associated with auto- immune liver disease. Actin antibodies are found in approximately 75% of patients with autoimmune hepatitis (AIH) type 1, approximately 65% of patients with autoimmune cholangitis, approximately 30% of patients with primary biliary cirrhosis and approximately 2% of healthy controls. High values are closely correlated with AIH type 1. THIS TEST WAS PERFORMED AT: [facility] [address] [place], [place] ABELARDO UNDERWOOD MD,PHD Liver Panel Reviewed date:02/04/2023 05:36:44 PM Interpretation: Performing Lab:[address] [phone] Notes/Report: Bilirubin Total 0.4 0.0-1.0 mg/dL Bilirubin Direct 0.2 0.0-0.5 mg/dL Aspartate Amino Transferase 28 5-31 U/L Alanine Aminotransferase 23 0-31 U/L Total Protein 7.1 6.5-8.0 g/dL Albumin Level 4.1 3.5-5.0 g/dL Alkaline Phosphatase 60 39-117 U/L Liver Panel Reviewed date:03/11/2023 08:46:31 AM Interpretation: Performing Lab:[address] [phone] Notes/Report: Bilirubin Total 0.3 0.0-1.0 mg/dL Bilirubin Direct 0.1 0.0-0.5 mg/dL Aspartate Amino Transferase 25 5-31 U/L Alanine Aminotransferase 17 0-31 U/L Total Protein 6.5 6.5-8.0 g/dL Albumin Level 3.9 3.5-5.0 g/dL Alkaline Phosphatase 61 39-117 U/L Liver Panel Reviewed date:04/10/2023 08:05:36 AM Interpretation: Performing Lab:[facility], [address] [place] [phone] Notes/Report: Bilirubin Total 0.3 0.0-1.0 mg/dL Bilirubin Direct 0.1 0.0-0.5 mg/dL Aspartate Amino Transferase 23 5-31 U/L Alanine Aminotransferase 16 0-31 U/L Total Protein 6.8 6.5-8.0 g/dL Albumin Level 3.9 3.5-5.0 g/dL Alkaline Phosphatase 71 39-117 U/L Liver Panel Reviewed date:05/16/2023 12:44:06 AM Interpretation: Performing Lab:[facility], [address] [place] [phone] Notes/Report: Bilirubin Total 0.6 0.0-1.0 mg/dL Bilirubin Direct 0.2 0.0-0.5 mg/dL Aspartate Amino Transferase 31 5-31 U/L Alanine Aminotransferase 21 0-31 U/L Total Protein 7.0 6.5-8.0 g/dL Albumin Level 4.0 3.5-5.0 g/dL Alkaline Phosphatase 72 39-117 U/L Liver Panel Reviewed date:07/01/2023 08:52:16 AM Interpretation: Performing Lab:[facility], [address] [place] [phone] Notes/Report: Bilirubin Total 0.4 0.0-1.0 mg/dL Bilirubin Direct 0.1 0.0-0.5 mg/dL Aspartate Amino Transferase 28 5-31 U/L Alanine Aminotransferase 25 0-31 U/L Total Protein 7.1 6.5-8.0 g/dL Albumin Level 4.1 3.5-5.0 g/dL Alkaline Phosphatase 83 39-117 U/L Liver Panel Reviewed date:08/05/2023 07:14:17 AM Interpretation: Performing Lab:[address] [phone] Notes/Report: Bilirubin Total 0.4 0.0-1.0 mg/dL Bilirubin Direct 0.2 0.0-0.5 mg/dL Aspartate Amino Transferase 31 5-31 U/L Alanine Aminotransferase 27 0-31 U/L Total Protein 6.9 6.5-8.0 g/dL Albumin Level 4.0 3.5-5.0 g/dL Alkaline Phosphatase 81 39-117 U/L Liver Panel Reviewed date:09/17/2023 08:56:11 AM Interpretation: Performing Lab:[address] [address] Notes/Report: Bilirubin Total 0.4 0.0-1.0 mg/dL Bilirubin Direct 0.1 0.0-0.5 mg/dL Aspartate Amino Transferase 24 5-31 U/L Alanine Aminotransferase 16 0-31 U/L Total Protein 6.5 6.5-8.0 g/dL Albumin Level 3.8 3.5-5.0 g/dL Alkaline Phosphatase 81 39-117 U/L Liver Panel Reviewed date:10/17/2023 12:33:36 AM Interpretation: Performing Lab:[address] [address] Notes/Report: Bilirubin Total 0.4 0.0-1.0 mg/dL Bilirubin Direct 0.1 0.0-0.5 mg/dL Aspartate Amino Transferase 19 5-31 U/L Alanine Aminotransferase 16 0-31 U/L Total Protein 6.6 6.5-8.0 g/dL Albumin Level 3.8 3.5-5.0 g/dL Alkaline Phosphatase 66 39-117 U/L Liver Panel (Not yet reviewe d by provider) Interpretation: Performing Lab:[address] [place] [address] Notes/Report: Bilirubin Total 0.7 0.0-1.0 mg/dL Bilirubin Direct 0.2 0.0-0.5 mg/dL Aspartate Amino Transferase 25 5-31 U/L Alanine Aminotransferase 15 0-31 U/L Total Protein 6.7 6.5-8.0 g/dL Albumin Level 4.1 3.5-5.0 g/dL Alkaline Phosphatase 68 39-117 U/L REASON FOR REFERRAL No Information MEDICATIONS Medication SIG (Take, Route, Frequency, Duration) Notes Start Date End Date Status Vitamin D3 2000 UNIT 1 capsule Orally On ce a day Active predniSONE 5 MG 2 tablets Orally Onc e a day for 30 day(s) 02/05/2023 Active Levothyroxine Sodium 125 MCG 1 tablet on an empty stomach in the morning Orally Once a day for 6 days one day off Active Citalopram Hydrobromide 10 MG 1 1/2 tablet Orally Once a day Active IMMUNIZATIONS Vaccine Route Administration Date Status Comme nts Flu vaccine no Preserv 3 and > Unknown 04/16/2017 Admin istered Influenza Unknown 03/04/2019 Administered Influenza Unknown 02/09/2020 Administered Influenza Unknown 04/25/2021 Administered SOCIAL HISTORY Sex Assigned At : Social History Observation Description Sex Assigned At Unknown PROBLEMS Problem Type ICD Code Onset Dates Problem Status W/U Status Risk SNOMED Code Notes Problem Epigastric pain (R10.13) Active confirmed 52726220 Problem Encounter for screening for malignant neoplasm of colon (Z12.11) Active confirmed 049552433 Problem History of adenomatous polyp of colon (Z86.010) Active confirmed 440365601 Problem Esophageal obstruction (K22.2) Active confirmed 777446514 Problem Autoimmune hepatitis (K75.4) Active confirmed 439698055 Problem Elevated liver function tests (R79.89) Active confirmed 366506744 Problem Gastroesophageal reflux disease without esophagitis (K21.9) Active confirmed 484096984 Problem Gastroesophageal reflux disease, esophagitis presence not specified (K21.9) Active confirmed 157397816 Problem Hiatal hernia (K44.9) Active confirmed 28119183 Problem Esophageal ring (K22.2) Active confirmed Esophageal ring (64703756) Problem GERD (gastroesophageal reflux disease) (K21.9) Active confirmed Gastroesophagea l reflux disease (246184824) Problem Esophageal dysphagia (R13.14) Active confirmed Esophagea l dysphagia (72520041) Problem Esophageal dysphagia (R13.10) Active confirmed 71857447 Problem Hx of adenomatous polyp of colon (Z86.010) Active confirmed 995980260 VITAL SIGNS Temperature 97.1 degrees Fahrenheit 02/19/2023 Blood pressure diastolic 00 mm Hg 02/19/2023 Height 62.5 in 02/19/2023 Blood pressure systolic 000 mm Hg 02/19/2023 Weight 227 lbs 02/19/2023 BMI 40.85 kg/m2 02/19/2023 Encounters Encounter Location Date Provider Diagnosis [facility] [address] [place] [phone] 02/19/2023 Avila Stevenson Autoimmune hepatitis K75.4 and Elevated liver function tests R79.89 [facility] [address] [place] [phone] 09/18/2023 Avila Stevenson [facility] [address] [place] [phone] 01/06/2023 Avila Stevenson Autoimmune hepatitis K75.4 [facility] [address] [place] [phone] 02/04/2023 Avila Stevenson [facility] [address] [place] [phone] 05/13/2023 Avila Stevenson Autoimmune hepatitis K75.4 [facility] [address] [place] [phone] 05/16/2023 Avila Stevenson [facility] [address] [place] [phone] 09/18/2023 Avila Stevenson ASSESSMENTS Encounter Date Diagnosis Assessment Notes Treatment Notes Treatment Clinical Notes 02/19/2023 Autoimmune hepatitis (ICD-10 - K75.4) Prednisone taper: 1 1/2 pills alternating with 2 pills every day for 2 weeks 1 1/2 pills every day for 2 weeks 1 1/2 pills alternating with 1 pill every day for 2 weeks 1 pill daily for 2 weeks 1/2 pill alternating with 1 pill everyday for 2 weeks 1/2 pill daily for 2 weeks 1/2 pill every other day for 2 weeks. Then stop prednsione 02/19/2023 Elevated liver function tests (ICD-10 - R79.89) 01/06/2023 Autoimmune hepatitis (ICD-10 - K75.4) 05/13/2023 Autoimmune hepatitis (ICD-10 - K75.4) PLAN OF TREATMENT Pending Test Test Name Order Date Esophageal Motility study 07/06/2020 CHEM 7 PROFILE 12/04/2022 LIVER PROFILE 07/20/2015 LIVER PROFILE 02/26/2014 LIVER PROFILE 10/30/2020 LIVER PROFILE 11/10/2015 LIVER PROFILE 03/17/2014 LIVER PROFILE 12/04/2022 LIVER PROFILE 12/06/2020 LIVER PROFILE 01/06/2023 LIVER PROFILE 04/30/2014 LIVER PROFILE 06/06/2021 LIVER PROFILE 02/19/2023 LIVER PROFILE 08/25/2014 LIVER PROFILE 05/13/2023 LIVER PROFILE 10/14/2014 CRP 12/04/2022 CBC w DIFF 12/04/2022 SED RATE (ESR) 12/04/2022 XR BARIUM SWALLOW-ESOPHAGUS 06/24/2017 XR BARIUM SWALLOW-ESOPHAGUS 08/22/2022 XR GI SERIES 08/22/2022 FLUOR. ANTINUCLEAR AB SCREEN (PHIL) 11/09 Liver Panel 11/20/2023 Smooth Muscle Antibody 12/04/2022 Future Test Test Name Order Date UPPER GI ENDOSCOPY BALLOOON DILATION OF ESOPH 01/15/2020 COLONOSCOPY 01/15/2020 Next Appt Details Provider Name:Avila Zane Stevenson , 12/25/2023 03:40:00 PM, [address] [place] [address], [place] [address], [place], [address], Insurance Providers Payer Name Payer Address Payer Phone Subscriber Number Group Number Insured Name Patient Relationship to Insured Coverage Start Date Coverage End Date [place] [address] [place] [address] [phone] [id number] SARAI SYKES Self - patient is the insured [employer] ATT[employer] CLAIMS [address] [place] [address] [id number] SARAI SYKES Self - patient is the insured MEDICAL (GENERAL) HISTORY Medical History History ICD Code Denies ID,DM,CVA,Lung disease,renal dise ase Depression 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 Henderson--done for the evaluation of anemia she reports that she is on m etoprolol in relation to a heart murmur--Idiopathic hypertrophic subaortic stenosis--may have surgery in [place]--had a cardiac cath with Dr. Vital in 11/2016--going to [facility] for possible surgery--had it done 04/2017 as below autoimmune hepatitis diagnos ed in February of 2014 by liver biopsy, positive LIZA, and positive smooth muscle antibody--original liver transaminases were 15-20 times elevated--other liver workup including viral serologies and iron studies were negative--a serum protein electrophoresis was normal. She was treated with prednisone up until early in October of 2014. She had been on prednisone 2.5 mg every other day from mid-August until early October, and then the prednisone was stopped--- liver profiles in May 2015 and 2016 were completely normal; LFT's were normal in 10/2019 and 03/2020 screening colonoscopy in Feb revealed a small tubular adenoma, diverticulosis, and internal hemorrhoids Fatty liver seen on her liver biopsy in 2013 Esophageal obstruction due t o food--06/2017---EGD and Barium swallow revealed a small HH--no esophagitis nor stricture Colonoscopy 04/2020--small tubular adeno ma removed EGD in 01/2020--moderate size d hiatal hernia and tiny area of intestinal metaplasia at the EG junction but without dysplasia--she has a moderate-sized hiatal hernia--the gastroesophageal junction was dilated with a 20 mm balloon although without any definitive appreciable effect Positive H. pylori breath te st in 05/[address] Shrestha--theyy started her on Biaxin, sulfa, and pantoprazole--after a few days she was having GI side effects and she was going to speak to them about stopping it--she has no history of ulcer disease or gastritis seen on her recent upper endoscopy in January of 2020 Being evaluated for bariatri c gastric sleeve surgery and hiatal hernia surgery by Dr. Shrestha as of the 06/14/2020 OV--- I advised her that she will need esophageal motility studies done before any hiatal hernia surgery and that she will need to let me know that in advance so I can arrange that for her 04/2020 Screening colonoscopy with remov al of 1 small tubula adenoma 07/2020 Esophageal motility s tudies revealed a normal esophageal motility and normal relaxation of the lower esophageal sphincter, although the lower esophageal sphincter was somewhat hypotensive; the 24-hour pH study was positive for significant acid reflux off her PPI Sleep apnea-waiting for a CPAP machine a s of the 05/2021 OV Esophageal obstruction from food in the distal esophagus and hiatal hernia--cleared endoscopically in 11/2021 Cardiac--EF of 35%-sees Dr. Vital- [place] of the autoimmune hepa titis in November of 2022. She was treated with a course of prednisone through the summer with improvement and normalization. As of the 02/19/2023 OV she was down to 10 mg of prednisone with normal LFTs and the plan will be to do a very slow taper over the next few months Surgical History Surgery Date(Month/Year) CCY 1975 X2 Left knee replacement 02/06/2005 Right knee replacement 12/13/2005 Cataracts right and left 2016 Septal myectomy-open heart surgery--at [facility] 04/10/2017 Sleep Apnea, needs CPAP machine
--- OUTSIDE RECORDS SUMMARY | 2023-12-07 15:56 | XMS_ITS | Patient Health Record ---
Author Organization [facility] Address [address] [place] [address] Care Team Providers Care Dermatology Physician Assistant Name Role Phone Bhanu Ramachandran MD Primary Care Provider Unavaila ble Black, Candy Unavailable [phone] ALLERGIES Allergen (clinical drug ingredient) Drug/Non Drug Allergy documented on EMR Reaction Allergy Type Onset Date Status Penicillin rash Drug Allergy Active amoxicillin Amoxicillin rash Drug Allergy Act kimberlyn REASON FOR REFERRAL No Information MEDICATIONS Medication SIG (Take, Route, Frequency, Duration) Notes Start Date End Date Status Omeprazole 20 MG 1 capsule 30 minutes before morning meal Orally Once a day for 30 day(s) Active Metoprolol & Diet Manage Prod 50 MG as directed Orally Not-Takin g Escitalopram Oxalate 10 MG 1 tablet Oral ly Once a day for 30 day(s) Active Levothyroxine Sodium 125 MCG 1 tablet every morning on an empty stomach Orally Once a day for 30 day(s) Active IMMUNIZATIONS Vaccine Route Administration Date Status Comme nts COVID-19 Moderna Vaccine Unknown 09/01/2020 Administere d 1st 08/04/20 SOCIAL HISTORY Tobacco Use: Social History Observation Description Date Details (start date - stop date) Former Smoker 11/10/2015 - NA Sex Assigned At : Social History Observation Description Sex Assigned At Unknown Tobacco Use/Smoking Question Answer Notes Are you a: former smoker When did you start smoking? 11/10/2015 Additional Findings: Tobacco Non-User Ex-cigaret te smoker Alcohol Screen Question Answer Notes Did you have a drink containing alcohol in the p ast year? No Points 0 Interpretation Negative Tobacco use other than smoking: Question Answer Notes Are you an other tobacco user? No PROBLEMS Problem Type ICD Code Onset Dates Problem Status W/U Status Risk SNOMED Code Notes Problem Pain in Limb (729.5) Active confirmed Pain in limb (91954246) Problem Hallux valgus (acquired), left foot (M20.12) Active confirmed Acquired hallux valgus (91935563) Problem Primary osteoarthriti s, right ankle and foot (M19.071) Active confirmed Localized, prim alba osteoarthritis of the ankle and/or foot (868961532) Problem Primary osteoarthriti s, left ankle and foot (M19.072) Active confirmed Localized, prim alba osteoarthritis of the ankle and/or foot (084572539) Problem Other hammer toe(s) (acquired), right foot (M20.41) Active confirmed Acquired hammer toe of right foot (1782044390202823) Problem Other hammer toe(s) (acquired), left foot (M20.42) Active confirmed Acquired hammer toe of left foot (3495556176104918) Problem 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) Active confirmed 143444185 Problem Midfoot collapse of left lower extremity (M21.6X2) Active confirmed 527664621 PLAN OF TREATMENT Pending Test Test Name Order Date X ray : Foot, right 3V 07/12/2011 Insurance Providers Payer Name Payer Address Payer Phone Subscriber Number Group Number Insured Name Patient Relationship to Insured Coverage Start Date Coverage End Date Medicare National Govt Sv[employer] [address] [facility] [address] [phone] [id number] Alyse Razo Self - patient is the insured [employer] [address] [place] [address] [phone] [id number] Alyse Razo Self - patient is the insured MEDICAL (GENERAL) HISTORY Medical History History ICD Code thyroid disorder sinus conditions psoriasis measles joint implants/screws chicken pox Arthritis anemia Anxiety Back,Hip,and Knee pain Broken bones Cataracts Depression Heart disease Hepatitis Hiatal hernia Liver disease Psychiatric disorder Reflux ( GERD) chronic sinusitis thyroid Warts Transfusions Surgical History Surgery Date(Month/Year) right knee replacement left knee replacement cholecystectomy section 2x septal myectomy 2016 Hospitalization History Reason Date(Month/[place] [facility] [place]
[2023-12-07 16:04] VITALS: BP 168/78; PULSE 68; RESP 37; O2SAT 100
--- NOTE | 2023-12-07 16:18 | P.CNGI_ITS ---
History of Present Illness Data of Consult Service Date: 12/07/23 Primary Care Provider: Bhanu Ramachandran MD HPI Reason for consult: food bolus obstruction 73 yr old f w hx of ALIRIO, obesity and HOCM being seen for food bolus obstruction She was eating chicken at around 1 pm, and did not chew well, immediately felt it was stuck and had 10/10 pain in mid chest area radiating into the back, like a stabbing sharp pain. No nausea, vomiting, fever, or SOB, no melena. No releiving or exacerbating factors. she had this before and required disimpaction of food 2021--hiatal hernia noted at the time. Supposed to be on PPI but says she has not been taking it as she has not noted any upper GI sx prior to today. Review of Systems 2 Review of Systems: Constitutional : No Weight loss, No Fever, No Chills ENT/Mouth : No sore throat, No Rhinorrhea Eyes: No Swelling, No Redness Cardiovascular : No Chest Pain, No SOB, No Edema Respiratory : No Cough, No Sputum, No Wheezing Gastrointestinal : see HPI Genitourinary : NO Dysuria, No Urinary Frequency, No Hematuria, No Urgency Musculoskeletal : + joint pain, No Myalgias, No Joint Swelling Skin : No Skin Lesions, No rash Neuro : No Weakness, No Numbness, No Dizziness, No Headache Psych : No Anxiety/Panic, No Depression Heme/Lymph: No Bruising, No Lymphadenopathy Endocrine : No Polyuria, No Polydipsia All other systems reviewed and are negative. [facility] Past Medical History Medical History (Updated 12/07/23 @ 16:55 by TRACEY Padron) Congestive heart failure with left ventricular diastolic dysfunction, NYHA class 2 Obesity (BMI 30-39.9) History of hypertrophic cardiomyopathy Morbid obesity due to excess calories Morbid obesity History of left bundle branch block (LBBB) Thyroid disease Arthritis GERD (gastroesophageal reflux disease) Depression History of fatty infiltration of liver LBBB (left bundle branch block) Family History Family History Father Obesity Mother COPD (chronic obstructive pulmonary disease) Brother No problems noted. Son No problems noted. Daughter No problems noted. Surgical History Surgical History H/O colonoscopy Hx of cataract surgery History of esophagogastroduodenoscopy (EGD) Status post ventricular septal myectomy Hx of section Hx of tubal ligation S/P cholecystectomy S/P total knee arthroplasty Social History Social History Alcohol intake: never Patient Tobacco Use Status: Never used Tobacco Years Smoked: 5 years Advance Directives: No Advance Directives Information Provided: No Do you have a plan to hurt others: No Plan Meds Allergies Allergy/AdvReac Type Severity Reaction Status Date / Time Penicillins [PENICILLINS] Allergy Intermediate RASH Verified 12/07/23 15:19 Home Medications ?Medication ?Instructions ?Recorded ?Confirmed ?Last Taken ?Type escitalopram oxalate 10 mg tablet 3 mg PO Q OTHER DAY PRN Anxiety 04/12/20 09/26/23 Unknown History levothyroxine 125 mcg tablet 125 mcg PO DAILY 04/12/20 09/26/23 04/15/20 06:00 History latanoprost 0.005 % eye drops, 1 drp ophthalmic (eye) BEDTIME 08/21/21 09/26/23 Unknown History emulsion (Xelpros) Physical Exam 2 Vital Signs: Vital Signs: Last Vital Signs Temp 97.9 F 12/07/23 15:15 Pulse 68 12/07/23 16:04 Resp 37 H 12/07/23 16:04 BP 168/78 H 12/07/23 16:04 Pulse Ox 100 12/07/23 16:04 O2 Del Method Room Air 12/07/23 16:04 BMI result Body Mass Index 38.6 EXAM: GENERAL: The patient is uncomfortable due to pain, breathign easily, no salivation VITAL SIGNS:see workflow HEENT: Nonicteric sclerae, PERRLA, EOMI. Oropharynx clear. Moist mucous membranes. Conjunctivae appear well perfused. No thyroid mass. CHEST: Chest wall is nontender. HEART: Regular rate and rhythm without murmurs. LUNGS: Clear to auscultation bilaterally. ABDOMEN: Soft, positive bowel sounds, nontender, no organomegaly.no flank tenderness SKIN: No rash, no excessive bruising, petechiae, or purpura. NEUROLOGIC: Cranial nerves II-XII intact without motor/sensory deficit. Psych: normal affect Results Labs 12/07/23 16:49 12/07/23 16:49 Imaging Chest x-ray: Attestation: I personally reviewed and interpreted this imaging study as follows: (lungs normal, air fluid level-esophagus) Assessment and Plan (1) Food bolus obstruction of intestine: Status: Acute Plan 1/ Food bolus obstruction, esophagus PLAN: 1/ EGD today for disimpaction 2. resume PPI thereafter Procedures Date of Service Date of Service: 12/07/23
--- NOTE | 2023-12-07 16:23 | ECG_ITS ---
Test Reason : CHEST PAIN Blood Pressure : / mmHG Vent. Rate : 069 BPM Atrial Rate : 069 BPM P-R Int : 212 ms QRS Dur : 166 ms QT Int : 478 ms P-R-T Axes : 059 -28 118 degrees QTc Int : 512 ms Sinus rhythm with 1st degree A-V block Left bundle branch block Abnormal ECG When compared with ECG of 10-NOV-2021 17:02, No significant change was found Referred By: Francine Klein Electronically Signed By:SALLY LUDWIG MD
--- NOTE | 2023-12-07 16:24 | HO.ANESPROP2 ---
HPI - Anesthesia Eval Consult details Narrative: Food bolus PMFSH Active Problems Active Problems: All Active Problems Cardiomyopathy (Acute) ALIRIO (obstructive sleep apnea) (Acute) Obesity (BMI 30-39.9) (Acute) History of hypertrophic cardiomyopathy (Acute) BMI 39.0-39.9,adult (Acute) H. pylori infection (Acute) Body mass index (BMI) of 40.0 to 44.9 in adult (Acute) Morbid obesity due to excess calories (Acute) Shortness of breath (Acute) Preoperative examination (Acute) Morbid obesity (Acute) Obesity (Acute) LBBB (left bundle branch block) (Acute) Past Medical History Medical History (Updated 09/26/23 @ 12:55 by Jarred Vital MD) Congestive heart failure with left ventricular diastolic dysfunction, NYHA class 2 Obesity (BMI 30-39.9) History of hypertrophic cardiomyopathy Morbid obesity due to excess calories Morbid obesity History of left bundle branch block (LBBB) Thyroid disease Arthritis GERD (gastroesophageal reflux disease) Depression History of fatty infiltration of liver LBBB (left bundle branch block) Family History Family History Father Obesity Mother COPD (chronic obstructive pulmonary disease) Brother No problems noted. Son No problems noted. Daughter No problems noted. Family history of problems with anesthesia: No Surgical History Surgical History H/O colonoscopy Hx of cataract surgery History of esophagogastroduodenoscopy (EGD) Status post ventricular septal myectomy Hx of section Hx of tubal ligation S/P cholecystectomy S/P total knee arthroplasty History of Problems with Anesthesia: No Social History Social History Alcohol intake: never Patient Tobacco Use Status: Never used Tobacco Years Smoked: 5 years Advance Directives: No Advance Directives Information Provided: No Do you have a plan to hurt others: No Plan Meds Allergies Allergy/AdvReac Type Severity Reaction Status Date / Time Penicillins [PENICILLINS] Allergy Intermediate RASH Verified 12/07/23 15:19 Home Medications ?Medication ?Instructions ?Recorded ?Confirmed ?Last Taken ?Type escitalopram oxalate 10 mg tablet 3 mg PO Q OTHER DAY PRN Anxiety 04/12/20 09/26/23 Unknown History levothyroxine 125 mcg tablet 125 mcg PO DAILY 04/12/20 09/26/23 04/15/20 06:00 History latanoprost 0.005 % eye drops, 1 drp ophthalmic (eye) BEDTIME 08/21/21 09/26/23 Unknown History emulsion (Xelpros) Exam Height,Weight and Vital Signs: Height 5 ft 3 in Weight 98.8 kg Last Vital Signs Temp 97.9 F 12/07/23 15:15 Pulse 68 12/07/23 16:04 Resp 37 H 12/07/23 16:04 BP 168/78 H 12/07/23 16:04 Pulse Ox 100 12/07/23 16:04 O2 Del Method Room Air 12/07/23 16:04 Airway Mallampati Class: II TM Dist: >3cm Neck ROM: Full Loose/Missing/Broken Teeth: No Heart: RRR Lungs: CTa Assessment and Plan Assessment Anesthesia Assessment: Anesthesia Plan Discussed and Chart Reviewed Final Anesthetic Review Family History of Problems with Anesthesia: No History of Problems with Anesthesia: No NPO: No ASA Class: III and Emergency Final Preanesthetic Review: No Changes in Pt Med Stat, Meds/Allgs Chart Reviewed, Consent Obtained/Reviewed and Anes Risks/Benef Reviewed Patient Risk: Intermediate Procedure Risk: Low Anesthetic Plan Anesthetic Plan: GA
[2023-12-07 16:31] VITALS: BP 163/77; PULSE 71
[2023-12-07] MEDS: Nitroglycerin 0.4 MG TAB.SUBL SUBLINGUAL (16:31)
[2023-12-07] MEDS: LORazepam 2 MG/ML VIAL 0.5 MG IVPUSH (16:32)
[2023-12-07 16:36] VITALS: BP 163/77; PULSE 71; RESP 18; TEMP 36.8; O2SAT 100
[2023-12-07 16:53] LABS: MANUAL DIFF FLAG NO
[2023-12-07 16:59] LABS: Basophils Percent Auto 0.7 % (0-2); Eosinophils Absolute Auto 0.1 X10*3/uL (0.0-0.4); Eosinophils Percent Auto 1.3 % (0-4); Hematocrit 40.8 % (37.0-47.0); Hemoglobin 13.8 g/dl (12.0-16.0); Imm Gran Abs Auto 0.01 X10*3/uL (0.00-0.03); Imm Gran Pct Auto 0.2 % (0.0-0.4); Lymphocytes Absolute Auto 1.8 X10*3/uL (1.2-4.9); Lymphocytes Percent Auto 33.7 % (20-40); Mean Corpuscular HGB Conc 33.8 g/dl (31.0-35.0); Mean Corpuscular Hemoglobin 27.8 pg (27.0-33.0); Mean Corpuscular Volume 82.3 fL (80.0-98.0); Mean Platelet Volume 11.9 fL (9.4-12.3); Monocytes Absolute Auto 0.5 X10*3/uL (0.1-1.2); Monocytes Percent Auto 8.5 % (2-11); Neutrophils Percent Auto 55.6 % (45-73); Platelet Count 130 X10*3/uL (160-400); Red Blood Count 4.96 X10*6/uL (4.20-5.50); Red Cell Distribution Width 15.3 % (11.0-16.0); White Blood Count 5.4 X10*3/uL (4.8-10.8)
[2023-12-07 17:03] LABS: INTERNATIONAL NORM RATIO 1.1 (0.9-1.1); Prothrombin Time 13.5 SEC (11.1-13.3)
--- NOTE | 2023-12-07 17:10 | MHC.SHP ---
Pre-Procedural Eval Section A - 24 Hr Update-Section A only Date of Service: 12/07/23 The patient is an INPATIENT: No The patient has been examined within 24 hours of the surgical procedure. The History & Physical has been completed within 30 days and I have reviewed it.: Yes Section B - Complete if H&P > 30 days Chief Complaint: Food stuck in throat Allergies: Allergies Allergy/AdvReac Type Severity Reaction Status Date / Time Penicillins [PENICILLINS] Allergy Intermediate RASH Verified 12/07/23 15:19 Plan Diagnosis/Plan: Unchanged I have reviewed the history and physical and performed a pertinent physical examination on my patient. No changes have occurred unless specified. EGD for removal of food bolus Time Spent With Patient Time: Total time managing care of this patient today ____ minutes.
[2023-12-07 17:11] LABS: Alanine Aminotransferase 21 U/L (0-31); Albumin Level 4.4 g/dL (3.5-5.0); Alkaline Phosphatase 70 U/L (39-117); Anion Gap 16 (12-20); Aspartate Amino Transferase 31 U/L (5-31); Bilirubin Total 0.6 mg/dL (0.0-1.0); Blood Urea Nitrogen 26 mg/dL (9-16); Carbon Dioxide 23 mmol/L (22-29); Chloride 108 mmol/L (96-108); Creatinine Clr Calc Pharmacy 63.8; Estimated Glomerular Filt Rate > 60; Glucose Random 99 mg/dL (60-115); Potassium 3.5 mmol/L (3.3-5.1); Sodium 143 mmol/L (135-145); Total Protein 7.2 g/dL (6.5-8.0)
[2023-12-07 17:18] LABS: Troponin-I High Sensitivity 3.2 ng/L (<3.5-17.0)
--- NOTE | 2023-12-07 17:30 | W.PM.OPN ---
Operative Note Operative Note Date of Service: 12/07/23 Narrative: Procedure Description: EGD Indication: food bolus obstruction Anesthesia: MAC FLEXIBLE TRANSORAL UPPER GASTROINTESTINAL ENDOSCOPY UPPER ENDOSCOPY Consent: Indications for the procedure and potential complications of bleeding, perforation, reaction to medications and missed diagnosis were discussed with the patient and informed consent was obtained. Instrument: Olympus GIF H 190 J mid size upper endoscope Monitoring: Vital signs and clinical assessment, continuous EKG monitoring, Pulse oximetry, Carbon Dioxide monitoring and blood pressure monitoring were done throughout the procedure. Procedure: The patient was placed in the left lateral decubitis position and pre-procedure medications were administered and a bite block was placed. The endoscope was inserted into the mouth and advanced under direct vision to the third part of duodenum. A careful inspection was made as the upper endoscope was withdrawn including a retroflexed examination of the proximal stomach; Findings and interventions are described below. Findings: Larynx:normal Esophagus: GE junction at 32 cm, diaphragm hiatus at 38 cm, consistent with large fixed hiatal hernia. Food bolus noted stuck in distal esophagus and hernial sac and was pushed into the stomach. Stomach: Normal mucosa . Biopsies were obtained. Grade 2 flap valve on retroflexed examination of the cardia, hernial sac noted. Duodenum: Normal bulb and descending duodenum, Intervention: food bolus obstruction removal Impression/Findings: hiatal hernia food bolus obstruction PLAN: recommence PPI chew food thoroughly GERD precautions f/u with Dr Stevenson
[2023-12-07 17:37] VITALS: BP 112/49; PULSE 73; RESP 15; TEMP 36.6; O2SAT 95
[2023-12-07 17:52] VITALS: BP 118/66; PULSE 70; RESP 16; TEMP 36.2; O2SAT 96
--- NOTE | 2023-12-08 19:47 | HO.POSTANES ---
Post Anesthesia Evaluation Post Anesthesia Evaluation Date of Service: 12/08/23 Anesthesia: Monitored Mental Status: Awake Pain Control: Satisfactory Nausea/Vomiting: None Hydration: Adequate Anesthesia-Related Issues: No Anes. Related Issues
== END 2023-12-07 16:54 | disposition home or self-care (01) ==
LOC: HO.ED 16:55 → HO.SSS 17:28
PROVIDERS: Internal Medicine Gastroenterology; Emergency Provider Emergency Medicine; PCP Internal Medicine; Visit Provider Physician Assistant
PROC: 0DJ08ZZ Inspection of Upper Intestinal Tract, Via Natural or Artificial Opening Endoscopic (ICD-10-PCS; CPT 43235; principal; 2023-12-07 17:00)
DX: T18.128A Food in esophagus causing other injury, initial encounter (principal); W44.F3XA Food entering into or through a natural orifice, initial encounter; K44.9 Diaphragmatic hernia without obstruction or gangrene; I11.0 Hypertensive heart disease with heart failure; I50.9 Heart failure, unspecified; R06.02 Shortness of breath; K21.9 Gastro-esophageal reflux disease without esophagitis; G47.33 Obstructive sleep apnea (adult) (pediatric); I44.7 Left bundle-branch block, unspecified; E66.9 Obesity, unspecified; Z68.38 Body mass index [BMI] 38.0-38.9, adult; Y93.89 Activity, other specified; Y92.019 Unspecified place in single-family (private) house as the place of occurrence of the external cause; Y99.9 Unspecified external cause status; Z79.899 Other long term (current) drug therapy
CPT/HCPCS: 43239; 36415; 71046; 80053; 84484; 85025; 85610; 93005; 96374; 99283; 99285; J2060; J2704; J3010

== ENCOUNTER → 2023-12-07 15:51 | Outpatient (BNV) | payer MEDICARE, SELFPAY | PROVIDERS: PCP Internal Medicine; Visit Provider Internal Medicine Gastroenterology | DX: K56.699 Other intestinal obstruction unspecified as to partial versus complete obstruction (principal); W44.F3XA Food entering into or through a natural orifice, initial encounter | CPT/HCPCS: 43239; 99284 ==

== ENCOUNTER → 2023-12-07 16:23 | Outpatient (BNV) | payer MEDICARE, SELFPAY | PROVIDERS: Emergency Provider Emergency Medicine; PCP Internal Medicine; Visit Provider Internal Medicine Cardiovascular Disease | DX: I44.0 Atrioventricular block, first degree (principal) | CPT/HCPCS: 93010 ==

== ENCOUNTER 2023-12-18 14:29 | Outpatient (REF) | payer MEDICARE, SELFPAY ==
[2023-12-18 15:52] LABS: Alanine Aminotransferase 17 U/L (0-31); Albumin Level 3.9 g/dL (3.5-5.0); Alkaline Phosphatase 65 U/L (39-117); Aspartate Amino Transferase 22 U/L (5-31); Bilirubin Direct 0.1 mg/dL (0.0-0.5); Bilirubin Total 0.3 mg/dL (0.0-1.0); Total Protein 6.3 g/dL (6.5-8.0)
== END 2023-12-18 14:30 | disposition home or self-care (01) ==
LOC: HO.LABR 14:29
PROVIDERS: PCP Internal Medicine; Visit Provider Internal Medicine
DX: K75.4 Autoimmune hepatitis (principal)
CPT/HCPCS: 36415; 80076

== ENCOUNTER 2024-02-17 12:07 | Outpatient (REF) | payer MEDICARE, SELFPAY ==
[2024-02-17 12:51] LABS: Alanine Aminotransferase 15 U/L (0-31); Albumin Level 3.9 g/dL (3.5-5.0); Alkaline Phosphatase 74 U/L (39-117); Aspartate Amino Transferase 21 U/L (5-31); Bilirubin Direct 0.2 mg/dL (0.0-0.5); Bilirubin Total 0.5 mg/dL (0.0-1.0); Total Protein 6.7 g/dL (6.5-8.0)
== END 2024-02-17 12:08 | disposition home or self-care (01) ==
LOC: HO.LABR 12:07
PROVIDERS: PCP Internal Medicine; Visit Provider Internal Medicine
DX: K75.4 Autoimmune hepatitis (principal)
CPT/HCPCS: 36415; 80076

== ENCOUNTER 2024-03-10 08:22 | Outpatient (REF) | payer MEDICARE, SELFPAY ==
[2023-03-05 08:58] VITALS: BP 126/58; BP 92/54
[2023-04-01 16:08] VITALS: BP 108/64; BMI 40.5
--- NOTE | ~2024-03-10 | MM_ITS ---
EXAMINATION: MM SCREENING DIGITAL BREAST TOMOSYNTHESIS, BILATERAL CLINICAL INFORMATION: Screening. Asymptomatic. COMPARISON: Mammography: Comparison is made with available priors TECHNIQUE: Digital breast mammography with tomosynthesis is performed in both the craniocaudal and mediolateral oblique views along with computer-aided detection (CAD). FINDINGS: There are scattered areas of fibroglandular density (ACR BI-RADS breast composition Category b). Right: There are no significant masses, abnormal calcifications, or other abnormalities. Left: Focal asymmetry in the upper outer breast anterior to middle depth superficial in location. No suspicious calcifications or other abnormal findings. MM/MM tomosynthesis screening BI IMPRESSION: Additional imaging is recommended ASSESSMENT: BI-RADS BI-RADS 0 - Incomplete: Needs additional Imaging. RECOMMENDATION: 1. Additional views of the left breast 2. Targeted ultrasound if warranted after review of the additional views. 3. Radiology department staff will contact the patient for additional imaging. Additional Imaging required This examination should not preclude the clinical evaluation of a suspicious palpable abnormality. This patient's information was entered into a reminder system with a target due date for their next mammogram. Electronically signed by: My Bailey DO 03/19/2024 06:36 PM EDT
== END 2024-03-10 08:23 | disposition home or self-care (01) ==
LOC: HO.MAMMO 08:22
PROVIDERS: PCP Internal Medicine; Visit Provider Internal Medicine
DX: Z12.31 Encounter for screening mammogram for malignant neoplasm of breast (principal)
CPT/HCPCS: 77063; 77067

== ENCOUNTER → 2024-03-10 08:45 | Outpatient (BNV) | payer MEDICARE, SELFPAY | PROVIDERS: PCP Internal Medicine; Visit Provider Internal Medicine | DX: Z12.31 Encounter for screening mammogram for malignant neoplasm of breast (principal) | CPT/HCPCS: 77063; 77067 ==

== ENCOUNTER → 2024-03-16 13:44 | Outpatient (REF) | payer MEDICARE, SELFPAY ==
--- NOTE | 2024-03-16 13:47 | CA_ITS ---
Transthoracic Echocardiogram Amended Patient (Last, First, Middle): Alyse Razo A Gender: Female Date of : 1950 Age: 73 Procedure Date: 03/16/2024 Procedure Type: Transthoracic Echocardiogram Location: OP Height: 157.48 cm Weight: 95.26 kg BSA: 1.95 m2 Heart Rate: bpm BP: 106 / 58 mmHg Patron Attendant: GARRETT Referring MD: Jarred Vital MD Symptoms: I42.9 - Cardiomyopathy, unspecified Study Quality: Fair, contrast Conclusions: - 1. Normal LV ejection fraction 55-60% with mild LVH with impaired relaxation filling pattern 2. Mild aortic regurgitation 3. Mildly dilated ascending aorta 4.1 cm 4. Normal RV systolic pressure with mildly elevated right atrial pressures 5. No gross pericardial effusion Findings Left Ventricle Normal left ventricular size and systolic function. There is mildly increased left ventricular wall thickness. The visually estimated ejection fraction is between 60-65%. There is paradoxical septal motion consistent with a left bundle branch block. Spectral Doppler is indicative of an impaired relaxation filling pattern. E/E prime ratio is between 8 and 15 consistent with indeterminate filling pressures. focal basal septal akinesis from prior treatment for hypertrophic cardiomyopathy Wall Motion Rest Echo Findings The basal anteroseptal segment is akinetic. All other scored wall segments showed normal motion. Right Ventricle Normal right ventricular cavity size. There is mild to moderately decreased right ventricular systolic function. Atria The left atrium is normal in size. There is no evidence of interatrial shunt. The right atrium is normal in size. Aortic Valve There is mild calcification of the aortic valve. There is no aortic valve stenosis. There is mild aortic valve regurgitation. Mitral Valve There is mild anterior and posterior mitral leaflet thickening. There is trace mitral valve regurgitation. There is no mitral valve stenosis. Pulmonic Valve The pulmonic valve was not well visualized. Tricuspid Valve Likely normal tricuspid valve structure and function. There is mild tricuspid valve regurgitation. The right ventricular systolic pressure is normal. The right ventricular systolic pressure is 23 mmHg. Mildly elevated right atrial pressure. There is no evidence of pulmonary hypertension. Great Vessels All visible segments of the aorta are normal in size. The pulmonary artery was not well visualized. There is mild dilatation of the ascending aorta measuring 4.10 cm. Venous The inferior vena cava is mildly dilated and collapses less than 50% with inspiration. Pericardium/Pleural There is no evidence of pericardial effusion. Prior Study Comparison No significant change compared to prior study dated: 03/11/2023. Measurements 2D Linear Measurements IVSd: 1.28 0.6-0.9/0.6-1.0 cm LVIDd: 4.96 3.9-5.3/4.2-5.9 cm LVIDd Index: 2.54 2.4-3.2/2.2-3.1 cm/m2 LVIDs: 3.06 2.0-3.6 cm LVPWd: 1.13 0.7-1.1 cm LA Diam: 3.30 2.7-3.8/3.0-4.0 cm LAIDs Index: 1.69 1.5-2.3 cm/m2 LV Mass: 289.42 67-162/88-224 g LV Mass Index: 148.42 43-95/49-115 g/m2 LVOT Diam: 2.10 3.0+(-)1.3 cm 2D Volumes LA Vol: 29.00 2D Systolic Function EF 4C: 61.60 >55% EF 2C: 62.70 >55% EF BiP: 60.20 >55% Mitral Valve MV Pk E: 0.61 MV PK A: 0.69 MV Decel Time: 349.00 E/A: 0.90 E'Lateral: 6.31 E'Medial: 4.03 E/E' Med: 15.20 E/E' Lat: 9.70 PHT: 102.00 MVA PHT: 2.16 Decel [place]: 1.76 Aortic Valve AoV Pk Missael: 1.95 AoV Mn Missael: 1.30 AoV VTI: 0.36 AoV Pk Grad: 15.00 Aov Mn Grad: 8.00 ANDIE Cont.VTI: 2.54 AI Pk Missael: 2.91 AI [place]: 0.93 LVOT LVOT Pk Missael: 1.16 LVOT Mn Missael: 0.91 LVOT VTI: 0.26 LVOT Pk Grad: 5.00 LVOT Mn Grad: 4.00 LVOT Diam: 2.10 LVOT Area: 3.46 Diastolic Function MV Pk E: 0.61 MV Pk A: 0.69 E/A: 0.90 E'Medial: 4.03 E/E' Med: 15.20 E' Laterial: 6.31 E/E' Lat: 9.70 Right Ventricle TAPSE (mm): 13.80 TVS' Missael: 10.20 Tricuspid Valve TR Pk Missael: 1.93 TR Pk Grad: 15.00 RA Press: 8.00 RVSP: 23.00 Great Vessels Aorta Sinus of Valsalva: 3.38 2.0-3.[address] [place]: 2.82 1.7-3.4 cm Ao Asc: 4.10 2.1-3.4 cm Updated in Other Vendor System with Status of Final Jarred Vital MD electronically signed on 03/17/2024 11:05:06 AM with status of Final
== END ==
LOC: HO.CARD 13:44
PROVIDERS: PCP Internal Medicine; Visit Provider Internal Medicine Cardiovascular Disease
DX: I42.9 Cardiomyopathy, unspecified (principal)
CPT/HCPCS: 93306; Q9957

== ENCOUNTER → 2024-03-16 13:47 | Outpatient (BNV) | payer MEDICARE, SELFPAY | PROVIDERS: PCP Internal Medicine; Visit Provider Internal Medicine Cardiovascular Disease | DX: I42.2 Other hypertrophic cardiomyopathy (principal); I35.1 Nonrheumatic aortic (valve) insufficiency; I36.1 Nonrheumatic tricuspid (valve) insufficiency | CPT/HCPCS: 93306 ==

== ENCOUNTER 2024-04-14 13:24 | Outpatient (REF) | payer MEDICARE, SELFPAY ==
[2024-04-14 13:39] LABS: MANUAL DIFF FLAG NO
[2024-04-14 15:07] LABS: Basophils Absolute Auto 0.1 X10*3/uL (0.0-0.2); Basophils Percent Auto 0.7 % (0-2); Eosinophils Absolute Auto 0.2 X10*3/uL (0.0-0.4); Eosinophils Percent Auto 1.7 % (0-4); Hematocrit 41.6 % (37.0-47.0); Hemoglobin 13.8 g/dl (12.0-16.0); Imm Gran Abs Auto 0.03 X10*3/uL (0.00-0.03); Imm Gran Pct Auto 0.3 % (0.0-0.4); Lymphocytes Absolute Auto 2.5 X10*3/uL (1.2-4.9); Lymphocytes Percent Auto 27.5 % (20-40); Mean Corpuscular HGB Conc 33.2 g/dl (31.0-35.0); Mean Corpuscular Hemoglobin 28.8 pg (27.0-33.0); Mean Corpuscular Volume 86.7 fL (80.0-98.0); Mean Platelet Volume 11.6 fL (9.4-12.3); Monocytes Absolute Auto 0.7 X10*3/uL (0.1-1.2); Monocytes Percent Auto 7.8 % (2-11); Neutrophils Absolute Auto 5.6 x10*3/uL (2.0-8.3); Platelet Count 185 X10*3/uL (160-400); Red Cell Distribution Width 15.1 % (11.0-16.0); White Blood Count 9.1 X10*3/uL (4.8-10.8)
[2024-04-14 15:27] LABS: Alanine Aminotransferase 18 U/L (0-31); Albumin Level 4.2 g/dL (3.5-5.0); Alkaline Phosphatase 81 U/L (39-117); Anion Gap 13 (12-20); Aspartate Amino Transferase 31 U/L (5-31); Bilirubin Total 0.5 mg/dL (0.0-1.0); Blood Urea Nitrogen 29 mg/dL (9-16); Calcium 9.9 mg/dL (8.4-10.2); Carbon Dioxide 25 mmol/L (22-29); Chloride 104 mmol/L (96-108); Estimated Glomerular Filt Rate > 60; Glucose Random 79 mg/dL (60-115); Potassium 4.2 mmol/L (3.3-5.1); Sodium 138 mmol/L (135-145); Total Protein 7.2 g/dL (6.5-8.0)
[2024-04-14 15:30] LABS: Alanine Aminotransferase 17 U/L (0-31); Albumin Level 4.2 g/dL (3.5-5.0); Alkaline Phosphatase 82 U/L (39-117); Aspartate Amino Transferase 32 U/L (5-31); Bilirubin Direct 0.2 mg/dL (0.0-0.5); Bilirubin Total 0.5 mg/dL (0.0-1.0); Total Protein 7.2 g/dL (6.5-8.0)
[2024-04-14 15:46] LABS: Free T4 (Free Thyroxine) 1.25 ng/dL (0.71-1.85); Thyroid Stimulating Hormone 0.51 uIU/mL (0.32-4.0)
== END 2024-04-14 13:25 | disposition home or self-care (01) ==
LOC: HO.LAB 13:24
PROVIDERS: Internal Medicine; PCP Internal Medicine; Visit Provider Internal Medicine
DX: K75.4 Autoimmune hepatitis (principal)
CPT/HCPCS: 36415; 80053; 80076; 82248; 84439; 84443; 85025

== ENCOUNTER 2024-04-15 13:21 | Outpatient (AMB) | payer MEDICARE, SELFPAY ==
--- NOTE | 2024-04-15 13:23 | A.OFFVIS_ITS ---
Vital Signs 04/15/24 13:25 Height 5 ft 3 in Weight 207 lb 3.752 oz BMI 36.7 BP 120/78 Blood Pressure Location Lt brachial Position Sitting Pulse 66 Intake Visit Reasons: 6 mth f/up w/ ekg/ s/p echo r/sx2 Intake Note: 6 month follow-up with ekg after echo c/o sob and fatigue Frozen Yogurt Maker Required: No Allergies Penicillins [PENICILLINS] Allergy (Intermediate, Verified 12/07/23 15:19) RASH Medication List - Last Reconciled 04/15/24 by Jarred Vital MD carvedilol 3.125 mg PO BID escitalopram oxalate 3 mg PO Q OTHER DAY PRN latanoprost 0.005% (Xelpros) 1 drp ophthalmic (eye) BEDTIME levothyroxine 125 mcg PO DAILY pantoprazole 40 mg PO DAILY sacubitril-valsartan 49-51 mg (Entresto) 1 tab PO BID 90 days HPI Comments Details: Rosa comes for follow-up. She has been doing well from cardiac perspective. Her most recent echocardiogram shows preserved LV ejection fraction with no significant valvular abnormality. She continues to have exertional shortness of breath. She is interested in pursuing more aggressive weight loss program and is considering bariatric surgery although she wants to try medical weight loss worse. She denies any orthopnea, PND, leg edema. No prolonged palpitation irregular heartbeat. No lightheadedness, syncope. No exertional chest pain. She is taking all her medications. [facility] Medical History Congestive heart failure with left ventricular diastolic dysfunction, NYHA class 2 Obesity (BMI 30-39.9) History of hypertrophic cardiomyopathy Morbid obesity due to excess calories Morbid obesity History of left bundle branch block (LBBB) Thyroid disease Arthritis GERD (gastroesophageal reflux disease) Depression History of fatty infiltration of liver LBBB (left bundle branch block) Surgical History H/O colonoscopy Hx of cataract surgery History of esophagogastroduodenoscopy (EGD) Status post ventricular septal myectomy Hx of section Hx of tubal ligation S/P cholecystectomy S/P total knee arthroplasty Family History Father Obesity Mother COPD (chronic obstructive pulmonary disease) Brother No problems noted. Son No problems noted. Daughter No problems noted. Social History Alcohol intake: never Patient Tobacco Use Status: Never used Tobacco Years Smoked: 5 years Review of Systems Const Denies chills, Denies fatigue, Denies fever(s), Denies frequent falls, Denies weakness, Denies weight gain and Denies weight loss ENT Denies dizziness Card Denies chest pain, Denies leg edema, Denies lightheadedness, Denies palpitations, Denies dyspnea, Denies dyspnea on exertion, Denies orthopnea and Denies other (loss of consciousness) Resp Denies cough, Denies dyspnea and Denies dyspnea on exertion GI Denies hematochezia and Denies change in stool character Musc Denies abnormal gait, Denies muscle weakness, Denies numbness, Denies radiating pain into limb and Denies tingling Neuro Denies abnormal gait, Denies dizziness, Denies frequent falls, Denies numbness, Denies tingling and Denies weakness Endo Denies fatigue and Denies palpitations Physical Exam Vital Signs: Last Vital Signs Pulse 66 04/15/24 13:25 BP 120/78 04/15/24 13:25 BMI result Body Mass Index 36.7 Const General: cooperative, healthy appearing, comfortable and no acute distress Nutritional Appearance: obese Orientation/consciousness: patient oriented x3 Neck Neck: Yes normal visual inspection Resp Effort & Inspection: normal respiratory effort Auscultation: clear to auscultation bilaterally, no crackles, no rales, no rhonchi and no wheezes Cardio Jugular venous distension: no JVD Rate: regular rate Rhythm: regular rhythm Heart sounds: S1 normal heart sound present, S2 normal heart sound present, no murmurs and no rubs Neuro General: patient oriented x3 Extrem General: Yes normal to inspection Psych Appearance: grossly normal Mental Status: mental status grossly normal Speech and movement: Normal speech and movement present Office Procedures EKG Details: EKG shows normal sinus rhythm with left bundle-branch block [id number], Complete Assessment & Plan Assessment & Plan (1) Cardiomyopathy: Code(s): I42.9 - Cardiomyopathy, unspecified Category: Medical Qualifiers: Cardiomyopathy type: unspecified Qualified Code(s): I42.9 - Cardiomyopathy, unspecified Plan: Patient cardiomyopathy process related to left bundle-branch block without any evidence of congestive heart failure with improved LV ejection fraction on neurohormonal modulation. Continue neurohormonal modulation with Entresto and carvedilol. Importance of therapy was discussed. Her exertional shortness of breath appears to be most likely related to deconditioning and her weight. Encouraged to pursue more aggressive weight loss program including bariatric surgery if need be. (2) History of hypertrophic cardiomyopathy: Code(s): Z86.79 - Personal history of other diseases of the circulatory system Category: Medical Plan: Prior history of hypertrophic cardiomyopathy status post septal myectomy with residual left bundle-branch block. He has no evidence of obstructive physiology at this point time and has done well with her symptoms. No other abnormalities that require further treatment. Will continue monitor clinically. Will follow up in the clinic in 1 year's time, sooner p.r.n.. Thank you for allowing me to partake in his care Coding Level of Care Code Est Pt Level 4 (64237) Complex EM visit Add On G2211 Diagnoses Cardiomyopathy, unspecified type I42.9 Cardiomyopathy type: unspecified History of hypertrophic cardiomyopathy Z86.79 CPT Codes EKG - CPT: 66769-[id number], Complete ([id number])
[2024-04-15 13:25] VITALS: BP 120/78; PULSE 66; BMI 36.7
== END 2024-04-15 13:57 | disposition home or self-care (01) ==
LOC: HO.HCS 13:22
PROVIDERS: PCP Internal Medicine; Visit Provider Internal Medicine Cardiovascular Disease
DX: I42.9 Cardiomyopathy, unspecified (principal); Z86.79 Personal history of other diseases of the circulatory system
CPT/HCPCS: 93010; 99214; G2211

== ENCOUNTER → 2024-04-15 13:21 | Outpatient (BNVA) | payer MEDICARE, SELFPAY | PROVIDERS: PCP Internal Medicine; Visit Provider Internal Medicine Cardiovascular Disease | DX: I42.9 Cardiomyopathy, unspecified (principal); Z86.79 Personal history of other diseases of the circulatory system | CPT/HCPCS: 93005; 99212 ==

== ENCOUNTER → 2024-05-04 12:35 | Outpatient (BNVA) | payer MEDICARE, SELFPAY | PROVIDERS: PCP Internal Medicine; Visit Provider Surgery ==

== ENCOUNTER 2024-05-12 12:19 | Outpatient (REF) | payer MEDICARE, SELFPAY ==
--- NOTE | ~2024-05-12 | MM_ITS ---
EXAMINATION: MM DIAGNOSTIC DIGITAL BREAST TOMOSYNTHESIS, LEFT Limited left breast ultrasound. CLINICAL INFORMATION: Call back from screening for focal asymmetry in the upper outer breast localizing superficially possibly in the skin. COMPARISON: Mammography: Comparison is made with available prior examinations. TECHNIQUE: Digital breast tomosynthesis is performed in both the craniocaudal and mediolateral oblique views along with computer-aided detection (CAD). Synthesized 2D images are generated from the tomosynthesis. Limited left breast ultrasound. FINDINGS: There are scattered areas of fibroglandular density (ACR BI-RADS breast composition Category b). Focal asymmetry upper outer breast partially effaces on additional imaging projections and localizes superficially to the skin. This focal asymmetry is not significantly changed from prior mammogram 2018 and other priors. There are no significant masses, abnormal calcifications, or other abnormalities. Targeted color Doppler ultrasound scanning in the upper outer quadrant demonstrates normal fibroglandular breast tissue. There is an incidental isoechoic to hyperechoic 5 mm circumscribed oval mass subcutaneous consistent with a benign lipoma. No other sonographic abnormality is seen. MM/MM tomosynthesis added views L IMPRESSION: Focal asymmetry stable dating back to 2018 localizing superficially without sonographic correlate. Benign. ASSESSMENT: BI-RADS BI-RADS 2 - Benign Findings RECOMMENDATION: 1 year F/U Results were provided to the patient at time of visit by the technologist. This patient's information was entered into a reminder system with a target due date for their next mammogram. Electronically signed by: My Bailey DO 05/12/2024 01:48 PM STEVEN
== END 2024-05-12 12:20 | disposition home or self-care (01) ==
LOC: HO.MAMMO 12:19
PROVIDERS: PCP Internal Medicine; Visit Provider Internal Medicine
DX: N64.89 Other specified disorders of breast (principal)
CPT/HCPCS: 76642; 77061; 77065

== ENCOUNTER → 2024-05-12 13:00 | Outpatient (BNV) | payer MEDICARE, SELFPAY | PROVIDERS: PCP Internal Medicine; Visit Provider Internal Medicine | DX: R92.2 Inconclusive mammogram (principal); R92.322 Mammographic fibroglandular density, left breast | CPT/HCPCS: 76642; 77065; G0279 ==

== ENCOUNTER 2024-06-23 11:46 | Outpatient (REF) | payer MEDICARE, SELFPAY ==
[2024-06-23 12:56] LABS: Alanine Aminotransferase 24 U/L (0-31); Albumin Level 3.9 g/dL (3.5-5.0); Alkaline Phosphatase 85 U/L (39-117); Aspartate Amino Transferase 33 U/L (5-31); Bilirubin Direct 0.1 mg/dL (0.0-0.5); Bilirubin Total 0.4 mg/dL (0.0-1.0); Total Protein 6.7 g/dL (6.5-8.0)
== END 2024-06-23 11:47 | disposition home or self-care (01) ==
LOC: HO.LAB 11:46
PROVIDERS: PCP Internal Medicine; Visit Provider Internal Medicine
DX: K75.4 Autoimmune hepatitis (principal); R79.89 Other specified abnormal findings of blood chemistry
CPT/HCPCS: 36415; 80076

== ENCOUNTER 2024-06-26 09:58 | Outpatient (REF) | payer MEDICARE, SELFPAY ==
--- NOTE | ~2024-06-26 | XR_ITS ---
EXAMINATION: XR SHOULDER 2 OR MORE VIEWS LEFT HISTORY: LEFT SHOULDER PAIN COMPARISON: There are no prior studies available for comparison. FINDINGS: Four views of the left shoulder are submitted. Osseous mineralization is normal. There is no fracture or dislocation. The glenohumeral joint is maintained. There is moderate osteoarthritis of the AC joint with joint space narrowing and osteophyte formation. The soft tissues are unremarkable. XR/XR shoulder LT min 2V IMPRESSION: Moderate osteoarthritis of the AC joint. Electronically signed by: Avila Killian MD 06/29/2024 02:23 PM STEVEN GÓMEZ
== END 2024-06-26 09:59 | disposition home or self-care (01) ==
LOC: HO.XRAY 09:58
PROVIDERS: PCP Internal Medicine; Visit Provider Internal Medicine
DX: M25.512 Pain in left shoulder (principal)
CPT/HCPCS: 73030

== ENCOUNTER → 2024-06-26 10:03 | Outpatient (BNV) | payer MEDICARE, SELFPAY | PROVIDERS: PCP Internal Medicine; Visit Provider Radiology Diagnostic Radiology | DX: M19.012 Primary osteoarthritis, left shoulder (principal) | CPT/HCPCS: 73030 ==

== ENCOUNTER 2024-08-14 15:44 | Outpatient (REF) | payer MEDICARE, SELFPAY ==
[2024-08-14 17:09] LABS: Alanine Aminotransferase 36 U/L (0-31); Albumin Level 3.8 g/dL (3.5-5.0); Alkaline Phosphatase 86 U/L (39-117); Aspartate Amino Transferase 41 U/L (5-31); Bilirubin Direct 0.2 mg/dL (0.0-0.5); Bilirubin Total 0.4 mg/dL (0.0-1.0)
--- OUTSIDE RECORDS SUMMARY | 2024-08-14 17:15 | XMS_ITS | Patient Health Record ---
Author Organization [facility] Address [address] [place] [address] Care Team Providers Care Director Furniture Name Role Phone Bhanu Ramachandran MD Primary Care Provider Avila Ernst [phone] Allergies Allergen (clinical drug ingredient) Drug/Non Drug Allergy documented on EMR Reaction Allergy Type Onset Date Status Penicillin Unknown Drug Allergy Active Results Component Value Reference Range Notes Liver Panel Reviewed date:09/17/2023 08:56:11 AM Interpretation: Performing Lab:[facility], [address] [place] [phone] Notes/Report: Bilirubin Total 0.4 0.0-1.0 mg/dL Bilirubin Direct 0.1 0.0-0.5 mg/dL Aspartate Amino Transferase 24 5-31 U/L Alanine Aminotransferase 16 0-31 U/L Total Protein 6.5 6.5-8.0 g/dL Albumin Level 3.8 3.5-5.0 g/dL Alkaline Phosphatase 81 39-117 U/L Liver Panel Reviewed date:10/17/2023 12:33:36 AM Interpretation: Performing Lab:[facility], [address] [place] [phone] Notes/Report: Bilirubin Total 0.4 0.0-1.0 mg/dL Bilirubin Direct 0.1 0.0-0.5 mg/dL Aspartate Amino Transferase 19 5-31 U/L Alanine Aminotransferase 16 0-31 U/L Total Protein 6.6 6.5-8.0 g/dL Albumin Level 3.8 3.5-5.0 g/dL Alkaline Phosphatase 66 39-117 U/L Liver Panel (Not yet reviewe d by provider) Interpretation: Performing Lab:[facility], [address] [place] [phone] Notes/Report: Bilirubin Total 0.7 0.0-1.0 mg/dL Bilirubin Direct 0.2 0.0-0.5 mg/dL Aspartate Amino Transferase 25 5-31 U/L Alanine Aminotransferase 15 0-31 U/L Total Protein 6.7 6.5-8.0 g/dL Albumin Level 4.1 3.5-5.0 g/dL Alkaline Phosphatase 68 39-117 U/L Liver Panel Reviewed date:12/26/2023 08:59:07 AM Interpretation: Performing Lab:[facility], [address] [place] [phone] Notes/Report: Bilirubin Total 0.3 0.0-1.0 mg/dL Bilirubin Direct 0.1 0.0-0.5 mg/dL Aspartate Amino Transferase 22 5-31 U/L Alanine Aminotransferase 17 0-31 U/L Total Protein 6.3 6.5-8.0 g/dL Albumin Level 3.9 3.5-5.0 g/dL Alkaline Phosphatase 65 39-117 U/L Liver Panel Reviewed date:02/17/2024 09:09:10 PM Interpretation: Performing Lab:[facility], [address] [place] [phone] Notes/Report: Bilirubin Total 0.5 0.0-1.0 mg/dL Bilirubin Direct 0.2 0.0-0.5 mg/dL Aspartate Amino Transferase 21 5-31 U/L Alanine Aminotransferase 15 0-31 U/L Total Protein 6.7 6.5-8.0 g/dL Albumin Level 3.9 3.5-5.0 g/dL Alkaline Phosphatase 74 39-117 U/L Liver Panel Reviewed date:05/31/2024 01:16:02 PM Interpretation: Performing Lab:[address] [phone] Notes/Report: Bilirubin Total 0.5 0.0-1.0 mg/dL Bilirubin Direct 0.2 0.0-0.5 mg/dL Aspartate Amino Transferase 32 5-31 U/L Alanine Aminotransferase 17 0-31 U/L Total Protein 7.2 6.5-8.0 g/dL Albumin Level 4.2 3.5-5.0 g/dL Alkaline Phosphatase 82 39-117 U/L Liver Panel Reviewed date:06/24/2024 11:36:16 PM Interpretation: Performing Lab:[address] [phone] Notes/Report: Bilirubin Total 0.4 0.0-1.0 mg/dL Bilirubin Direct 0.1 0.0-0.5 mg/dL Aspartate Amino Transferase 33 5-31 U/L Alanine Aminotransferase 24 0-31 U/L Total Protein 6.7 6.5-8.0 g/dL Albumin Level 3.9 3.5-5.0 g/dL Alkaline Phosphatase 85 39-117 U/L Liver Panel (Not yet reviewe d by provider) Interpretation: Performing Lab:[facility], [address] [place] [phone] Notes/Report: Bilirubin Total 0.4 0.0-1.0 mg/dL Bilirubin Direct 0.2 0.0-0.5 mg/dL Aspartate Amino Transferase 41 5-31 U/L Alanine Aminotransferase 36 0-31 U/L Total Protein 7.0 6.5-8.0 g/dL Albumin Level 3.8 3.5-5.0 g/dL Alkaline Phosphatase 86 39-117 U/L Reason For Referral No Information Medications Medication SIG (Take, Route, Frequency, Duration) Notes Start Date End Date Status Carvedilol 3.125 MG TAKE 1 TABLET BY CHRISTOPHER TWICE A DAY Oral for 90 Active Escitalopram Oxalate 10 MG TAKE 1 AND 1/ 2 TABLET BY MOUTH EVERY DAY Oral for 90 Active Latanoprost 0.005 % Ophthalmic for 74 Active Omeprazole 20 MG TAKE 1 CAPSULE BY [facility] EVERY DAY FOR 90 DAYS for 90 Active Multivitamin - 1 tablet Orally Once a day for 30 day(s) Active Levothyroxine Sodium 125 MCG 1 tablet on an empty stomach in the morning Orally Once a day for 6 days one day off Active Entresto 49-51 MG Oral for 90 Active Immunizations Vaccine Route Administration Date Status Comme nts Flu vaccine no Preserv 3 and > Unknown 04/16/2017 Admin istered Influenza Unknown 03/04/2019 Administered Influenza Unknown 02/09/2020 Administered Influenza Unknown 04/25/2021 Administered Problems Problem Type SNOMED Code ICD Code Onset Dates Problem Status W/U Status Risk Notes Problem 05613159 Epigastric pain (R10.13) Active confirmed Problem 945977440 Encounter for screening for malignant neoplasm of colon (Z12.11) Active confirmed Problem 483480286 History of adenomatous polyp of colon (Z86.010) Active confirmed Problem 640728677 Esophageal obstruction (K22.2) Active confirmed Problem 458395348 Autoimmune hepatitis (K75.4) Active confirmed Problem 041162367 Elevated liver function tests (R79.89) Active confirmed Problem 709048484 Gastroesophageal reflux disease without esophagitis (K21.9) Active confirmed Problem 864175172 Gastroesophageal reflux disease, esophagitis presence not specified (K21.9) Active confirmed Problem 86003371 Hiatal hernia (K44.9) Active confirmed Problem Esophageal ring (45204968) Esophageal ring (K22.2) Active confirmed Problem Gastroesophageal reflux disease (179767468) GERD (gastroesophageal reflux disease) (K21.9) Active confirmed Problem Esophageal dysphagia (12389374) Esophageal dysphagia (R13.14) Active confirmed Problem 96660687 Esophageal dysphagia (R13.10) Active confirmed Problem 641273125 Hx of adenomatou s polyp of colon (Z86.010) Active confirmed Vital Signs Blood pressure diastolic 00 mm Hg 05/12/2024 Height 62.5 in 05/12/2024 Blood pressure systolic 00 mm Hg 05/12/2024 Weight 212 lbs 05/12/2024 BMI 38.15 kg/m2 05/12/2024 Encounters Encounter Location Date Provider Diagnosis [facility] [address] [place] [phone] 12/25/2023 Avila Stevenson Autoimmune hepatitis K75.4 ; History of adenomatous polyp of colon Z86.010 ; Esophageal dysphagia R13.10 ; Encounter for screening for malignant neoplasm of colon Z12.11 ; Gastroesophageal reflux disease, esophagitis presence not specified K21.9 and Hiatal hernia K44.9 [facility] [address] [place] [phone] 05/12/2024 Avila Stevenson Autoimmune hepatitis K75.4 ; History of adenomatous polyp of colon Z86.010 ; Esophageal dysphagia R13.10 ; Encounter for screening for malignant neoplasm of colon Z12.11 ; Gastroesophageal reflux disease, esophagitis presence not specified K21.9 and Hiatal hernia K44.9 [facility] [address] [place] [address] 09/18/2023 Avila Stevenson [facility] [address] [place] [address] 2024 Avila Stevenson Autoimmune hepatitis K75.4 [facility] [address] [place] [phone] 07/17/2024 Avila Stevenson Assessments Encounter Date Diagnosis (ICD Code) Assessment Notes Treatment Notes Treatment Clinical Notes Section Notes 12/25/2023 History of adenomatous polyp of colon (ICD-10 - Z86.010) Repeat colonoscopy in 2024 Overall, Alyse appears to be doing well at the present time. In regard to the autoimmune hepatitis this seems to be in clinical remission after the prednisone taper over 6 months ago. I advised her to continue her lab work and to begin doing them every 2 months beginning in February, rather than monthly. In regard to her history of esophageal obstructions and the known hiatal hernia, I again advised her of the importance of eating slowly and carefully. I am going to put her back on omeprazole to treat any component of reflux and esophageal spasm that might be contributing to her episodes of dysphagia. Given her age and comorbidities I don't think I would recommend hiatal hernia surgery at this time. 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 I will plan to see her in one year in the office for followup visit but advised her to contact me prior to that if she has any problems or questions I can be of assistance with. Alyse was very comfortable with this plan. Thank you again for allowing me to participate in the Alyse's care. I shall continue to keep you advised of her progress. 12/25/2023 Autoimmune hepatitis (ICD-10 - K75.4) Do liver tests every other month beginning in 02/2024 Overall, Alyse appears to be doing well at the present time. In regard to the autoimmune hepatitis this seems to be in clinical remission after the prednisone taper over 6 months ago. I advised her to continue her lab work and to begin doing them every 2 months beginning in February, rather than monthly. In regard to her history of esophageal obstructions and the known hiatal hernia, I again advised her of the importance of eating slowly and carefully. I am going to put her back on omeprazole to treat any component of reflux and esophageal spasm that might be contributing to her episodes of dysphagia. Given her age and comorbidities I don't think I would recommend hiatal hernia surgery at this time. 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 I will plan to see her in one year in the office for followup visit but advised her to contact me prior to that if she has any problems or questions I can be of assistance with. Alyse was very comfortable with this plan. Thank you again for allowing me to participate in the Alyse's care. I shall continue to keep you advised of her progress. 05/12/2024 History of adenomatous polyp of colon (ICD-10 - Z86.010) Overall, Alyse appears to be doing well in general. Her autoimmune hepatitis remains in remission off prednisone. I did advise her to continue to do her lab work every other month to monitor her LFTs. I did advise her to continue her daily omeprazole in regard to her hiatal hernia and reflux, as well as to use some TUMS or other antacid as needed for the episodes of presumed esophageal spasm and chest discomfort. I did advise her to go to the ER if these episodes ever become persistent to definitively rule out any type of cardiac issue. We did review that she needs to continue to need to eat slowly and carefully so as to avoid episodes of esophageal obstruction as well. I did advise her that obviously losing weight would be best for her in regard to the history of reflux and her overall health. I did advise her that if she ever does go for bariatric surgery then usually the surgeons can repair the hiatal hernia at that time as well. However, hopefully she can avoid surgery and get by with the weight loss medication. I will plan to see her next Fall at which time we can schedule her for her screening colonoscopy and followup upper endoscopy. I advised her to contact me prior to that if she has any problems or questions I can be of assistance with. Alyse was comfortable with this plan. Thank you again for allowing me to participate in Alyse's care. I shall continue to keep you advised of her progress. 05/12/2024 Autoimmune hepatitis (ICD-10 - K75.4) Continue every other month labs for your liver Overall, Alyse appears to be doing well in general. Her autoimmune hepatitis remains in remission off prednisone. I did advise her to continue to do her lab work every other month to monitor her LFTs. I did advise her to continue her daily omeprazole in regard to her hiatal hernia and reflux, as well as to use some TUMS or other antacid as needed for the episodes of presumed esophageal spasm and chest discomfort. I did advise her to go to the ER if these episodes ever become persistent to definitively rule out any type of cardiac issue. We did review that she needs to continue to need to eat slowly and carefully so as to avoid episodes of esophageal obstruction as well. I did advise her that obviously losing weight would be best for her in regard to the history of reflux and her overall health. I did advise her that if she ever does go for bariatric surgery then usually the surgeons can repair the hiatal hernia at that time as well. However, hopefully she can avoid surgery and get by with the weight loss medication. I will plan to see her next Fall at which time we can schedule her for her screening colonoscopy and followup upper endoscopy. I advised her to contact me prior to that if she has any problems or questions I can be of assistance with. Alyse was comfortable with this plan. Thank you again for allowing me to participate in Alyse's care. I shall continue to keep you advised of her progress. 2024 Autoimmune hepatitis (ICD-10 - K75.4) 12/25/2023 Esophageal dysphagia (ICD-10 - R13.10) EAT SLOWLY Overall, Alyse appears to be doing well at the present time. In regard to the autoimmune hepatitis this seems to be in clinical remission after the prednisone taper over 6 months ago. I advised her to continue her lab work and to begin doing them every 2 months beginning in February, rather than monthly. In regard to her history of esophageal obstructions and the known hiatal hernia, I again advised her of the importance of eating slowly and carefully. I am going to put her back on omeprazole to treat any component of reflux and esophageal spasm that might be contributing to her episodes of dysphagia. Given her age and comorbidities I don't think I would recommend hiatal hernia surgery at this time. 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 I will plan to see her in one year in the office for followup visit but advised her to contact me prior to that if she has any problems or questions I can be of assistance with. Alyse was very comfortable with this plan. Thank you again for allowing me to participate in the Alyse's care. I shall continue to keep you advised of her progress. 05/12/2024 Esophageal dysphagia (ICD-10 - R13.10) Continue daily omepraole, use TUMS as needed, eat slowly and carefully---us e a Fork and Knife Overall, Alyse appears to be doing well in general. Her autoimmune hepatitis remains in remission off prednisone. I did advise her to continue to do her lab work every other month to monitor her LFTs. I did advise her to continue her daily omeprazole in regard to her hiatal hernia and reflux, as well as to use some TUMS or other antacid as needed for the episodes of presumed esophageal spasm and chest discomfort. I did advise her to go to the ER if these episodes ever become persistent to definitively rule out any type of cardiac issue. We did review that she needs to continue to need to eat slowly and carefully so as to avoid episodes of esophageal obstruction as well. I did advise her that obviously losing weight would be best for her in regard to the history of reflux and her overall health. I did advise her that if she ever does go for bariatric surgery then usually the surgeons can repair the hiatal hernia at that time as well. However, hopefully she can avoid surgery and get by with the weight loss medication. I will plan to see her next Fall at which time we can schedule her for her screening colonoscopy and followup upper endoscopy. I advised her to contact me prior to that if she has any problems or questions I can be of assistance with. Alyse was comfortable with this plan. Thank you again for allowing me to participate in Alyse's care. I shall continue to keep you advised of her progress. 12/25/2023 Encounter for screening for malignant neoplasm of colon (ICD-10 - Z12.11) Overall, Alyse appears to be doing well at the present time. In regard to the autoimmune hepatitis this seems to be in clinical remission after the prednisone taper over 6 months ago. I advised her to continue her lab work and to begin doing them every 2 months beginning in February, rather than monthly. In regard to her history of esophageal obstructions and the known hiatal hernia, I again advised her of the importance of eating slowly and carefully. I am going to put her back on omeprazole to treat any component of reflux and esophageal spasm that might be contributing to her episodes of dysphagia. Given her age and comorbidities I don't think I would recommend hiatal hernia surgery at this time. 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 I will plan to see her in one year in the office for followup visit but advised her to contact me prior to that if she has any problems or questions I can be of assistance with. Alyse was very comfortable with this plan. Thank you again for allowing me to participate in the Alyse's care. I shall continue to keep you advised of her progress. 05/12/2024 Encounter for screening for malignant neoplasm of colon (ICD-10 - Z12.11) Overall, Alyse appears to be doing well in general. Her autoimmune hepatitis remains in remission off prednisone. I did advise her to continue to do her lab work every other month to monitor her LFTs. I did advise her to continue her daily omeprazole in regard to her hiatal hernia and reflux, as well as to use some TUMS or other antacid as needed for the episodes of presumed esophageal spasm and chest discomfort. I did advise her to go to the ER if these episodes ever become persistent to definitively rule out any type of cardiac issue. We did review that she needs to continue to need to eat slowly and carefully so as to avoid episodes of esophageal obstruction as well. I did advise her that obviously losing weight would be best for her in regard to the history of reflux and her overall health. I did advise her that if she ever does go for bariatric surgery then usually the surgeons can repair the hiatal hernia at that time as well. However, hopefully she can avoid surgery and get by with the weight loss medication. I will plan to see her next Fall at which time we can schedule her for her screening colonoscopy and followup upper endoscopy. I advised her to contact me prior to that if she has any problems or questions I can be of assistance with. Alyse was comfortable with this plan. Thank you again for allowing me to participate in Alyse's care. I shall continue to keep you advised of her progress. 12/25/2023 Gastroesophageal reflux disease, esophagitis presence not specified (ICD-10 - K21.9) I will send over a new prescription to start the daily omeprazole for the reflux and hiatal hernia Overall, Alyse appears to be doing well at the present time. In regard to the autoimmune hepatitis this seems to be in clinical remission after the prednisone taper over 6 months ago. I advised her to continue her lab work and to begin doing them every 2 months beginning in February, rather than monthly. In regard to her history of esophageal obstructions and the known hiatal hernia, I again advised her of the importance of eating slowly and carefully. I am going to put her back on omeprazole to treat any component of reflux and esophageal spasm that might be contributing to her episodes of dysphagia. Given her age and comorbidities I don't think I would recommend hiatal hernia surgery at this time. 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 I will plan to see her in one year in the office for followup visit but advised her to contact me prior to that if she has any problems or questions I can be of assistance with. Alyse was very comfortable with this plan. Thank you again for allowing me to participate in the Alyse's care. I shall continue to keep you advised of her progress. 05/12/2024 Gastroesophageal reflux disease, esophagitis presence not specified (ICD-10 - K21.9) Overall, Alyse appears to be doing well in general. Her autoimmune hepatitis remains in remission off prednisone. I did advise her to continue to do her lab work every other month to monitor her LFTs. I did advise her to continue her daily omeprazole in regard to her hiatal hernia and reflux, as well as to use some TUMS or other antacid as needed for the episodes of presumed esophageal spasm and chest discomfort. I did advise her to go to the ER if these episodes ever become persistent to definitively rule out any type of cardiac issue. We did review that she needs to continue to need to eat slowly and carefully so as to avoid episodes of esophageal obstruction as well. I did advise her that obviously losing weight would be best for her in regard to the history of reflux and her overall health. I did advise her that if she ever does go for bariatric surgery then usually the surgeons can repair the hiatal hernia at that time as well. However, hopefully she can avoid surgery and get by with the weight loss medication. I will plan to see her next Fall at which time we can schedule her for her screening colonoscopy and followup upper endoscopy. I advised her to contact me prior to that if she has any problems or questions I can be of assistance with. Alyse was comfortable with this plan. Thank you again for allowing me to participate in Alyse's care. I shall continue to keep you advised of her progress. 12/25/2023 Hiatal hernia (ICD-10 - K44.9) Overall, Alyse appears to be doing well at the present time. In regard to the autoimmune hepatitis this seems to be in clinical remission after the prednisone taper over 6 months ago. I advised her to continue her lab work and to begin doing them every 2 months beginning in February, rather than monthly. In regard to her history of esophageal obstructions and the known hiatal hernia, I again advised her of the importance of eating slowly and carefully. I am going to put her back on omeprazole to treat any component of reflux and esophageal spasm that might be contributing to her episodes of dysphagia. Given her age and comorbidities I don't think I would recommend hiatal hernia surgery at this time. 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 I will plan to see her in one year in the office for followup visit but advised her to contact me prior to that if she has any problems or questions I can be of assistance with. Alyse was very comfortable with this plan. Thank you again for allowing me to participate in the Alyse's care. I shall continue to keep you advised of her progress. 05/12/2024 Hiatal hernia (ICD-10 - K44.9) If Ozempic doesn't help then we can consider Bariatric and Hiatal hernia surgery Overall, Alyse appears to be doing well in general. Her autoimmune hepatitis remains in remission off prednisone. I did advise her to continue to do her lab work every other month to monitor her LFTs. I did advise her to continue her daily omeprazole in regard to her hiatal hernia and reflux, as well as to use some TUMS or other antacid as needed for the episodes of presumed esophageal spasm and chest discomfort. I did advise her to go to the ER if these episodes ever become persistent to definitively rule out any type of cardiac issue. We did review that she needs to continue to need to eat slowly and carefully so as to avoid episodes of esophageal obstruction as well. I did advise her that obviously losing weight would be best for her in regard to the history of reflux and her overall health. I did advise her that if she ever does go for bariatric surgery then usually the surgeons can repair the hiatal hernia at that time as well. However, hopefully she can avoid surgery and get by with the weight loss medication. I will plan to see her next Fall at which time we can schedule her for her screening colonoscopy and followup upper endoscopy. I advised her to contact me prior to that if she has any problems or questions I can be of assistance with. Alyse was comfortable with this plan. Thank you again for allowing me to participate in Alyse's care. I shall continue to keep you advised of her progress. Plan Of Treatment Pending Test Test Name Order Date Esophageal Motility study 07/06/2020 CHEM 7 PROFILE 12/04/2022 LIVER PROFILE 01/06/2023 LIVER PROFILE 12/06/2020 LIVER PROFILE 11/10/2015 LIVER PROFILE 02/26/2014 LIVER PROFILE 05/13/2023 LIVER PROFILE 06/06/2021 LIVER PROFILE 04/30/2014 LIVER PROFILE 2024 LIVER PROFILE 02/19/2023 LIVER PROFILE 10/14/2014 LIVER PROFILE 12/04/2022 LIVER PROFILE 03/17/2014 LIVER PROFILE 10/30/2020 LIVER PROFILE 07/20/2015 LIVER PROFILE 08/25/2014 CRP 12/04/2022 CBC w DIFF 12/04/2022 SED RATE (ESR) 12/04/2022 XR BARIUM SWALLOW-ESOPHAGUS 08/22/2022 XR BARIUM SWALLOW-ESOPHAGUS 06/24/2017 XR GI SERIES 08/22/2022 FLUOR. ANTINUCLEAR AB SCREEN (PHIL) 11/09 Liver Panel 11/20/2023 Liver Panel 08/14/2024 Smooth Muscle Antibody 12/04/2022 Future Test Test Name Order Date UPPER GI ENDOSCOPY BALLOOON DILATION OF ESOPH 01/15/2020 COLONOSCOPY 01/15/2020 Next Appt Details Provider Name:Avila Stevenson , 02/10/2025 01:20:00 PM, [address], [address], [place], [address], Insurance Providers Payer Name Payer Address Payer Phone Subscriber Number Group Number Insured Name Patient Relationship to Insured Coverage Start Date Coverage End Date MEDICARE OF [place] [address] [place] [address] [id number] ALYSE SYKES Self - patient is the insured [employer] ATT[employer] CLAIMS [address] [place] [address] [id number] ALYSE SYKES Self - patient is the insured Medical (General) History Medical History History ICD Code Denies NE,DM,CVA,Lung disease,renal dise ase Depression 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 Henderson--done for the evaluation of anemia she reports that she is on m etoprolol in relation to a heart murmur--Idiopathic hypertrophic subaortic stenosis--may have surgery in [place]--had a cardiac cath with Dr. Vital in 11/2016--going to [facility] for possible surgery--had it done 04/2017 as below Autoimmune hepatitis diagnos ed in February of 2014 [...] LFT's were normal in 10/2019 and 03/2020 Screening colonoscopy in Feb revealed a small tubular [...] in 11/2021 Cardiac--EF of 35%-sees Dr. Vital- Flare of the autoimmune hepa titis in November of 2022. She was treated with a course of prednisone through the summer with improvement and normalization. As of the 02/19/2023 OV she was down to 10 mg of prednisone with normal LFTs and the plan will be to do a very slow taper over the next few months Esophageal obstruction requi ring upper endoscopy at the end of November,--this was related to eating too much and too quickly Surgical History Surgery Date(Month/Year) CCY 1975 X2 Left knee replacement 02/06/2005 Right knee replacement 12/13/2005 Cataracts right and left 2016 Septal myectomy-open heart surgery--at [facility] 04/10/2017 Sleep Apnea, needs CPAP machine
--- OUTSIDE RECORDS SUMMARY | 2024-08-14 17:15 | XMS_ITS ---
Author Organization [facility] Address [address] [place] [address] Care Team Providers Care Wound Specialist Name Role Phone Bhanu Ramachandran MD Primary Care Provider Avila Ernst [phone] REASON FOR VISIT autoimmune hepatitis Encounters Encounter Location Date Provider Diagnosis [facility] [address] [place] [address] 07/17/2024 Avila Stevenson Plan Of Treatment Next Appt Details Provider Name:Avila Stevenson , 02/10/2025 01:20:00 PM, [address], [address], [place], [address], Progress Notes * SARAI SYKES ADOB: (74 yo F)Acc No.[id number]:07/17/2024 Patient:?SARAI SYKES :1950???Age:74 Y???Sex:Female Address:[address] [place] [id number] * true * Date:? Generated for Printi heath/Rogelio/eTransmitting on:?08/14/2024 05:15 PM EST
--- OUTSIDE RECORDS SUMMARY | 2024-08-14 17:15 | XMS_ITS ---
Author Organization [facility] Address [address] [place] [id number] Care Team Providers Care Park Recreation Manager Name Role Phone Bhanu Ramachandran MD Primary Care Provider Avila Ernst [phone] Allergies Allergen (clinical drug ingredient) Drug/Non Drug Allergy documented on EMR Reaction Allergy Type Onset Date Status Penicillin Unknown Drug Allergy Active REASON FOR VISIT Patient presents today for acid reflux Medications Medication SIG (Take, Route, Frequency, Duration) Notes Start Date End Date Status Carvedilol 3.125 MG TAKE 1 TABLET BY CHRISTOPHER TH TWICE A DAY Oral for 90 Active Omeprazole 20 MG TAKE 1 CAPSULE BY [facility] EVERY DAY FOR 90 DAYS for 90 Active Multivitamin - 1 tablet Orally Once a day for 30 day(s) Active Levothyroxine Sodium 125 MCG 1 tablet on an empty stomach in the morning Orally Once a day for 6 days one day off Active Entresto 49-51 MG Oral for 90 Active Escitalopram Oxalate 10 MG TAKE 1 AND 1/ 2 TABLET BY MOUTH EVERY DAY Oral for 90 Active Latanoprost 0.005 % Ophthalmic for 74 Active Vital Signs Blood pressure systolic 00 mm Hg 05/12/20 24 Blood pressure diastolic 00 mm Hg 024 Height 62.5 in 05/12/2024 Weight 212 lbs 05/12/2024 BMI 38.15 kg/m2 05/12/2024 Encounters Encounter Location Date Provider Diagnosis [facility] [address] [place] [address] 05/12/2024 Avila Stevenson Autoimmune hepatitis K75.4 ; History of adenomatous polyp of colon Z86.010 ; Esophageal dysphagia R13.10 ; Encounter for screening for malignant neoplasm of colon Z12.11 ; Gastroesophageal reflux disease, esophagitis presence not specified K21.9 and Hiatal hernia K44.9 Assessments Encounter Date Diagnosis (ICD Code) Assessment Notes Treatment Notes Treatment Clinical Notes Section Notes 05/12/2024 Autoimmune hepatitis (ICD-10 - K75.4) Continue [...] use TUMS as needed, eat slowly and carefully--- use a Fork and Knife Overall, Alyse appears [...] advised of her progress. Plan Of Treatment Treatment Notes Assessment Notes Autoimmune hepatitis Continue every othe r month labs for your liver Esophageal dysphagia Continue daily omep raole, use TUMS as needed, eat slowly and carefully---use a Fork and Knife Hiatal hernia If Ozempic doesn't h elp then we can consider Bariatric and Hiatal hernia surgery Next Appt Details Follow Up: 02/2025, Reason: Provider Name:Avila Stevenson , 02/10/2025 01:20:00 PM, [address] [facility] [address], [address], [place], [address], Progress Notes * AYLSE SYKES ADOB: (73 yo F)Acc No.[id number]:05/12/2024 Progress Notes Patient:?ALYSE SYKES A Provider:?Avila Stevenson MD :1950???Age:73 Y???Sex:Female D ate:05/12/2024 Address:[address] [place], [place] [id number] Pcp:Bhanu Ramachandran MD Subjective: * Chief Complaints: * ???Patient presents today fo r acid reflux * HPI: ???incontinence:? I saw Alyse in followup today in regard to her history of autoimmune hepatitis, gastroesophageal reflux with an associated hiatal hernia, and intermittent episodes of dysphagia and esophageal obstruction. ?I last saw Alyse in December. Since that time reports that she has been doing well. She has not noticed any jaundice, increasing abdominal girth, pruritus, fatigue, nor edema. Her most recent labs in early April revealed a completely normal liver profile except for an AST of 32. Her CBC with platelet count at that time was normal as well. She has not needed prednisone for about a year now in regard to the autoimmune hepatitis. ?Since the episode of an esophageal obstruction earlier this year she has not had any recurrent problems with her swallowing. She has been using one omeprazole daily and is not having any significant reflux. She does have occasional episodes of chest discomfort that can last for about an hour. She described that she did review that with you and does not appear to be cardiac related. She reports that the thinking is that it is related to some esophageal spasm. However, the episodes are quite infrequent and do not interfere with her meals. ?She describes that she is thinking about going on a trial of Ozempic for weight loss for overall health and to help with her hiatal hernia and reflux. The alternative as she describes it would be that of bariatric surgery with hiatal hernia repair. * ROS:?General/Constitutional:?Change in appetite?denies.?Chills?denies.?Fatigue?admits.?Ophthalmologic:?Comments?all negative.?ENT:?Comments?all negative.?Respiratory:?hemoptysis?denies.?Cough?denies.?Cardiovascular:?Chest pain?denies.?Orthopnea?denies.?Gastrointestinal:?Comments?See HPI for details.?Genitourinary:?Hematuria?denies.?Dysuria?denies.?Incontinence?denies.?Musculoskeletal:?Painful joints?denies.?Weakness?denies.?Skin:?Itching?denies.?Rash?denies.?Neurologic:?Headache?denies.?Seizures?denies.?Psychiatric:?Comments?all negative.? * Medical History:? * Surgical History:?CCY 1976C- section X2 Left knee replacement 02/06/2005Right knee replacement 12/13/2005Cataracts right and left 2017Septal myectomy-open heart surgery--at [facility] 04/10/2017Sleep Apnea, needs CPAP machine * Hospitalization/Major Diagno stic Procedure:?No Hospitalization History. * Family History:?Father: dece ased.?Mother: , diagnosed with HTN (hypertension).? No colorectal cancer nor liver disease Mom had ulcerative colitis. * Social History:?Tobacco Use:?Tobacco Use/Smoking?Are you a: nonsmoker.?Drugs/Alcohol:?Alcohol Screen?Points: 0, Interpretation: Negative.?Miscellaneous:?Marital status: . Occupation: Retired 06/2013. ???Nonsmoker >10 yrs ago; no sig alcohol. * Medications:?TakingMultivita min - Tablet 1 tablet Orally Once a dayLevothyroxine Sodium 125 MCG Tablet 1 tablet on an empty stomach in the morning Orally Once a day for 6 days one day offEntresto 49-51 MG Tablet Oral Carvedilol 3.125 MG Tablet TAKE 1 TABLET BY MOUTH TWICE A DAY Oral Escitalopram Oxalate 10 MG Tablet TAKE 1 AND 1/2 TABLET BY MOUTH EVERY DAY Oral Latanoprost 0.005 % Solution Ophthalmic Omeprazole 20 MG Capsule Delayed Release TAKE 1 CAPSULE BY MOUTH EVERY DAY FOR 90 DAYS Medication List reviewed and reconciled with the patientTaking Multivitamin - Tablet 1 tablet Orally Once a dayTaking Levothyroxine Sodium 125 MCG Tablet 1 tablet on an empty stomach in the morning Orally Once a day for 6 days one day offTaking Entresto 49-51 MG Tablet Oral Taking Carvedilol 3.125 MG Tablet TAKE 1 TABLET BY MOUTH TWICE A DAY Oral Taking Escitalopram Oxalate 10 MG Tablet TAKE 1 AND 1/2 TABLET BY MOUTH EVERY DAY Oral Taking Latanoprost 0.005 % Solution Ophthalmic Taking Omeprazole 20 MG Capsule Delayed Release TAKE 1 CAPSULE BY MOUTH EVERY DAY FOR 90 DAYS Medication List reviewed and reconciled with the patient * Allergies:?Penicillinyes[All ergies Verified] Objective: * Vitals:?Wt: 212 lbs, Ht: 62. 5 in, BMI:38.15 Index, BP: 00/00 mm Hg. * Examination: ???General Examination: ?GENERAL APPEARANCE:?pleasant, well nourished, well developed, in no acute distress.?EYES:?sclera non-icteric.?ORAL CAVITY:?mucosa moist.?NECK/THYROID:?no cervical lymphadenopathy, neck supple.?SKIN:?nonjaundiced, no spider angiomata.?HEART:?S1, S2 normal.?LUNGS:?clear to auscultation bilaterally.?ABDOMEN:?normal bowel sounds, no guarding or rigidity, no guarding or rigidity, no masses palpable, soft, nontender, nondistended.?EXTREMITIES:?no edema, no palmar erythema.?NEUROLOGIC:?alert and oriented--no asterixis.? Assessment: * Assessment: 1.?Autoimmune hepatitis - K7 5.4 (Primary)?2.?History of adenomatous polyp of colon - Z86.010?3.?Esophageal dysphagia - R13.10?4.?Encounter for screening for malignant neoplasm of colon - Z12.11?5.?Gastroesophageal reflux disease, esophagitis presence not specified - K21.9?6.?Hiatal hernia - K44.9? Overall, Alyse appears t o be doing well in general. Her autoimmune [...] questions I can be of assistance with. Aylse was comfortable with this plan. Thank you again for allowing me to participate in Alyse's care. I shall continue to keep you advised of her progress. Plan: * Treatment: 2.?Esophageal dysphagia? Notes: Continue daily omepraole, use TUMS as needed, eat slowly and carefully---use a Fork and Knife?? 3.?Hiatal hernia? Notes: If Ozempic doesn't help then we can consider Bariatric and Hiatal hernia surgery?? * Procedure Codes:?3017F COLOR ECTAL CA SCREEN DOC [id number] TOBACCO [id number] BP SCR NOT PRFRM REC REASON NOS * Preventive Medicine:? ??Urinary Incontinence:?Urinary Incontinence?Assessment:?Absent,?Plan of care documented:?No, reason not specified.? ??Screenings:?Fall Risk Screening?Fall Risk Assessment:?No falls in the past year,?Screening:?No falls in the past year,?Assessment:?Not performed, no reason specified,?Plan of Care:?Not documented, no reason specified.? * Follow Up:?02/2025 * * Sign off status: Completed true * Provider:?Avila Stevenson MD Date:? 024 Generated for Mark joe/Rogelio/Briseyda on:?08/14/2024 05:15 PM EST History and Physical Notes * HPI (History of Present Illness) Category Sub-Category Detail Notes Category Not es incontinence I saw Alyse in followup today in regard to her history of autoimmune hepatitis, gastroesophageal reflux with an associated hiatal hernia, and intermittent episodes of dysphagia and esophageal obstruction. I last saw Alyse in December. Since that time reports that she has been doing well. She has not noticed any jaundice, increasing abdominal girth, pruritus, fatigue, nor edema. Her most recent labs in early April revealed a completely normal liver profile except for an AST of 32. Her CBC with platelet count at that time was normal as well. She has not needed prednisone for about a year now in regard to the autoimmune hepatitis. Since the episode of an esophageal obstruction earlier this year she has not had any recurrent problems with her swallowing. She has been using one omeprazole daily and is not having any significant reflux. She does have occasional episodes of chest discomfort that can last for about an hour. She described that she did review that with you and does not appear to be cardiac related. She reports that the thinking is that it is related to some esophageal spasm. However, the episodes are quite infrequent and do not interfere with her meals. She describes that she is thinking about going on a trial of Ozempic for weight loss for overall health and to help with her hiatal hernia and reflux. The alternative as she describes it would be that of bariatric surgery with hiatal hernia repair. Examination Category Sub-Category Detail Notes Category Not es General Examination GENERAL APPEARANCE: pleasant , well nourished, well developed, in no acute distress EYES: sclera non-icteric NECK/THYROID: no cervical lymphade nopathy, neck supple HEART: S1, S2 normal LUNGS: clear to auscultatio n bilaterally ABDOMEN: normal bowel sounds, no guarding or rigidity, no guarding or rigidity, no masses palpable, soft, nontender, nondistended NEUROLOGIC: alert and oriented-- no asterixis SKIN: nonjaundiced, no spi pal angiomata EXTREMITIES: no edema, no palmar erythema ORAL CAVITY: mucosa moist
--- OUTSIDE RECORDS SUMMARY | 2024-08-14 17:16 | XMS_ITS ---
Author Organization [facility] Address [address] [place] [address] Care Team Providers Care Envelope Maker Name Role Phone Bhanu Ramachandran MD Primary Care Provider Unavaila ble Black, Candy Unavailable [phone] Allergies Allergen (clinical drug ingredient) Drug/Non Drug Allergy documented on EMR Reaction Allergy Type Onset Date Status Penicillin rash Drug Allergy Active amoxicillin Amoxicillin rash Drug Allergy Act kimberlyn Results Component Value Reference Range Notes X ray : Foot, right 3V Reviewed date:04/09/2024 01:34:02 PM Interpretation:See Examination above Performing Lab: Notes/Report: See Examination above REASON FOR VISIT Pcp-03/31/24, Foot pain, Heel pain Medications Medication SIG (Take, Route, Frequency, Duration) Notes Start Date End Date Status Escitalopram Oxalate 10 MG as directed O rally Once a day Active Levothyroxine Sodium Active Latanoprost 0.005 % as directed Ophthalm ic Once a day Active Escitalopram Oxalate 10 MG 1 tablet Oral ly Once a day for 30 day(s) Unknown Levothyroxine Sodium 125 MCG 1 tablet every morning on an empty stomach Orally Once a day for 30 day(s) Unknown Entresto 49-51 MG as directed Orally T wice a day Active Carvedilol 3.125 MG 1 tablet with food Orally Twice a day Active Omeprazole 20 MG as directed Orally O nce a day Active Omeprazole 20 MG 1 capsule 30 minutes before morning meal Orally Once a day for 30 day(s) Unknown Metoprolol & Diet Manage Prod 50 MG as directed Orally Unknown ASO Ankle/Foot Stablizing AFO As directed Wear Daily for as needed 04/09/2024 Active Social History Tobacco Use: Social History Observation [...] Are you an other tobacco user? 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 confirmed Problem Localized, primary osteoarthritis of the ankle and/or foot (677458686) Osteoarthritis of right ankle and foot (M19.071) Active confirmed Vital Signs Height 5 ft 2 in in 04/09/2024 Weight 220 lbs 04/09/2024 BMI 40.23 kg/m2 04/09/2024 Encounters Encounter Location Date Provider Diagnosis [facility] [address] [address] 04/09/2024 Candy Black Pain in right foot M79.671 ; Posterior tibial tendinitis, right leg M76.821 ; Hypertrophy of bone, right ankle and foot M89.371 ; Flat foot [pes planus] (acquired), right foot M21.41 ; Plantar fasciitis of right foot M72.2 ; Calcaneal spur, right foot M77.31 ; Interstitial myositis of right foot M60.171 ; Bursitis of right foot M77.51 ; 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.6X1 and Osteoarthritis of right ankle and foot M19.071 Assessments Encounter Date Diagnosis (ICD Code) Assessment Notes Treatment Notes Treatment Clinical Notes Section Notes 04/09/2024 Pain in right foot (ICD-10 - M79.671) 04/09/2024 Posterior tibial tendinitis, right leg (ICD-10 - M76.821) 04/09/2024 Hypertrophy of bone, right ankle and foot (ICD-10 - M89.371) 04/09/2024 Flat foot [pes planus] (acquired), right foot (ICD-10 - M21.41) 04/09/2024 Plantar fasciitis of right foot (ICD-10 - M72.2) Patient Educated with: HEEL CORD STRETCHES.pdf (HEEL CORD STRETCHES.pdf ) Patient Educated with: RICE THERAPY.pdf (RICE THERAPY.pdf) 04/09/2024 Calcaneal spur, right foot (ICD-10 - M77.31) 04/09/2024 Interstitial myositis of right foot (ICD-10 - M60.171) 04/09/2024 Bursitis of right foot (ICD-10 - M77.51) 04/09/2024 Midfoot collapse of right lower extremity (ICD-10 - M21.6X1) 04/09/2024 Osteoarthritis of right ankle and foot (ICD-10 - M19.071) Plan Of Treatment Medication Medication Name Sig Start Date Stop Date Notes ASO Ankle/Foot Stablizing AFO As directe d Wear Daily for as needed 04/09/2024 Treatment Notes Assessment Notes Plantar fasciitis of right foot Patient Educated with: HEEL CORD STRETCHES.pdf (HEEL CORD STRETCHES.pdf) Patient Educated with: RICE THERAPY.pdf (RICE THERAPY.pdf) Next Appt Details Follow Up: prn, Reason: Progress Notes * Alyse SYKESDOB:[birth year] (73 yo F)Acc No.[id number]:04/09/2024 Progress Notes Patient:?Alyse Sykes Provider:?Candy Suggs DPM :1950???Age:73 Y???Sex:Female D ate:04/09/2024 Address:[address] [place], [place] [id number] Pcp:Bhanu Ramachandran MD Subjective: * Chief Complaints: * ???Pcp-03/31/24Foot painHeel pain * HPI: ???Foot Pain:?Nature:?aching, pulling, throbbing, weakness.?Location:?RIGHT.?Duration:?, several months.?Onset:?, denies trauma.?Course:?worse.?Aggravated:?any pressure, standing, walking.?Treatments:?rest/alter normal daily activity, ice.?Heel pain:?Location:?Proximal plantar aspect of Heel, RIGHT.?Duration:?, several months.?Course:?worse.?Aggravated:?standing, walking, walking first thing in the morning/after rest.?Treatments:?rest/alter normal daily activity.? * ROS:?General/Constitutional:?Nausea?denies.?Vomiting?denies.?Hunger Thirst?denies.?Loss appetite?denies.?Chills?denies.?Fatigue?admits.?Fever?denies.?Night Sweats?denies.?Unexplained weight loss?denies.?Unexplained weight gain?denies.?HEENTM:?Dentures?denies.?Dizziness?admits.?Glasses/contacts?denies.?Retinopathy?de nies.?Blurred/double vision?denies.?TMJ?denies.?Discharge/drainage?denies.?Implants?denies.?Sore throat?denies.?Dental implants?denies.?Hard of hearing ?admits.?Difficulty chewing/swallowing/speaking?denies.?Nose bleeds?denies.?Sore mouth?denies.?Respiratory:?On Oxygen?denies.?Pneumonia/pleurisy?denies.?Bronchitis?denies.?Emphysema?denies.?C oughing?denies.?Cough blood?denies.?Shortness of breath?admits.?Wheezing?denies.?Cardiovascular:?Pacemaker?denies.?MVP?denies.?WPW?denies.?CHF?admits.?Heart attack?denies.?Septal defect?denies.?Rapid beat?denies.?Chest pain ?denies.?Atrial Fib.?denies.?Murmur/Palpitations?denies.?Gastrointestinal:?Hemorrhoids?denies.?Stomach/Abdominal pain?denies.?Dark blood stool?denies.?Irritable bowel ?denies.?Constipation?denies.?Diarrhea?denies.?Hematology:?Swelling?denies.?Clots?denies.?Varicose Veins?denies.?Bruising?denies.?Bleeding problem?denies.?Genitourinary:?Blood urine?denies.?Frequent/Painfu/urination/bladder control?denies.?Kidney stones?denies.?Infection (UTI)?denies.?Nephropathy?denies.?sex trans dis (STD)?denies.?Prostate?denies.?Musculoskeletal:?Hammertoes?admits.?Bunions?admits.?Back Pain?denies.?Muscle Cramps/ Resting?admits.?Muscle cramps / walking?denies.?Generalized aches and pains?denies.?Weakness?denies.?Integ.:?Tello?denies.?Scars?denies.?Corns/calluses?denies.?Ingrown nails?denies.?Painful nails?denies.?Open Sores?denies.?Rashes?denies.?Neurologic:?Difficulty sleeping?denies.?Brain disorder?denies.?Numbness?denies.?Balance trouble?admits.?Confusion?denies.?Fainting/blackouts?denies.?Tingling?denies.?Tr emors?denies.? * Medical History:? * Surgical History:?right knee replacement 2004/2005left knee replacement 2004/2005cholecystectomy section 2x 1979/1982septal myectomy 2016 * Hospitalization/Major Diagno stic [place] [place] * Family History:?Mother: dece ased, foot problems - neuropathy, diagnosed with Family history of arthritis, Diabetic - NIDDM, Unspecified cerebral artery occlusion with cerebral infarction.?Father: .?Siblings: defects.? * Social History:?Tobacco Use:?Tobacco Use/Smoking?Are you a:?former smoker ?When did you start smoking??11/10/2015 ?Additional Findings: Tobacco Non-User?Ex-cigarette smoker ?Tobacco use other than smoking?Are you an other tobacco user??No ???Drugs/Alcohol:?Drugs?Have you used drugs other than those for medical reasons in the past 12 months??No ?Alcohol Screen?Did you have a drink containing alcohol in the past year??No ?Points?0 ?Interpretation?Negative ???Miscellaneous:?Caffeine: yes, 3-4 cups per day. ?Children: yes, 2. ?no Exercise. ?Marital status: . 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 * Medications:?TakingEntresto 49-51 MG Tablet as directed Orally Twice a dayCarvedilol 3.125 MG Tablet 1 tablet with food Orally Twice a dayOmeprazole 20 MG Tablet Delayed Release as directed Orally Once a dayEscitalopram Oxalate 10 MG Tablet as directed Orally Once a dayLevothyroxine Sodium Latanoprost 0.005 % Solution as directed Ophthalmic Once a dayTaking Entresto 49-51 MG Tablet as directed Orally Twice a dayTaking Carvedilol 3.125 MG Tablet 1 tablet with food Orally Twice a dayTaking Omeprazole 20 MG Tablet Delayed Release as directed Orally Once a dayTaking Escitalopram Oxalate 10 MG Tablet as directed Orally Once a dayTaking Levothyroxine Sodium Taking Latanoprost 0.005 % Solution as directed Ophthalmic Once a dayUnknownEscitalopram Oxalate 10 MG Tablet 1 tablet Orally Once a dayLevothyroxine Sodium 125 MCG Tablet 1 tablet every morning on an empty stomach Orally Once a dayOmeprazole 20 MG Capsule Delayed Release 1 capsule 30 minutes before morning meal Orally Once a dayMetoprolol & Diet Manage Prod 50 MG Miscellaneous as directed Orally Medication List reviewed and reconciled with the patientUnknown Escitalopram Oxalate 10 MG Tablet 1 tablet Orally Once a dayUnknown Levothyroxine Sodium 125 MCG Tablet 1 tablet every morning on an empty stomach Orally Once a dayUnknown Omeprazole 20 MG Capsule Delayed Release 1 capsule 30 minutes before morning meal Orally Once a dayUnknown Metoprolol & Diet Manage Prod 50 MG Miscellaneous as directed Orally Medication List reviewed and reconciled with the patient * Allergies:?Penicillin: Freda moxicillin: layne[Allergies Verified] Objective: * Vitals:?Ht: 5 ft 2 in, Wt:22 0, BMI:40.23, Shoe size: 10.5, Ht-cm: 157.48 cm, Wt- k.79 kg. * Examination: ???General Examination: ?GENERAL APPEARANCE:?Reveals a pleasant, alert, well nourished, well- developed, well hydrated individual, who demonstrates proper attention to hygiene/body habitus, and is in no acute distress, Pt serves as own historian for office visit today.?ORIENTED:?person, place, and time.?Orthopedic: ?MUSCLE STRENGTH:?5/5 all groups in a symmetrical fashion, B/L.?GAIT ABNORMALITY:?antalgic.?FOOT MORPHOLOGY:?Pes Planus structure, Decreased Ankle joint dorsiflexion ROM, knee extended , Rigid medial/plantar protrusion of Midfoot at area of Navicular tuberosity , RIGHT.?TAILOR'S BUNION:?Prominent 5th MTH/MPJ , B/L.?DIGITAL DEFORMITIES:?Digital contracture, PIPJ, 2-5 B/L, incompl-reducible with WB, or to push-up test, multiple ?underlapping b/l.?TENDONITIS:? Pain on palpation, inflammation, and fusiform swelling to, Posterior Tibial Tendon, Pain with Range of Motion, RIGHT.?FOOTWEAR:?shoe gear properties exacerbate patients foot/toe deformity.?Neurological: ?SENSORY:?Neurological exam reveals intact sensorium, pain sensation normal, vibration sensation intact, pinprick sensation is normal in the lower extremities, Pt denies, anesthesia, burning, paresthesia, tingling, B/L.?TINEL'S COMPRESSION:?Negative tarsal tunnel, miladis pedis, and medial calcaneal nerves.?Heel Pain: ?INSPECTION:? Pain on Palpation to Plantar Fascia med. and central bands, intrinsic musc., infra-calcaneal bursa, and med calc tubercle , RIGHT foot, No pain: posterior/superior heel, achilles bursa/tendon, sinus tarsi, peroneals, or with lateral heel compression; no limited STJ ROM, calor, or ecchymosis, RIGHT foot.?Vascular: ?DP PULSES(B):?2/4, B/L.?PT PULSES(B):?2/4, B/L.?CAPILLARY FILL TIME:?immediate, all digits, B/L.?TROPHIC CONDITION-TEXTURE/ELASTICITY/TURGOR/HAIR GROWTH(B):?normal, B/L.?TEMPERTURE GRADIENT(C):?normal, warm to cool, proximal to distal, B/L, B/L.?PIGMENTATION:?normal, B/L.?EDEMA(C):?absent, B/L.?Dermatologic: ?SKIN FINDINGS:?Skin exam reveals normal color, texture, elasticity, and turgor. There are no masses, nor excrescences. The interspaces are clear, B/L.?X-Rays - IMAGING REPORT: ?Clinical Indication(s):??Evaluate for Fracture, Evaluate Biomechanical Deformity.?Views:??3 views of Foot, LAT, AP, MO, RIGHT.?Findings:?mild generalized decrease in bone density , navicular/cuneiform plantar subluxation with anterior cyma line , positive infra-calcaneal exostosis , dorsal degenerative changes of the tarsal joints.?Foot structure:?reveals excess pronation with , anterior break in cyme line , increased talar declination , decreased calcaneal inclination.?Digits:?show asymmetrical joint space narrowing at the PIPJ consistent with clinical finding of hammertoe deformity.?Fracture:?Negative fractures identified ,?.? * Physical Examination:?L1902 ASO-AFO:?Application of ankle foot orthosis, ankle gauntlet, prefabricated, including fitting and adjustment:?Small.? 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 Bursitis of right foot - M77.51?9.?Midfoot collapse of right lower extremity - M21.6X1?10.?Osteoarthritis of right ankle and foot - M19.071? Plan: * Treatment: 2.?Pain in right foot?Imaging: X ray : Foot, right 3V?See Examination above 3.?Plantar fasciitis of righ t foot? Notes: Patient Educated with: HEEL CORD STRETCHES.pdf (HEEL CORD STRETCHES.pdf) Patient Educated with: RICE THERAPY.pdf (RICE THERAPY.pdf)?? * Procedure Codes:?06769 X-RAY EXAM OF RIGHT FOOT 3V, Modifiers: 26 , [id number] AFO RICK TRIPP PREFAB W FIT ADJ * Preventive Medicine:? ??Counseling:?Discussion:?-04: Office or other outpatient visit for the evaluation and management of a new patient, which required a medically appropriate history and/or examination and MODERATE level of DECISION MAKING for: 1 OR MORE CHRONIC PROBLEM(S) THATS WORSENING, 2 STABLE CHRONIC PROBLEMS, A NEWLY DIAGNOSED PROBLEM WITH UNCERTAIN PROGNOSIS, AN ACUTE COMPLICATED INJURY WITH MULTIPLE TREATMENT OPTIONS, OR AN ACUTE PROBLEM WITH ACCOMPANYING SYSTEMIC SYMPTOMS, THAT POSE(S) A MODERATE RISK OF MORBIDITY. THIS CONDITION MAY ALSO INCLUDE RX DRUG MANAGEMENT, OR A DECISON FOR MINOR SURGERY. The visit on the day of the encounter encompassed interpreting the data and educating the patient as to the nature of their condition, treatment options available according to their individual PMH, meds, allergies, and overall health/living conditions, as well as any potential risks or complications that may occur from a failure to adhere to, and participate in, the recommended course of therapy. The discussion included a complete verbal, and/or written explanation of the examination results, any x-rays taken, the proposed diagnosis, and outline of the treatment plan. A schedule for future care needs was also explained. The patient verbalized an understanding of the instructions at this time and agreed to be an active participant in their treatment. If the patient should think of any questions or concerns after the visit, I have encouraged the patient to call the office.?[employer].:?Discussed and reviewed the X-rays with the patient. We discussed how the findings relate to the patients symptoms/complaints. Answered any and all questions., I discussed the Pts foot biomechanics with them and how it relates to their problem, Recommended Topical analgesics including biofreeze/aspercream/Voltaren gel.?Heel pain:?FASCIITIS: I explained to the patient the possible etiologies of Plantar Fasciitis including foot type/shoegear/activity level/exercise routine and the risks/benefits of all the different treatment options for heel pain including: No treatment at all, Rest, Ice, NSAIDs(only if well tolerated after meals), New/supportive Shoegear, Strappings and Tapings, Stretching exercises, Deep Tissue Massage, Heel cups/cushions, Arch support/shoe inserts, Custom orthoses, Topical analgesics including Aspercream/Voltaren gel, Night splint AFO for am stiffness, Cortisone injection therapy, Cast boot with crutches/cane/or walker for assisted ambulation, Physical Therapy, EPAT/ESWT, Interfil injection therapy, as well as surgical [place]/Endoscopic Fasciitomy surgical procedures if needed. Recommendations were made to limit barefoot walking, eliminate wearing nonsupportive shoegear (i.e. flip-flops or sandals, or a shoe with an easily bendable, foldable, or twistable sole) and wear shoegear with a good solid sole, a supportive arch, and plenty of room for an insert/orthotic if necessary. If wearing sandals was required by the patient, we recommended orthopedic sandals such as Orthoheel or Birkenstock even while in the home. If the patient wore heels in the past, we recommended they continue, but eliminate the use of flats. The advantages and disadvantages of each option were discussed and the patients questions re: types of shoegear, custom vs prefabricated inserts, activity level, PO vs Topical medications (and their respective potential complications/drug interactions/side effects), and consistency in home treatment regimens for optimal success were answered to their satisfaction. Literature detailing plantar fasciitis and the various treatment options were dispensed and reviewed, Stretching exercises for the patients injury/diagnosis were discussed and demonstrated, Handouts were also given.?Myositis/Tendonitis:?TENDONITIS: I explained to the patient the possible etiologies of their Tendonitis, including foot type/shoegear/activity level/exercise routine and the risks/benefits of the different treatment options for their pain including: No treatment at all, Rest, Ice, Oral Prednisone, NSAIDs(only if well tolerated after meals), New/supportive Shoegear, Strappings and Tapings, Stretching exercises, Deep Tissue Massage, Heel cups/cushions, Arch support/shoe inserts, Custom orthoses, Foot/Ankle AFO Bracing, Cast boot with crutches/cane/or walker for assisted ambulation, Topical analgesics including Aspercream/Voltaren gel, Physical Therapy, EPAT/ESWT, and Interfil injection therapy. Tendon surgical procedures including reefing and/or transfers were also detailed should either one become necessary through failure of conservative treatment. The advantages and disadvantages of each option were discussed and the patients questions re: shoegear, the difference between custom vs prefabricated inserts, activity level, PO vs Topical medications (and their respective potential complications/drug interactions/side effects), consistency in home treatment regimens for optimal success, as well as the potential benefits and possible complications of reconstructive surgery (includeing, but not limited to failure, prolongued/delayed healing, infection, weakness, persistant pain) were answered to their verbally confirmed satisfaction.? * Follow Up:?prn * Images: * Sign off status: Completed true * Provider:?Candy Suggs DPM Date:?2023 Generated for Mark joe/Rogelio/eTransmitting on:?08/14/2024 05:15 PM EST History and Physical Notes * HPI (History of Present Illness) Category Sub-Category Detail Notes Category Not es Heel pain Duration: , several months Location: Proximal plantar asp ect of Heel, RIGHT Aggravated: standing, walking, w alking first thing in the morning/after rest Course: worse Treatments: rest/alter normal da tye activity Foot Pain Nature: aching, pulling, throbbing, weakness Location: RIGHT Duration: , several months Onset: , denies trauma Course: worse Aggravated: any pressure, standi ng, walking Treatments: rest/alter normal da tye activity, ice Physical Examination Category Sub-Category Detail Notes Section Note s L1902 ASO-AFO Application of ankle foot orthosis, ankle gauntlet, prefabricated, including fitting and adjustment: Small Examination Category Sub-Category Detail Notes Category Not es Neurological SENSORY: Neurological exa m reveals intact sensorium, pain sensation normal, vibration sensation intact, pinprick sensation is normal in the lower extremities, Pt denies, anesthesia, burning, paresthesia, tingling, B/L TINEL'S COMPRESSION: Negative tarsal cuong jenifer, miladis pedis, and medial calcaneal nerves Dermatologic SKIN FINDINGS: Skin exam reveal s normal color, texture, elasticity, and turgor. There are no masses, nor excrescences. The interspaces are clear, B/L Orthopedic GAIT ABNORMALITY: antalgic FOOT MORPHOLOGY: Pes Planus structure , Decreased Ankle joint dorsiflexion ROM, knee extended , Rigid medial/plantar protrusion of Midfoot at area of Navicular tuberosity , RIGHT FOOTWEAR: shoe gear properties exacerbate patients foot/toe deformity DIGITAL DEFORMITIES: Digital contracture , PIPJ, 2-5 B/L, incompl-reducible with WB, or to push-up test, multiple underlapping b/l TAILOR'S BUNION: Prominent 5th MTH/MP J , B/L TENDONITIS: Pain on palpation, i nflammation, and fusiform swelling to, Posterior Tibial Tendon, Pain with Range of Motion, RIGHT MUSCLE STRENGTH: 5/5 all groups in a symmetrical fashion, B/L General Examination GENERAL APPEARANCE: Reveals a pleasant, alert, well nourished, well-developed, well hydrated individual, who demonstrates proper attention to hygiene/body habitus, and is in no acute distress, Pt serves as own historian for office visit today ORIENTED: person, place, and t herrera Vascular DP PULSES (B): 2/4, B/L PT PULSES (B): 2/4, B/L CAPILLARY FILL TIME: immediate, all digi ts, B/L TEMPERTURE GRADIENT (C): normal, warm to cool, proximal to distal, B/L, B/L TROPHIC CONDITION-TEXTURE/ELASTICITY/TURGOR/HAIR GROWTH (B): normal, B/L EDEMA (C): absent, B/L PIGMENTATION: normal, B/L X-Rays - IMAGING REPORT Findings: mild gen eralized decrease in bone density , navicular/cuneiform plantar subluxation with anterior cyma line , positive infra-calcaneal exostosis , dorsal degenerative changes of the tarsal joints Fracture: Negative fractures i dentified , Digits: show asymmetrical adrián int space narrowing at the PIPJ consistent with clinical finding of hammertoe deformity Foot structure: reveals excess prona tion with , anterior break in cyme line , increased talar declination , decreased calcaneal inclination Views: 3 views of Foot, LAT , AP, MO, RIGHT Clinical Indication(s): Evaluate for Fra cture, Evaluate Biomechanical Deformity Heel Pain INSPECTION: Pain on Palpatio n to Plantar Fascia med. and central bands, intrinsic musc., infra-calcaneal bursa, and med calc tubercle , RIGHT foot, No pain: posterior/superior heel, achilles bursa/tendon, sinus tarsi, peroneals, or with lateral heel compression; no limited STJ ROM, calor, or ecchymosis, RIGHT foot
--- OUTSIDE RECORDS SUMMARY | 2024-08-14 17:16 | XMS_ITS | Patient Health Record ---
Author Organization [facility] Address [address] [place] [address] Care Team Providers Care Operations Dispatcher Name Role Phone Bhanu Ramachandran MD Primary Care Provider Unavaila ble Black, Candy Unavailable [phone] Allergies Allergen (clinical drug ingredient) Drug/Non Drug Allergy documented on EMR Reaction Allergy Type Onset Date Status Penicillin rash Drug Allergy Active amoxicillin Amoxicillin rash Drug Allergy Act kimberlyn Results Component Value Reference Range Notes X ray : Foot, right 3V Reviewed date:04/09/2024 01:34:02 PM Interpretation:See Examination above Performing Lab: Notes/Report: See Examination above Reason For Referral No Information Medications Medication SIG (Take, Route, Frequency, Duration) Notes Start Date End Date Status Entresto Active Entresto 49-51 MG as directed Orally T wice a day Active Carvedilol Active Carvedilol 3.125 MG 1 tablet with food Orally Twice a day Active ASO Ankle/Foot Stablizing AFO As directed Wear Daily for as needed 04/09/2024 Active Omeprazole 20 MG as directed Orally O nce a day Active Escitalopram Oxalate 10 MG as directed O rally Once a day Active Omeprazole 20 MG 1 capsule 30 minutes before morning meal Orally Once a day for 30 day(s) Unknown Metoprolol & Diet Manage Prod 50 MG as directed Orally Unknown Latanoprost Active Escitalopram Oxalate 10 MG 1 tablet Oral ly Once a day for 30 day(s) Active Levothyroxine Sodium 125 MCG 1 tablet every morning on an empty stomach Orally Once a day for 30 day(s) Active Levothyroxine Sodium Active Latanoprost 0.005 % as directed Ophthalm ic Once a day Active Immunizations Vaccine Route Administration Date Status Comme nts COVID-19 Moderna Vaccine Unknown 09/01/2020 Administere d 1st 08/04/20 Social History Tobacco Use: Social History Observation [...] Problem Status W/U Status Risk Notes Problem Pain in limb (35223200) Pain in Limb (729.5) Active confirmed Problem Acquired hallux valgus (38816032) Hallux valgus (acquired), left foot (M20.12) Active confirmed Problem Localized, primary osteoarthritis of the ankle and/or foot (576458491) Primary osteoarthritis, left ankle and foot (M19.072) Active confirmed Problem Acquired hammer toe of right foot (5562037799123344 ) Other hammer toe(s) (acquired), right foot (M20.41) Active confirmed Problem Acquired hammer toe of left foot (4706779534367664 ) Other hammer toe(s) (acquired), left foot (M20.42) Active confirmed Problem 741077838 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) Active confirmed Problem Localized, primary osteoarthritis of the ankle and/or foot (836670888) Osteoarthritis of right ankle and foot (M19.071) Active confirmed Problem 606398682 Midfoot collapse of left lower extremity (M21.6X2) Active confirmed Problem Plantar fasciitis of right foot (4842345431161847 1) Plantar fasciitis of right foot (M72.2) Active confirmed Problem Interstitial myositis (86423965) 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 [address] [address] 04/09/2024 Candy Black Pain in right foot [...] Osteoarthritis of right ankle and foot M19.[address] [facility] [address] [address] 03/18/2024 Candy Black Assessments Encounter Date Diagnosis (ICD Code) Assessment Notes Treatment Notes Treatment Clinical Notes Section Notes 04/09/2024 Posterior tibial tendinitis, right leg (ICD-10 - M76.821) 04/09/2024 Pain in right foot (ICD-10 - M79.671) 04/09/2024 Hypertrophy of bone, right ankle and [...] foot (ICD-10 - M19.071) Plan Of Treatment Pending Test Test Name Order Date X ray : Foot, right 3V 07/12/2011 Insurance Providers Payer Name Payer Address Payer Phone Subscriber Number Group Number Insured Name Patient Relationship to Insured Coverage Start Date Coverage End Date Medicare [facility] [employer] [address] [place] [phone] [id number] Alyse Razo Self - patient is the insured [employer] [address] [place] [address] [phone] [id number] Alyse Razo Self - patient is the insured Medical (General) History Medical History History ICD Code thyroid disorder sinus conditions psoriasis measles joint implants/screws chicken pox Arthritis anemia Anxiety Back,Hip,and Knee pain Broken bones Cataracts Depression Heart disease Hepatitis Hiatal hernia Liver disease Psychiatric disorder Reflux ( GERD) chronic sinusitis thyroid Warts Transfusions Gall bladder problems Glaucoma Psoriasis/eczema Mumps Sleep apnea Surgical History Surgery Date(Month/Year) right knee replacement left knee replacement cholecystectomy section 2x septal myectomy 2016 Hospitalization History Reason Date(Month/Year) [facility] [place]- sleep apnea 01/30/2021
--- OUTSIDE RECORDS SUMMARY | 2024-08-14 17:16 | XMS_ITS ---
Author Organization [facility] Address [address] [place] [address] Care Team Providers Care Admissions Manager Name Role Phone Bhanu Ramachandran MD Primary Care Provider Avila Ernst [phone] REASON FOR VISIT Cosign Encounters Encounter Location Date Provider Diagnosis [facility] [address] [place] [address] 2024 Avila Stevenson Autoimmune hepatitis K75.4 Assessments Encounter Date Diagnosis (ICD Code) Assessment Notes Treatment Notes Treatment Clinical Notes Section Notes 2024 Autoimmune hepatitis (ICD-10 - K75.4) Plan Of Treatment Pending Test Test Name Order Date LIVER PROFILE 2024 Next Appt Details Provider Name:Avila Stevenson , 02/10/2025 01:20:00 PM, [address], [address], [place], [address], Progress Notes * SARAI SYKES ADOB: (74 yo F)Acc No.[id number]:2024 Patient:?SARAI SYKES :1950???Age:74 Y???Sex:Female Address:[address] [place] [address] Subjective: * Chief Complaints: * ???Cosign * Medical History:? * Surgical History:? * Hospitalization/Major Diagno stic Procedure:? * Medications:? Objective: Assessment: * Assessment: 1.?Autoimmune hepatitis - K7 5.4 (Primary)? Plan: * Treatment: * Procedure Codes:? * true * Date:? Generated for Mark joe/Rogelio/Briseyda on:?08/14/2024 05:15 PM EST
--- OUTSIDE RECORDS SUMMARY | 2024-08-14 17:16 | XMS_ITS ---
Author Organization [facility] Address [address] [place] [address] Care Team Providers Care Probation Manager Name Role Phone Bhanu Ramachandran MD Primary Care Provider Unavaila ble Black, Candy Unavailable [phone] Allergies Allergen (clinical drug ingredient) Drug/Non Drug [...] Once a day for 30 day(s) Active Latanoprost Active Omeprazole 20 [...] 07/09/2024 Encounters Encounter Location Date [facility] [address] [place] [address] 07/09/2024 Candy Suggs Plan Of Treatment No Information Progress Notes * Alyse SYKESDOB:[birth year] (74 yo F)Acc No.[id number]:07/09/2024 Progress Notes Patient:?Alyse SYKES Provider:?Candy Suggs DPM :1950???Age:74 Y???Sex:Female D ate:07/09/2024 Address:[address] [place], [place] [id number] Pcp:Bhanu Ramachandran MD Subjective: * Chief Complaints: * ???1. R/s for sooner apt. * ROS:?General/Constitutional:?Nausea?denies.?Vomiting?denies.?Hunger Thirst?denies.?Loss appetite?denies.?Chills?denies.?Fatigue?admits.?Fever?denies.?Night Sweats?denies.?Unexplained weight loss?denies.?Unexplained weight gain?denies.?HEENTM:?Dentures?denies.?Dizziness?admits.?Glasses/contacts?denies.?Retinopathy?de nies.?Blurred/double vision?denies.?TMJ?denies.?Discharge/drainage?denies.?Implants?denies.?Sore throat?denies.?Dental implants?denies.?Hard of hearing ?admits.?Difficulty chewing/swallowing/speaking?denies.?Nose bleeds?denies.?Sore mouth?denies.?Respiratory:?On Oxygen?denies.?Pneumonia/pleurisy?denies.?Bronchitis?denies.?Emphysema?denies.?C oughing?denies.?Cough blood?denies.?Shortness of breath?admits.?Wheezing?denies.?Cardiovascular:?Pacemaker?denies.?MVP?denies.?WPW?denies.?CHF?admits.?Heart attack?denies.?Septal defect?denies.?Rapid beat?denies.?Chest pain ?denies.?Atrial Fib.?denies.?Murmur/Palpitations?denies.?Gastrointestinal:?Hemorrhoids?denies.?Stomach/Abdominal pain?denies.?Dark blood stool?denies.?Irritable bowel ?denies.?Constipation?denies.?Diarrhea?denies.?Hematology:?Swelling?denies.?Clots?denies.?Varicose Veins?denies.?Bruising?denies.?Bleeding problem?denies.?Genitourinary:?Blood urine?denies.?Frequent/Painfu/urination/bladder control?denies.?Kidney stones?denies.?Infection (UTI)?denies.?Nephropathy?denies.?sex trans dis (STD)?denies.?Prostate?denies.?Musculoskeletal:?Hammertoes?admits.?Bunions?admits.?Back Pain?denies.?Muscle Cramps/ Resting?admits.?Muscle cramps / walking?denies.?Generalized aches and pains?denies.?Weakness?denies.?Integ.:?Tello?denies.?Scars?denies.?Corns/calluses?denies.?Ingrown nails?denies.?Painful nails?denies.?Open Sores?denies.?Rashes?denies.?Neurologic:?Difficulty sleeping?denies.?Brain disorder?denies.?Numbness?denies.?Balance trouble?admits.?Confusion?denies.?Fainting/blackouts?denies.?Tingling?denies.?Tr emors?denies.? * Medical History:?Thyroid dis order, Sinus conditions, Psoriasis, Measles, Joint implants/screws, Chicken pox, Arthritis, Anemia, Anxiety, Back,Hip,and Knee pain, Broken bones, Cataracts, Depression, Heart disease, Hepatitis, Hiatal hernia, Liver disease, Psychiatric disorder, Reflux ( GERD), Chronic sinusitis, Thyroid, Warts, Transfusions, Gall bladder problems, Glaucoma, Psoriasis/eczema, Mumps, Sleep apnea. * Surgical History:?right knee replacement , left knee replacement , cholecystectomy , section 2x , septal myectomy 2015. * Hospitalization/Major Diagno stic Procedure:?[facility] [place]- sleep apnea 01/30/2021. * Family History:?Mother: dece ased, foot problems - neuropathy, diagnosed with Family history of arthritis, Unspecified cerebral artery occlusion with cerebral infarction.?Father: [...] the past year??No ?Points?0 ?Interpretation?Negative ???Miscellaneous:?Caffeine: yes, 4 cups per day. ?Children: yes, 2. ?Exercise: yes, walking dog. ?Marital status: . 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 * Medications:?Taking Entresto , Taking Carvedilol , Taking Latanoprost [...] 50 MG Miscellaneous as directed Orally * Allergies:?Penicillin: rash, Amoxicillin: rash. Objective: * Vitals:?Ht: 5 ft 2 in, Wt:22 0, BMI:40.23, Shoe size: 10.5, Ht-cm: 157.48 cm, Wt- k.79 kg. Assessment: Plan: * Treatment: * Images: * The named appointment provid er may or may not be the originator of this progress note, and it is not deemed complete until electronically signed by the appointment provider. Sign off status: Pending * Provider:?Candy Suggs DPM Date:?2024 Generated for Mark joe/Rogelio/Briseyda on:?08/14/2024 05:16 PM EST
--- OUTSIDE RECORDS SUMMARY | 2024-08-14 17:16 | XMS_ITS ---
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 Generated for Elizabeti heath/Rogelio/eTransmitting on:?08/14/2024 05:15 PM EST
== END 2024-08-14 15:45 | disposition home or self-care (01) ==
LOC: HO.LABR 15:44
PROVIDERS: PCP Internal Medicine; Visit Provider Internal Medicine
DX: K75.4 Autoimmune hepatitis (principal)
CPT/HCPCS: 36415; 80076

== ENCOUNTER 2024-09-04 13:31 | Outpatient (AMB) | payer MEDICARE, SELFPAY ==
[2024-09-04 13:34] VITALS: BP 120/70; PULSE 74; RESP 16; TEMP 36.4; O2SAT 97; BMI 39.1
--- NOTE | 2024-09-04 13:34 | A.OFFPC_ITS ---
Vital Signs 09/04/24 13:34 Height 5 ft 3 in Weight 221 lb BMI 39.1 BP 120/70 Respiration 16 Pulse 74 Pulse Source Pulse Oximeter Temp 97.6 F Temp Source Temporal Artery Scan Pulse Oximetry (%) 97 Oxygen Delivery Method Room Air Intake Visit Reasons: Routine Group Supervisor Yard Required: No Accompanied by: Self / Same As Patient Allergies Penicillins [PENICILLINS] Allergy (Intermediate, Verified 09/04/24 13:34) RASH Tobacco use date assessed: 09/04/24 Fall risk assessment: No Falls in past year Last assessed Fall Risk: 09/04/24 Dental Screening Dental Screen Date: 09/04/24 Did you have a dental visit in the last 12 months?: Yes Did you have a dental problem in the last 6 months where you did not have access to dental care?: No HPI HPI Comments History of Present Illness Details 74 year old female with a past medical h istory of HOCM, depression, hypothyroid, ALIRIO, autoimmune hepatitis, hiatal hernia, OA s/p b/l knee replacements presenting to [facility]. Last visit with pcp in Jun CV: on entresto, coreg.follows with cardiology. Seen Apr 2024. Cardiology recommends GLP. Also with ALIRIO, htn good candidate Hypothyroid: on levothyroxine. Last TSH wnl ALIRIO on cpap Depression-on lexapro 15mg daily. Sees Jolanta John 05/2024 colonoscopy-Dr Graham SHARMA CONSTITUTIONAL: Denies weight loss, fever and chills. HEENT: Denies changes in vision and hearing. RESPIRATORY: Denies SOB and cough. CV: Denies palpitations and CP GI: Denies abdominal pain, nausea, vomiting and diarrhea. : Denies dysuria and urinary frequency. MSK: Denies new myalgia and joint pain. SKIN: Denies rash and pruritus. NEUROLOGICAL: Denies headache PSYCHIATRIC: Denies recent changes in mood. PHYSICAL EXAM: GENERAL: Alert and oriented x 3. NAD EYES: EOMI. Anicteric. HENT: Moist mucous membranes. No scleral icterus. No cervical lymphadenopathy. LUNGS: Clear to auscultation bilaterally. CARDIOVASCULAR: Regular rate and rhythm. No murmur. No JVD. ABDOMEN: Soft, non-tender +bs EXTREMITIES: No edema. Non-tender. SKIN: No rashes or lesions. Warm. NEUROLOGIC: No focal neurological deficits. CN II-XII grossly intact PSYCHIATRIC: Cooperative. Appropriate mood and affect [facility] Medical History Congestive heart failure with left ventricular diastolic dysfunction, NYHA class 2 Obesity (BMI 30-39.9) History of hypertrophic cardiomyopathy Morbid obesity due to excess calories Morbid obesity History of left bundle branch block (LBBB) Thyroid disease Arthritis GERD (gastroesophageal reflux disease) Depression History of fatty infiltration of liver LBBB (left bundle branch block) Surgical History H/O colonoscopy Hx of cataract surgery History of esophagogastroduodenoscopy (EGD) Status post ventricular septal myectomy Hx of section Hx of tubal ligation S/P cholecystectomy S/P total knee arthroplasty Family History Father Obesity Mother COPD (chronic obstructive pulmonary disease) Brother No problems noted. Son No problems noted. Daughter No problems noted. Social History Housing: House Alcohol intake: never Patient Tobacco Use Status: Former Tobacco user Years Smoked: 5 years service: No Current occupational status: retired Cognitive needs: No Hearing needs: Yes (b/l hearing aids) Vision needs: Yes (reading glasses) Questionnaire PHQ-9 Over the last 2 weeks, how often have you been bothered by any of the following problems? 1. Little interest or pleasure in doing things: several days 2. Feeling down, depressed, or hopeless: several days 3. Trouble falling or staying asleep, or sleeping too much: nearly every day 4. Feeling tired or having little energy: nearly every day 5. Poor appetite or overeating: nearly every day 6. Feeling bad about yourself - or that you are a failure or have let yourself or your family down: several days 7. Trouble concentrating on things, such as reading the newspaper or watching television: not at all 8. Moving or speaking so slowly that other people could have noticed. Or the opposite - being so fidgety or restless that you have been moving around a lot more than usual: not at all 9. Thoughts that you would be better off or of hurting yourself in some way: not at all Total score: 12 Depression Screening Interpretation: Positive Depression Screening Done: Yes 46320 - PHQ-9 Billing: Yes Source: Developed by Drs. Avila Estrada, Annette Wolfe, German Fournier and colleagues, with an educational clemente from [employer]. Thrive Questionnaire Date Thrive assessed: 09/04/24 I am a: Patient What is your living situation today?: I have a steady place to live Within the past 12 months, did the food you bought not last and you didn't have the money to get more?: Never true Within the past 12 months, did you worry whether your food would run out before you got money to buy more?: Never true Do you have trouble paying for medicines?: No Do you have trouble getting transportation to medical appointments?: No Do you have trouble paying your heating and electricity bill?: No Do you have trouble taking care of your child, family member or friend?: No Do you have trouble with day-to-day activities such as bathing, preparing meals, shopping, managing finances, etc.?: No Are you currently unemployed and looking for a job?: No Are you interested in more education?: No Please select the resources that you would like help with: None THRIVE Score: 0 AUDIT C Alcohol Use Questionnaire (AUDIT-C) 1. How often do you have a drink containing alcohol?: Never 3. How often do you have six or more drinks on one occasion?: Never Total Score: 0 VIOLETTE-7 AMB Questionnaire VIOLETTE-7 Date VIOLETTE - 7 assessed: 09/04/24 Feeling nervous, anxious, or on edge: 1 = Several days Not being able to stop or control worryin = Nearly every day Worrying too much about different things: 1 = Several days Trouble relaxin = Several days Being so restless that it is hard to sit still: 0 = Not at all Becoming easily annoyed or irritable: 0 = Not at all Feeling afraid as if something awful might happen: 1 = Several days Total VIOLETTE-7 score (0-4 normal; 5-9 mild; 10-14 moderate; 15-21 severe): 7 Source: Developed by Annette Pratt, German Fournier and colleagues, with an educational clemente from [employer]. Physical exam (Primary Care) Vital Signs: Last Vital Signs Temp 97.6 F 09/04/24 13:34 Pulse 74 09/04/24 13:34 Resp 16 09/04/24 13:34 BP 120/70 09/04/24 13:34 Pulse Ox 97 09/04/24 13:34 Oxygen Delivery Method Room Air 09/04/24 13:34 BMI result Body Mass Index 39.1 Tobacco/Smoking Status: Tobacco use Status Patient Tobacco Use Status Former Tobacco user 09/04/24 13:42 Depression Screening Interpretation: Positive Coding Level of Care Code New Pt Level 4 (43423) Diagnoses Chronic left shoulder pain M25.512; G89.29 Chronicity: chronic History of hypertrophic cardiomyopathy Z86.79 Additional Codes PHQ-9 - 73454 - PHQ-9 Billing: Yes ([id number]) Assessment & Plan Assessment & Plan (1) Left shoulder pain: Code(s): M25.512 - Pain in left shoulder Category: Medical Qualifiers: Chronicity: chronic Qualified Code(s): M25.512 - Pain in left shoulder; G89.29 - Other chronic pain (2) History of hypertrophic cardiomyopathy: Code(s): Z86.79 - Personal history of other diseases of the circulatory system Category: Medical Plan HOCM. Following with cardiology. BP controlled. ALIRIO, htn, HOCM. Recommend GLP. Efforts at diet and exercise have failed. Start mounjaro Left shoulder pain-referral to orthopedics Orders: Orders PT Evaluation and Treatment Today M25.512 - Pain in left shoulder Lipid Panel 6 Months G47.33 - Obstructive sleep apnea (adult) (pediatric), I42.9 - Cardiomyopathy, unspecified, Z13.228 - Encounter for screening for other metabolic disorders TSH reflex Free T4 6 Months G47.33 - Obstructive sleep apnea (adult) (pediatric), I42.9 - Cardiomyopathy, unspecified, Z13.228 - Encounter for screening for other metabolic disorders Complete Blood Count Auto Diff 6 Months G47.33 - Obstructive sleep apnea (adult) (pediatric), I42.9 - Cardiomyopathy, unspecified, Z13.228 - Encounter for screening for other metabolic disorders Comprehensive Met. Panel 6 Months G47.33 - Obstructive sleep apnea (adult) (pediatric), I42.9 - Cardiomyopathy, unspecified, Z13.228 - Encounter for screening for other metabolic disorders Referrals Orthopedics Referral M25.512 - Pain in left shoulder Medications: New clotrimazole-betamethasone 1-0.05 % 1 appl topical DAILY 45 grams 3RF Mounjaro (tirzepatide) for 4 weeks 2.5 mg (0.5 mL) subcut QWEEK 2 mL 1RF NS E66.9 - Obesity, unspecified, G47.33 - Obstructive sleep apnea (adult) (pediatric)
== END 2024-09-04 14:10 | disposition home or self-care (01) ==
LOC: HO.HMCHD 13:31
PROVIDERS: PCP Internal Medicine; Visit Provider Internal Medicine
DX: M25.512 Pain in left shoulder (principal); G89.29 Other chronic pain; Z86.79 Personal history of other diseases of the circulatory system

== ENCOUNTER → 2024-09-04 13:31 | Outpatient (BNVA) | payer MEDICARE, SELFPAY | PROVIDERS: PCP Internal Medicine; Visit Provider Internal Medicine | DX: M25.512 Pain in left shoulder (principal); G89.29 Other chronic pain; Z86.79 Personal history of other diseases of the circulatory system; G47.33 Obstructive sleep apnea (adult) (pediatric); F32.A Depression, unspecified; E03.9 Hypothyroidism, unspecified; Z79.899 Other long term (current) drug therapy; Z96.653 Presence of artificial knee joint, bilateral; Z99.89 Dependence on other enabling machines and devices | CPT/HCPCS: 96127; 99202 ==

== ENCOUNTER 2024-10-12 09:18 | Outpatient (REF) | payer MEDICARE, SELFPAY ==
--- NOTE | ~2024-10-12 | XR_ITS ---
EXAMINATION: XR SHOULDER 2 OR MORE VIEWS LEFT HISTORY: M25.512 - Pain in left shoulder COMPARISON: Comparison is made with the prior examination dated 06/26/2024. FINDINGS: Three views of the left shoulder are submitted. Osseous mineralization is normal. There is no fracture or dislocation. The glenohumeral joint is maintained. There is moderate osteoarthritis of the AC joint without change. The soft tissues are unremarkable. XR/XR shoulder LT min 2V IMPRESSION: Moderate osteoarthritis of the AC joint. Electronically signed by: Avila Killian MD 10/12/2024 03:10 PM EDT
--- OUTSIDE RECORDS SUMMARY | 2024-10-12 10:05 | XMS_ITS | Data Portability ---
Author Organization [place] - [facility], Allergy Address [address] [address] Care Team Providers Care Breakfast Bar Attendant Name Role Phone VETO ALICEA Primary Care Provider Assessment Encounter Date Assessment Date Assessment LastModified by Organization Details LastModified Time 09/16/2024 09/16/2024 Cerumen successfully removed bilaterally, which patient tolerated well. Recommend full audiometric testing next available. Patient agreeable. We reviewed the signs and symptoms expected with chronic rhinosinusitis and nasal polyposis. We discussed it is unlikely she has either of these diagnoses. We reviewed indications to seek care for sinus symptoms. Patient was provided a [employer] chief deputy court clerk and we discussed instructions for use in the event of nasal congestion or upper respiratory infection. All questions were answered. [email or web address] Not available 09/16/2024 15:16:18 Plan of Treatment Reminders Order Date Submit Date Provider Last Modified By Organization Details Last Modified Time Details Appointments None record ed. Lab None record ed. Referral None record ed. Procedures None record ed. Surgeries None record ed. Imaging None record ed. Medication Orders None record ed. Patient TargetsNo targets recorded. Patient InstructionsNo instructions recorded. Reason for Referral None Reported. Problems Name Problem SNOMED Code Status Onset Date Resolution Date Notes Provider Name and Address Organization Details Recorded Time Impacted cerumen of bilateral ears 1817837389930 108 Active 2024 ANASTACIO PETERS PA-C [address] [place] [address], [place], [address] [facility] [place] [facility] 15:04:06 Posterior rhinorrhea 06301901 Active 2024 ANASTACIO PETERS PA-C [address] [address], [place], [address], [facility] - [facility] 15:15:48 Problem Notes None recorded. Procedures Surgical History Date Name Laterality Status Provider Name and Address Organization Details Recorded Time 09/17/19 25 Cerumen removal without microscope bilat completed ANASTACIO PETERS PA-C 100 [facility] 100, [place], [address], [facility] - [facility] 09/16/2024 15:03:55 Cholecystectomy completed Senia Lanza [place] [facility] 09/16/2024 14:50:57 septal myectomy completed Senia Lanza [place] [facility] 09/16/2024 14:51:08 section completed Senia Lanza [facility] 09/16/2024 14:52:02 Imaging Results None recorded. Procedure Notes None recorded. Medical Equipment None Reported. Allergies Allergen ID Allergen Name Allergen Category Reaction Reaction Severity Criticality Documentation Date Start Date Code Code System Note Provider Name and Address Organization Details Recorded Time 961112 Product containin g penicilli n (product) medicatio n rash Not available low 09/16/2024 26845 8001 SNOMED Senia riggs [facility] 14:48:40 Medications Name Sig Start Date Stop Date Status Note LastModified by Organization Details LastModified Time latanoprost 0.005 % eye drops INSTILL 1 DROP INTO BOTH EYES NIGHTLY active Not Available Not Available No t Available doxycycline hyclate 100 mg capsule TAKE 1 CAPSULE BY MOUTH TWICE A DAY 09/16 completed Not Available Not Available Not Available azithromyci n 250 mg tablet TAKE 1 TABLET BY MOUTH EVERY DAY FOR 6 DAYS 09/16 completed Not Available Not Available Not Available sulfamethox azole 800 mg-trimetho prim 160 mg tablet TAKE 1 TABLET BY MOUTH TWICE A DAY FOR 8 DAYS 09/16 completed Not Available Not Available Not Available carvedilol 3.125 mg tablet TAKE 1 TABLET BY MOUTH TWICE A DAY active Not Available Not Available No t Available levothyroxi ne 125 mcg tablet TAKE 1 TABLET BY MOUTH EVERY DAY active Not Available Not Available No t Available clotrimazol e-betametha sone 1 %-0.05 % topical cream APPLY TO AFFECTED AREA EVERY DAY active Not Available Not Available No t Available omeprazole 20 mg capsule,del ayed release TAKE 1 CAPSULE BY MOUTH EVERY DAY active Not Available Not Available No t Available mupirocin 2 % topical ointment APPLY A SMALL AMOUNT TO MEDIAL NOSTRIL THREE TIMES A DAY active Not Available Not Available No t Available escitalopra m 10 mg tablet TAKE 1 AND 1/2 TABLET BY MOUTH EVERY DAY active Not Available Not Available No t Available Entresto 49 mg-51 mg tablet TAKE 1 TABLET BY MOUTH TWICE A DAY active Not Available Not Available No t Available Vitals Date Recorded Body height Body mass index (BMI) Body weight Provider Name and Address Organization Details Last Updated DateTime 09/16/2024 160.02 cm 39.9 kg/m2 815334.28 g Senia Lanza [place] - [facility] 09/16/2024 14:48:13 Social History Question Answer Notes LastModified by Organizat ion Details LastModified Time Tobacco Smoking Status Never Smoker Senia riggs [place] - [facility] 09/16/2024 14:50:47 What Is Your Level Of Alcohol Consumption? None [email or web address] Information not available 09/16/2024 Sex: Unknown Functional Status None recorded. Mental Status None recorded. Family History Nothing Reported. Medical History Condition Response Allergies/Hayfever N Heart Problems Y Anxiety Y Tonsil Infections N Emphysema N Migraines N Thyroid Problems Y Glaucoma N Depression Y COPD N Developmental Delay N Nasal or Sinus Problems N Anemia N Immune System Disorder N Anesthesia Complications N Heart Attack ([place]) N Other Skin Condition N Diabetes N Rhinitis N Bleeding Disorder N Food Allergy N Arthritis Y Hearing Loss N Hyperlipidemia N Cancer N Stroke N Dementia N Nasal polyps N Asthma N Sleep Disorder N GERD/Reflux N High Cholesterol N Liver Disease Y Headaches N Fibromyalgia N Hypertension N Speech Delay N Kidney Disease N Gynecological HistoryNo gynecological history recorded. Obstetrics History GPAL:G 0 P 0 0 0 0 Past Encounters Encounter ID Performer Location Encounter Start Date Encounter Closed Date Diagnosis/Indication Diagnosis SNOMED-CT Code Diagnosis ICD10 Code Diagnosis Note [id number] ANASTACIO PETERS PA-C [facility] [address] [address] 09/16/2024 14:27:44 09/16/2024 15:13:56 Impacted cerumen of bilateral ears 0903047533 389788 H61.23 Posterior rhinorrhea 758 06865 R09.82 Health Concerns Section Related Observation LastModified by Organization Detai ls LastModified Time None Recorded Concern Status LastModified by Organization Details LastModified Time None Recorded Advance Directives Directive None Recorded Payers Encounter Date Sequence Insurance Name Policy Number Policy Larson Covered Member ID Larson Member ID Guarantor Name 09/16/2024 2 [place] [id number] Alyse Razo [id number] Alyse Razo 09/16/2024 1 [place] [employer] Alyse Razo [id number] Alyse Razo Notes Date Note Type Note Provider Name and Address Organization Details Recorded Time 09/16/2024 text/html 74 year old angel ruvalcaba presents for evaluation of the ears. Wears hearing aids, serviced at [facility] [employer]. They are about 2 years old. She does not have full audiometric testing. Settings have not been changed in over 2 years and she does not feel that they work well. They do fit comfortably. She denies otalgia and otorrhea. History of recurrent otitis as a child but no otologic surgeries. She denies persistent itching in the ears. No history of excessive noise exposure since she was a teen. She would like to discuss an issue that has resolved since making the appointment. She had two months of postnasal drip over the winter. Purulent. Was given Z-venkatesh and flonase. Increased her oral hydration. Resolved after 2 months. Reports she gets 3-4 sinus infections per year. Presents with pressure in pansinus distribution. Sense of smell does not change. No purulent nasal drainage. She wonders if she has polyps. No epistaxis. No persistent nasal congestion. Currently asymptomatic. ANASTACIO PETERS PA-C [address] [place] [address],[address] [address], [place], [address], [facility] - [facility] 09/16/2024 15:16:36 OBGyn Episode No OBEpisode recorded.
--- OUTSIDE RECORDS SUMMARY | 2024-10-12 10:06 | XMS_ITS ---
Author Organization [facility] Address [address] [place] [address] Care Team Providers Care Store Stocker Name Role Phone Bhanu Ramachandran MD Primary Care Provider Unavaila ble Black, Candy Unavailable [phone] REASON FOR VISIT LAUNDRY ASSISTANT PPWK Entered Encounters Encounter Location Date Provider Diagnosis [facility] [address] [place] [address] 03/18/2024 Candy Black Plan Of Treatment No Information Progress Notes * Alyse SYKESDOB:[birth year] (73 yo F)Acc No.[id number]:03/18/2024 Patient:?Alyse Sykes :1950???Age:73 Y???Sex:Female Address:[address] [place] [address] * true * Date:? Generated for Printi heath/Rogelio/eTransmitting on:?10/12/2024 10:06 AM EDT
--- OUTSIDE RECORDS SUMMARY | 2024-10-12 10:07 | XMS_ITS ---
Author Organization [facility] Address [address] [place] [address] Care Team Providers Care Account Executive Key Accounts Name Role Phone Bhanu Ramachandran MD Primary Care Provider Avila Ernst [phone] Encounters Encounter Location Date Provider Diagnosis [facility] [address] [place] [address] 08/20/2024 Avila Stevenson Plan Of Treatment Next Appt Details Provider Name:Avila Stevenson , 02/10/2025 01:20:00 PM, [address], [address], [place], [address], Progress Notes * SARAI SYKES ADOB: (74 yo F)Acc No.[id number]:08/20/2024 Patient:?SARAI SYKES :1950???Age:74 Y???Sex:Female Address:[address] [place] [address] * true * Date:? Generated for Printi heath/Rogelio/eTransmitting on:?10/12/2024 10:07 AM EDT
--- OUTSIDE RECORDS SUMMARY | 2024-10-12 10:08 | XMS_ITS ---
Author Organization [facility] Address [address] [place] [address] Care Team Providers Care Finance Professional Name Role Phone Bhanu Ramachandran MD Primary Care Provider Avila Ernst [phone] REASON FOR VISIT labs Encounters Encounter Location Date Provider Diagnosis [facility] [address] [place] [address] 08/17/2024 Avila Stevenson Plan Of Treatment Next Appt Details Provider Name:Avila Stevenson , 02/10/2025 01:20:00 PM, [address], [address], [place], [address], Progress Notes * SARAI SYKES ADOB: (74 yo F)Acc No.[id number]:08/17/2024 Patient:?SARAI SYKES :1950???Age:74 Y???Sex:Female Address:[address] [place] [address] * true * Date:? Generated for Printi heath/Rogelio/eTransmitting on:?10/12/2024 10:07 AM EDT
--- OUTSIDE RECORDS SUMMARY | 2024-10-12 10:08 | XMS_ITS ---
Author Organization [facility] Address [address] [place] [address] Care Team Providers Care Salvage Grinder Name Role Phone Bhanu Ramachandran MD Primary Care Provider Avila Ernst [phone] REASON FOR VISIT elevated liver enzymes Encounters Encounter Location Date Provider Diagnosis [facility] [address] [place] [address] 08/19/2024 Avila Stevenson Plan Of Treatment Next Appt Details Provider Name:Avila Stevenson , 02/10/2025 01:20:00 PM, [address], [address], [place], [address], Progress Notes * SARAI SYKES ADOB: (74 yo F)Acc No.[id number]:08/19/2024 Patient:?SARAI SYKES :1950???Age:74 Y???Sex:Female Address:[address] [place] [address] * true * Date:? Generated for Printi ng/Jacquelineg/eTransmitting on:?10/12/2024 10:07 AM EDT
== END 2024-10-12 09:19 | disposition home or self-care (01) ==
LOC: HO.HOSX 09:18
DX: M25.512 Pain in left shoulder (principal); M19.012 Primary osteoarthritis, left shoulder
CPT/HCPCS: 73030; 99202

== ENCOUNTER 2024-10-12 14:18 | Outpatient (AMB) | payer MEDICARE, SELFPAY ==
--- NOTE | 2024-10-12 15:10 | MHC.OFFVIS ---
Vital Signs 10/12/24 15:11 Height 5 ft 3 in Weight 221 lb BMI 39.1 Intake Visit Reasons: New Pt - Left Shoulder Pain Intake Note: Alyse is 74 year old right hand dominant female who presents today as a new patient for evaluation of left shoulder pain. Patient reports pain began a few months ago. Denies any injuries or surgeries to the left shoulder. Reports pain with ROM. Patient states she did a physical therapy evaluation about a week ago. Allergies Penicillins [PENICILLINS] Allergy (Intermediate, Verified 10/12/24 15:14) RASH HPI HPI New Pt - Left Shoulder Pain: Details: Alyse is 74 year old right hand dominant female who presents today as a new patient for evaluation of left shoulder pain. Patient reports pain began a few months ago. Denies any injuries or surgeries to the left shoulder. Reports pain with ROM. Patient states she did a physical therapy evaluation about a week ago. [facility] Medical History Congestive heart failure with left ventricular diastolic dysfunction, NYHA class 2 Obesity (BMI 30-39.9) History of hypertrophic cardiomyopathy Morbid obesity due to excess calories Morbid obesity History of left bundle branch block (LBBB) Thyroid disease Arthritis GERD (gastroesophageal reflux disease) Depression History of fatty infiltration of liver LBBB (left bundle branch block) Surgical History H/O colonoscopy Hx of cataract surgery History of esophagogastroduodenoscopy (EGD) Status post ventricular septal myectomy Hx of section Hx of tubal ligation S/P cholecystectomy S/P total knee arthroplasty Family History Father Obesity Mother COPD (chronic obstructive pulmonary disease) Brother No problems noted. Son No problems noted. Daughter No problems noted. Social History Housing: House Alcohol intake: never Patient Tobacco Use Status: Former Tobacco user Years Smoked: 5 years service: No Current occupational status: retired Cognitive needs: No Hearing needs: Yes (b/l hearing aids) Vision needs: Yes (reading glasses) Physical Exam Vital Signs: BMI result Body Mass Index 39.1 Extrem Other: Patient's left shoulder normal to inspection No erythema, ecchymosis, edema noted No lacerations, abrasions, open areas No evidence of infection Patient reports no tenderness to palpation of the greater tuberosity, proximal biceps tendon, acromion, clavicle, or elsewhere in the left shoulder Patient is able to forward flex to 90 degrees and externally rotate to 60 degrees without difficulty bilaterally Negative empty can Negative belly press Distal sensation intact Capillary refill brisk Results Reviewed Results Reviewed: X-rays obtained in the office today and independently reviewed by me, Edwin Riley PA-C, demonstrate 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 Assessment & Plan Assessment & Plan (1) Arthritis of left acromioclavicular joint: Code(s): M19.012 - Primary osteoarthritis, left shoulder Category: Medical Plan 1. 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
[2024-10-12 15:11] VITALS: BMI 39.1
--- OUTSIDE RECORDS SUMMARY | 2024-10-12 15:51 | XMS_ITS ---
Author Organization [facility] Address [address] [place] [address] Care Team Providers Care Pyrotechnist Name Role Phone Bhanu Ramachandran MD Primary Care Provider Unavaila ble Black, Candy Unavailable [phone] Allergies Allergen (clinical drug ingredient) Drug/Non Drug [...] 07/09/2024 Encounters Encounter Location Date Provider Diagnosis [facility] [address] [place] [address] 07/09/2024 Candy Suggs Plan Of Treatment No Information Progress Notes * Alyse SYKESDOB:[birth year] (74 yo F)Acc No.[id number]:07/09/2024 Progress Notes Patient:?Alyse SYKES Provider:?Candy Suggs DPM :1950???Age:74 Y???Sex:Female D ate:07/09/2024 Address:[address] [place], [place] [address] Pcp:Bhanu Ramachandran MD Subjective: * Chief Complaints: [...] septal myectomy 2015. * Hospitalization/Major Diagno stic Procedure:?[facility]- sleep apnea 01/30/2021. * Family History:?Mother: dece [...] Suggs DPM Date:?2024 Generated for Mark joe/Rogelio/Briseyda on:?10/12/2024 03:51 PM EDT
--- OUTSIDE RECORDS SUMMARY | 2024-10-12 15:51 | XMS_ITS | Patient Health Record ---
Author Organization [facility] Address [address] [place] [address] Care Team Providers Care Nurse Ldr Name Role Phone Bhanu Ramachandran MD Primary Care Provider Unavaila ble Black, Candy Unavailable [phone] Allergies Allergen (clinical drug ingredient) Drug/Non Drug [...] Status Risk Notes Problem Pain in limb (72327141) Pain in Limb (729.5) Active confirmed Problem Acquired hallux valgus (59041672) Hallux valgus (acquired), left foot (M20.12) Active confirmed Problem Localized, primary osteoarthritis of the ankle and/or foot (413320632) Primary osteoarthritis, left ankle and foot (M19.072) Active confirmed Problem Acquired hammer toe of right foot (0436264964730648 ) Other hammer toe(s) (acquired), right foot (M20.41) Active confirmed Problem Acquired hammer toe of left foot (5858780576491808 ) Other hammer toe(s) (acquired), left foot (M20.42) Active confirmed Problem 266747261 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) Active confirmed Problem Osteoarthritis o f right ankle and foot (M19.071) Active confirmed Problem 587503299 Midfoot collapse of left lower extremity (M21.6X2) Active confirmed Problem Plantar fasciitis of right foot (5897505293356043 1) Plantar fasciitis of right foot (M72.2) Active confirmed Problem Interstitial myositis (55531907) 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 confirmed Problem 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) (3570561099245050 ) 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 confirmed Vital Signs Height 5 ft 2 in in 04/09/2024 Weight 220 lbs 04/09/2024 BMI 40.23 kg/m2 04/09/2024 Encounters Encounter Location Date Provider Diagnosis [facility] [address] 04/09/2024 Candy Black Pain in right foot [...] Osteoarthritis of right ankle and foot M19.071 [facility] [address] [address] 03/18/2024 Candy Black Assessments Encounter Date Diagnosis [...] Start Date Coverage End Date Medicare [employer] [facility] [employer] [address] [place] [phone] [id number] Alyse Razo Self - patient is the insured [employer] [address] [place] [address] [phone] [id number] Alyse Razo Self - patient is [...] septal myectomy 2016 Hospitalization History Reason Date(Month/Year) [facility]- sleep apnea 01/30/2021
--- OUTSIDE RECORDS SUMMARY | 2024-10-12 15:51 | XMS_ITS ---
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 confirmed Problem Plantar fasciitis of right foot (002273364447985 01) Plantar fasciitis of right foot (M72.2) Active confirmed Problem Interstitial myositis (65793152) 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 confirmed Problem Osteoarthritis o f right ankle and foot (M19.071) Active confirmed Vital Signs Height 5 ft 2 in in 04/09/2024 Weight 220 lbs 04/09/2024 BMI 40.23 kg/m2 04/09/2024 Encounters Encounter Location Date Provider Diagnosis [facility] [address] [address] 04/09/2024 Candy Black Pain in right foot [...] Notes * Alyse SYKESDOB:[birth year] (73 yo F)Acc No.[id number]:04/09/2024 Progress Notes Patient:?Alyse Sykes Provider:?Candy Suggs DPM :1950???Age:73 Y???Sex:Female D ate:04/09/2024 Address:[address] [place], [place] [address] Pcp:Bhanu Ramachandran MD Subjective: * Chief Complaints: [...] 1979/1982septal myectomy 2016 * Hospitalization/Major Diagno stic Procedure:?[facility]- sleep apnea 01/30/2021 * Family History:?Mother: dece [...] with: RICE THERAPY.pdf (RICE THERAPY.pdf)?? * Procedure Codes:?18322 X-RAY EXAM OF RIGHT FOOT 3V, Modifiers: 26 , [id number] AFO RICK TRIPP PREFAB W FIT ADJ [...] Interfil injection therapy, as well as surgical [place]/Endoscopic Fasciitomy surgical procedures if needed. Recommendations were [...] * Provider:?Candy Suggs DPM Date:?2023 Generated for Printi ng/Fajimg/eTransmitting on:?10/12/2024 03:51 PM EDT History and Physical Notes * HPI (History [...] at area of Navicular tuberosity , RIGHT FOOTWEAR EVALUATION: shoe gear propertie s exacerbate patients foot/toe deformity DIGITAL DEFORMITIES: Digital [...]
--- OUTSIDE RECORDS SUMMARY | 2024-10-12 15:51 | XMS_ITS | Patient Health Record ---
Author Organization [facility] Address [address] [place] [address] Care Team Providers Care Cotton Candy Maker Name Role Phone Bhanu Ramachandran MD Primary Care Provider Avila Ernst [phone] Allergies Allergen (clinical drug ingredient) Drug/Non Drug Allergy documented on EMR Reaction Allergy Type Onset Date Status Penicillin Unknown Drug Allergy Active Results Component Value Reference Range Notes Liver Panel Reviewed date:10/17/2023 12:33:36 AM Interpretation: Performing Lab:[facility], [address] [place] [phone] Notes/Report: Bilirubin Total 0.4 0.0-1.0 mg/dL Bilirubin Direct 0.1 0.0-0.5 mg/dL Aspartate Amino Transferase 19 5-31 U/L Alanine Aminotransferase 16 0-31 U/L Total Protein 6.6 6.5-8.0 g/dL Albumin Level 3.8 3.5-5.0 g/dL Alkaline Phosphatase 66 39-117 U/L Liver Panel (Not yet reviewe d by provider) Interpretation: Performing Lab:[facility], [address] [place] [phone] Notes/Report: Bilirubin Total 0.7 0.0-1.0 mg/dL Bilirubin Direct 0.2 0.0-0.5 mg/dL Aspartate Amino Transferase 25 5-31 U/L Alanine Aminotransferase 15 0-31 U/L Total Protein 6.7 6.5-8.0 g/dL Albumin Level 4.1 3.5-5.0 g/dL Alkaline Phosphatase 68 39-117 U/L Liver Panel Reviewed date:12/26/2023 08:59:07 AM Interpretation: Performing Lab:[facility], [address] [place] [phone] Notes/Report: Bilirubin Total 0.3 0.0-1.0 mg/dL Bilirubin Direct 0.1 0.0-0.5 mg/dL Aspartate Amino Transferase 22 5-31 U/L Alanine Aminotransferase 17 0-31 U/L Total Protein 6.3 6.5-8.0 g/dL Albumin Level 3.9 3.5-5.0 g/dL Alkaline Phosphatase 65 39-117 U/L Liver Panel Reviewed date:02/17/2024 09:09:10 PM Interpretation: Performing Lab:[facility], [address] [place] [phone] Notes/Report: Bilirubin Total 0.5 0.0-1.0 mg/dL Bilirubin Direct 0.2 0.0-0.5 mg/dL Aspartate Amino Transferase 21 5-31 U/L Alanine Aminotransferase 15 0-31 U/L Total Protein 6.7 6.5-8.0 g/dL Albumin Level 3.9 3.5-5.0 g/dL Alkaline Phosphatase 74 39-117 U/L Liver Panel Reviewed date:05/31/2024 01:16:02 PM Interpretation: Performing Lab:[facility], [address] [place] [phone] Notes/Report: Bilirubin Total 0.5 0.0-1.0 mg/dL Bilirubin Direct 0.2 0.0-0.5 mg/dL Aspartate Amino Transferase 32 5-31 U/L Alanine Aminotransferase 17 0-31 U/L Total Protein 7.2 6.5-8.0 g/dL Albumin Level 4.2 3.5-5.0 g/dL Alkaline Phosphatase 82 39-117 U/L Liver Panel Reviewed date:06/24/2024 11:36:16 PM Interpretation: Performing Lab:[facility], [address] [place] [phone] Notes/Report: Bilirubin Total 0.4 0.0-1.0 mg/dL Bilirubin Direct 0.1 0.0-0.5 mg/dL Aspartate Amino Transferase 33 5-31 U/L Alanine Aminotransferase 24 0-31 U/L Total Protein 6.7 6.5-8.0 g/dL Albumin Level 3.9 3.5-5.0 g/dL Alkaline Phosphatase 85 39-117 U/L Liver Panel Reviewed date:08/16/2024 12:52:18 PM Interpretation: Performing Lab:[facility], [address] [place] [phone] Notes/Report: Bilirubin Total 0.4 0.0-1.0 mg/dL Bilirubin [...] 20 MG TAKE 1 CAPSULE BY MO UT EVERY DAY FOR 90 DAYS for 90 [...] Problem Status W/U Status Risk Notes Problem 87494861 Epigastric pain (R10.13) Active confirmed Problem 350936548 Encounter for screening for malignant neoplasm of colon (Z12.11) Active confirmed Problem 586899062 History of adenomatous polyp of colon (Z86.010) Active confirmed Problem 568937669 Esophageal obstruction (K22.2) Active confirmed Problem 482840712 Autoimmune hepatitis (K75.4) Active confirmed Problem 154322135 Elevated liver function tests (R79.89) Active confirmed Problem 258575360 Gastroesophageal reflux disease without esophagitis (K21.9) Active confirmed Problem 984730748 Gastroesophageal reflux disease, esophagitis presence not specified (K21.9) Active confirmed Problem 12001301 Hiatal hernia (K44.9) Active confirmed Problem Esophageal ring (82705915) Esophageal ring (K22.2) Active confirmed Problem Gastroesophageal reflux disease (897977821) GERD (gastroesophageal reflux disease) (K21.9) Active confirmed Problem Esophageal dysphagia (88144074) Esophageal dysphagia (R13.14) Active confirmed Problem 32647479 Esophageal dysphagia (R13.10) Active confirmed Problem 991001639 Hx of adenomatou s polyp of colon (Z86.010) Active confirmed Vital Signs Blood pressure diastolic 00 mm Hg 05/12/2024 Height 62.5 in 05/12/2024 Blood pressure systolic 00 mm Hg 05/12/2024 Weight 212 lbs 05/12/2024 BMI 38.15 kg/m2 05/12/2024 Encounters Encounter Location Date Provider Diagnosis [facility] [address] [place] [phone] 12/25/2023 Avila Stevenson Autoimmune hepatitis K75.4 ; History of adenomatous polyp of colon Z86.010 ; Esophageal dysphagia R13.10 ; Encounter for screening for malignant neoplasm of colon Z12.11 ; Gastroesophageal reflux disease, esophagitis presence not specified K21.9 and Hiatal hernia K44.9 [facility] [address] [place] [phone] 05/12/2024 Avila Stevenson Autoimmune hepatitis K75.4 ; History of adenomatous polyp of colon Z86.010 ; Esophageal dysphagia R13.10 ; Encounter for screening for malignant neoplasm of colon Z12.11 ; Gastroesophageal reflux disease, esophagitis presence not specified K21.9 and Hiatal hernia K44.9 [facility] [address] [place] [phone] 2024 Avila Stevenson Autoimmune hepatitis K75.4 [facility] [address] [place] [phone] 07/17/2024 Avila Stevenson [facility] [address] [place] [phone] 08/17/2024 Avila Stevenson [facility] [address] [place] [address] 08/19/2024 Avila Stevenson [facility] [address] [place] [address] 08/20/2024 Avila Stevenson Assessments Encounter Date Diagnosis (ICD [...] 07/06/2020 CHEM 7 PROFILE 12/04/2022 LIVER PROFILE 10/30/2020 LIVER PROFILE 07/20/2015 LIVER PROFILE 08/25/2014 LIVER PROFILE 01/06/2023 LIVER PROFILE 12/06/2020 LIVER PROFILE 11/10/2015 LIVER PROFILE 02/26/2014 LIVER PROFILE 05/13/2023 LIVER PROFILE 06/06/2021 LIVER PROFILE 04/30/2014 LIVER PROFILE 2024 LIVER PROFILE 02/19/2023 LIVER PROFILE 10/14/2014 LIVER PROFILE 12/04/2022 LIVER PROFILE 03/17/2014 CRP 12/04/2022 CBC w DIFF 12/04/2022 SED RATE (ESR) 12/04/2022 XR BARIUM SWALLOW-ESOPHAGUS 08/22/2022 XR BARIUM SWALLOW-ESOPHAGUS 06/24/2017 XR GI SERIES 08/22/2022 FLUOR. ANTINUCLEAR AB SCREEN (PHIL) 11/09 Liver Panel 11/20/2023 Smooth Muscle Antibody 12/04/2022 Future Test Test Name Order Date UPPER GI ENDOSCOPY BALLOOON DILATION OF ESOPH 01/15/2020 COLONOSCOPY 01/15/2020 Next Appt Details Provider Name:Avila Stevenson , 02/10/2025 01:20:00 PM, [address], [address], [place], [address], Insurance Providers Payer Name Payer Address Payer Phone Subscriber Number Group Number Insured Name Patient Relationship to Insured Coverage Start Date Coverage End Date [place] [address] [place] [address] [id number] ALYSE SYKES Self - patient is the insured MED[employer] ATTN CLAIMS [address] [place] [address] [id number] ALYSE SYKES Self - patient is the insured Medical (General) History Medical History History ICD Code Denies MT,DM,CVA,Lung disease,renal dise ase Depression 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 Henderson--done for the evaluation of anemia she reports that she is on m etoprolol in relation to a heart murmur--Idiopathic hypertrophic subaortic stenosis--may have surgery in [place]--had a cardiac cath with Dr. Vital in 11/2016--going to [facility] for possible surgery--had it done 04/2017 [...] knee replacement 12/13/2005 Cataracts right and left 2017 Septal myectomy-open heart surgery--at [facility] 04/10/2017 Sleep Apnea, needs CPAP machine
== END 2024-10-12 15:25 | disposition home or self-care (01) ==
PROVIDERS: PCP Internal Medicine
DX: M19.012 Primary osteoarthritis, left shoulder (principal)
CPT/HCPCS: 99203

== ENCOUNTER → 2024-10-12 14:20 | Outpatient (BNV) | payer MEDICARE, SELFPAY | PROVIDERS: Visit Provider Radiology Diagnostic Radiology | DX: M19.012 Primary osteoarthritis, left shoulder (principal) | CPT/HCPCS: 73030 ==

== ENCOUNTER 2024-10-21 15:07 | Outpatient (REF) | payer MEDICARE, SELFPAY ==
--- OUTSIDE RECORDS SUMMARY | 2024-10-21 15:11 | XMS_ITS | Patient Health Record ---
Author Organization [facility] Address [address] [place] [address] Care Team Providers Care Executive Vice President Name Role Phone Bhanu Ramachandran MD Primary Care Provider Avila Ernst [phone] Allergies Allergen (clinical drug ingredient) Drug/Non Drug Allergy documented on EMR Reaction Allergy Type Onset Date Status Penicillin Unknown Drug Allergy Active Results Component Value Reference Range Notes Liver Panel (Not yet review ed by provider) Interpretation: Performing Lab:[facility], [address] [place] [phone] Notes/Report: Bilirubin Total 0.7 0.0-1.0 mg/dL Bilirubin Direct 0.2 0.0-0.5 mg/dL Aspartate Amino Transferase 25 5-31 U/L Alanine Aminotransferase 15 0-31 U/L Total Protein 6.7 6.5-8.0 g/dL Albumin Level 4.1 3.5-5.0 g/dL Alkaline Phosphatase 68 39-117 U/L Liver Panel Reviewed date:12/26/2023 08:59:07 AM Interpretation: Performing Lab:[facility], [address] [place] [phone] Notes/Report: Bilirubin Total 0.3 0.0-1.0 mg/dL Bilirubin Direct 0.1 0.0-0.5 mg/dL Aspartate Amino Transferase 22 5-31 U/L Alanine Aminotransferase 17 0-31 U/L Total Protein 6.3 6.5-8.0 g/dL Albumin Level 3.9 3.5-5.0 g/dL Alkaline Phosphatase 65 39-117 U/L Liver Panel Reviewed date:02/17/2024 09:09:10 PM Interpretation: Performing Lab:[facility], [address] [place] [phone] Notes/Report: Bilirubin Total 0.5 0.0-1.0 mg/dL Bilirubin Direct 0.2 0.0-0.5 mg/dL Aspartate Amino Transferase 21 5-31 U/L Alanine Aminotransferase 15 0-31 U/L Total Protein 6.7 6.5-8.0 g/dL Albumin Level 3.9 3.5-5.0 g/dL Alkaline Phosphatase 74 39-117 U/L Liver Panel Reviewed date:05/31/2024 01:16:02 PM Interpretation: Performing Lab:[facility], [address] [place] [phone] Notes/Report: Bilirubin Total 0.5 0.0-1.0 mg/dL Bilirubin Direct 0.2 0.0-0.5 mg/dL Aspartate Amino Transferase 32 5-31 U/L Alanine Aminotransferase 17 0-31 U/L Total Protein 7.2 6.5-8.0 g/dL Albumin Level 4.2 3.5-5.0 g/dL Alkaline Phosphatase 82 39-117 U/L Liver Panel Reviewed date:06/24/2024 11:36:16 PM Interpretation: Performing Lab:[facility], [address] [place] [phone] Notes/Report: Bilirubin Total 0.4 0.0-1.0 mg/dL Bilirubin Direct 0.1 0.0-0.5 mg/dL Aspartate Amino Transferase 33 5-31 U/L Alanine Aminotransferase 24 0-31 U/L Total Protein 6.7 6.5-8.0 g/dL Albumin Level 3.9 3.5-5.0 g/dL Alkaline Phosphatase 85 39-117 U/L Liver Panel Reviewed date:08/16/2024 12:52:18 PM Interpretation: Performing Lab:[facility], [address] [place] [phone] Notes/Report: Bilirubin Total 0.4 0.0-1.0 mg/dL Bilirubin [...] 20 MG TAKE 1 CAPSULE BY MO UTH EVERY DAY FOR 90 DAYS for 90 [...] Problem Status W/U Status Risk Notes Problem 91581949 Epigastric pain (R10.13) Active confirmed Problem 295418832 Encounter for screening for malignant neoplasm of colon (Z12.11) Active confirmed Problem 067999871 History of adenomatous polyp of colon (Z86.010) Active confirmed Problem 311579083 Esophageal obstruction (K22.2) Active confirmed Problem 353885634 Autoimmune hepatitis (K75.4) Active confirmed Problem 493892825 Elevated liver function tests (R79.89) Active confirmed Problem 963745916 Gastroesophageal reflux disease without esophagitis (K21.9) Active confirmed Problem 301205847 Gastroesophageal reflux disease, esophagitis presence not specified (K21.9) Active confirmed Problem 63470614 Hiatal hernia (K44.9) Active confirmed Problem Esophageal ring (40421951) Esophageal ring (K22.2) Active confirmed Problem Gastroesophageal reflux disease (426974905) GERD (gastroesophageal reflux disease) (K21.9) Active confirmed Problem Esophageal dysphagia (64366480) Esophageal dysphagia (R13.14) Active confirmed Problem 06870844 Esophageal dysphagia (R13.10) Active confirmed Problem 412133863 Hx of adenomatou s polyp of colon (Z86.010) Active confirmed Vital Signs Blood pressure diastolic 00 mm Hg 05/12/2024 Height 62.5 in 05/12/2024 Blood pressure systolic 00 mm Hg 05/12/2024 Weight 212 lbs 05/12/2024 BMI 38.15 kg/m2 05/12/2024 Encounters Encounter Location Date Provider Diagnosis [facility] [address] [place] [phone] 12/25/2023 Avila Stevenson Autoimmune hepatitis K75.4 ; History of adenomatous polyp of colon Z86.010 ; Esophageal dysphagia R13.10 ; Encounter for screening for malignant neoplasm of colon Z12.11 ; Gastroesophageal reflux disease, esophagitis presence not specified K21.9 and Hiatal hernia K44.9 [facility] [address] [place] [address] 05/12/2024 Avila Stevenson Autoimmune hepatitis K75.4 ; History of adenomatous polyp of colon Z86.010 ; Esophageal dysphagia R13.10 ; Encounter for screening for malignant neoplasm of colon Z12.11 ; Gastroesophageal reflux disease, esophagitis presence not specified K21.9 and Hiatal hernia K44.9 [facility] [address] [place] [address] 2024 Avila Stevenson Autoimmune hepatitis K75.4 [facility] [address] [place] [phone] 07/17/2024 Avila Stevenson [facility] [address] [place] [phone] 08/17/2024 Avila Stevenson [facility] [address] [place] [phone] 08/19/2024 Avila Stevenson [facility] [address] [place] [phone] 08/20/2024 Avila Stevenson Assessments Encounter Date Diagnosis [...] COLONOSCOPY 01/15/2020 Next Appt Details Provider Name:Avila Degroot Graham , 02/10/2025 01:20:00 PM, [address] [place] [address], [address], [place], [address], Insurance Providers Payer Name Payer Address Payer Phone Subscriber Number Group Number Insured Name Patient Relationship to Insured Coverage Start Date Coverage End Date [place] OF [place] [address] 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 Henderson--done for the evaluation of anemia she reports that she is on m etoprolol in relation to a heart murmur--Idiopathic hypertrophic subaortic stenosis--may have surgery in [place]--had a cardiac cath with Dr. Vital in 11/2016--going to [facility] for possible surgery--had it done [...] left 2017 Septal myectomy-[facility]/10/2017 Sleep Apnea, needs CPAP machine
--- OUTSIDE RECORDS SUMMARY | 2024-10-21 15:11 | XMS_ITS | Data Portability ---
Author Organization [place] [facility], Allergy Address [address] [address] Care Team Providers Care Gate Keeper Name Role Phone VETO ALICEA Primary Care [...] symptoms. Patient was provided a [employer] photographer's model and we discussed instructions for use in [...] Recorded Time Impacted cerumen of bilateral ears 1754912816352 108 Active 2024 ANASTACIO PETERS PA-C [address] [place] [address], [place], [address] [facility] [place] [facility] 15:04:06 Posterior rhinorrhea 49237730 Active 2024 ANASTACIO PETERS PA-C [address] [address], [place], [address], [facility] - [facility] 15:15:48 Problem Notes None recorded. Procedures Surgical History Date Name Laterality Status Provider Name and Address Organization Details Recorded Time 09/17/19 25 Cerumen removal without microscope bilat completed ANASTACIO PETERS PA-C 100 [facility], [place], [address], [facility] - [facility] 09/16/2024 15:03:55 Cholecystectomy completed Senia Lanza [place] [facility] 09/16/2024 14:50:57 septal myectomy completed Senia Lanza [place] [facility] 09/16/2024 14:51:08 section completed Senia Lanza [facility] 09/16/2024 14:52:02 Imaging Results None recorded. Procedure Notes None recorded. Medical Equipment None Reported. Allergies Allergen ID Allergen Name Allergen Category Reaction Reaction Severity Criticality Documentation Date Start Date Code Code System Note Provider Name and Address Organization Details Recorded Time 847466 Product containin g penicilli n (product) medicatio n rash Not available low 09/16/2024 49484 8001 SNOMED Senia riggs [facility] 14:48:40 Medications Name Sig Start Date Stop [...] Updated DateTime 09/16/2024 160.02 cm 39.9 kg/m2 653585.28 g Senia Lanza [place] - [facility] 09/16/2024 14:48:13 Social History None recorded. Functional Status Question Answer Note LastModified by Organization D etails LastModified Time What is your level of alcohol consumption? None [email or web address] Information not available 09/16/2024 Mental Status None recorded. Family History Nothing Reported. Medical History Condition Response Allergies/Hayfever N Heart Problems Y Anxiety Y Tonsil Infections N Emphysema N Migraines N Thyroid Problems Y Glaucoma N Developmental Delay N Depression Y COPD N Nasal or Sinus Problems N Anemia N Immune System Disorder N Anesthesia Complications N Heart Attack (NV) N Other Skin Condition N Diabetes N Rhinitis N Bleeding Disorder N Food Allergy N Hearing Loss N Arthritis Y Hyperlipidemia N Cancer N Stroke N Dementia N Nasal polyps N Asthma N Sleep Disorder N High Cholesterol N GERD/Reflux N Liver Disease Y Headaches N Fibromyalgia N Hypertension N Speech Delay N Kidney Disease N Gynecological HistoryNo gynecological history recorded. Obstetrics History GPAL:G 0 P 0 0 0 0 Past Encounters Encounter ID Performer Location Encounter Start Date Encounter Closed Date Diagnosis/Indication Diagnosis SNOMED-CT Code Diagnosis ICD10 Code Diagnosis Note [id number] ANASTACIO PETERS PA-C [facility] [address] [address] 09/16/2024 14:27:44 09/16/2024 15:13:56 Impacted cerumen of bilateral ears 0026854385 297964 H61.23 Posterior rhinorrhea 758 13903 R09.82 Health Concerns Section Related Observation LastModified by Organization Detai ls LastModified Time None Recorded Concern Status LastModified by Organization Details LastModified Time None Recorded Advance Directives Directive None Recorded Payers Insurance Date Sequence Insurance Name Policy Number Policy Larson Covered Member ID Larson Member ID Guarantor Name 10/08/2024 2 [place] [id number] Alyse Razo [id number] Alyse Razo 10/08/2024 1 [place] [employer] Alyse Razo [id number] Alyse Dung Notes Date Note Type Note Provider Name and Address Organization Details Recorded Time 09/16/2024 text/html 74 year old agnel ruvalcaba presents for evaluation of the ears. Wears hearing aids, serviced at [facility] [facility]. They are about 2 years old. She [...] nasal congestion. Currently asymptomatic. ANASTACIO PETERS PA-C [address] [facility],[address] [address], [place], [address], [place] [facility] 09/16/2024 15:16:36 OBGyn Episode No OBEpisode recorded.
--- OUTSIDE RECORDS SUMMARY | 2024-10-21 15:12 | XMS_ITS | Patient Health Record ---
Author Organization [facility] Address [address] [place] [address] Care Team Providers Care Rn Discharge Name Role Phone Bhanu Ramachandran MD Primary Care Provider Unavaila ble Black, Candy Unavailable [phone] Allergies Allergen (clinical drug ingredient) Drug/Non Drug [...] Status Risk Notes Problem Pain in limb (68256634) Pain in Limb (729.5) Active confirmed Problem Acquired hallux valgus (17747802) Hallux valgus (acquired), left foot (M20.12) Active confirmed Problem Localized, primary osteoarthritis of the ankle and/or foot (900634181) Primary osteoarthritis, left ankle and foot (M19.072) Active confirmed Problem Acquired hammer toe of right foot (1949105883634130 ) Other hammer toe(s) (acquired), right foot (M20.41) Active confirmed Problem Acquired hammer toe of left foot (6308698636138283 ) Other hammer toe(s) (acquired), left foot (M20.42) Active confirmed Problem 471826514 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) Active confirmed Problem Osteoarthritis o f right ankle and foot (M19.071) Active confirmed Problem 126174259 Midfoot collapse of left lower extremity (M21.6X2) Active confirmed Problem Plantar fasciitis of right foot (8990305414987018 1) Plantar fasciitis of right foot (M72.2) Active confirmed Problem Interstitial myositis (08689317) 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 confirmed Problem 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) (8679245193828729 ) 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 confirmed Vital Signs Height 5 ft 2 in in 04/09/2024 Weight 220 lbs 04/09/2024 BMI 40.23 kg/m2 04/09/2024 Encounters Encounter Location Date Provider Diagnosis [facility] [address] 04/09/2024 Candy Black Pain in right foot [...] Osteoarthritis of right ankle and foot M19.071 [facility] [address] [address] 03/18/2024 Candy Black Assessments Encounter Date Diagnosis [...] Start Date Coverage End Date Medicare [facility] [address] [place] [phone] [id number] Alyse Razo Self - patient is the insured [employer] Shield [address] [place] [address] [phone] [id number] Alyse Razo Self - patient is [...] myectomy 2016 Hospitalization History Reason Date(Month/Year) [facility]- sleep apnea 01/30/2021
--- OUTSIDE RECORDS SUMMARY | 2024-10-21 15:12 | XMS_ITS ---
Author Organization [facility] Address [address] [place] [address] Care Team Providers Care Data Management Manager Name Role Phone Bhanu Ramachandran MD Primary Care Provider Avila Ernst [phone] REASON FOR VISIT labs Encounters Encounter Location Date Provider Diagnosis [facility] [address] [place] [address] 08/17/2024 Avila Stevenson Plan Of Treatment Next Appt Details Provider Name:Avila Stevenson , 02/10/2025 01:20:00 PM, [address], [address], [place], [address], Progress Notes * SARAI SYKES ADOB: (74 yo F)Acc No.[id number]:08/17/2024 Patient:?SARAI SYKES :1950???Age:74 Y???Sex:Female Address:[address] [place] [address] * true * Date:? Generated for Printi ng/Fajimg/eTransmitting on:?10/21/2024 03:12 PM EDT
--- OUTSIDE RECORDS SUMMARY | 2024-10-21 15:12 | XMS_ITS ---
Author Organization [facility] Address [address] [place] [address] Care Team Providers Care Family Protection Specialist Name Role Phone Bhanu Ramachandran MD Primary Care Provider Unavaila ble Black, Candy Unavailable [phone] Allergies Allergen (clinical drug ingredient) Drug/Non Drug [...] 07/09/2024 Encounters Encounter Location Date Provider Diagnosis [facility] [address] [place] [address] 07/09/2024 Candy Suggs Plan Of Treatment No Information Progress Notes * Alyse SYKESDOB:[birth year] (74 yo F)Acc No.[id number]:07/09/2024 Progress Notes Patient:?Alyse SYKES Provider:?Candy Suggs DPM :1950???Age:74 Y???Sex:Female D ate:07/09/2024 Address:[address] [place], [place] [id number] Pcp:Bhanu Ramachandran MD Subjective: * Chief Complaints: [...] septal myectomy 2015. * Hospitalization/Major Diagno stic Procedure:?[facility]- sleep apnea 01/30/2021. * Family History:?Mother: dece [...] Suggs DPM Date:?2024 Generated for Mark joe/Rogelio/Briseyda on:?10/21/2024 03:12 PM EDT
--- OUTSIDE RECORDS SUMMARY | 2024-10-21 15:12 | XMS_ITS ---
Author Organization [facility] Address [address] [place] [address] Care Team Providers Care Goggles Assembler Name Role Phone Bhanu Ramachandran MD Primary Care Provider Avila Ernst [phone] Encounters Encounter Location Date Provider Diagnosis [facility] [address] [place] [address] 08/20/2024 Avila Stevenson Plan Of Treatment Next Appt Details Provider Name:Avila Stevenson , 02/10/2025 01:20:00 PM, [address], [address], [place], [address], Progress Notes * SARAI SYKES ADOB: (74 yo F)Acc No.[id number]:08/20/2024 Patient:?SARAI SYKES :1950???Age:74 Y???Sex:Female Address:[address] [place] [address] * true * Date:? Generated for Printi ng/Fajimg/eTransmitting on:?10/21/2024 03:12 PM EDT
--- OUTSIDE RECORDS SUMMARY | 2024-10-21 15:12 | XMS_ITS ---
Author Organization [facility] Address [address] [place] [address] Care Team Providers Care Docketing Specialist Name Role Phone Bhanu Ramachandran MD Primary Care Provider Unavaila ble Black, Candy Unavailable [phone] REASON FOR VISIT HEEL REDUCER PPWK Entered Encounters Encounter Location Date Provider Diagnosis [facility] [address] [place] [address] 03/18/2024 Candy Black Plan Of Treatment No Information Progress Notes * Alyse SYKESDOB:[birth year] (73 yo F)Acc No.[id number]:03/18/2024 Patient:?Alyse Sykes :1950???Age:73 Y???Sex:Female Address:[address] [place] [address] * true * Date:? Generated for Printi heath/Rogelio/eTransmitting on:?10/21/2024 03:11 PM EDT
--- OUTSIDE RECORDS SUMMARY | 2024-10-21 15:12 | XMS_ITS ---
Author Organization [facility] Address [address] [place] [address] Care Team Providers Care Lpn Instructor Name Role Phone Bhanu Ramachandran MD Primary Care Provider Unavaila ble Black, Candy Unavailable [phone] Allergies Allergen (clinical drug ingredient) Drug/Non Drug [...] 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) (249368561220144 2) 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 confirmed Problem Plantar fasciitis of right foot (734538891018340 01) Plantar fasciitis of right foot (M72.2) Active confirmed Problem Interstitial myositis (53052876) 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 confirmed Problem Osteoarthritis o f right ankle and foot (M19.071) Active confirmed Vital Signs Height 5 ft 2 in in 04/09/2024 Weight 220 lbs 04/09/2024 BMI 40.23 kg/m2 04/09/2024 Encounters Encounter Location Date Provider Diagnosis [facility] [address] [address] 04/09/2024 Candy Black Pain in right foot [...] Notes * Alyse SYKESDOB:[birth year] (73 yo F)Acc No.[id number]:04/09/2024 Progress Notes Patient:?Alyse Sykes Provider:?Candy Suggs DPM :1950???Age:73 Y???Sex:Female D ate:04/09/2024 Address:[address] [place], [place] [address] Pcp:Bhnau Ramachandran MD Subjective: * Chief Complaints: * [...] 1979/1982septal myectomy 2016 * Hospitalization/Major Diagno stic Procedure:?[facility]- sleep apnea 01/30/2021 * Family History:?Mother: dece [...] with: RICE THERAPY.pdf (RICE THERAPY.pdf)?? * Procedure Codes:?56762 X-RAY EXAM OF RIGHT FOOT 3V, Modifiers: 26 , BBV9214 AFO RICK TRIPP PREFAB W FIT ADJ [...] Interfil injection therapy, as well as surgical [place]/Endoscopic Fasciitomy surgical procedures if needed. Recommendations were [...] * Provider:?Candy Suggs DPM Date:?2023 Generated for Printrenu ng/Fajimg/eTransmitting on:?10/21/2024 03:11 PM EDT History and Physical Notes * [...]
--- OUTSIDE RECORDS SUMMARY | 2024-10-21 15:12 | XMS_ITS ---
Author Organization [facility] Address [address] [place] [address] Care Team Providers Care Key Carrier Name Role Phone Bhanu Ramachandran MD Primary Care Provider Avila Ernst [phone] REASON FOR VISIT elevated liver enzymes Encounters Encounter Location Date Provider Diagnosis [facility] [address] [place] [address] 08/19/2024 Avila Stevenson Plan Of Treatment Next Appt Details Provider Name:Avila Stevenson , 02/10/2025 01:20:00 PM, [address], [address], [place], [address], Progress Notes * SARAI SYKES ADOB: (74 yo F)Acc No.[id number]:08/19/2024 Patient:?SARAI SYKES :1950???Age:74 Y???Sex:Female Address:[address] [place] [address] * true * Date:? Generated for Printi ng/Fajimg/eTransmitting on:?10/21/2024 03:12 PM EDT
[2024-10-21 17:49] LABS: Alanine Aminotransferase 37 U/L (0-31); Albumin Level 3.9 g/dL (3.5-5.0); Alkaline Phosphatase 68 U/L (39-117); Aspartate Amino Transferase 36 U/L (5-31); Bilirubin Direct 0.1 mg/dL (0.0-0.5); Bilirubin Total 0.3 mg/dL (0.0-1.0); Total Protein 6.8 g/dL (6.5-8.0)
== END 2024-10-21 15:08 | disposition home or self-care (01) ==
LOC: HO.LABR 15:07
PROVIDERS: PCP Internal Medicine; Visit Provider Internal Medicine
DX: K75.4 Autoimmune hepatitis (principal)
CPT/HCPCS: 36415; 80076

== ENCOUNTER 2024-11-10 11:19 | Outpatient (RCR) | payer MEDICARE, SELFPAY ==
--- NOTE | 2024-10-07 08:33 | MHC.PT.EP ---
[facility] [place] [facility] [place] [facility] [place] [facility] [address] Black [place] [address] [phone] F: [phone] F: [phone] F: [phone] F: [phone] Physical Therapy Plan of Care Date of Evaluation: 10/06/24 Date of Surgery: NA Diagnosis: L SHOULDER PAIN Assessment: Pt IS 74 YO F REFERRED TO PT FROM [facility]EN[facility] ZAMAN WITH L SHLDER PAIN. PRESENTS TO PT WITH SXS OF IMPINGEMENT WITH LIMITED ROM AND STRENGTH WITH PAIN AND LIMITED ADLS (ESPECIALLY TROUBLE SLEEPING ON THAT SIDE). GOOD CANDIDATE FOR PT TO ADDRESS THESE ISSUES Frequency and Duration: The patient will be seen 2X/WK X 6 WKS Short Term Goals: 1. INCREASED POSTURE AWARENESS AND AWARENESS SHLDER CARE 2. LESS FREQ/INTENSE L UE PARESTHESIA 3. IMPROVED SLEEP (ALIYA ON L SIDE) Accounting Representative Goals: 1. I HEP WITH DC EX PLAN 2. INCREASED L SHLDER ROM 10-20 DEGREES T/O 3. DECREASED L SHLDER PAIN AT LEAST 50% WITH ADLS Treatment Plan: Modalities to reduce pain, spasms and effusion. Manual therapy to restore motion and function. Therapeutic exercise to improve strength and flexibility. Neuromuscular re-education for posture and balance. Therapeutic activities to return to functional activities of daily living. Electronically signed by: MYRA EDWARDS PT Please sign and return to therapist. Thank you for your referral.
--- NOTE | 2024-11-18 16:15 | MHC.PT.DC ---
[facility] [place] [facility] [place] [facility] [place] [facility] [address] Black [place] [address] [phone] F: [phone] F: [phone] F: [phone] F: [phone] Physical Therapy Discharge Report Diagnosis: L SHOULDER PAIN Date of Surgery: NA Date of Evaluation: 10/06/24 Date of Discharge: 11/18/24 Treatments to Date: 6 Cancellations to Date: No Shows to Date: Discharge Status: Achieved Goals Improved Function Independent with HEP Patient Elected to Stop Discharge Summary: PER ASSESSMENT FROM LAST NOTE ON 11/18/24 BY Jie SOMMER DPT The patient reported her shoulder is perfect. She is not having any shoulder or radiating arm pain. Shoulder AROM is WNL and painfree. No limitations in her daily routine. SPADI as of today 2/130. D/C to HEP at this time. Electronically signed by: MYRA EDWARDS PT Please sign and return to therapist. Thank you for your referral.
== END 2024-11-18 16:16 | disposition home or self-care (01) ==
LOC: HO.PT 11:19
PROVIDERS: PCP Internal Medicine; Visit Provider Internal Medicine
DX: M25.512 Pain in left shoulder (principal)
CPT/HCPCS: 97110; 97140; 97161; 97535

== ENCOUNTER 2024-12-21 15:35 | Outpatient (REF) | payer MEDICARE, SELFPAY ==
--- OUTSIDE RECORDS SUMMARY | 2024-12-21 16:46 | XMS_ITS | Data Portability ---
Author Organization [place] [facility] Address [address] [place] [address] Care Team Providers Care Host/Hostess Restaurant Name Role Phone VETO ALICEA Primary Care Provider [phone] Assessment Encounter Date Assessment Date Assessment LastModified [...] symptoms. Patient was provided a [employer] baked and graphite inspector and we discussed instructions for use in [...] Recorded Time Impacted cerumen of bilateral ears 8337817373869 108 Active 2024 ANASTACIO PETERS PA-C [address] [place] [address], [address], [place] [facility] 15:04:06 Posterior rhinorrhea 40916753 Active 2024 ANASTACIO PETERS PA-C [address] [facility] [address], [place], [address], [facility] - [facility] 15:15:48 Problem Notes None recorded. Procedures Surgical History Date Name Laterality Status Provider Name and Address Organization Details Recorded Time 09/17/19 25 Cerumen removal without microscope bilat completed ANASTACIO PETERS [facility] [address] [facility], [place], [address], [facility] - [facility] 09/16/2024 15:03:55 Cholecystectomy completed Senia Lanza [place] [facility] 09/16/2024 14:50:57 septal myectomy completed Senia Lanza [place] [facility] 09/16/2024 14:51:08 section completed Senia Lanza [facility] 09/16/2024 14:52:02 Imaging Results None recorded. Procedure Notes None recorded. Medical Equipment None Reported. Allergies Allergen ID Allergen Name Allergen Category Reaction Reaction Severity Criticality Documentation Date Start Date Code Code System Note Provider Name and Address Organization Details Recorded Time 566160 Product containin g penicilli n (product) medicatio n rash Not available low 09/16/2024 33721 8001 SNOMED Senia riggs [facility] 14:48:40 Medications Name Sig Start Date Stop [...] Updated DateTime 09/16/2024 160.02 cm 39.9 kg/m2 984025.28 g Senia Lanza [place] [facility] 09/16/2024 14:48:13 Social History None recorded. Functional Status Question Answer Note LastModified by Organization D etails LastModified Time What is your level of alcohol consumption? None [email or web address] Information not available 09/16/2024 Mental Status None recorded. Family History Nothing Reported. Medical History Condition Response Tonsil Infections N Emphysema N Glaucoma N Depression Y COPD N Nasal or Sinus Problems N Anesthesia Complications N Arthritis Y Hearing Loss N Cancer N Stroke N High Cholesterol N Liver Disease Y Headaches N Fibromyalgia N Speech Delay N Kidney Disease N Allergies/Hayfever N Heart Problems Y Anxiety Y Migraines N Thyroid Problems Y Developmental Delay N Anemia N Immune System Disorder N Heart Attack ([place]) N Other Skin Condition N Diabetes N Rhinitis N Bleeding Disorder N Food Allergy N Hyperlipidemia N Dementia N Nasal polyps N Asthma N Sleep Disorder N GERD/Reflux N Hypertension N Gynecological HistoryNo gynecological history recorded. Obstetrics History GPAL:G 0 P 0 0 0 0 Past Encounters Encounter ID Performer Location Encounter Start Date Encounter Closed Date Diagnosis/Indication Diagnosis SNOMED-CT Code Diagnosis ICD10 Code Diagnosis Note [id number] ANASTACIO PETERS PA-C [facility] [address] [address] 09/16/2024 14:27:44 09/16/2024 15:13:56 Impacted cerumen of bilateral ears 1871195651 754388 H61.23 Posterior rhinorrhea 758 87573 R09.82 Health Concerns Section Related Observation LastModified by Organization Detai ls LastModified Time None Recorded Concern Status LastModified by Organization Details LastModified Time None Recorded Advance Directives Directive None Recorded Payers Insurance Date Sequence Insurance Name Policy Number Policy Larson Covered Member ID Larson Member ID Guarantor Name 10/08/2024 2 [place] [id number] Alyse Razo [id number] Alyse Razo 10/08/2024 1 [place] [employer] Alyse Razo [id number] Alyse Dung Notes Date Note Type Note Provider Name and Address Organization Details Recorded Time 09/16/2024 text/html 74 year old angel ruvalcaba presents for evaluation of the ears. Wears hearing aids, serviced at [facility]. They are about 2 years old. She [...] congestion. Currently asymptomatic. ANASTACIO PETERS PA-C [address] [address], [place], [address], [place] [facility] 09/16/2024 15:16:36 OBGyn Episode No OBEpisode recorded.
--- OUTSIDE RECORDS SUMMARY | 2024-12-21 16:46 | XMS_ITS | Patient Health Record ---
Author Organization [facility] Address [address] [place] [address] Care Team Providers Care Body Shop Supervisor Name Role Phone Madie (RETIRED) Bhanu KEYS Primary Care Provide Avila Domingo [phone] Allergies Allergen (clinical drug ingredient) Drug/Non Drug Allergy documented on EMR Reaction Allergy Type Onset Date Status Penicillin Unknown Drug Allergy Active Results Component Value Reference Range Notes Liver Panel Reviewed date:02/17/2024 09:09:10 PM Interpretation: Performing Lab:[facility], [address] [place] [address] Notes/Report: Bilirubin Total 0.5 0.0-1.0 mg/dL Bilirubin Direct 0.2 0.0-0.5 mg/dL Aspartate Amino Transferase 21 5-31 U/L Alanine Aminotransferase 15 0-31 U/L Total Protein 6.7 6.5-8.0 g/dL Albumin Level 3.9 3.5-5.0 g/dL Alkaline Phosphatase 74 39-117 U/L Liver Panel Reviewed date:05/31/2024 01:16:02 PM Interpretation: Performing Lab:[facility], [address] [place] [address] Notes/Report: Bilirubin Total 0.5 0.0-1.0 mg/dL Bilirubin Direct 0.2 0.0-0.5 mg/dL Aspartate Amino Transferase 32 5-31 U/L Alanine Aminotransferase 17 0-31 U/L Total Protein 7.2 6.5-8.0 g/dL Albumin Level 4.2 3.5-5.0 g/dL Alkaline Phosphatase 82 39-117 U/L Liver Panel Reviewed date:06/24/2024 11:36:16 PM Interpretation: Performing Lab:[facility], [address] [place] [address] Notes/Report: Bilirubin Total 0.4 0.0-1.0 mg/dL Bilirubin Direct 0.1 0.0-0.5 mg/dL Aspartate Amino Transferase 33 5-31 U/L Alanine Aminotransferase 24 0-31 U/L Total Protein 6.7 6.5-8.0 g/dL Albumin Level 3.9 3.5-5.0 g/dL Alkaline Phosphatase 85 39-117 U/L Liver Panel Reviewed date:08/16/2024 12:52:18 PM Interpretation: Performing Lab:[facility], [address] [place] [phone] Notes/Report: Bilirubin Total 0.4 0.0-1.0 mg/dL Bilirubin Direct 0.2 0.0-0.5 mg/dL Aspartate Amino Transferase 41 5-31 U/L Alanine Aminotransferase 36 0-31 U/L Total Protein 7.0 6.5-8.0 g/dL Albumin Level 3.8 3.5-5.0 g/dL Alkaline Phosphatase 86 39-117 U/L Liver Panel Reviewed date:10/25/2024 11:41:56 PM Interpretation: Performing Lab:[facility], [address] [place] [address] Notes/Report: Bilirubin Total 0.3 0.0-1.0 mg/dL Bilirubin Direct 0.1 0.0-0.5 mg/dL Aspartate Amino Transferase 36 5-31 U/L Alanine Aminotransferase 37 0-31 U/L Total Protein 6.8 6.5-8.0 g/dL Albumin Level 3.9 3.5-5.0 g/dL Alkaline Phosphatase 68 39-117 U/L Reason For Referral No Information [...] Problem Status W/U Status Risk Notes Problem 55065504 Epigastric pain (R10.13) Active confirmed Problem 487378072 Encounter for screening for malignant neoplasm of colon (Z12.11) Active confirmed Problem 342222707 History of adenomatous polyp of colon (Z86.010) Active confirmed Problem 660752376 Esophageal obstruction (K22.2) Active confirmed Problem 847024167 Autoimmune hepatitis (K75.4) Active confirmed Problem 928431913 Elevated liver function tests (R79.89) Active confirmed Problem 720653231 Gastroesophageal reflux disease without esophagitis (K21.9) Active confirmed Problem 193639710 Gastroesophageal reflux disease, esophagitis presence not specified (K21.9) Active confirmed Problem 89634167 Hiatal hernia (K44.9) Active confirmed Problem Esophageal ring (08385741) Esophageal ring (K22.2) Active confirmed Problem Gastroesophageal reflux disease (778362722) GERD (gastroesophageal reflux disease) (K21.9) Active confirmed Problem Esophageal dysphagia (03651886) Esophageal dysphagia (R13.14) Active confirmed Problem 86141272 Esophageal dysphagia (R13.10) Active confirmed Problem 791361070 Hx of adenomatou s polyp of colon (Z86.010) Active confirmed Vital Signs Blood pressure diastolic 00 mm Hg 05/12/2024 Height 62.5 in 05/12/2024 Blood pressure systolic 00 mm Hg 05/12/2024 Weight 212 lbs 05/12/2024 BMI 38.15 kg/m2 05/12/2024 Encounters Encounter Location Date Provider Diagnosis [facility] [address] [place] [address] 12/25/2023 Avila Stevenson Autoimmune hepatitis K75.4 ; History of adenomatous polyp of colon Z86.010 ; Esophageal dysphagia R13.10 ; Encounter for screening for malignant neoplasm of colon Z12.11 ; Gastroesophageal reflux disease, esophagitis presence not specified K21.9 and Hiatal hernia K44.9 [facility] [address] [place] [address] 05/12/2024 Avila Stevenson Autoimmune hepatitis K75.4 ; History of adenomatous polyp of colon Z86.010 ; Esophageal dysphagia R13.10 ; Encounter for screening for malignant neoplasm of colon Z12.11 ; Gastroesophageal reflux disease, esophagitis presence not specified K21.9 and Hiatal hernia K44.9 [facility] [address] [place] [address] 2024 Avila Stevenson Autoimmune hepatitis K75.4 [facility] [address] [place] [address] 07/17/2024 Avila Stevenson [facility] [address] [place] [address] 08/17/2024 Avila Stevenson [facility] [address] [place] [address] 08/19/2024 Avila Stevenson [facility] [address] [place] [address] 08/20/2024 Avila Stevenson Assessments Encounter Date Diagnosis [...] questions I can be of assistance with. lAyse was comfortable with this plan. Thank you [...] Provider Name:Avila Stevenson , 02/10/2025 01:20:00 PM, [address] [place] [address], [address], [place], [address], Insurance Providers Payer Name Payer Address Payer Phone Subscriber Number Group Number Insured Name Patient Relationship to Insured Coverage Start Date Coverage End Date MEDICARE OF MD [address] [place] [address] [id number] ALYSE SYKES Self - patient is the insured MED[employer] ATTN CLAIMS [address] [place] [address] [id number] ALYSE SYKES Self - patient is the insured Medical (General) History Medical History History ICD Code Denies RI,DM,CVA,Lung disease,renal dise ase Depression 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 Henderson--done for the evaluation of anemia she reports that she is on m etoprolol in relation to a heart murmur--Idiopathic hypertrophic subaortic stenosis--may have surgery in [place]--had a cardiac cath with Dr. Vital in 11/2016--going to [facility] for possible surgery--had it done 04/2017 as [...] left 2017 Septal myectomy-open heart surgery--[facility] 04/10/2017 Sleep Apnea, needs CPAP machine
--- OUTSIDE RECORDS SUMMARY | 2024-12-21 16:47 | XMS_ITS | Patient Health Record ---
Author Organization [facility] Address [address] [place] [address] Care Team Providers Care Blade Grinder Name Role Phone Bhanu Ramachandran MD Primary Care Provider Unavaila ble Black, Candy Unavailable [phone] Allergies Allergen (clinical drug ingredient) Drug/Non Drug [...] ASO Ankle/Foot Stablizing AFO As directed Wear Daily; Duration: as needed 04/09/2024 Active Omeprazole 20 MG [...] day; Duration: 30 day(s) Active Levothyroxine Sodium Active Latanoprost [...] Status Risk Notes Problem Pain in limb (98627155) Pain in Limb (729.5) Active confirmed Problem Acquired hallux valgus (50904221) Hallux valgus (acquired), left foot (M20.12) Active confirmed Problem Localized, primary osteoarthritis of the ankle and/or foot (441956980) Primary osteoarthritis, left ankle and foot (M19.072) Active confirmed Problem Acquired hammer toe of right foot (6865315004832139 ) Other hammer toe(s) (acquired), right foot (M20.41) Active confirmed Problem Acquired hammer toe of left foot (3957346463619176 ) Other hammer toe(s) (acquired), left foot (M20.42) Active confirmed Problem 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) Active confirmed Problem Localized, primary osteoarthritis of the ankle and/or foot (188959989) Osteoarthritis of right ankle and foot (M19.071) Active confirmed Problem Midfoot collapse of left lower extremity (M21.6X2) Active confirmed Problem Plantar fasciitis of right foot (7780146218689301 1) Plantar fasciitis of right foot (M72.2) Active confirmed Problem Interstitial myositis (00401093) 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..] Start Date Coverage End Date Medicare National [facility] [address] [place] [phone] [id number] Alyse Razo Self - patient is the insured [employer] [address] [place] [address] [phone] [id number] Alyse Razo Self - patient is [...]
[2024-12-21 17:24] LABS: Alanine Aminotransferase 35 U/L (0-31); Albumin Level 4.1 g/dL (3.5-5.0); Alkaline Phosphatase 65 U/L (39-117); Aspartate Amino Transferase 38 U/L (5-31); Total Protein 6.7 g/dL (6.5-8.0)
== END 2024-12-21 15:36 | disposition home or self-care (01) ==
LOC: HO.LAB 15:35
PROVIDERS: PCP Internal Medicine; Visit Provider Internal Medicine
DX: K75.4 Autoimmune hepatitis (principal)
CPT/HCPCS: 36415; 80076

== ENCOUNTER 2025-01-01 11:14 | Outpatient (AMB) | payer MEDICARE, SELFPAY ==
--- NOTE | 2025-01-01 11:15 | A.OFFPC_ITS ---
Vital Signs 01/01/25 11:18 01/01/25 11:20 Height 5 ft 3 in Weight 223 lb BP 114/52 L Blood Pressure Location Lt brachial Position Sitting Respiration 16 Pulse 49 L Pulse Source Pulse Oximeter Temp 97.2 F Temp Source Temporal Artery Scan Pulse Oximetry (%) 99 Oxygen Delivery Method Room Air Intake Visit Reasons: Routine - see comments Substance Abuse Services Director Required: No Accompanied by: Self / Same As Patient Allergies Penicillins (PENICILLINS) Allergy (Intermediate, Verified 01/01/25 11:15) RASH Tobacco use date assessed: 09/04/24 Dental Screening Dental Screen Date: 09/04/24 HPI HPI Comments History of Present Illness Details 74 year old female with a past medical h istory of HOCM, depression, hypothyroid, ALIRIO, autoimmune hepatitis, hiatal hernia, OA s/p b/l knee replacements presenting to [facility]. Last visit with pcp in Jun CV: on entresto, coreg.follows with cardiology. Seen Apr 2024. Cardiology recommended GLP-mounjaro was denied. Also with ALIRIO, htn good candidate. Has tried weight loss with diet and exercise and been unsuccessful She is fatigued, unmotivated and heart rate is low on current dose of coreg which will be decreased today Hypothyroid: on levothyroxine. Last TSH wnl ALIRIO on cpap Depression-on lexapro 15mg daily. Sees Jolanta Rojo. Feels increasingly fatigue. She is napping, unmotivated. She does not know if this is medical or uncontrolled depression. Mammo 05/2024 colonoscopy-Dr Graham SHARMA see HPI PHYSICAL EXAM: GENERAL: Alert and oriented x 3. NAD EYES: EOMI. Anicteric. HENT: Moist mucous membranes. No scleral icterus. No cervical lymphadenopathy. LUNGS: Clear to auscultation bilaterally. CARDIOVASCULAR: bradycardic No murmur. No JVD. ABDOMEN: Soft, non-tender +bs EXTREMITIES: No edema. Non-tender. SKIN: No rashes or lesions. Warm. NEUROLOGIC: No focal neurological deficits. CN II-XII grossly intact PSYCHIATRIC: Cooperative. Appropriate mood and affect [facility] Medical History Congestive heart failure with left ventricular diastolic dysfunction, NYHA class 2 Obesity (BMI 30-39.9) History of hypertrophic cardiomyopathy Morbid obesity due to excess calories Morbid obesity History of left bundle branch block (LBBB) Thyroid disease Arthritis GERD (gastroesophageal reflux disease) Depression History of fatty infiltration of liver LBBB (left bundle branch block) Surgical History H/O colonoscopy (~04/15/20) Hx of cataract surgery History of esophagogastroduodenoscopy (EGD) Status post ventricular septal myectomy Hx of section Hx of tubal ligation S/P cholecystectomy S/P total knee arthroplasty Family History Father Obesity Mother COPD (chronic obstructive pulmonary disease) Brother No problems noted. Son No problems noted. Daughter No problems noted. Social History Housing: House Alcohol intake: never Patient Tobacco Use Status: Former Tobacco user Years Smoked: 5 years e-Cigarette/Vaping Use: Never Used service: No Current occupational status: retired Cognitive needs: No Hearing needs: Yes (b/l hearing aids) Vision needs: Yes (reading glasses) Questionnaire Thrive Questionnaire Date Thrive assessed: 09/04/24 AUDIT C Alcohol Use Questionnaire (AUDIT-C) 1. How often do you have a drink containing alcohol?: Never Total Score: 0 VIOLETTE-7 AMB Questionnaire VIOLETTE-7 Date VIOLETTE - 7 assessed: 09/04/24 Source: Developed by Drs. Avila Estrada, Annette Wolfe, German Fournier and colleagues, with an educational clemente from [employer]. Physical exam (Primary Care) Vital Signs: Last Vital Signs Temp 97.2 F 01/01/25 11:20 Pulse 49 L 01/01/25 11:20 Resp 16 01/01/25 11:20 BP 114/52 L 01/01/25 11:20 Pulse Ox 99 01/01/25 11:20 Oxygen Delivery Method Room Air 01/01/25 11:20 Tobacco/Smoking Status: Tobacco use Status Tobacco use date assessed 09/04/24 01/01/25 11:16 Patient Tobacco Use Status Former Tobacco user 01/01/25 11:16 e-Cigarette/Vaping Use Never Used 01/01/25 11:16 Thrive Assessment: Date of Thrive Assessment Date Thrive assessed 09/04/24 01/01/25 11:16 Coding Level of Care Code Est Pt Level 4 (78692) Complex EM visit Add On G2211 Diagnoses Fatigue, unspecified type R53.83 Fatigue type: unspecified Thyroid disease E07.9 Body mass index (BMI) of 40.0 to 44.9 in adult Z68.41 Cardiomyopathy, unspecified type I42.9 Cardiomyopathy type: unspecified Assessment & Plan Assessment & Plan (1) Fatigue: Code(s): R53.83 - Other fatigue Category: Medical Qualifiers: Fatigue type: unspecified Qualified Code(s): R53.83 - Other fatigue (2) Thyroid disease: Comment: hypothyroid Code(s): E07.9 - Disorder of thyroid, unspecified Category: Medical (3) Body mass index (BMI) of 40.0 to 44.9 in adult: Code(s): Z68.41 - Body mass index [BMI] 40.0-44.9, adult Category: Medical (4) Cardiomyopathy: Code(s): I42.9 - Cardiomyopathy, unspecified Category: Medical Qualifiers: Cardiomyopathy type: unspecified Qualified Code(s): I42.9 - Cardiomyopathy, unspecified Plan Fatigue-likely multifactorial. HR is low. Decrease coreg to 1/2 tab twice daily Labs ordered. referral to psych placed. referral to GI for colonoscopy Hypothyroid-On lexapro 15mg daily Obesity, sleep apnea, zepbound ordered Orders: Orders TSH reflex Free T4 Today E07.9 - Disorder of thyroid, unspecified, R53.83 - Other fatigue Vitamin B12 and Folate Today E07.9 - Disorder of thyroid, unspecified, R53.83 - Other fatigue UA CC w/rflx Micro + Cult Today E07.9 - Disorder of thyroid, unspecified, R53.83 - Other fatigue IRON PROFILE Today R53.83 - Other fatigue Complete Blood Count Auto Diff Today R53.83 - Other fatigue Referrals Psychiatry Referral F32.9 - Major depressive disorder, single episode, unspecified, R53.83 - Other fatigue Gastroenterology Referral Z12.11 - Encounter for screening for malignant neoplasm of colon Medications: New Zepbound (tirzepatide (weight loss)) for 4 weeks 2.5 mg (0.5 mL) subcut QWEEK 2 mL 3RF NS E66.01 - Morbid (severe) obesity due to excess calories, G47.33 - Obstructive sleep apnea (adult) (pediatric) Changed From carvedilol 3.125 mg PO BID 180 tabs 3RF To carvedilol 1/2 tab oral twice daily 90 tabs 3RF
[2025-01-01 11:20] VITALS: BP 114/52; PULSE 49; RESP 16; TEMP 36.2; O2SAT 99
--- OUTSIDE RECORDS SUMMARY | 2025-01-01 11:20 | XMS_ITS | Patient Health Record ---
Author Organization [facility] Address [address] [place] [address] Care Team Providers Care Hand Bindery Assembly Worker Name Role Phone Madie (RETIRED) Bhanu KEYS Primary Care Provide Avila Domingo [phone] Allergies Allergen (clinical drug ingredient) Drug/Non Drug Allergy documented on EMR Reaction Allergy Type Onset Date Status Penicillin Unknown Drug Allergy Active Results Component Value Reference Range Notes Liver Panel Reviewed date:02/17/2024 09:09:10 PM Interpretation: Performing Lab:[facility], [address] [place] [phone] Notes/Report: Bilirubin Total 0.5 0.0-1.0 mg/dL Bilirubin Direct 0.2 0.0-0.5 mg/dL Aspartate Amino Transferase 21 5-31 U/L Alanine Aminotransferase 15 0-31 U/L Total Protein 6.7 6.5-8.0 g/dL Albumin Level 3.9 3.5-5.0 g/dL Alkaline Phosphatase 74 39-117 U/L Liver Panel Reviewed date:05/31/2024 01:16:02 PM Interpretation: Performing Lab:[facility], [address] [place] [phone] Notes/Report: Bilirubin Total 0.5 0.0-1.0 mg/dL Bilirubin Direct 0.2 0.0-0.5 mg/dL Aspartate Amino Transferase 32 5-31 U/L Alanine Aminotransferase 17 0-31 U/L Total Protein 7.2 6.5-8.0 g/dL Albumin Level 4.2 3.5-5.0 g/dL Alkaline Phosphatase 82 39-117 U/L Liver Panel Reviewed date:06/24/2024 11:36:16 PM Interpretation: Performing Lab:[facility], [address] [place] [phone] Notes/Report: Bilirubin Total 0.4 0.0-1.0 mg/dL Bilirubin Direct 0.1 0.0-0.5 mg/dL Aspartate Amino Transferase 33 5-31 U/L Alanine Aminotransferase 24 0-31 U/L Total Protein 6.7 6.5-8.0 g/dL Albumin Level 3.9 3.5-5.0 g/dL Alkaline Phosphatase 85 39-117 U/L Liver Panel Reviewed date:08/16/2024 12:52:18 PM Interpretation: Performing Lab:[facility], [address] [place] [phone] Notes/Report: Bilirubin Total 0.4 0.0-1.0 mg/dL Bilirubin Direct 0.2 0.0-0.5 mg/dL Aspartate Amino Transferase 41 5-31 U/L Alanine Aminotransferase 36 0-31 U/L Total Protein 7.0 6.5-8.0 g/dL Albumin Level 3.8 3.5-5.0 g/dL Alkaline Phosphatase 86 39-117 U/L Liver Panel Reviewed date:10/25/2024 11:41:56 PM Interpretation: Performing Lab:[facility], [address] [place] [phone] Notes/Report: Bilirubin Total 0.3 0.0-1.0 mg/dL Bilirubin Direct 0.1 0.0-0.5 mg/dL Aspartate Amino Transferase 36 5-31 U/L Alanine Aminotransferase 37 0-31 U/L Total Protein 6.8 6.5-8.0 g/dL Albumin Level 3.9 3.5-5.0 g/dL Alkaline Phosphatase 68 39-117 U/L Liver Panel (Not yet reviewe d by provider) Interpretation: Performing Lab:[address] [phone] Notes/Report: Bilirubin Total 0.6 0.0-1.0 mg/dL Bilirubin Direct 0.3 0.0-0.5 mg/dL Aspartate Amino Transferase 38 5-31 U/L Alanine Aminotransferase 35 0-31 U/L Total Protein 6.7 6.5-8.0 g/dL Albumin Level 4.1 3.5-5.0 g/dL Alkaline Phosphatase 65 39-117 U/L Reason For Referral No Information [...] Problem Status W/U Status Risk Notes Problem 51288626 Epigastric pain (R10.13) Active confirmed Problem 743569072 Encounter for screening for malignant neoplasm of colon (Z12.11) Active confirmed Problem 271192684 History of adenomatous polyp of colon (Z86.010) Active confirmed Problem 564436242 Esophageal obstruction (K22.2) Active confirmed Problem 144942589 Autoimmune hepatitis (K75.4) Active confirmed Problem 632183563 Elevated liver function tests (R79.89) Active confirmed Problem 906567395 Gastroesophageal reflux disease without esophagitis (K21.9) Active confirmed Problem 912771172 Gastroesophageal reflux disease, esophagitis presence not specified (K21.9) Active confirmed Problem 96293356 Hiatal hernia (K44.9) Active confirmed Problem Esophageal ring (90611290) Esophageal ring (K22.2) Active confirmed Problem Gastroesophageal reflux disease (378613418) GERD (gastroesophageal reflux disease) (K21.9) Active confirmed Problem Esophageal dysphagia (77215981) Esophageal dysphagia (R13.14) Active confirmed Problem 34373275 Esophageal dysphagia (R13.10) Active confirmed Problem 759953951 Hx of adenomatou s polyp of colon (Z86.010) Active confirmed Vital Signs Blood pressure diastolic 00 mm Hg 05/12/2024 Height 62.5 in 05/12/2024 Blood pressure systolic 00 mm Hg 05/12/2024 Weight 212 lbs 05/12/2024 BMI 38.15 kg/m2 05/12/2024 Encounters Encounter Location Date Provider Diagnosis [facility] [address] [place] [address] 05/12/2024 Avila Stevenson Autoimmune hepatitis K75.4 ; History of adenomatous polyp of colon Z86.010 ; Esophageal dysphagia R13.10 ; Encounter for screening for malignant neoplasm of colon Z12.11 ; Gastroesophageal reflux disease, esophagitis presence not specified K21.9 and Hiatal hernia K44.9 [facility] [address] [place] [address] 2024 Avila Stevenson Autoimmune hepatitis K75.4 [facility] [address] [place] [address] 07/17/2024 Avila Stevenson [facility] [address] [place] [address] 08/17/2024 Avila Stevenson [facility] [address] [place] [address] 08/19/2024 Avila Stevenson [facility] [address] [place] [address] 08/20/2024 Avila Stevenson Assessments Encounter Date Diagnosis (ICD Code) Assessment Notes Treatment Notes Treatment Clinical Notes Section Notes 05/12/2024 History of adenomatous polyp of colon [...] progress. 2024 Autoimmune hepatitis (ICD-10 - K75.4) 05/12/2024 Esophageal dysphagia (ICD-10 - R13.10) Continue [...] 07/06/2020 CHEM 7 PROFILE 12/04/2022 LIVER PROFILE 04/30/2014 LIVER PROFILE 2024 LIVER PROFILE 02/19/2023 LIVER PROFILE 10/14/2014 LIVER PROFILE 12/04/2022 LIVER PROFILE 03/17/2014 LIVER PROFILE 10/30/2020 LIVER PROFILE 07/20/2015 LIVER PROFILE 08/25/2014 LIVER PROFILE 01/06/2023 LIVER PROFILE 12/06/2020 LIVER PROFILE 11/10/2015 LIVER PROFILE 02/26/2014 LIVER PROFILE 05/13/2023 LIVER PROFILE 06/06/2021 CRP 12/04/2022 CBC w DIFF 12/04/2022 SED RATE (ESR) 12/04/2022 XR BARIUM SWALLOW-ESOPHAGUS 06/24/2017 XR BARIUM SWALLOW-ESOPHAGUS 08/22/2022 XR GI SERIES 08/22/2022 FLUOR. ANTINUCLEAR AB SCREEN (PHIL) 11/09 Liver Panel 12/21/2024 Liver Panel 11/20/2023 Smooth Muscle Antibody 12/04/2022 Future Test Test Name Order Date UPPER GI ENDOSCOPY BALLOOON DILATION OF ESOPH 01/15/2020 COLONOSCOPY 01/15/2020 Next Appt Details Provider Name:Avila Stevenson , 02/10/2025 01:20:00 PM, [address] [facility], [address], [place], [address], Insurance Providers Payer Name Payer Address Payer Phone Subscriber Number Group Number Insured Name Patient Relationship to Insured Coverage Start Date Coverage End Date MEDICARE OF [place] [address] [place] [address] [id number] ALYSE SYKES Self - patient is the insured [employer]EX ATTN CLAIMS [address] [place] [phone] [id number] ALYSE SYKES Self - patient is the insured Medical (General) History Medical History History ICD Code Denies [place],DM,CVA,Lung disease,renal dise ase Depression 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 Henderson--done for the evaluation of anemia she reports that she is on m etoprolol in relation to a heart murmur--Idiopathic hypertrophic subaortic stenosis--may have surgery in [place]--had a cardiac cath with Dr. Vital in 11/2016--going to [facility] for [facility] surgery--had it done 04/2017 as [...] left 2017 Septal myectomy-open heart surgery--at [facility] [place] 04/10/2017 Sleep Apnea, needs CPAP machine
--- OUTSIDE RECORDS SUMMARY | 2025-01-01 11:20 | XMS_ITS | Data Portability ---
Author Organization [place] [facility] Address [address] [place] [address] Care Team Providers Care Round Up Ring Hand Name Role Phone VETO ALICEA Primary Care [...] symptoms. 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 Procedures Surgical History Date Name Laterality Status Provider Name and Address Organization Details Recorded Time 09/17/19 25 Cerumen removal without microscope bilat completed ANASTACIO PETERS [facility] [address] [facility], [place], [address], [facility] - [facility] 09/16/2024 15:03:55 Cholecystectomy completed Senia Lanza [place] [facility] 09/16/2024 14:50:57 septal myectomy completed Senia Lanza [place] [facility] 09/16/2024 14:51:08 section completed Senia Lanza [facility] 09/16/2024 14:52:02 Imaging Results None recorded. Procedure Notes None recorded. Medical Equipment None Reported. Allergies Allergen ID Allergen Name Allergen Category Reaction Reaction Severity Criticality Documentation Date Start Date Code Code System Note Provider Name and Address Organization Details Recorded Time 422250 Product containin g penicilli n (product) medicatio n rash Not available low 09/16/2024 22670 8001 SNOMED Senia riggs [facility] 14:48:40 Medications Name Sig Start Date Stop [...] Updated DateTime 09/16/2024 160.02 cm 39.9 kg/m2 695108.28 g Senia Lanza [place] - [facility] 09/16/2024 14:48:13 Social History None recorded. Functional [...] N Immune System Disorder N Heart Attack (SD) N Other Skin Condition N Diabetes N [...] SNOMED-CT Code Diagnosis ICD10 Code Diagnosis Note 25457 ANASTACIO PETERS PA-C [facility] [address] [address] 09/16/2024 14:27:44 09/16/2024 15:13:56 Impacted cerumen of bilateral ears 6744498403 385414 H61.23 Posterior rhinorrhea 758 54184 R09.82 Health Concerns Section Related Observation LastModified by Organization Detai ls LastModified Time None Recorded Concern Status LastModified by Organization Details LastModified Time None Recorded Advance Directives Directive None Recorded Payers Insurance Date Sequence Insurance Name Policy Number Policy Larson Covered Member ID Larson Member ID Guarantor Name 10/08/2024 2 [place] [id number] Alyse Razo [id number] Alyse Razo 10/08/2024 1 [place] [employer] Alyse Razo [id number] Alyse Razo Notes Date Note Type Note Provider Name and Address Organization Details Recorded Time 09/16/2024 text/html ROS as noted in the HPI 74 year old female presents for evaluation of the ears. Wears hearing aids, serviced at [facility]. They are about 2 years old. She [...] congestion. Currently asymptomatic. ANASTACIO PETERS PA-C [address] [facility],[place] [address], [place], [address], [place] [facility] 09/16/2024 15:16:36 OBGyn Episode No OBEpisode recorded.
--- OUTSIDE RECORDS SUMMARY | 2025-01-01 11:21 | XMS_ITS | Patient Health Record ---
Author Organization [facility] Address [address] [place] [address] Care Team Providers Care Technical Sales Engineer Name Role Phone Bhanu Ramachandran MD Primary Care Provider Unavaila ble Black, Candy Unavailable [phone] Allergies Allergen (clinical drug ingredient) Drug/Non Drug [...] Status Risk Notes Problem Pain in limb (73886086) Pain in Limb (729.5) Active confirmed Problem Acquired hallux valgus (24998112) Hallux valgus (acquired), left foot (M20.12) Active confirmed Problem Localized, primary osteoarthritis of the ankle and/or foot (738817604) Primary osteoarthritis, left ankle and foot (M19.072) Active confirmed Problem Acquired hammer toe of right foot (7440465351574725 ) Other hammer toe(s) (acquired), right foot (M20.41) Active confirmed Problem Acquired hammer toe of left foot (7280030042938686 ) Other hammer toe(s) (acquired), left foot (M20.42) Active confirmed Problem 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) Active confirmed Problem Localized, primary osteoarthritis of the ankle and/or foot (201704301) Osteoarthritis of right ankle and foot (M19.071) Active confirmed Problem Midfoot collapse of left lower extremity (M21.6X2) Active confirmed Problem Plantar fasciitis of right foot (6586096680140211 1) Plantar fasciitis of right foot (M72.2) Active confirmed Problem Interstitial myositis (90995594) 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 confirmed Problem 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) (5825638762462406 ) 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 confirmed Vital Signs Height 5 ft 2 in in 04/09/2024 Weight 220 lbs 04/09/2024 BMI 40.23 kg/m2 04/09/2024 Encounters Encounter [facility] Date [facility] [address] [address] 04/09/2024 Candy Black Pain in right foot [...] right ankle and foot M19.071 [facility] [address] [address] 03/18/2024 Candy Black Assessments Encounter Date Diagnosis [...] Start Date Coverage End Date Medicare [employer] [facility] [employer] [address] [place] [phone] [id number] Alyse Razo Self - patient is the insured [employer] Blue Shield [address] [place] [address] [phone] [id number] Alyse Razo Self - patient is [...] septal myectomy 2016 Hospitalization History Reason Date[place]Month/[place] [facility] [place]
--- OUTSIDE RECORDS SUMMARY | 2025-01-01 11:21 | XMS_ITS | Clinical Summary ---
Author Organization [facility] Address [address] [place] [address] Phone Care Team Providers Care Soft Boarder Name Role Phone Bhanu Ramachandran MD Primary Care Provider Medications citalopram (CELEXA) 10 MG tablet Take 1 tablet by mouth daily. Active levothyroxine (SYNTHROID, LEVOTHROID) 112 MCG tablet 1 tablet on an empty stomach in the morning Orally Once a day Active aspirin 81 MG EC tablet Take 1 tablet by mouth daily. Active calcium carbonate-vitam in D3 1500 mg (600 mg elemental)-400 units per tablet Take 2 tablets by mouth daily. with food Active metoprolol succinate (TOPROL XL) 50 MG 24 hr tablet Take 1 tablet by mouth daily. Active MULTIVIT-MINERA LS/FERROUS FUM (MULTI VITAMIN ORAL) Active MAGNESIUM ORAL 2 tablet daily Active Medication-Free Text Vitamin D-3 Active Encounters Date Type Department Care Team Description 10/23/2024 Transcribe Orders [facility] Endocrinology [address] [place] [address] Carlyn Romano MD Disorder of thyroid, unspecified (Primary Dx) 10/19/2024 Telephone [facility] Endocrinology [address] [place] [address] Brenna Willis MD Uveitis New Patient Referral (New Patient Referral) from Last 3 Months Family History Medical History Relation Comments Angina Mother Relation Status Comments Mother Social History Tobacco Use Types Packs/Day Years Used Date Smoking Tobacco: Never Assessed Education Answer Date Recorded Are you interested in more education? Not on carol[place] e 10/19/2024 Are you concerned about learning? Not on file 10/19/2024 No 10/19/2024 No 10/19/2024 Digital Access Answer Date Recorded No 10/19/2024 No 10/19/2024 Reliable internet access at home? Not on file 10/19/2024 Device with a working camera? Not on file Comments Unknown Sex and Gender Information Value Date Recorded Sex Assigned at Not on file Legal Sex Female 10:36 PM EDT Gender Identity Not on file Sexual Orientation Not on file Last Filed Vital Signs Vital Sign Reading Time Taken Comments Blood Pressure 122/62 02/21/2016 11:33 AM EDT Pulse 60 02/21/2016 11:33 AM EDT Temperature - - Respiratory Rate - - Oxygen Saturation - - Inhaled Oxygen Concentration - - Weight 80.7 kg (177 lb 14.4 oz) 016 11:33 AM EDT Height 162.6 cm (5' 4 ) 02/21/2016 11:3 3 AM EDT Body Mass Index 30.54 02/21/2016 11:33 AM EDT Plan of Treatment Upcoming Encounters Date Type Department Care Team (Late st Contact Info) Description 03/03/2025 10:30 AM EDT Office Visit [facility] [address] [place] [phone] Jeremy Godfrey DO [address] [place] [phone] [email or web address] Health Maintenance Due Date Last Done Comments LIPID PANEL 1950 TSH LEVEL 1950 DEPRESSION SCREENING 1962 SMOKING Hx and SMOKELESS TOBACCO SCREENING 1963 HEPATITIS C SCREENING 1968 MAMMOGRAM 1990 COLOGUARD 1995 COLONOSCOPY 1995 COLORECTAL CANCER SCREENING 1995 FIT TEST 1995 FOBT 1995 SIGMOIDOSCOPY 1995 VIRTUAL COLONOSCOPY 1995 PNEUMOCOCCAL VACCINES (50+ years) (1 of 1 - PCV) 2000 OSTEOPOROSIS SCREENING INITI AL (ONE-TIME) 2015 COVID-19 VACCINE (2 - 2023-2 5 season) 2024 08/04/2020 RSV VACCINE (1 - 1-dose 75+ series) 2025 Adult Td,Tdap Booster 06/01/2026 06/01/2016 ZOSTER VACCINES Completed 09/04/2018, 02/26/2018, 10/21/2013 HEPATITIS A VACCINES Aged Out No long er eligible based on patient's age to complete this topic HIB VACCINES Aged Out No longer eligi ble based on patient's age to complete this topic MENINGOCOCCAL VACCINES (ACWY) Aged Out No longer eligible based on patient's age to complete this topic MENINGOCOCCAL VACCINES (B) Aged Out N o longer eligible based on patient's age to complete this topic Medical Devices Not on file Insurance MEDICARE PART A & B [facility] MEDEX SUPPLEMENT MEDICARE PART A & B [employer] MEDEX SUPPLEMENT MEDICARE PART A & B [employer] MEDEX SUPPLEMENT MEDICARE PART A & B [employer] MEDEX SUPPLEMENT MEDICARE PART A & B [employer] MEDEX SUPPLEMENT MEDICARE PART A & B [facility] [place] MEDEX SUPPLEMENT Care Teams Soft Boarder Relationship Specialty Start Date End Date Bhanu Ramachandran MD [address] [place] [address] [place] [address] PCP - General 06/13/17 Additional Source Comments The information contained in this document represents components of the legal health record. It is not the complete legal health record.[facility]
== END 2025-01-01 11:35 | disposition home or self-care (01) ==
LOC: HO.HMCHD 11:15
PROVIDERS: PCP Internal Medicine; Visit Provider Internal Medicine
DX: R53.83 Other fatigue (principal); E07.9 Disorder of thyroid, unspecified; Z68.41 Body mass index [BMI] 40.0-44.9, adult; I42.9 Cardiomyopathy, unspecified

== ENCOUNTER → 2025-01-01 11:14 | Outpatient (BNVA) | payer MEDICARE, SELFPAY | PROVIDERS: PCP Internal Medicine; Visit Provider Internal Medicine | DX: Z76.89 Persons encountering health services in other specified circumstances (principal); R53.83 Other fatigue; E03.9 Hypothyroidism, unspecified; I42.9 Cardiomyopathy, unspecified; G47.33 Obstructive sleep apnea (adult) (pediatric); F32.9 Major depressive disorder, single episode, unspecified; Z79.899 Other long term (current) drug therapy; Z99.89 Dependence on other enabling machines and devices; Z96.653 Presence of artificial knee joint, bilateral | CPT/HCPCS: 99212 ==

== ENCOUNTER 2025-01-01 11:47 | Outpatient (REF) | payer MEDICARE, SELFPAY ==
[2025-01-01 13:02] LABS: MANUAL DIFF FLAG NO
[2025-01-01 13:09] LABS: Hematocrit 40.9 % (37.0-47.0); Hemoglobin 13.4 g/dl (12.0-16.0); Imm Gran Abs Auto 0.01 X10*3/uL (0.00-0.03); Imm Gran Pct Auto 0.2 % (0.0-0.4); Lymphocytes Absolute Auto 1.6 X10*3/uL (1.2-4.9); Mean Corpuscular HGB Conc 32.8 g/dl (31.0-35.0); Mean Corpuscular Hemoglobin 28.2 pg (27.0-33.0); Mean Corpuscular Volume 86.1 fL (80.0-98.0); NRBC Abs Auto 0.000 X10*3/uL (0.0-0.012); NRBC Pct Auto 0.0 /100WBC (0.0-0.2); Platelet Count 143 X10*3/uL (160-400); Red Blood Count 4.75 X10*6/uL (4.20-5.50); White Blood Count 5.0 X10*3/uL (4.8-10.8)
[2025-01-01 13:19] LABS: Appearance Urine Clear; Glucose Urine UA Negative (Negative); PH 7.0 (5.0-9.0); Specific Gravity - Urine 1.015 (1.005-1.025); UMIC TRIGGER UACC YES
[2025-01-01 13:22] LABS: Iron 83 mcg/dL (30-160); Percent Iron Saturation 27 % (15-50); Total Iron Binding Capacity 310 mcg/dL (228-428); Unsaturated Iron Binding 227 ug/dL
[2025-01-01 13:49] LABS: Folate 10.8 ng/mL (> or = 4.0); Vitamin B12 410 pg/mL (200-900)
[2025-01-01 14:20] LABS: Free T4 (Free Thyroxine) 1.14 ng/dL (0.71-1.85)
== END 2025-01-01 11:48 | disposition home or self-care (01) ==
LOC: HO.10HDL 11:47
PROVIDERS: Visit Provider Internal Medicine
DX: E07.9 Disorder of thyroid, unspecified (principal); R53.83 Other fatigue
CPT/HCPCS: 36415; 81001; 82607; 82746; 83540; 84439; 84443; 85025

== ENCOUNTER 2025-02-09 07:23 | Outpatient (REF) | payer MEDICARE, SELFPAY ==
--- OUTSIDE RECORDS SUMMARY | 2023-09-18 09:00 | XMS_ITS ---
Author Organization [facility] Address [address] [facility] [address] [place] [phone] Care Team Providers Care Plug Sorter Name Role Phone Carlyn Hall M.D. Primary Care Provider Avila Corona [phone] REASON FOR VISIT Patient presents today for gerd Encounters Encounter Location Date Provider Diagnosis [facility] [address] [place] [address] [place] [phone] 09/18/2023 Avila Stevenson Plan Of Treatment Next Appt Details Provider Name:Avila Stevenson , 02/10/2025 01:20:00 PM, [address] [place] [address], [address], [place], [phone], Progress Notes * SARAI SYKES ADOB: (74 yo F)Acc No.[id number]:09/18/2023 Progress Notes Patient: Andreea CHANANELSARAI Provider: Jie Stevenson MD :1950 A ge:73 Y S ex:Female Date:09/18/2023 Address:[address] [place], [place] [id number] Pcp:Carlyn Hall M.D. Subjective: * Chief Complaints: * 1 . Patient presents today for gerd. * Medical History: Objective: * Vitals: Assessment: Plan: * Treatment: * * The named appointment provid er may or may not be the originator of this progress note, and it is not deemed complete until electronically signed by the appointment provider. Sign off status: Pending * Provider: Jie Stevenson MD Date: 0 09/18/2023 Generated for Mark joe/Rogelio/Briseyda on: 0 02/09/2025 07:27 AM EDT
--- OUTSIDE RECORDS SUMMARY | 2024-07-09 09:00 | XMS_ITS ---
Author Organization [facility] Address [address] [place] [address] Care Team Providers Care Director Smb Sales Name Role Phone Bhanu Ramachandran MD Primary Care Provider Unavaila ble Black, Candy Unavailable [phone] Allergies Allergen (clinical drug ingredient) Drug/Non Drug [...] 07/09/2024 Encounters Encounter Location Date Provider [facility] [address] [place] [address] 07/09/2024 Candy Suggs Plan Of Treatment Next Appt Details Provider Name:Candy Suggs , 04/12/2025 02:30:00 PM, [address] [place], [address], Progress Notes * Alyse SYKESDOB:[birth year] (74 yo F)Acc No.[id number]:07/09/2024 Progress Notes Patient: Andreea Alyse CRUZ Provider: Jae Suggs DPM :1950 A ge:74 Y S ex:Female Date:07/09/2024 Address:[address] [place], [place] [phone] Pcp:Bhanu Ramachandran MD Subjective: * Chief Complaints: [...] enies. C ardiovascular: Pacemaker d enies. M OPEN HEARTH FURNACE OPERATOR HELPER d enies. W PW d enies. C [...] Pending * Provider: Jae Suggs DPM Date: 07/09/2024 Generated for Mark Lopes/Briseyda on: 0 02/09/2025 07:27 AM EDT
--- OUTSIDE RECORDS SUMMARY | 2025-02-09 07:27 | XMS_ITS | Patient Health Record ---
Author Organization [facility] Address [address] [place] [address] Care Team Providers Care Pressing Machine Operator Name Role Phone Carlyn Hall M.D. Primary Care Provider Avila Corona [phone] Allergies Allergen (clinical drug ingredient) Drug/Non Drug Allergy documented on EMR Reaction Allergy Type Onset Date Status Penicillin Unknown Drug Allergy Active Results Component Value Reference Range Notes Liver Panel Reviewed date:02/17/2024 09:09:10 PM Interpretation: Performing Lab:[facility], [address] [place] [phone] Notes/Report: Bilirubin Total 0.5 0.0-1.0 mg/dL Bilirubin Direct 0.2 0.0-0.5 mg/dL Aspartate Amino Transferase 21 5-31 U/L Alanine Aminotransferase 15 0-31 U/L Total Protein 6.7 6.5-8.0 g/dL Albumin Level 3.9 3.5-5.0 g/dL Alkaline Phosphatase 74 39-117 U/L Liver Panel Reviewed date:05/31/2024 01:16:02 PM Interpretation: Performing Lab:[facility], [address] [place] [phone] Notes/Report: Bilirubin Total 0.5 0.0-1.0 mg/dL Bilirubin Direct 0.2 0.0-0.5 mg/dL Aspartate Amino Transferase 32 5-31 U/L Alanine Aminotransferase 17 0-31 U/L Total Protein 7.2 6.5-8.0 g/dL Albumin Level 4.2 3.5-5.0 g/dL Alkaline Phosphatase 82 39-117 U/L Liver Panel Reviewed date:06/24/2024 11:36:16 PM Interpretation: Performing Lab:[facility], [address] [place] [phone] Notes/Report: Bilirubin Total 0.4 0.0-1.0 mg/dL Bilirubin Direct 0.1 0.0-0.5 mg/dL Aspartate Amino Transferase 33 5-31 U/L Alanine Aminotransferase 24 0-31 U/L Total Protein 6.7 6.5-8.0 g/dL Albumin Level 3.9 3.5-5.0 g/dL Alkaline Phosphatase 85 39-117 U/L Liver Panel Reviewed date:08/16/2024 12:52:18 PM Interpretation: Performing Lab:[facility], [address] [place] [phone] Notes/Report: Bilirubin Total 0.4 0.0-1.0 mg/dL Bilirubin Direct 0.2 0.0-0.5 mg/dL Aspartate Amino Transferase 41 5-31 U/L Alanine Aminotransferase 36 0-31 U/L Total Protein 7.0 6.5-8.0 g/dL Albumin Level 3.8 3.5-5.0 g/dL Alkaline Phosphatase 86 39-117 U/L Liver Panel Reviewed date:10/25/2024 11:41:56 PM Interpretation: Performing Lab:[facility], [address] [place] [phone] Notes/Report: Bilirubin Total 0.3 0.0-1.0 mg/dL Bilirubin Direct 0.1 0.0-0.5 mg/dL Aspartate Amino Transferase 36 5-31 U/L Alanine Aminotransferase 37 0-31 U/L Total Protein 6.8 6.5-8.0 g/dL Albumin Level 3.9 3.5-5.0 g/dL Alkaline Phosphatase 68 39-117 U/L Liver Panel Reviewed date:01/03/2025 10:13:35 PM Interpretation: Performing Lab:[facility], [address] [place] [phone] Notes/Report: Bilirubin Total 0.6 0.0-1.0 mg/dL Bilirubin [...] Problem Status W/U Status Risk Notes Problem 15573665 Epigastric pain (R10.13) Active confirmed Problem 254883556 Encounter for screening for malignant neoplasm of colon (Z12.11) Active confirmed Problem 279492592 History of adenomatous polyp of colon (Z86.010) Active confirmed Problem 652440698 Esophageal obstruction (K22.2) Active confirmed Problem 603859180 Autoimmune hepatitis (K75.4) Active confirmed Problem 392079181 Elevated liver function tests (R79.89) Active confirmed Problem 148091480 Gastroesophageal reflux disease without esophagitis (K21.9) Active confirmed Problem 003114355 Gastroesophageal reflux disease, esophagitis presence not specified (K21.9) Active confirmed Problem 38361622 Hiatal hernia (K44.9) Active confirmed Problem Esophageal ring (18015163) Esophageal ring (K22.2) Active confirmed Problem Gastroesophageal reflux disease (885879916) GERD (gastroesophageal reflux disease) (K21.9) Active confirmed Problem Esophageal dysphagia (32843219) Esophageal dysphagia (R13.14) Active confirmed Problem 49226022 Esophageal dysphagia (R13.10) Active confirmed Problem 986415447 Hx of adenomatou s polyp of colon (Z86.010) Active confirmed Vital Signs Blood pressure diastolic 00 mm Hg 05/12/2024 Height 62.5 in 05/12/2024 Blood pressure systolic 00 mm Hg 05/12/2024 Weight 212 lbs 05/12/2024 BMI 38.15 kg/m2 05/12/2024 Encounters Encounter Location Date Provider Diagnosis [facility] [address] [place] [phone] 05/12/2024 Avila Stevenson Autoimmune hepatitis K75.4 ; History of adenomatous polyp of colon Z86.010 ; Esophageal dysphagia R13.10 ; Encounter for screening for malignant neoplasm of colon Z12.11 ; Gastroesophageal reflux disease, esophagitis presence not specified K21.9 and Hiatal hernia K44.9 [facility] [address] [place] [phone] 2024 Avila Stevenson Autoimmune hepatitis K75.4 [facility] [address] [place] [phone] 07/17/2024 Avila Stevenson [facility] [address] [place] [phone] 08/17/2024 Avila Stevenson [facility] [address] [place] [phone] 08/19/2024 Avila Stevenson [facility] [address] [place] [phone] 08/20/2024 Avila Stevenson Assessments Encounter Date Diagnosis [...] 07/06/2020 CHEM 7 PROFILE 12/04/2022 LIVER PROFILE 08/25/2014 LIVER PROFILE 01/06/2023 LIVER PROFILE 12/06/2020 LIVER PROFILE 11/10/2015 LIVER PROFILE 02/26/2014 LIVER PROFILE 05/13/2023 LIVER PROFILE 06/06/2021 LIVER PROFILE 04/30/2014 LIVER PROFILE 2024 LIVER PROFILE 02/19/2023 LIVER PROFILE 10/14/2014 LIVER PROFILE 12/04/2022 LIVER PROFILE 03/17/2014 LIVER PROFILE 10/30/2020 LIVER PROFILE 07/20/2015 CRP 12/04/2022 CBC w DIFF 12/04/2022 SED RATE (ESR) 12/04/2022 XR BARIUM SWALLOW-ESOPHAGUS 08/22/2022 XR BARIUM SWALLOW-ESOPHAGUS 06/24/2017 XR GI SERIES 08/22/2022 FLUOR. ANTINUCLEAR AB SCREEN (PHIL) 11/09 Liver Panel 11/20/2023 Smooth Muscle Antibody 12/04/2022 Future Test Test Name Order Date UPPER GI ENDOSCOPY BALLOOON DILATION OF ESOPH 01/15/2020 COLONOSCOPY 01/15/2020 Next Appt Details Provider Name:Avila Stevenson , 02/10/2025 01:20:00 PM, [address], [address], [place], [address], Insurance Providers Payer Name Payer Address Payer Phone Subscriber Number Group Number Insured Name Patient Relationship to Insured Coverage Start Date Coverage End Date MEDICARE OF [place] [address] [place] [address] [phone] [id number] ALYSE SYKES Self - patient is the insured MED[employer] ATTN CLAIMS [address] [place] [address] [id number] ALYSE SYKES Self - patient is the insured Medical (General) History Medical History History ICD Code Denies [place],DM,CVA,Lung disease,renal dise ase Depression 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 Henderson--done for the evaluation of anemia she reports that she is on m etoprolol in relation to a heart murmur--Idiopathic hypertrophic subaortic stenosis--may have surgery in [place]--had a cardiac cath with Dr. Vital in 11/2016--going to [facility] for possible surgery--had it done 04/2017 [...] left 2017 Septal myectomy-open heart surgery--at [facility] 04/10/2017 Sleep Apnea, needs CPAP machine
--- OUTSIDE RECORDS SUMMARY | 2025-02-09 07:27 | XMS_ITS | Patient Health Record ---
Author Organization [facility] Address [address] [place] [address] Care Team Providers Care Lead Producer Name Role Phone Bhanu Ramachandran MD Primary Care Provider Unavaila ble Black, Candy Unavailable [phone] Allergies Allergen (clinical drug ingredient) Drug/Non Drug [...] Status Risk Notes Problem Pain in limb (84113732) Pain in Limb (729.5) Active confirmed Problem Acquired hallux valgus (85340747) Hallux valgus (acquired), left foot (M20.12) Active confirmed Problem Localized, primary osteoarthritis of the ankle and/or foot (166148653) Primary osteoarthritis, left ankle and foot (M19.072) Active confirmed Problem Acquired hammer toe of right foot (5296299882095947 ) Other hammer toe(s) (acquired), right foot (M20.41) Active confirmed Problem Acquired hammer toe of left foot (4067993669509268 ) Other hammer toe(s) (acquired), left foot (M20.42) Active confirmed Problem 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) Active confirmed Problem Localized, primary osteoarthritis of the ankle and/or foot (615115632) Osteoarthritis of right ankle and foot (M19.071) Active confirmed Problem Midfoot collapse of left lower extremity (M21.6X2) Active confirmed Problem Plantar fasciitis of right foot (3109247742361933 1) Plantar fasciitis of right foot (M72.2) Active confirmed Problem Interstitial myositis (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) 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 confirmed Problem 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) (6744988515029032 ) 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 confirmed Vital Signs Height 5 ft 2 in in 04/09/2024 Weight 220 lbs 04/09/2024 BMI 40.23 kg/m2 04/09/2024 Encounters Encounter Location Date Provider [facility] [address] [phone] 04/09/2024 Candy Black Pain in right foot [...] Osteoarthritis of right ankle and foot M19.071 [facility] [address] [phone] 03/18/2024 Candy Black Assessments Encounter Date Diagnosis [...] X ray : Foot, right 3V 07/12/2011 Next Appt Details Provider Name:Candy Suggs , 04/12/2025 02:30:00 PM, [address] [facility], [place], [address], Insurance Providers Payer Name Payer Address Payer Phone Subscriber Number Group Number Insured Name Patient Relationship to Insured Coverage Start Date Coverage End Date Medicare National Govt [employer] [address] [place] [address] [phone] [id number] Alyse Razo Self - patient is the insured [employer] [address] [place] [address] [phone] [id number] Alyse Razo Self - patient is [...] septal myectomy 2016 Hospitalization History Reason Date(Month/Year) [facility]- sleep apnea 01/30/2021
--- OUTSIDE RECORDS SUMMARY | 2025-02-09 07:28 | XMS_ITS | Clinical Summary ---
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 Operator Name Role Phone Bhanu Ramachandran MD [...] daily Active Medication-Free Text Vitamin D-3 Active Family History Medical History Relation Comments Angina [...] 10:30 AM EDT Office Visit [facility] [address] [place] [address] [phone] Jeremy Godfrey DO [address] [place] [address] Health Maintenance Due Date Last Done Comments LIPID PANEL 1950 TSH LEVEL 1950 DEPRESSION SCREENING 1962 SMOKING Hx and SMOKELESS TOBACCO SCREENING 1963 HEPATITIS C SCREENING 1968 MAMMOGRAM 1990 COLOGUARD 1995 COLONOSCOPY 1995 COLORECTAL CANCER SCREENING 1995 FIT TEST 1995 FOBT 1995 SIGMOIDOSCOPY 1995 VIRTUAL COLONOSCOPY 1995 PNEUMOCOCCAL VACCINES (50+ years) (1 of 1 - PCV) 2000 OSTEOPOROSIS SCREENING INITI AL (ONE-TIME) 2015 INFLUENZA VACCINE (#1) 2025 0, 03/09/2015 COVID-19 VACCINE (2 - 2024-2 6 season) 2025 08/04/2020 RSV VACCINE (1 - 1-dose 75+ [...] file Insurance MEDICARE PART A & B [place] MEDEX SUPPLEMENT MEDICARE PART A & B [employer] CROSS MEDEX SUPPLEMENT MEDICARE PART A & B [employer] SUPPLEMENT MEDICARE PART A & B [employer] CROSS MEDEX SUPPLEMENT MEDICARE PART A & B [employer] CROSS MEDEX SUPPLEMENT MEDICARE PART A & B [employer] MED[employer] SUPPLEMENT Care Teams Boiler Control Room Operator Relationship Specialty Start Date End Date Bhanu Ramachandran MD [address] [place] [address] Dr Duran [place] PCP - General 06/13/17 Additional Source Comments The information contained in this document represents components of the legal health record. It is not the complete legal health record.[facility]
[2025-02-09 08:50] LABS: Alanine Aminotransferase 43 U/L (0-31); Albumin Level 3.9 g/dL (3.5-5.0); Alkaline Phosphatase 74 U/L (39-117); Aspartate Amino Transferase 39 U/L (5-31); Total Protein 6.6 g/dL (6.5-8.0)
== END 2025-02-09 07:24 | disposition home or self-care (01) ==
LOC: HO.LABR 07:23
PROVIDERS: PCP Internal Medicine; Visit Provider Internal Medicine
DX: K75.4 Autoimmune hepatitis (principal)
CPT/HCPCS: 36415; 80076

== ENCOUNTER 2025-03-15 12:54 | Outpatient (REF) | payer MEDICARE, SELFPAY ==
--- OUTSIDE RECORDS SUMMARY | 2023-09-18 09:00 | XMS_ITS ---
Author Organization [facility] Address [address] [facility] [address] [place] [phone] Care Team Providers Care Grocery Specialist Name Role Phone Carlyn Hall M.D. Primary Care Provider Avila Corona [phone] REASON FOR VISIT Patient presents today for gerd Encounters Encounter Location Date Provider Diagnosis [facility] [address] [place] [address] [place] [phone] 09/18/2023 Avila Stevenson Plan Of Treatment Next Appt Details Provider Name:Avila Stevenson , 08/11/2025 01:00:00 PM, [address] [place] [address], [address], [place], [phone], Progress Notes * SARAI SYKES ADOB: (74 yo F)Acc No.[id number]:09/18/2023 Progress Notes Patient: Adnreea CHANANELSARAI Provider: Jie Stevenson MD :1950 A ge:73 Y S ex:Female Date:09/18/2023 Address:[address] [place], [place] [id number] Pcp:Carlyn Hall M.D. Subjective: * Chief Complaints: [...] 0 09/18/2023 Generated for Mark joe/Rogelio/Briseyda on: 1 03:15 PM EDT
--- OUTSIDE RECORDS SUMMARY | 2024-07-09 09:00 | XMS_ITS ---
Author Organization [facility] Address [address] [place] [address] Care Team Providers Care Office Machine Embossograph Operator Name Role Phone Bhanu Ramachandran MD Primary Care Provider Unavaila ble Black, Candy Unavailable [phone] Allergies Allergen (clinical drug ingredient) Drug/Non Drug [...] 07/09/2024 Encounters Encounter Location Date [facility] [address] [place] [address] 07/09/2024 Candy Suggs Plan Of Treatment Next Appt Details Provider Name:Candy Suggs , 04/12/2025 02:30:00 PM, [address] [place], [address], Progress Notes * Alyse SYKESDOB:[birth year] (74 yo F)Acc No.[id number]:07/09/2024 Progress Notes Patient: Andreea Alyse CRUZ Provider: Jae Suggs DPM :1950 A ge:74 Y S ex:Female Date:07/09/2024 Address:[address] [place], [place] [phone] Pcp:Bhanu Ramachandran MD Subjective: * Chief Complaints: * 1 [...] enies. C ardiovascular: Pacemaker d enies. M HATCHERY MANAGER d enies. W PW d enies. C [...] DPM Date: 0 07/09/2024 Generated for Mark Lopes/Briseyda on: 03:15 PM EDT
--- NOTE | ~2025-03-15 | MM_ITS ---
EXAMINATION: MM SCREENING DIGITAL BREAST TOMOSYNTHESIS, BILATERAL CLINICAL INFORMATION: Screening. Asymptomatic. COMPARISON: Mammography: Comparison is made with available priors TECHNIQUE: Digital breast mammography with tomosynthesis is performed in both the craniocaudal and mediolateral oblique views along with computer-aided detection (CAD). FINDINGS: There are scattered areas of fibroglandular density. There are no significant masses, abnormal calcifications, or other abnormalities. MM/MM tomosynthesis screening BI IMPRESSION: No mammographic evidence of malignancy. ASSESSMENT: BI-RADS Category 1: Negative RECOMMENDATION: Routine annual mammography screening. 1 year F/U This examination should not preclude the clinical evaluation of a suspicious palpable abnormality. This patient's information was entered into a reminder system with a target due date for their next mammogram. Electronically signed by: My Bailey DO 03/15/2025 03:42 PM EDT
--- OUTSIDE RECORDS SUMMARY | 2025-03-15 15:15 | XMS_ITS | Patient Health Record ---
Author Organization [facility] Address [address] [place] [address] Care Team Providers Care Editor Greeting Card Name Role Phone Carlyn Hall M.D. Primary Care Provider Avila Corona [phone] Allergies Allergen (clinical drug ingredient) Drug/Non Drug Allergy documented on EMR Reaction Allergy Type Onset Date Status Penicillin Unknown Drug Allergy Active Results Component Value Reference Range Notes Liver Panel Reviewed date:05/31/2024 01:16:02 PM Interpretation: Performing Lab:[facility], [address] [place] [phone] Notes/Report: Bilirubin Total 0.5 0.0-1.0 mg/dL Bilirubin Direct 0.2 0.0-0.5 mg/dL Aspartate Amino Transferase 32 5-31 U/L Alanine Aminotransferase 17 0-31 U/L Total Protein 7.2 6.5-8.0 g/dL Albumin Level 4.2 3.5-5.0 g/dL Alkaline Phosphatase 82 39-117 U/L Liver Panel Reviewed date:06/24/2024 11:36:16 PM Interpretation: Performing Lab:[facility], [address] [place] [phone] Notes/Report: Bilirubin Total 0.4 0.0-1.0 mg/dL Bilirubin Direct 0.1 0.0-0.5 mg/dL Aspartate Amino Transferase 33 5-31 U/L Alanine Aminotransferase 24 0-31 U/L Total Protein 6.7 6.5-8.0 g/dL Albumin Level 3.9 3.5-5.0 g/dL Alkaline Phosphatase 85 39-117 U/L Liver Panel Reviewed date:08/16/2024 12:52:18 PM Interpretation: Performing Lab:[facility], [address] [place] [phone] Notes/Report: Bilirubin Total 0.4 0.0-1.0 mg/dL Bilirubin Direct 0.2 0.0-0.5 mg/dL Aspartate Amino Transferase 41 5-31 U/L Alanine Aminotransferase 36 0-31 U/L Total Protein 7.0 6.5-8.0 g/dL Albumin Level 3.8 3.5-5.0 g/dL Alkaline Phosphatase 86 39-117 U/L Liver Panel Reviewed date:10/25/2024 11:41:56 PM Interpretation: Performing Lab:[facility], [address] [place] [phone] Notes/Report: Bilirubin Total 0.3 0.0-1.0 mg/dL Bilirubin Direct 0.1 0.0-0.5 mg/dL Aspartate Amino Transferase 36 5-31 U/L Alanine Aminotransferase 37 0-31 U/L Total Protein 6.8 6.5-8.0 g/dL Albumin Level 3.9 3.5-5.0 g/dL Alkaline Phosphatase 68 39-117 U/L Liver Panel Reviewed date:01/03/2025 10:13:35 PM Interpretation: Performing Lab:[facility], [address] [place] [phone] Notes/Report: Bilirubin Total 0.6 0.0-1.0 mg/dL Bilirubin Direct 0.3 0.0-0.5 mg/dL Aspartate Amino Transferase 38 5-31 U/L Alanine Aminotransferase 35 0-31 U/L Total Protein 6.7 6.5-8.0 g/dL Albumin Level 4.1 3.5-5.0 g/dL Alkaline Phosphatase 65 39-117 U/L Liver Panel Reviewed date:02/09/2025 09:14:03 AM Interpretation: Performing Lab:[facility], [address] [place] [phone] Notes/Report: Bilirubin Total 0.5 0.0-1.0 mg/dL Bilirubin Direct 0.2 0.0-0.5 mg/dL Aspartate Amino Transferase 39 5-31 U/L Alanine Aminotransferase 43 0-31 U/L Total Protein 6.6 6.5-8.0 g/dL Albumin Level 3.9 3.5-5.0 g/dL Alkaline Phosphatase 74 39-117 U/L Reason For Referral No Information Medications Medication SIG (Take, Route, Frequency, Duration) Notes Start Date End Date Status Levothyroxine Sodium 100 MCG 1 capsule i n the morning on an empty stomach Orally Once a day Active Multivitamin - 1 tablet Orally Once a day for 30 day(s) Active Levothyroxine Sodium 125 MCG Oral for 90 Days Active Entresto 49-51 MG Oral for 90 Active Omeprazole 20 MG TAKE 1 CAPSULE BY MO UTH EVERY DAY FOR 90 DAYS for 90 Active Latanoprost 0.005 % Ophthalmic for 74 Active Escitalopram Oxalate 10 MG TAKE 1 AND 1/ 2 TABLET BY MOUTH EVERY DAY Oral for 90 Active Carvedilol 3.125 MG TAKE 1 TABLET BY CHRISTOPHER TH TWICE A DAY Oral for 90 Active Escitalopram Oxalate 10 MG Oral for 90 Days Active Levothyroxine Sodium 100 MCG TAKE 1 TABL ET BY MOUTH EVERY DAY Oral for 90 Days Active Latanoprost 0.005 % INSTILL 1 DROP INTO BOTH EYES NIGHTLY Ophthalmic for 74 Days Active Carvedilol 3.125 MG Oral for 90 Days Active Immunizations Vaccine Route Administration Date Status Comme nts Flu vaccine no Preserv 3 and > Unknown 04/16/2017 Admin istered Influenza Unknown 03/04/2019 Administered Influenza Unknown 02/09/2020 Administered Influenza Unknown 04/25/2021 Administered Influenza Unknown 03/24/2024 Administered Problems Problem Type SNOMED Code ICD Code Onset Dates Problem Status W/U Status Risk Notes Problem 87562906 Epigastric pain (R10.13) Active confirmed Problem 490211595 Encounter for screening for malignant neoplasm of colon (Z12.11) Active confirmed Problem 200990113 History of adenomatous polyp of colon (Z86.010) Active confirmed Problem 272093067 Esophageal obstruction (K22.2) Active confirmed Problem 527399750 Autoimmune hepatitis (K75.4) Active confirmed Problem 195449602 Elevated liver function tests (R79.89) Active confirmed Problem 587201804 Gastroesophageal reflux disease without esophagitis (K21.9) Active confirmed Problem Fatty liver (701478307) Fatty liver (K76.0) Active confirmed Problem 345547975 Gastroesophageal reflux disease, esophagitis presence not specified (K21.9) Active confirmed Problem 96579446 Hiatal hernia (K44.9) Active confirmed Problem Esophageal ring (58195194) Esophageal ring (K22.2) Active confirmed Problem Gastroesophageal reflux disease (862250452) GERD (gastroesophageal reflux disease) (K21.9) Active confirmed Problem Esophageal dysphagia (78297386) Esophageal dysphagia (R13.14) Active confirmed Problem 91217753 Esophageal dysphagia (R13.10) Active confirmed Problem 935115990 Hx of adenomatou s polyp of colon (Z86.010) Active confirmed Vital Signs Temperature 98.0 degrees Fahrenheit 02/10/2025 Blood pressure diastolic 01 mm Hg 02/10/2025 Height 62.5 in 02/10/2025 Blood pressure systolic 001 mm Hg 02/10/2025 Weight 224.8 lbs 02/10/2025 BMI 40.46 kg/m2 02/10/2025 Encounters Encounter Location Date Provider Diagnosis [facility] [address] [place] [phone] 05/12/2024 Avila Stevenson Autoimmune hepatitis K75.4 ; History of adenomatous polyp of colon Z86.010 ; Esophageal dysphagia R13.10 ; Encounter for screening for malignant neoplasm of colon Z12.11 ; Gastroesophageal reflux disease, esophagitis presence not specified K21.9 and Hiatal hernia K44.9 [facility] [address] [place] [phone] 02/10/2025 Avila Stevenson Autoimmune hepatitis K75.4 ; History of adenomatous polyp of colon Z86.010 ; Esophageal obstruction K22.2 ; Gastroesophageal reflux disease, esophagitis presence not specified K21.9 ; Hiatal hernia K44.9 and Fatty liver K76.0 [facility] [address] [place] [phone] 2024 Avila Stevenson Autoimmune hepatitis K75.4 [facility] [address] [place] [phone] 07/17/2024 Avila Stevenson [facility] [address] [place] [phone] 08/17/2024 Avila Stevenson [facility] [address] [place] [phone] 08/19/2024 Avila Stevenson [facility] [address] [place] [address] 08/20/2024 Avila Stevenson Assessments Encounter Date Diagnosis [...] to keep you advised of her progress. 02/10/2025 History of adenomatous polyp of colon (ICD-10 - Z86.010) We can discuss another screening colonoscopy when I see you in 2025 Overall, Alyse appears to be doing well in general. Her autoimmune hepatitis has remained in clinical remission without needing prednisone since the early part of 2023. We did review that the slight elevations in the liver profiles are in relation to a component of fatty liver in relation to her obesity, probable dietary indiscretion, and her previous use of prednisone for the autoimmune hepatitis. We did review that the best way to treat that at this point would be to obviously watch her diet carefully and try to lose weight. I did advise her to continue doing her liver profiles every other month. I did advise her to call me if she develops any signs of jaundice, pruritus, or significant fatigue that might indicate a recurrence of the autoimmune hepatitis. I did advise her to continue her daily omeprazole and to continue eating very carefully in general so as to avoid any recurrent esophageal obstructions. I do not think she requires an upper endoscopy at this time even though her last upper endoscopy had shown a tiny area of intestinal metaplasia, i.e. Kaufman's esophagus, but without any dysplasia. We did discuss the possibility of a screening colonoscopy but I did not feel strongly about that as she has had 2 previous colonoscopies with the finding of only small tubular adenomas, she is now in her mid 70s, and she does have several comorbidities which could make any anesthesia and colonoscopy higher risk than usual. I advised her that we could review that when I see her again in follow-up next year but at this time I do not feel strongly about that. If things remain stable I will see her in 6 months for a follow-up visit. I did advise her to contact me in the interim if she has any problems or questions I can be of assistance with. Alyse was comfortable with this plan. Thank you again for allowing me to participate in Alyse's care. I shall continue to keep you advised of her progress. 02/10/2025 Autoimmune hepatitis (ICD-10 - K75.4) Continue doing the every other month liver tests Overall, Alyse appears to be doing well in general. Her autoimmune hepatitis has remained in clinical remission without needing prednisone since the early part of 2023. We did review that the slight elevations in the liver profiles are in relation to a component of fatty liver in relation to her obesity, probable dietary indiscretion, and her previous use of prednisone for the autoimmune hepatitis. We did review that the best way to treat that at this point would be to obviously watch her diet carefully and try to lose weight. I did advise her to continue doing her liver profiles every other month. I did advise her to call me if she develops any signs of jaundice, pruritus, or significant fatigue that might indicate a recurrence of the autoimmune hepatitis. I did advise her to continue her daily omeprazole and to continue eating very carefully in general so as to avoid any recurrent esophageal obstructions. I do not think she requires an upper endoscopy at this time even though her last upper endoscopy had shown a tiny area of intestinal metaplasia, i.e. Kaufman's esophagus, but without any dysplasia. We did discuss the possibility of a screening colonoscopy but I did not feel strongly about that as she has had 2 previous colonoscopies with the finding of only small tubular adenomas, she is now in her mid 70s, and she does have several comorbidities which could make any anesthesia and colonoscopy higher risk than usual. I advised her that we could review that when I see her again in follow-up next year but at this time I do not feel strongly about that. If things remain stable I will see her in 6 months for a follow-up visit. I did advise her to contact me in the interim if she has any problems or questions [...] to keep you advised of her progress. 02/10/2025 Esophageal obstruction (ICD-10 - K22.2) Overall, Alyse appears to be doing well in general. Her autoimmune hepatitis has remained in clinical remission without needing prednisone since the early part of 2023. We did review that the slight elevations in the liver profiles are in relation to a component of fatty liver in relation to her obesity, probable dietary indiscretion, and her previous use of prednisone for the autoimmune hepatitis. We did review that the best way to treat that at this point would be to obviously watch her diet carefully and try to lose weight. I did advise her to continue doing her liver profiles every other month. I did advise her to call me if she develops any signs of jaundice, pruritus, or significant fatigue that might indicate a recurrence of the autoimmune hepatitis. I did advise her to continue her daily omeprazole and to continue eating very carefully in general so as to avoid any recurrent esophageal obstructions. I do not think she requires an upper endoscopy at this time even though her last upper endoscopy had shown a tiny area of intestinal metaplasia, i.e. Kaufman's esophagus, but without any dysplasia. We did discuss the possibility of a screening colonoscopy but I did not feel strongly about that as she has had 2 previous colonoscopies with the finding of only small tubular adenomas, she is now in her mid 70s, and she does have several comorbidities which could make any anesthesia and colonoscopy higher risk than usual. I advised her that we could review that when I see her again in follow-up next year but at this time I do not feel strongly about that. If things remain stable I will see her in 6 months for a follow-up visit. I did advise her to contact me in the interim if she has any problems or questions [...] to keep you advised of her progress. 02/10/2025 Gastroesophageal reflux disease, esophagitis presence not specified (ICD-10 - K21.9) Continue the daily omeprazole, eat slowly, and cut up your food Overall, Alyse appears to be doing well in general. Her autoimmune hepatitis has remained in clinical remission without needing prednisone since the early part of 2023. We did review that the slight elevations in the liver profiles are in relation to a component of fatty liver in relation to her obesity, probable dietary indiscretion, and her previous use of prednisone for the autoimmune hepatitis. We did review that the best way to treat that at this point would be to obviously watch her diet carefully and try to lose weight. I did advise her to continue doing her liver profiles every other month. I did advise her to call me if she develops any signs of jaundice, pruritus, or significant fatigue that might indicate a recurrence of the autoimmune hepatitis. I did advise her to continue her daily omeprazole and to continue eating very carefully in general so as to avoid any recurrent esophageal obstructions. I do not think she requires an upper endoscopy at this time even though her last upper endoscopy had shown a tiny area of intestinal metaplasia, i.e. Kaufman's esophagus, but without any dysplasia. We did discuss the possibility of a screening colonoscopy but I did not feel strongly about that as she has had 2 previous colonoscopies with the finding of only small tubular adenomas, she is now in her mid 70s, and she does have several comorbidities which could make any anesthesia and colonoscopy higher risk than usual. I advised her that we could review that when I see her again in follow-up next year but at this time I do not feel strongly about that. If things remain stable I will see her in 6 months for a follow-up visit. I did advise her to contact me in the interim if she has any problems or questions [...] to keep you advised of her progress. 02/10/2025 Hiatal hernia (ICD-10 - K44.9) Overall, Alyse appears to be doing well in general. Her autoimmune hepatitis has remained in clinical remission without needing prednisone since the early part of 2023. We did review that the slight elevations in the liver profiles are in relation to a component of fatty liver in relation to her obesity, probable dietary indiscretion, and her previous use of prednisone for the autoimmune hepatitis. We did review that the best way to treat that at this point would be to obviously watch her diet carefully and try to lose weight. I did advise her to continue doing her liver profiles every other month. I did advise her to call me if she develops any signs of jaundice, pruritus, or significant fatigue that might indicate a recurrence of the autoimmune hepatitis. I did advise her to continue her daily omeprazole and to continue eating very carefully in general so as to avoid any recurrent esophageal obstructions. I do not think she requires an upper endoscopy at this time even though her last upper endoscopy had shown a tiny area of intestinal metaplasia, i.e. Kaufman's esophagus, but without any dysplasia. We did discuss the possibility of a screening colonoscopy but I did not feel strongly about that as she has had 2 previous colonoscopies with the finding of only small tubular adenomas, she is now in her mid 70s, and she does have several comorbidities which could make any anesthesia and colonoscopy higher risk than usual. I advised her that we could review that when I see her again in follow-up next year but at this time I do not feel strongly about that. If things remain stable I will see her in 6 months for a follow-up visit. I did advise her to contact me in the interim if she has any problems or questions [...] to keep you advised of her progress. 02/10/2025 Fatty liver (ICD-10 - K76.0) Overall, Alyse appears to be doing well in general. Her autoimmune hepatitis has remained in clinical remission without needing prednisone since the early part of 2023. We did review that the slight elevations in the liver profiles are in relation to a component of fatty liver in relation to her obesity, probable dietary indiscretion, and her previous use of prednisone for the autoimmune hepatitis. We did review that the best way to treat that at this point would be to obviously watch her diet carefully and try to lose weight. I did advise her to continue doing her liver profiles every other month. I did advise her to call me if she develops any signs of jaundice, pruritus, or significant fatigue that might indicate a recurrence of the autoimmune hepatitis. I did advise her to continue her daily omeprazole and to continue eating very carefully in general so as to avoid any recurrent esophageal obstructions. I do not think she requires an upper endoscopy at this time even though her last upper endoscopy had shown a tiny area of intestinal metaplasia, i.e. Kaufman's esophagus, but without any dysplasia. We did discuss the possibility of a screening colonoscopy but I did not feel strongly about that as she has had 2 previous colonoscopies with the finding of only small tubular adenomas, she is now in her mid 70s, and she does have several comorbidities which could make any anesthesia and colonoscopy higher risk than usual. I advised her that we could review that when I see her again in follow-up next year but at this time I do not feel strongly about that. If things remain stable I will see her in 6 months for a follow-up visit. I did advise her to contact me in the interim if she has any problems or questions [...] Provider Name:Avila Stevenson , 08/11/2025 01:00:00 PM, [address] [facility], [address], [place], [address], Insurance Providers Payer Name Payer Address Payer Phone Subscriber Number Group Number Insured Name Patient Relationship to Insured Coverage Start Date Coverage End Date [place]ARE [place] [address] [place] [address] [phone] [id number] ALYSE SYKES Self - patient is the insured [employer] CLAIMS [address] [place] [phone] [id number] ALYSE SYKES Self - patient is the insured Medical (General) History Medical History History ICD Code Denies PA,DM,CVA,Lung disease,renal dise ase Depression 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 Henderson- done for the evaluation of anemia she reports that she is on m etoprolol in relation to a heart murmur- Idiopathic hypertrophic subaortic stenosis- may have surgery in [place]- had a cardiac cath with Dr. Vital in 11/2016- going to [facility] for possible surgery- had it done 04/2017 as below Autoimmune hepatitis diagnos ed in February of 2014 by liver biopsy, positive LIZA, and positive smooth muscle antibody- original liver transaminases were 15-20 times elevated- other liver workup including viral serologies and iron studies were negative- a serum protein electrophoresis was normal. She was treated with prednisone up until early in October of 2014. She had been on prednisone 2.5 mg every other day from mid-August until early October, and then the prednisone was stopped- - liver profiles in May 2015 and 2016 were completely normal; LFT's were normal in 10/2019 and 03/2020 Screening colonoscopy in Feb revealed a small tubular adenoma, diverticulosis, and internal hemorrhoids Fatty liver seen on her liver biopsy in 2013 Esophageal obstruction due t o food- 06/2017- -EGD and Barium swallow revealed a small HH- no esophagitis nor stricture Colonoscopy 04/2020- small tubular adeno ma removed EGD in 01/2020- moderate size d hiatal hernia and tiny area of intestinal metaplasia at the EG junction but without dysplasia- she has a moderate-sized hiatal hernia- the gastroesophageal junction was dilated with a 20 mm balloon although without any definitive appreciable effect Positive H. pylori breath te st in 05/[address] Shrestha- theyy started her on Biaxin, sulfa, and pantoprazole- after a few days she was having GI side effects and she was going to speak to them about stopping it- she has no history of ulcer disease or gastritis seen on her recent upper endoscopy in January of 2020 Being evaluated for bariatri c gastric sleeve surgery and hiatal hernia surgery by Dr. Shrestha as of the 06/14/2020 OV- - I advised her that she will need [...] food in the distal esophagus and hiatal hernia- cleared endoscopically in 11/2021 Cardiac- EF of 35%-sees Dr. Vital- Flare of the [...] ring upper endoscopy at the end of November,- this was related to eating too much and too quickly Surgical History Surgery Date(Month/Year) Sleep Apnea, needs CPAP machine Septal myectomy-open heart surgery- [facility] 04/10/2017 Cataracts right and left 2017 Right knee replacement 12/13/2005 Left knee replacement 02/06/2005 X2 [facility] 1976
--- OUTSIDE RECORDS SUMMARY | 2025-03-15 15:15 | XMS_ITS | Patient Health Record ---
Author Organization [facility] Address [address] [place] [address] Care Team Providers Care Warehouse Lead Name Role Phone Bhanu Ramachandran MD Primary Care Provider Unavaila ble Black, Candy Unavailable [phone] Allergies Allergen (clinical drug ingredient) Drug/Non Drug [...] Status Risk Notes Problem Pain in limb (20978440) Pain in Limb (729.5) Active confirmed Problem Acquired hallux valgus (66978510) Hallux valgus (acquired), left foot (M20.12) Active confirmed Problem Localized, primary osteoarthritis of the ankle and/or foot (591711569) Primary osteoarthritis, left ankle and foot (M19.072) Active confirmed Problem Acquired hammer toe of right foot (0467121204309963 ) Other hammer toe(s) (acquired), right foot (M20.41) Active confirmed Problem Acquired hammer toe of left foot (1947545571649862 ) Other hammer toe(s) (acquired), left foot (M20.42) Active confirmed Problem 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) Active confirmed Problem Localized, primary osteoarthritis of the ankle and/or foot (840303188) Osteoarthritis of right ankle and foot (M19.071) Active confirmed Problem Midfoot collapse of left lower extremity (M21.6X2) Active confirmed Problem Plantar fasciitis of right foot (3972305309486274 1) Plantar fasciitis of right foot (M72.2) Active confirmed Problem Interstitial myositis (03401557) 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 [address] [address] 04/09/2024 Candy Black Pain in right foot [...] Osteoarthritis of right ankle and foot M19.071 [facility] [address] [address] 03/18/2024 Candy Black Assessments Encounter Date Diagnosis [...] Name:Candy Suggs , 04/12/2025 02:30:00 PM, [address] [facility], [place], [address], Insurance Providers Payer Name Payer Address Payer Phone Subscriber Number Group Number Insured Name Patient Relationship to Insured Coverage Start Date Coverage End Date Medicare National Govt [employer] [address] [place] [address] [phone] [id number] Alyse Razo Self - patient is the insured [employer] [address] [place] [address] [phone] [id number] Alyse Razo Self - patient is [...] septal myectomy 2016 Hospitalization History Reason Date(Month/Year) [facility] [place]- sleep apnea 01/30/2021
--- OUTSIDE RECORDS SUMMARY | 2025-03-15 15:16 | XMS_ITS | Clinical Summary ---
Author Organization [facility] Address [address] [place] [address] Phone Care Team Providers Care Photographer Assistant Name Role Phone Bhanu Ramachandran MD [...] Care Team (Late st Contact Info) Description 07/01/2025 2:20 PM EST Office Visit [facility] [address] [place] [address] [phone] Jeremy Godfrey DO [address] [place] [phone] [email or web address] Health Maintenance Due Date Last Done Comments [...] file Insurance MEDICARE PART A & B Joognu [place] MEDEX SUPPLEMENT MEDICARE PART A & B [email or web address] MEDEX SUPPLEMENT MEDICARE PART A & B [email or web address] MEDEX SUPPLEMENT MEDICARE PART A & B [email or web address] MEDEX SUPPLEMENT MEDICARE PART A & B [email or web address] MEDEX SUPPLEMENT MEDICARE PART A & B [email or web address] MEDEX SUPPLEMENT Care Teams Photographer Assistant Relationship Specialty Start Date End Date Bhanu Ramachandran MD [address] [place] [address] Dr Duran PA PCP - General 06/13/17 Additional Source Comments The information contained in this document represents components of the legal health record. It is not the complete legal health record.[facility]
== END 2025-03-15 12:55 | disposition home or self-care (01) ==
LOC: HO.MAMMO 12:54
PROVIDERS: PCP Internal Medicine; Visit Provider Internal Medicine
DX: Z12.31 Encounter for screening mammogram for malignant neoplasm of breast (principal)
CPT/HCPCS: 77063; 77067

== ENCOUNTER → 2025-03-15 13:15 | Outpatient (BNV) | payer MEDICARE, SELFPAY | PROVIDERS: PCP Internal Medicine; Visit Provider Internal Medicine | DX: Z12.31 Encounter for screening mammogram for malignant neoplasm of breast (principal) | CPT/HCPCS: 77063; 77067 ==

== ENCOUNTER 2025-03-26 07:13 | Outpatient (REF) | payer MEDICARE, SELFPAY ==
--- OUTSIDE RECORDS SUMMARY | 2022-03-26 12:25 | XMS_ITS | Continuity of Care Document ---
Author Organization [facility] Address [address] [place] [address] Phone Care Team Providers Care Recorder Of Deeds Name Role Phone Unavailable Unavailable Unavailable Allergies, Adverse Reactions, Alerts Substance Reaction Status Criticality PENICILLIN Active No Information Medications Medication Instructions Dosage Effective Dates (start - stop) Status Comments OMEPRAZOLE (unknown strength) Not Available - Active LEVOTHYROXINE SODIUM (unknown strength) Not Available - Active clarithromycin 500 mg tablet take 1 tablet by oral route every 12 hours 500 MG - No Longer Active Procedures Procedure Date Offic/outpt E&m New Mod Sever 2 Services provided in an urgent care cent er Advance Directives Directive Yes / No Effective Date File Name No Information Encounters Encounter Description Practice Location Reason(s) For Visit Diagnoses Date Provider Providers Copied on Encounter Offic/outpt E&m New Mod Sever [facility], [address], [place], [place], [id number], [place] tel:[phone] [facility] sinus symptoms (chief complaint) ACUTE PANSINUSITIS, UNSPECIFIED No Information Family History Family Member Type Diagnosis Age At Onset No Information Payers Payer name Insurance type Covered democrat ID Authoriza tierica(s) [place] B [place] MB [id number] [facility] [place] BL [id number] Social History Type Description Quantity Date Captured Comments Alcohol Use Details No Caffeine Use Details Unknown Tobacco Use Status Current non-smoker Smoking Status Never smoker Non-Smoking Tobacco Use Details : No Details Available : No Details Available Sex Female Vital Signs Date / Time: Height Weight BMI Pulse Rate Blood Pressure Temperature Respiratory Rate Body Surface Area Head Circumference Head Circ. Percentile Wt./Dilan. Percentile BMI percentile Pulse Ox Inhaled Ox 4:55 PM 62.00 in 102.058 kg (225.00 lbs) 41.1 5 kg/m eter (2) 69 /min 140/79 mm[Hg] 98.40 F 18 /min 2.11 meter(2) 95 % Chief Complaint And Reason For Visit From encounter dated '03/26/2022 16:25'. sinus symptoms (chief complaint). Description: The client presents with bilateral frontal sinus andbilateral maxillary sinus symptoms that began suddenly and have lasted 4 Weeks. The sinus complaints are continual. The sinus symptoms have worsened. Today the client complains of facial pain, fatigue, postnasal drainage, sinus pain and sinus pressure. The symptoms are felt to be related to recent URI and seasonal allergies. Denies aggravating factors. Denies relieving factors. Associated symptoms include cough, facial pain, facial tenderness, fatigue, headache, hoarseness, nasal congestion, nasal drainage, postnasal drainage, sinus pain and sinus pressure. Pertinent negatives include anosmia, bloody sinus discharge, chronic cough, chronic sore throat, deviated septum, difficulty breathing,fever, halitosis, irritability, nasal obstruction, tooth pain and visual disturbances. Reason For Referral Reason For Referral No Information History Of Present Illness Encounter Date Complaint History Of Prese nt Illness sinus symptoms The client prese nts with bilateral frontal sinus and bilateral maxillary sinus symptoms that began suddenly and have lasted 4 Weeks. The sinus complaints are continual. The sinus symptoms have worsened. Today the client complains of facial pain, fatigue, postnasal drainage, sinus pain and sinus pressure. The symptoms are felt to be related to recent URI and seasonal allergies. Denies aggravating factors. Denies relieving factors. Associated symptoms include cough, facial pain, facial tenderness, fatigue, headache, hoarseness, nasal congestion, nasal drainage, postnasal drainage, sinus pain and sinus pressure. Pertinent negatives include anosmia, bloody sinus discharge, chronic cough, chronic sore throat, deviated septum, difficulty breathing, fever, halitosis, irritability, nasal obstruction, tooth pain and visual disturbances. Functional Status Date Functional Assessmen t No Information Instructions Date Instruction Additional Infor pete PLEASE FILL YOUR PRE SCRIPTIONS AND TAKE ALL MEDICATIONS DIRECTED/PRESCRIBED EVEN IF YOU BEGIN TO FEEL BETTER BEFORE YOU RUN OUT OF MEDICINE. RISKS AND BENEFITS OF MEDICATIONS WERE DISCUSSED DURING YOUR VISIT. PLEASE USE A DECONGESTANT MEDICATION (E.G. MEDICATIONS CONTAINING PSUEDOPHEDRINE (SUDAFED (YOU MUST ASK THE PHARMACIST FOR THIS)) NEEDED FOR THE NEXT 2-3 DAYS FOR NASAL CONGESTION SYMPTOMS. ALSO ADD MUCINEX/GUAIFENESIN WITH PLENTY OF FLUIDS TO THIN THE MUCUS AND FACILITATE DRAINAGE. CONSIDER THE USE OF AN OTC DECONGESTANT NASAL SPRAY (LIKE AFRIN (GENERIC IS FINE)) TWICE DAILY 2X/DAY FOR 1-3 DAYS. DO NOT USE FOR MORE THAN 3 DAYS. CONSIDER THE USE OF [id number] COUGH SUPPRESSANT SUCH DEXTROMETHORPHAN. Related to ACUTE PANSINUSITIS, UNSPECIFIED Assessments Type Assessment Date assessment ACUTE PANSINUSITIS, UNSPECIFIED Mental Status Date Cognitive Assessment Orientation - [place] ed to time, place, person, situation. Patient Care Teams Name Effective Dates (start - stop) Status Members No Information
--- OUTSIDE RECORDS SUMMARY | 2024-07-09 09:00 | XMS_ITS ---
Author Organization [facility] Address [address] [place] [address] Care Team Providers Care Middleware Architect Name Role Phone Bhnau Ramachandran MD Primary Care Provider Unavaila ble Black, Candy Unavailable [phone] Allergies Allergen (clinical drug ingredient) Drug/Non Drug [...] 07/09/2024 Encounters Encounter Location Date [facility] [address] [place] [address] 07/09/2024 Candy Suggs Plan Of Treatment Next Appt Details Provider Name:Candy Suggs , 04/12/2025 02:30:00 PM, [address] [place], [address], Progress Notes * Alyse SYKESDOB:[birth year] (74 yo F)Acc No.[id number]:07/09/2024 Progress Notes Patient: Andreea Alyse CRUZ Provider: Jae Suggs DPM :1950 A ge:74 Y S ex:Female Date:07/09/2024 Address:[address] [place], [place] [phone] Pcp:Bhanu Ramachandran MD Subjective: * Chief Complaints: [...] enies. C ardiovascular: Pacemaker d enies. M EARTHMOVING LABOURER d enies. W PW d enies. C [...] 0 07/09/2024 Generated for Mark Lopes/Briseyda on: 07:16 AM EDT
--- OUTSIDE RECORDS SUMMARY | 2025-03-26 07:16 | XMS_ITS | Patient Health Record ---
Author Organization [facility] Address [address] [place] [address] Care Team Providers Care Psychiatric Clinician Name Role Phone Calryn Hall M.D. Primary Care Provider Avila Corona [phone] Allergies Allergen (clinical drug ingredient) Drug/Non Drug Allergy documented on EMR Reaction Allergy Type Onset Date Status Penicillin Unknown Drug Allergy Active Results Component Value Reference Range Notes Liver Panel Reviewed date:05/31/2024 01:16:02 PM Interpretation: Performing Lab:[facility], [address] [place] [phone] Notes/Report: Bilirubin Total 0.5 0.0-1.0 mg/dL Bilirubin Direct 0.2 0.0-0.5 mg/dL Aspartate Amino Transferase 32 5-31 U/L Alanine Aminotransferase 17 0-31 U/L Total Protein 7.2 6.5-8.0 g/dL Albumin Level 4.2 3.5-5.0 g/dL Alkaline Phosphatase 82 39-117 U/L Liver Panel Reviewed date:06/24/2024 11:36:16 PM Interpretation: Performing Lab:[facility], [address] [place] [phone] Notes/Report: Bilirubin Total 0.4 0.0-1.0 mg/dL Bilirubin Direct 0.1 0.0-0.5 mg/dL Aspartate Amino Transferase 33 5-31 U/L Alanine Aminotransferase 24 0-31 U/L Total Protein 6.7 6.5-8.0 g/dL Albumin Level 3.9 3.5-5.0 g/dL Alkaline Phosphatase 85 39-117 U/L Liver Panel Reviewed date:08/16/2024 12:52:18 PM Interpretation: Performing Lab:[facility], [address] [place] [phone] Notes/Report: Bilirubin Total 0.4 0.0-1.0 mg/dL Bilirubin Direct 0.2 0.0-0.5 mg/dL Aspartate Amino Transferase 41 5-31 U/L Alanine Aminotransferase 36 0-31 U/L Total Protein 7.0 6.5-8.0 g/dL Albumin Level 3.8 3.5-5.0 g/dL Alkaline Phosphatase 86 39-117 U/L Liver Panel Reviewed date:10/25/2024 11:41:56 PM Interpretation: Performing Lab:[facility], [address] [place] [phone] Notes/Report: Bilirubin Total 0.3 0.0-1.0 mg/dL Bilirubin Direct 0.1 0.0-0.5 mg/dL Aspartate Amino Transferase 36 5-31 U/L Alanine Aminotransferase 37 0-31 U/L Total Protein 6.8 6.5-8.0 g/dL Albumin Level 3.9 3.5-5.0 g/dL Alkaline Phosphatase 68 39-117 U/L Liver Panel Reviewed date:01/03/2025 10:13:35 PM Interpretation: Performing Lab:[facility], [address] [place] [phone] Notes/Report: Bilirubin Total 0.6 0.0-1.0 mg/dL Bilirubin Direct 0.3 0.0-0.5 mg/dL Aspartate Amino Transferase 38 5-31 U/L Alanine Aminotransferase 35 0-31 U/L Total Protein 6.7 6.5-8.0 g/dL Albumin Level 4.1 3.5-5.0 g/dL Alkaline Phosphatase 65 39-117 U/L Liver Panel Reviewed date:02/09/2025 09:14:03 AM Interpretation: Performing Lab:[facility], [address] [place] [phone] Notes/Report: Bilirubin Total 0.5 0.0-1.0 mg/dL Bilirubin [...] Multivitamin - 1 tablet Orally Once a day; Duration: 30 day(s) Active Levothyroxine Sodium 125 MCG Oral; Duration: 90 Days Active Entresto 49-51 MG Oral; Duration: 90 Active Omeprazole 20 MG TAKE 1 CAPSULE BY MO [facility] EVERY DAY FOR 90 DAYS; Duration: 90 Active Latanoprost 0.005 % Ophthalmic; Duration: 74 Active Escitalopram Oxalate 10 MG TAKE 1 AND 1/ 2 TABLET BY MOUTH EVERY DAY Oral; Duration: 90 Active Carvedilol 3.125 MG TAKE 1 TABLET BY CHRISTOPHER TWICE A DAY Oral; Duration: 90 Active Escitalopram Oxalate 10 MG Oral; Duration: 90 Days Active Levothyroxine Sodium 100 MCG TAKE 1 TABL ET BY MOUTH EVERY DAY Oral; Duration: 90 Days Active Latanoprost 0.005 % INSTILL 1 DROP INTO BOTH EYES NIGHTLY Ophthalmic; Duration: 74 Days Active Carvedilol 3.125 MG Oral; Duration: 90 Days Active Immunizations Vaccine Route Administration Date Status Comme nts Flu vaccine no Preserv 3 and > Unknown 04/16/2017 Admin istered Influenza Unknown 03/04/2019 Administered Influenza Unknown 02/09/2020 Administered Influenza Unknown 04/25/2021 Administered Influenza Unknown 03/24/2024 Administered Problems Problem Type SNOMED Code ICD Code Onset Dates Problem Status W/U Status Risk Notes Problem Epigastric pain (97819128) Epigastric pain (R10.13) Active confirmed Problem Screening for malignant neoplasm of colon (929776948) Encounter for screening for malignant neoplasm of colon (Z12.11) Active confirmed Problem History of adenomatous polyp of colon (385490334) History of adenomatous polyp of colon (Z86.010) Active confirmed Problem Stricture of esophagus (04394512) Esophageal obstruction (K22.2) Active confirmed Problem Autoimmune hepatitis (298915113) Autoimmune hepatitis (K75.4) Active confirmed Problem Elevated liver enzymes level (071876464) Elevated liver function tests (R79.89) Active confirmed Problem Gastroesophageal reflux disease without esophagitis (774127330) Gastroesophageal reflux disease without esophagitis (K21.9) Active confirmed Problem Fatty liver (957312276) Fatty liver (K76.0) Active confirmed Problem Gastroesophageal reflux disease (381989222) Gastroesophageal reflux disease, esophagitis presence not specified (K21.9) Active confirmed Problem Hiatal hernia (69859802) Hiatal hernia (K44.9) Active confirmed Problem Esophageal ring (92034375) Esophageal ring (K22.2) Active confirmed Problem Gastroesophageal reflux disease (783780409) GERD (gastroesophageal reflux disease) (K21.9) Active confirmed Problem Esophageal dysphagia (50208437) Esophageal dysphagia (R13.14) Active confirmed Problem Esophageal dysphagia (74864345) Esophageal dysphagia (R13.10) Active confirmed Problem History of adenomatous polyp of colon (408097777) Hx of adenomatous polyp of colon (Z86.010) Active confirmed Vital Signs Temperature 98.0 degrees Fahrenheit 02/10/2025 Blood pressure diastolic 01 mm Hg 02/10/2025 Height 62.5 in 02/10/2025 Blood pressure systolic 001 mm Hg 02/10/2025 Weight 224.8 lbs 02/10/2025 BMI 40.46 kg/m2 02/10/2025 Encounters Encounter Location Date Provider Diagnosis [facility] [address] [place] [address] 05/12/2024 Avila Stevenson Autoimmune hepatitis K75.4 ; History of adenomatous polyp of colon Z86.010 ; Esophageal dysphagia R13.10 ; Encounter for screening for malignant neoplasm of colon Z12.11 ; Gastroesophageal reflux disease, esophagitis presence not specified K21.9 and Hiatal hernia K44.9 [facility] [address] [place] [address] 02/10/2025 Avila Stevenson Autoimmune hepatitis K75.4 ; History of adenomatous polyp of colon Z86.010 ; Esophageal obstruction K22.2 ; Gastroesophageal reflux disease, esophagitis presence not specified K21.9 ; Hiatal hernia K44.9 and Fatty liver K76.0 [facility] [address] [place] [address] 2024 Avila Stevenson Autoimmune hepatitis K75.4 [facility] [address] [place] [address] 07/17/2024 Avila Stevenson [facility] [address] [place] [address] 08/17/2024 Avila Stevenson [facility] [address] [place] [address] 08/19/2024 Avila Stevenson [facility] [address] [place] [address] 08/20/2024 Avila Stevenson Assessments Encounter Date Diagnosis [...] Name:Avila Stevenson , 08/11/2025 01:00:00 PM, [address], [place], [address], Insurance Providers Payer Name Payer Address Payer Phone Subscriber Number Group Number Insured Name Patient Relationship to Insured Coverage Start Date Coverage End Date MEDICARE [place] [address] [place] [address] [phone] [id number] ALYSE SYKES Self - patient is the insured [employer] CLAIMS [address] [place] [address] [id number] ALYSE SYKES Self - patient is the insured Medical (General) History Medical History History ICD Code Denies [place],DM,CVA,Lung disease,renal dise ase Depression 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 Henderson- done for the evaluation of anemia she reports that she is on m etoprolol in relation to a heart murmur- Idiopathic hypertrophic subaortic stenosis- may have surgery in [place]- had a cardiac cath with Dr. Vital in 11/2016- going to [facility] for possible surgery- had it done 04/2017 [...] machine Septal myectomy-open heart surgery- at [facility] 04/10/2017 Cataracts right and left 2017 Right knee replacement 12/13/2005 Left knee replacement 02/06/2005 X2 CCY 1976
--- OUTSIDE RECORDS SUMMARY | 2025-03-26 07:16 | XMS_ITS | Patient Health Record ---
Author Organization [facility] Address [address] [place] [address] Care Team Providers Care Cafe Or Restaurant Manager Name Role Phone Bhanu Ramachandran MD Primary Care Provider Unavaila ble Black, Candy Unavailable [phone] Allergies Allergen (clinical drug ingredient) Drug/Non Drug [...] Status Risk Notes Problem Pain in limb (51220552) Pain in Limb (729.5) Active confirmed Problem Acquired hallux valgus (02497344) Hallux valgus (acquired), left foot (M20.12) Active confirmed Problem Localized, primary osteoarthritis of the ankle and/or foot (171455428) Primary osteoarthritis, left ankle and foot (M19.072) Active confirmed Problem Acquired hammer toe of right foot (0651631541782375 ) Other hammer toe(s) (acquired), right foot (M20.41) Active confirmed Problem Acquired hammer toe of left foot (2865011401886486 ) Other hammer toe(s) (acquired), left foot (M20.42) Active confirmed Problem 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) Active confirmed Problem Localized, primary osteoarthritis of the ankle and/or foot (019857470) Osteoarthritis of right ankle and foot (M19.071) Active confirmed Problem Midfoot collapse of left lower extremity (M21.6X2) Active confirmed Problem Plantar fasciitis of right foot (7110918949983487 1) Plantar fasciitis of right foot (M72.2) Active confirmed Problem Interstitial myositis (48300354) 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 confirmed Problem 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) (8260100303555336 ) 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 confirmed Vital Signs Height 5 ft 2 in in 04/09/2024 Weight 220 lbs 04/09/2024 BMI 40.23 kg/m2 04/09/2024 Encounters Encounter Location Date Provider Diagnosis [facility] [place] [address] 04/09/2024 Candy Suggs Pain in right foot M79.671 ; Posterior [...] Name:Candy Suggs , 04/12/2025 02:30:00 PM, [address], [place], [address], Insurance Providers Payer Name Payer Address Payer Phone Subscriber Number Group Number Insured Name Patient Relationship to Insured Coverage Start Date Coverage End Date Medicare National [facility] [employer] [address] [place] [address] [id number] Alyse Razo Self - patient is the insured [employer] [address] [place] [address] [phone] [id number] Alyse Razo Self - patient is [...] septal myectomy 2016 Hospitalization History Reason Date(Month/Year) [facility] [place]- sleep apnea 01/30/2021
--- OUTSIDE RECORDS SUMMARY | 2025-03-26 07:17 | XMS_ITS | Clinical Summary ---
Author Organization [facility] Address [address] [place] [address] Phone Care Team Providers Care Coal Shooter Name Role Phone Bhanu Ramachandran MD Primary [...] 2:20 PM EST Office Visit [facility] [address] [place] [address] [phone] Jeremy Godfrey DO [address] [place] [address] Health Maintenance Due Date Last Done Comments [...] file Insurance MEDICARE PART A & B [employer] [place] MEDEX SUPPLEMENT MEDICARE PART A & B [place] MED[employer] SUPPLEMENT MEDICARE PART A & B [place] [employer] SUPPLEMENT MEDICARE PART A & B [place] [employer] SUPPLEMENT MEDICARE PART A & B [place] [employer] SUPPLEMENT MEDICARE PART A & B [place] MEDEX SUPPLEMENT Care Teams Coal Shooter Relationship Specialty Start Date End Date Bhanu Ramachandran MD [address] [place] [address] Dr Duran [place] PCP - General 06/13/17 Additional Source Comments The information contained in this document represents components of the legal health record. It is not the complete legal health record.[facility]
--- OUTSIDE RECORDS SUMMARY | 2025-03-26 07:17 | XMS_ITS | Data Portability ---
Author Organization [place] [facility] Address [address] [place] [address] Care Team Providers Care Loose Hand Packer Name Role Phone VETO ALICEA Primary Care Provider [phone] Assessment Encounter Date Assessment Date Assessment LastModified [...] symptoms. Patient was provided a [employer] pulp grinder feeder and we discussed instructions for use in [...] Recorded Time Impacted cerumen of bilateral ears 9092292699014 108 Active 2024 SARA Coyle [facility] 5 15:04:06 Posterior rhinorrhea 63173500 Active 2024 SARA Coyle [facility] 15:15:48 Problem Notes None recorded. Procedures Surgical History Date Name Laterality Status Provider Name and Address Organization Details Recorded Time 09/17/19 Cerumen removal without microscope bilat completed Aisha Peters [facility] 09/16/2024 15:03:55 Cholecystectomy completed Senia Lanza [facility] 09/16/2024 14:50:57 septal myectomy completed Senia Lanza [facility] 09/16/2024 14:51:08 section completed Senia Lanza [place] - [facility] 09/16/2024 14:52:02 Imaging Results None recorded. Procedure Notes None recorded. Medical Equipment None Reported. Allergies Allergen ID Allergen Name Allergen Category Reaction Reaction Severity Criticality Documentation Date Start Date Code Code System Note Provider Name and Address Organization Details Recorded Time 816407 Product containin g penicilli n (product) medicatio n rash Not available low 09/16/2024 30414 8001 SNOMED Senia riggs [facility] 14:48:40 Medications Name Sig Start Date [...] Updated DateTime 09/16/2024 160.02 cm 39.9 kg/m2 502427.28 g Senia Lanza [place] - [facility] 09/16/2024 14:48:13 Social History None recorded. Functional Status Question Answer Note LastModified by Organization D etails LastModified Time What is your level of alcohol consumption? None [email or web address] Information not available 09/16/2024 Mental Status None recorded. Family History Nothing Reported. Medical History Condition Response Allergies/Hayfever N Heart Problems Y Anxiety Y Tonsil Infections N Emphysema N Migraines N Thyroid Problems Y COPD N Depression Y Developmental Delay N Glaucoma N Nasal or Sinus Problems N Anemia N Immune System Disorder N Anesthesia Complications N Heart Attack (OR) N Other Skin Condition N Diabetes N [...] Diagnosis SNOMED-CT Code Diagnosis ICD10 Code Diagnosis IMO Codes Diagnosis Note 29544 AISHA PETERS PA-C [facility] [address] [address] 09/16/2024 14:27:44 09/16/2024 15:13:56 Impacted cerumen of bilateral ears 0664005403 667914 H61.23 Posterior rhinorrhea 758 50197 R09.82 Health Concerns Section Related Observation LastModified by Organization Detai ls LastModified Time None Recorded Concern Status LastModified by Organization Details LastModified Time None Recorded Advance Directives Directive None Recorded Payers Insurance Date Sequence Insurance Name Policy Number Policy Larson Covered Member ID Larson Member ID Guarantor Name 10/08/2024 2 [place] [id number] Alyse Razo [id number] Alyse Razo 10/08/2024 1 MED[place] B[place] [facility] Alyse Razo [id number] Alyse Razo Notes Date Note Type Note Provider Name and Address Organization Details Recorded Time 09/16/2024 text/html ROS as noted in the HPI 74 year old female presents for evaluation of the ears. Wears hearing aids, serviced at [facility]. They are about 2 years old. She [...] epistaxis. No persistent nasal congestion. Currently asymptomatic. Aisha riggs [place] - [facility] 09/16/2024 15:16:36 OBGyn Episode No OBEpisode recorded.
[2025-03-26 07:27] LABS: MANUAL DIFF FLAG NO
[2025-03-26 07:49] LABS: Hematocrit 42.3 % (37.0-47.0); Hemoglobin 14.1 g/dl (12.0-16.0); Imm Gran Abs Auto 0.01 X10*3/uL (0.00-0.03); Imm Gran Pct Auto 0.2 % (0.0-0.4); Lymphocytes Absolute Auto 1.7 X10*3/uL (1.2-4.9); Mean Corpuscular HGB Conc 33.3 g/dl (31.0-35.0); Mean Corpuscular Hemoglobin 29.4 pg (27.0-33.0); Mean Corpuscular Volume 88.3 fL (80.0-98.0); NRBC Abs Auto 0.000 X10*3/uL (0.0-0.012); NRBC Pct Auto 0.0 /100WBC (0.0-0.2); Platelet Count 157 X10*3/uL (160-400); Red Blood Count 4.79 X10*6/uL (4.20-5.50); White Blood Count 5.1 X10*3/uL (4.8-10.8)
[2025-03-26 07:50] LABS: Appearance Urine Hazy; Glucose Urine UA Negative (Negative); PH 6.0 (5.0-9.0); Specific Gravity - Urine 1.020 (1.005-1.025); UMIC TRIGGER UACC YES
[2025-03-26 07:52] LABS: Total Hemoglobin (HGBA1C) 3633.1237 umol/L
[2025-03-26 08:13] LABS: UACC Culture Trigger YES
[2025-03-26 08:56] LABS: Alanine Aminotransferase 47 U/L (0-31); Albumin Level 4.1 g/dL (3.5-5.0); Alkaline Phosphatase 70 U/L (39-117); Anion Gap 12 (12-20); Aspartate Amino Transferase 45 U/L (5-31); Blood Urea Nitrogen 24 mg/dL (9-16); Calcium 9.2 mg/dL (8.4-10.2); Carbon Dioxide 26 mmol/L (22-29); Chloride 109 mmol/L (96-108); Cholesterol 164 mg/dL (<200); Estimated Glomerular Filt Rate > 60; HDL Cholesterol 52 mg/dL (>40); Potassium 4.2 mmol/L (3.3-5.1); Sodium 143 mmol/L (135-145); Total Protein 6.9 g/dL (6.5-8.0); Triglycerides 80 mg/dL (<150)
== END 2025-03-26 07:14 | disposition home or self-care (01) ==
LOC: HO.LAB 07:13
PROVIDERS: PCP Internal Medicine; Visit Provider Internal Medicine
DX: G47.33 Obstructive sleep apnea (adult) (pediatric) (principal); I42.9 Cardiomyopathy, unspecified; R35.89 Other polyuria; Z13.228 Encounter for screening for other metabolic disorders; Z13.6 Encounter for screening for cardiovascular disorders; Z13.1 Encounter for screening for diabetes mellitus; Z13.29 Encounter for screening for other suspected endocrine disorder
CPT/HCPCS: 36415; 80053; 80061; 81001; 83036; 84443; 85025; 87086

== ENCOUNTER 2025-04-06 14:26 | Outpatient (AMB) | payer MEDICARE, SELFPAY ==
--- OUTSIDE RECORDS SUMMARY | 2024-07-09 09:00 | XMS_ITS ---
Author Organization [facility] Address [address] [place] [address] Care Team Providers Care Production Machine Computer Operator Name Role Phone Bhanu Ramachandran MD Primary Care Provider Unavaila ble Black, Candy Unavailable [phone] Allergies Allergen (clinical drug ingredient) Drug/Non Drug [...] 07/09/2024 Encounters Encounter Location Date [facility] [address] [place] [address] 07/09/2024 Candy Suggs Plan Of Treatment Next Appt Details Provider Name:Candy Suggs , 04/12/2025 02:30:00 PM, [address] [place], [address], Progress Notes * Alyse SYKESDOB:[birth year] (74 yo F)Acc No.[id number]:07/09/2024 Progress Notes Patient: Andreea Alyse CRUZ Provider: Jae Suggs DPM :1950 A ge:74 Y S ex:Female Date:07/09/2024 Address:[address] [place], [place] [phone] Pcp:Bhanu Ramachandran MD Subjective: * Chief Complaints: [...] enies. C ardiovascular: Pacemaker d enies. M GOLD NIB GRINDER d enies. W PW d enies. C [...] 0 07/09/2024 Generated for Mark Lopes/Briseyda on: 06:47 PM EDT
--- NOTE | 2025-04-06 14:49 | A.OFFPC_ITS ---
Vital Signs 04/06/25 14:52 Height 5 ft 3 in Weight 229 lb BMI 40.6 BP 118/60 Blood Pressure Location Lt brachial Position Sitting Respiration 12 Pulse 59 Pulse Source Pulse Oximeter Temp 96.8 F Temp Source Temporal Artery Scan Pulse Oximetry (%) 98 Oxygen Delivery Method Room Air Intake Visit Reasons: med f/u Intake Note: Follow up to review meds. Patient wants to discuss about zepbound. Charge Coordinator Required: No Allergies Penicillins (PENICILLINS) Allergy (Intermediate, Verified 04/06/25 14:50) RASH Tobacco use date assessed: 04/06/25 Fall risk assessment: No Falls in past year Last assessed Fall Risk: 04/06/25 Dental Screening Dental Screen Date: 04/06/25 Did you have a dental visit in the last 12 months?: Yes Did you have a dental problem in the last 6 months where you did not have access to dental care?: No Was dental information given to patient?: Patient has dentist HPI HPI Comments History of Present Illness Details 74 year old female with a past medical h istory of HOCM, depression, hypothyroid, ALIRIO, autoimmune hepatitis, hiatal hernia, OA s/p b/l knee replacements presenting for follow up CV: on entresto, coreg.follows with cardiology. Seen Apr 2024. Cardiology recommended GLP-mounjaro was denied at that time. Also with ALIRIO, htn good candidate. Has tried weight loss with diet and exercise and been unsuccessful. Will order zepbound. If not covered she may consider purchasing through [employer] Hypothyroid: on levothyroxine. Last TSH wnl ALIRIO on cpap Depression-on lexapro 15mg daily. Sees Jolanta Rojo. Feels increasingly fatigue. She is napping, unmotivated. She does not know if this is medical or uncontrolled depression. Mammo 05/2024 colonoscopy-Dr Stevenson ROS see HPI PHYSICAL EXAM: GENERAL: Alert and oriented x 3. NAD EYES: EOMI. Anicteric. HENT: Moist mucous membranes. No scleral icterus. No cervical lymphadenopathy. LUNGS: Clear to auscultation bilaterally. CARDIOVASCULAR: RRR No murmur. No JVD. ABDOMEN: Soft, non-tender +bs EXTREMITIES: No edema. Non-tender. SKIN: No rashes or lesions. Warm. NEUROLOGIC: No focal neurological deficits. CN II-XII grossly intact PSYCHIATRIC: Cooperative. Appropriate mood and affect [facility] Medical History Congestive heart failure with left ventricular diastolic dysfunction, NYHA class 2 Obesity (BMI 30-39.9) History of hypertrophic cardiomyopathy Morbid obesity due to excess calories Morbid obesity History of left bundle branch block (LBBB) Thyroid disease Arthritis GERD (gastroesophageal reflux disease) Depression History of fatty infiltration of liver LBBB (left bundle branch block) Surgical History H/O colonoscopy (~04/15/20) Hx of cataract surgery History of esophagogastroduodenoscopy (EGD) Status post ventricular septal myectomy Hx of section Hx of tubal ligation S/P cholecystectomy S/P total knee arthroplasty Family History Father Obesity Mother COPD (chronic obstructive pulmonary disease) Brother No problems noted. Son No problems noted. Daughter No problems noted. Social History Housing: House Alcohol intake: never Patient Tobacco Use Status: Former Tobacco user Years Smoked: 5 years e-Cigarette/Vaping Use: Never Used Second Hand Smoke Exposure: No service: No Current occupational status: retired Cognitive needs: No Hearing needs: Yes (b/l hearing aids) Vision needs: Yes (reading glasses) Questionnaire PHQ-9 Over the last 2 weeks, how often have you been bothered by any of the following problems? 1. Little interest or pleasure in doing things: not at all 2. Feeling down, depressed, or hopeless: more than half the days 3. Trouble falling or staying asleep, or sleeping too much: several days 4. Feeling tired or having little energy: nearly every day 5. Poor appetite or overeating: nearly every day 6. Feeling bad about yourself - or that you are a failure or have let yourself or your family down: several days 7. Trouble concentrating on things, such as reading the newspaper or watching television: several days 8. Moving or speaking so slowly that other people could have noticed. Or the opposite - being so fidgety or restless that you have been moving around a lot more than usual: not at all 9. Thoughts that you would be better off or of hurting yourself in some way: not at all Total score: 11 Depression Screening Interpretation: Positive (declines change in medication) Depression Screening Follow-up: Existing condition and Other Depression Screening Done: Yes 66072 - PHQ-9 Billing: Yes Source: Developed by Drs. Avila Estrada, Annette Wolfe, German Fournier and colleagues, with an educational clemente from [employer]. Thrive Questionnaire Date Thrive assessed: 04/06/25 I am a: Patient What is your living situation today?: I have a steady place to live Within the past 12 months, did the food you bought not last and you didn't have the money to get more?: Never true Within the past 12 months, did you worry whether your food would run out before you got money to buy more?: Never true Do you have trouble paying for medicines?: No Do you have trouble getting transportation to medical appointments?: No Do you have trouble paying your heating and electricity bill?: No Do you have trouble taking care of your child, family member or friend?: No Do you have trouble with day-to-day activities such as bathing, preparing meals, shopping, managing finances, etc.?: No Are you currently unemployed and looking for a job?: No Are you interested in more education?: No Please select the resources that you would like help with: None Currently or been in a relationship where the following occur: No concerns reported THRIVE Score: 0 AUDIT C Alcohol Use Questionnaire (AUDIT-C) 1. How often do you have a drink containing alcohol?: Never Total Score: 0 VIOLETTE-7 AMB Questionnaire VIOLETTE-7 Date VIOLETTE - 7 assessed: 04/06/25 Feeling nervous, anxious, or on edge: 3 = Nearly every day Not being able to stop or control worryin = Nearly every day Worrying too much about different things: 1 = Several days Trouble relaxin = Not at all Being so restless that it is hard to sit still: 1 = Several days Becoming easily annoyed or irritable: 2 = More than half the days Feeling afraid as if something awful might happen: 0 = Not at all Total VIOLETTE-7 score (0-4 normal; 5-9 mild; 10-14 moderate; 15-21 severe): 10 Source: Developed by Drs. Avila Estrada, Annette Wolfe, German Fournier and colleagues, with an educational clemente from [employer]. VIOLETTE-7 Assessment Billing VIOLETTE-7 Assessment Tool: VIOLETTE-7 Assessment 65605 Physical exam (Primary Care) Vital Signs: Last Vital Signs Temp 96.8 F 04/06/25 14:52 Pulse 59 04/06/25 14:52 Resp 12 04/06/25 14:52 BP 118/60 04/06/25 14:52 Pulse Ox 98 04/06/25 14:52 Oxygen Delivery Method Room Air 04/06/25 14:52 BMI result Body Mass Index 40.6 Tobacco/Smoking Status: Tobacco use Status Tobacco use date assessed 04/06/25 04/06/25 14:55 Patient Tobacco Use Status Former Tobacco user 04/06/25 14:55 e-Cigarette/Vaping Use Never Used 04/06/25 14:55 PHQ-9: PHQ-9 Score PHQ-9: Total score 11 04/06/25 14:59 Depression Screening Interpretation: Positive (declines change in medication) Depression Screening Follow-up: Existing condition and Other Thrive Assessment: Date of Thrive Assessment Date Thrive assessed 04/06/25 04/06/25 14:55 Currently or been in a relationship where the following occur: No concerns reported Coding Level of Care Code Est Pt Level 4 (20474) Diagnoses History of hypertrophic cardiomyopathy Z86.79 Thyroid disease E07.9 Body mass index (BMI) of 40.0 to 44.9 in adult Z68.41 ALIRIO (obstructive sleep apnea) G47.33 Additional Codes VIOLETTE-7 Assessment Billing - VIOLETTE-7 Assessment Tool: VIOLETTE-7 Assessment 55450 ([id number]) PHQ-9 - 92457 - PHQ-9 Billing: Yes ([id number]) Assessment & Plan Assessment & Plan (1) History of hypertrophic cardiomyopathy: Code(s): Z86.79 - Personal history of other diseases of the circulatory system Category: Medical (2) Thyroid disease: Comment: hypothyroid Code(s): E07.9 - Disorder of thyroid, unspecified Category: Medical (3) Body mass index (BMI) of 40.0 to 44.9 in adult: Code(s): Z68.41 - Body mass index [BMI] 40.0-44.9, adult Category: Medical (4) ALIRIO (obstructive sleep apnea): Code(s): G47.33 - Obstructive sleep apnea (adult) (pediatric) Category: Medical Plan HOCM-continue cardiology follow up. stable Depression/anxiety stable on lexapro Hypothyroid-euthyroid on current levothyroxine dose Obesity, ALIRIO, HOCM-zepbound ordered Medications: New Zepbound (tirzepatide (weight loss)) for 4 weeks 2.5 mg (0.5 mL) subcut QWEEK 2 mL 0RF NS E66.9 - Obesity, unspecified, G47.33 - Obstructive sleep apnea (adult) (pediatric) Zepbound (tirzepatide (weight loss)) 5 mg (0.5 mL) subcut QWEEK 2 mL 1RF NS E66.9 - Obesity, unspecified, G47.33 - Obstructive sleep apnea (adult) (pediatric) doxycycline hyclate 100 mg PO BID 20 tabs 0RF latanoprost 0.005% 1 drp ophthalmic (eye) BEDTIME 7.5 mL 1RF prednisone 40 mg (2 x 20 mg) PO DAILY 10 tabs 0RF
[2025-04-06 14:52] VITALS: BP 118/60; PULSE 59; RESP 12; TEMP 36; O2SAT 98; BMI 40.6
--- OUTSIDE RECORDS SUMMARY | 2025-04-06 18:47 | XMS_ITS | Data Portability ---
Author Organization [place] - [facility], Allergy Address [address] [place] [id number] Care Team Providers Care Parts Salvager Name Role Phone VETO ALICEA Primary Care Provider [phone] Assessment Encounter Date Assessment Date Assessment LastModified [...] symptoms. Patient was provided a [employer] jewelry polisher and we discussed instructions for use in [...] Recorded Time Impacted cerumen of bilateral ears [id number] 108 Active 2024 SARA Coyle [facility] 15:04:06 Posterior rhinorrhea 18893055 Active 2024 SARA Coyle [facility] 15:15:48 Problem Notes None recorded. Procedures Surgical History Date Name Laterality Status Provider Name and Address Organization Details Recorded Time 09/17/19 Cerumen removal without microscope bilat completed Aisha Peters [facility] 09/16/2024 15:03:55 Cholecystectomy completed Senia Lanza [facility] 09/16/2024 14:50:57 septal myectomy completed Senia Lanza [facility] 09/16/2024 14:51:08 section completed Senia Lanza [place] - [facility] 09/16/2024 14:52:02 Imaging Results None recorded. Procedure Notes None recorded. Medical Equipment None Reported. Allergies Allergen ID Allergen Name Allergen Category Reaction Reaction Severity Criticality Documentation Date Start Date Code Code System Note Provider Name and Address Organization Details Recorded Time 789748 Product containin g penicilli n (product) medicatio n rash Not available low 09/16/2024 55228 8001 SNOMED Senia riggs [facility] 14:48:40 Medications Name Sig Start Date [...] Updated DateTime 09/16/2024 160.02 cm 39.9 kg/m2 116968.28 g Senia Lanza [place] - [facility] 09/16/2024 14:48:13 Social History None recorded. [...] Disorder N Anesthesia Complications N Heart Attack ([place]) N Other Skin Condition N Diabetes N [...] ICD10 Code Diagnosis IMO Codes Diagnosis Note [id number] AISHA PETERS PA-C [facility] [address] [address] 09/16/2024 14:27:44 09/16/2024 15:13:56 Impacted cerumen of bilateral ears [id number] 057312 H61.23 Posterior rhinorrhea 758 04650 R09.82 Health Concerns Section Related Observation LastModified by Organization Detai ls LastModified Time None Recorded Concern Status LastModified by Organization Details LastModified Time None Recorded Advance Directives Directive None Recorded Payers Insurance Date Sequence Insurance Name Policy Number Policy Larson Covered Member ID Larson Member ID Guarantor Name 10/08/2024 2 [place] [id number] Alyse Razo [id number] Alyse Razo 10/08/2024 1 [place] [facility] Alyse Razo [id number] Alyse Razo Notes Date Note Type Note Provider Name and Address Organization Details Recorded Time 09/16/2024 text/html ROS as noted in the HPI 74 year old female presents for evaluation of the ears. Wears hearing aids, serviced at [facility]. They are about 2 years old. She [...] riggs [place] - [facility] 09/16/2024 15:16:36 OBGyn Episode No OBEpisode recorded.
--- OUTSIDE RECORDS SUMMARY | 2025-04-06 18:47 | XMS_ITS | Patient Health Record ---
Author Organization [facility] Address [address] [place] [address] Care Team Providers Care Docket Clerk Name Role Phone Bhanu Ramachandran MD Primary Care Provider Unavaila ble Black, Candy Unavailable [phone] Allergies Allergen (clinical drug ingredient) Drug/Non Drug [...] Status Risk Notes Problem Pain in limb (67654653) Pain in Limb (729.5) Active confirmed Problem Acquired hallux valgus (66738921) Hallux valgus (acquired), left foot (M20.12) Active confirmed Problem Localized, primary osteoarthritis of the ankle and/or foot (002455279) Primary osteoarthritis, left ankle and foot (M19.072) Active confirmed Problem Acquired hammer toe of right foot (1200683585041280 ) Other hammer toe(s) (acquired), right foot (M20.41) Active confirmed Problem Acquired hammer toe of left foot (7756017579293914 ) Other hammer toe(s) (acquired), left foot (M20.42) Active confirmed Problem 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) Active confirmed Problem Localized, primary osteoarthritis of the ankle and/or foot (173827048) Osteoarthritis of right ankle and foot (M19.071) Active confirmed Problem Midfoot collapse of left lower extremity (M21.6X2) Active confirmed Problem Plantar fasciitis of right foot (0208897556598108 1) Plantar fasciitis of right foot (M72.2) Active confirmed Problem Interstitial myositis (81412753) 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 confirmed Problem 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) (2007892149199237 ) 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 confirmed Vital Signs Height 5 ft 2 in in 04/09/2024 Weight 220 lbs 04/09/2024 BMI 40.23 kg/m2 04/09/2024 Encounters Encounter Location Date Provider Diagnosis [facility] [place] [address] [place] [address] 04/09/2024 Candy Suggs Pain in right foot [...] Name:Candy Suggs , 04/12/2025 02:30:00 PM, [address] [facility], [place], [address], Insurance Providers Payer Name Payer Address Payer Phone Subscriber Number Group Number Insured Name Patient Relationship to Insured Coverage Start Date Coverage End Date Medicare National [facility] [employer] [address] [place] [address] [id number] Alyse Razo Self - patient is the insured [employer] [address] [place] [address] [phone] [id number] Alyse Razo Self - patient is [...] septal myectomy 2016 Hospitalization History Reason Date(Month/Year) [facility]- sleep apnea 01/30/2021
--- OUTSIDE RECORDS SUMMARY | 2025-04-06 18:48 | XMS_ITS | Clinical Summary ---
Author Organization [facility] Address [address] [place] [phone] Phone Care Team Providers Care Plate Maker Zinc Name Role Phone Bhanu Ramachandran MD Primary [...] 2:20 PM EST Office Visit [facility] [address] [place] [address] [phone] Jeremy Godfrey DO [address] [place] [id number] [email or web address] Health Maintenance Due Date Last Done Comments [...] file Insurance MEDICARE PART A & B [employer] [place] [employer] SUPPLEMENT MEDICARE PART A & B [employer] MEDEX SUPPLEMENT MEDICARE PART A & B [employer] SUPPLEMENT MEDICARE PART A & B [employer] MED[employer] SUPPLEMENT MEDICARE PART A & B [employer] MED[employer] SUPPLEMENT MEDICARE PART A & B [employer] MEDEX SUPPLEMENT Care Teams Plate Maker [employer] Relationship Specialty Start Date End Date Bhanu Ramachandran MD [address] [place] [address] Dr [facility] - General 06/13/17 Additional Source Comments The information contained in this document represents components of the legal health record. It is not the complete legal health record.[facility]
--- OUTSIDE RECORDS SUMMARY | 2025-04-06 18:48 | XMS_ITS | Patient Health Record ---
Author Organization [facility] Address [address] [place] [address] Care Team Providers Care Deputy Sheriff Court Services Name Role Phone Carlyn Hall M.D. Primary Care Provider Avila Corona [phone] Allergies Allergen (clinical drug ingredient) Drug/Non Drug Allergy documented on EMR Reaction Allergy Type Onset Date Status Penicillin Unknown Drug Allergy Active Results Component Value Reference Range Notes Liver Panel Reviewed date:05/31/2024 01:16:02 PM Interpretation: Performing Lab:[facility], [address] [place] [phone] Notes/Report: Bilirubin Total 0.5 0.0-1.0 mg/dL Bilirubin Direct 0.2 0.0-0.5 mg/dL Aspartate Amino Transferase 32 5-31 U/L Alanine Aminotransferase 17 0-31 U/L Total Protein 7.2 6.5-8.0 g/dL Albumin Level 4.2 3.5-5.0 g/dL Alkaline Phosphatase 82 39-117 U/L Liver Panel Reviewed date:06/24/2024 11:36:16 PM Interpretation: Performing Lab:[facility], [address] [place] [phone] Notes/Report: Bilirubin Total 0.4 0.0-1.0 mg/dL Bilirubin Direct 0.1 0.0-0.5 mg/dL Aspartate Amino Transferase 33 5-31 U/L Alanine Aminotransferase 24 0-31 U/L Total Protein 6.7 6.5-8.0 g/dL Albumin Level 3.9 3.5-5.0 g/dL Alkaline Phosphatase 85 39-117 U/L Liver Panel Reviewed date:08/16/2024 12:52:18 PM Interpretation: Performing Lab:[facility], [address] [place] [phone] Notes/Report: Bilirubin Total 0.4 0.0-1.0 mg/dL Bilirubin Direct 0.2 0.0-0.5 mg/dL Aspartate Amino Transferase 41 5-31 U/L Alanine Aminotransferase 36 0-31 U/L Total Protein 7.0 6.5-8.0 g/dL Albumin Level 3.8 3.5-5.0 g/dL Alkaline Phosphatase 86 39-117 U/L Liver Panel Reviewed date:10/25/2024 11:41:56 PM Interpretation: Performing Lab:[facility], [address] [place] [phone] Notes/Report: Bilirubin Total 0.3 0.0-1.0 mg/dL Bilirubin Direct 0.1 0.0-0.5 mg/dL Aspartate Amino Transferase 36 5-31 U/L Alanine Aminotransferase 37 0-31 U/L Total Protein 6.8 6.5-8.0 g/dL Albumin Level 3.9 3.5-5.0 g/dL Alkaline Phosphatase 68 39-117 U/L Liver Panel Reviewed date:01/03/2025 10:13:35 PM Interpretation: Performing Lab:[facility], [address] [place] [phone] Notes/Report: Bilirubin Total 0.6 0.0-1.0 mg/dL Bilirubin Direct 0.3 0.0-0.5 mg/dL Aspartate Amino Transferase 38 5-31 U/L Alanine Aminotransferase 35 0-31 U/L Total Protein 6.7 6.5-8.0 g/dL Albumin Level 4.1 3.5-5.0 g/dL Alkaline Phosphatase 65 39-117 U/L Liver Panel Reviewed date:02/09/2025 09:14:03 AM Interpretation: Performing Lab:[facility], [address] [place] [phone] Notes/Report: Bilirubin Total 0.5 0.0-1.0 mg/dL Bilirubin [...] 20 MG TAKE 1 CAPSULE BY [facility] EVERY DAY FOR 90 DAYS; Duration: 90 [...] W/U Status Risk Notes Problem Epigastric pain (02254808) Epigastric pain (R10.13) Active confirmed Problem Screening for malignant neoplasm of colon (563259574) Encounter for screening for malignant neoplasm of colon (Z12.11) Active confirmed Problem History of adenomatous polyp of colon (942995387) History of adenomatous polyp of colon (Z86.010) Active confirmed Problem Stricture of esophagus (43631412) Esophageal obstruction (K22.2) Active confirmed Problem Autoimmune hepatitis (167115228) Autoimmune hepatitis (K75.4) Active confirmed Problem Elevated liver enzymes level (039422262) Elevated liver function tests (R79.89) Active confirmed Problem Gastroesophageal reflux disease without esophagitis (101487642) Gastroesophageal reflux disease without esophagitis (K21.9) Active confirmed Problem Fatty liver (888565095) Fatty liver (K76.0) Active confirmed Problem Gastroesophageal reflux disease (011565265) Gastroesophageal reflux disease, esophagitis presence not specified (K21.9) Active confirmed Problem Hiatal hernia (92830826) Hiatal hernia (K44.9) Active confirmed Problem Esophageal ring (66401753) Esophageal ring (K22.2) Active confirmed Problem Gastroesophageal reflux disease (339767370) GERD (gastroesophageal reflux disease) (K21.9) Active confirmed Problem Esophageal dysphagia (79580929) Esophageal dysphagia (R13.14) Active confirmed Problem Esophageal dysphagia (42615953) Esophageal dysphagia (R13.10) Active confirmed Problem History of adenomatous polyp of colon (598489506) Hx of adenomatous polyp of colon (Z86.010) Active confirmed Vital Signs Temperature 98.0 degrees Fahrenheit 02/10/2025 Blood pressure diastolic 01 mm Hg 02/10/2025 Height 62.5 in 02/10/2025 Blood pressure systolic 001 mm Hg 02/10/2025 Weight 224.8 lbs 02/10/2025 BMI 40.46 kg/m2 02/10/2025 Encounters Encounter Location Date Provider Diagnosis [facility] [address] [place] [phone] 05/12/2024 Avila Stevenson Autoimmune hepatitis K75.4 ; History of adenomatous polyp of colon Z86.010 ; Esophageal dysphagia R13.10 ; Encounter for screening for malignant neoplasm of colon Z12.11 ; Gastroesophageal reflux disease, esophagitis presence not specified K21.9 and Hiatal hernia K44.9 [facility] [address] [place] [phone] 02/10/2025 Avila Stevenson Autoimmune hepatitis K75.4 ; History of adenomatous polyp of colon Z86.010 ; Esophageal obstruction K22.2 ; Gastroesophageal reflux disease, esophagitis presence not specified K21.9 ; Hiatal hernia K44.9 and Fatty liver K76.0 [facility] [address] [place] [phone] 2024 Avila Stevenson Autoimmune hepatitis K75.4 [facility] [address] [place] [address] 07/17/2024 Avila Stevenson [facility] [address] [place] [address] 08/17/2024 Avila Stevenson [facility] [address] [place] [phone] 08/19/2024 Avila Stevenson [facility] [address] [place] [address] 08/20/2024 Avila Stevenson Assessments Encounter Date Diagnosis [...] a tiny area of intestinal metaplasia, i.e. Kafuman's esophagus, but without any dysplasia. We did [...] Name:Avila Stevenson , 08/11/2025 01:00:00 PM, [address], [address], [place], [address], Insurance Providers Payer Name Payer Address Payer Phone Subscriber Number Group Number Insured Name Patient Relationship to Insured Coverage Start Date Coverage End Date MEDICARE [place] [address] [place] [address] [phone] [id number] ALYSE SYKES Self - patient is the insured [employer] CLAIMS [address] [place] [address] [id number] ALYSE SYKES Self - patient is the insured Medical (General) History Medical History History ICD Code Denies NH,DM,CVA,Lung disease,renal dise ase Depression 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 Henderson- done for the evaluation of anemia she reports that she is on m etoprolol in relation to a heart murmur- Idiopathic hypertrophic subaortic stenosis- may have surgery in [place]- had a cardiac cath with Dr. Vital in 11/2016- going to [facility] for possible surgery- had it done [...] machine Septal myectomy-open heart surgery- at [facility] 04/10/2017 Cataracts right and left 2017 Right knee replacement 12/13/2005 Left knee replacement 02/06/2005 X2 CCY 1976
== END 2025-04-06 15:12 | disposition home or self-care (01) ==
LOC: HO.HMCFM 14:27
PROVIDERS: PCP Internal Medicine; Visit Provider Internal Medicine
DX: Z86.79 Personal history of other diseases of the circulatory system (principal); E07.9 Disorder of thyroid, unspecified; Z68.41 Body mass index [BMI] 40.0-44.9, adult; G47.33 Obstructive sleep apnea (adult) (pediatric)

== ENCOUNTER → 2025-04-06 14:26 | Outpatient (BNVA) | payer MEDICARE, SELFPAY | PROVIDERS: PCP Internal Medicine; Visit Provider Internal Medicine | DX: E03.9 Hypothyroidism, unspecified (principal); G47.33 Obstructive sleep apnea (adult) (pediatric); F32.A Depression, unspecified; F41.9 Anxiety disorder, unspecified; E66.9 Obesity, unspecified; Z68.41 Body mass index [BMI] 40.0-44.9, adult; Z86.79 Personal history of other diseases of the circulatory system; Z96.653 Presence of artificial knee joint, bilateral; Z79.899 Other long term (current) drug therapy; Z13.31 Encounter for screening for depression; Z13.39 Encounter for screening examination for other mental health and behavioral disorders | CPT/HCPCS: 96127; 99212 ==

== ENCOUNTER 2025-04-15 11:51 | Outpatient (REF) | payer MEDICARE, SELFPAY ==
[2025-04-15 14:47] LABS: Alanine Aminotransferase 48 U/L (0-31); Albumin Level 4.4 g/dL (3.5-5.0); Alkaline Phosphatase 79 U/L (39-117); Aspartate Amino Transferase 46 U/L (5-31); Total Protein 7.3 g/dL (6.5-8.0)
--- OUTSIDE RECORDS SUMMARY | 2025-04-15 14:50 | XMS_ITS | Patient Health Record ---
Author Organization [facility] Address [address] [place] [address] Care Team Providers Care Exercise Specialist Name Role Phone Carlyn Patricio MD Primary Care Provider Unavailabl e Black, Candy Unavailable [phone] Allergies Allergen (clinical drug ingredient) Drug/Non Drug Allergy documented on EMR Reaction Allergy Type Onset Date Status Penicillin rash Drug Allergy Active amoxicillin Amoxicillin rash Drug Allergy Act kimberlyn Results Component Value Reference Range Notes X ray : Foot, right 3V Reviewed date:04/12/2025 05:45:35 PM Interpretation:See Examination above Performing Lab: Notes/Report: See Examination above Reason For Referral No Information Medications Medication SIG (Take, Route, Frequency, Duration) Notes Start Date End Date Status Latanoprost 0.005 % as directed Ophthalm ic Once a day Active Latanoprost Active Metoprolol & Diet Manage Prod 50 MG as directed Orally Unknown Escitalopram Oxalate 10 MG 1 tablet Oral ly Once a day; Duration: 30 day(s) Active Entresto Active ASO Ankle/Foot Stablizing AFO As directed Wear Daily; Duration: as needed 04/09/2024 Active Custom Orthotics as directed 04/12/2025 Active Carvedilol Active Omeprazole 20 MG 1 capsule 30 minutes before morning meal Orally Once a day; Duration: 30 day(s) Unknown Carvedilol 3.125 MG 1 tablet with food Orally Twice a day Active Omeprazole 20 MG as directed Orally O nce a day Active Levothyroxine Sodium 125 MCG 1 tablet every morning on an empty stomach Orally Once a day; Duration: 30 day(s) Active Entresto 49-51 MG as directed Orally T wice a day Active Physical Therapy . . . 2-3x/week; Durat ion: 3-4 weeks 04/12/2025 Active Escitalopram Oxalate 10 MG as directed O rally Once a day Active Levothyroxine Sodium Active Immunizations Vaccine Route Administration Date Status Comme nts Influenza Unknown 03/15/2025 Administered COVID-19 Moderna Vaccine Unknown 09/01/2020 Administere d 1st 08/04/20 Social History Tobacco Use: Social History Observation Description Date Details (start date - stop date) Never Smoker NA - NA Alcohol Screen Question Answer Notes Did you have a drink containing alcohol in the p ast year? No Points 0 Interpretation Negative Tobacco use other than smoking: Question Answer Notes Are you an other tobacco user? No Tobacco Control (Standard) Question Answer Notes Tobacco use: Nonsmoker AUDIT-C (Standard) Question Answer Notes Did you have a drink containing alcohol in the p ast year? No Points 0 Interpretation Negative Problems Problem Type SNOMED Code ICD Code Onset Dates Problem Status W/U Status Risk Notes Problem Tibialis tendinitis (30040846) Posterior tibial tendinitis, right leg (M76.821) Active confirmed Problem Hypertrophy of bone of right foot (disorder) (619149748684233 07) Hypertrophy of bone, right ankle and foot (M89.371) Active confirmed Problem Pes planus (83706520) Flat foot [pes planus] (acquired), right foot (M21.41) Active confirmed Vital Signs Blood pressure diastolic 78 mm Hg 04/12/2025 Height 5ft2in in 04/12/2025 Blood pressure systolic 120 mm Hg 04/12/2025 Weight 230 lbs 04/12/2025 BMI 42.06 kg/m2 04/12/2025 Encounters Encounter Location Date Provider Diagnosis [facility] [address] 04/12/2025 Candy Black Pain in right foot M79.671 ; Posterior tibial tendinitis, right leg M76.821 ; Hypertrophy of bone, right ankle and foot M89.371 and Flat foot [pes planus] (acquired), right foot M21.[address] [address] 04/13/2025 Candy Black Assessments Encounter Date Diagnosis (ICD Code) Assessment Notes Treatment Notes Treatment Clinical Notes Section Notes 04/12/2025 Posterior tibial tendinitis, right leg (ICD-10 - M76.821) 04/12/2025 Pain in right foot (ICD-10 - M79.671) 04/12/2025 Hypertrophy of bone, right ankle and foot (ICD-10 - M89.371) 04/12/2025 Flat foot [pes planus] (acquired), right foot (ICD-10 - M21.41) Plan Of Treatment Pending Test Test Name Order Date X ray : Foot, right 3V 07/12/2011 Insurance Providers Payer Name Payer Address Payer Phone Subscriber Number Group Number Insured Name Patient Relationship to Insured Coverage Start Date Coverage End Date Medicare National Govt [employer] [address] [place] [address] [phone] [id number] Alyse Razo Self - patient is the insured [employer] [address] [place] [address] [phone] [id number] Alyse Razo Self - patient is the insured Medical (General) History Medical History History ICD Code thyroid disorder sinus conditions psoriasis measles joint implants/screws chicken pox Arthritis anemia Anxiety Back,Hip,and Knee pain Broken bones Cataracts Depression Heart disease Hepatitis Hiatal hernia Liver disease Psychiatric disorder Reflux ( GERD) chronic sinusitis thyroid Warts Transfusions Gall bladder problems Glaucoma Psoriasis/eczema Mumps Sleep apnea Midfoot collapse of left lower extremity M21.6X2 Midfoot collapse of right lower extremit y M21.6X1 Other hammer toe(s) (acquired), left wilber t M20.42 Other hammer toe(s) (acquired), right fo ot M20.41 Hallux valgus (acquired), left foot M20. 12 Primary osteoarthritis, left ankle and f oot M19.072 Surgical History Surgery Date(Month/Year) right knee replacement left knee replacement cholecystectomy section 2x septal myectomy 2016 Hospitalization History Reason Date(Month/Year) [facility] [place]/30/2021
--- OUTSIDE RECORDS SUMMARY | 2025-04-15 14:50 | XMS_ITS | Clinical Summary ---
Author Organization [facility] Address [address] [place] [address] Phone Care Team Providers Care Figure Skater Name Role Phone Bhanu Ramachandran MD Primary [...] Encounters Date Type Department Care Team Description 04/07/2025 Telephone [employer] [facility] General Surgical Care [address] [place], [place] [phone] Unknown, Unknown, Establish Care from Last 3 Months Family History Medical [...] 2:20 PM EST Office Visit [facility] [address] [place] [address] Jeremy Godfrey DO [address] [place] [address] [email or web address] Health Maintenance Due Date Last Done [...] file Insurance MEDICARE PART A & B [facility] MEDEX SUPPLEMENT MEDICARE PART A & B [employer] MEDEX SUPPLEMENT MEDICARE PART A & B [employer] MEDEX SUPPLEMENT MEDICARE PART A & B [employer] SUPPLEMENT MEDICARE PART A & B [employer] SUPPLEMENT MEDICARE PART A & B [employer] MEDEX SUPPLEMENT Care Teams Figure Skater Relationship Specialty Start Date End Date Bhanu Ramachandran MD [address] [place] [address] [place] [address] PCP - General 06/13/17 Additional Source Comments The information contained in this document represents components of the legal health record. It is not the complete legal health record.[facility]
--- OUTSIDE RECORDS SUMMARY | 2025-04-15 14:50 | XMS_ITS | Encounter Summary ---
Author Organization [facility] Address [address] [place] [address] Phone Care Team Providers Care Battery Engineer Name Role Phone Bhanu Ramachandran MD Primary Care Provider Reason for Visit * Reason Onset Date Comments Establish Care 04/07/2025 Encounter Details Date Type Department Care Team (Late st Contact Info) Description 04/07/2025 Telephone [facility] General Surgical Care [address] [place], [place] [phone] Unknown, Unknown, MD Establish Care Social History Tobacco Use Types Packs/Day Years [...] on file Sexual Orientation Not on file documented as of this encounter Progress Notes * Caryn Silveira - 04/12/2025 2:21 PM EST No referral. Will contact patient when it has been received * Jing Dahl - 04/07/2025 2:00 PM EDT Do not see a referral * Brenda Queen - 04/07/2025 1:25 PM EDT PT lm on 04/06 requesting a call back to schedule an appt with the weight management dept as a new pt. [facility] Call Center CSS Agent (Please do not reply to this user, as this inbox is not monitored. Thank you.) Thank you. documented in this encounter Plan of Treatment Upcoming Encounters Date Type Department Care Team (Late st Contact Info) Description 07/01/2025 2:20 PM EST Office Visit [facility] [address] [place] [address] [place] [address] Jreemy Godfrey DO [address] [place] [phone] [email or web address] documented as of this encounter Visit Diagnoses Not on filedocumented in this encounter Care Teams Battery Engineer Relationship Specialty Start Date End Date Bhanu Ramachandran MD [address] [place] [address] [place] [address] PCP - General 06/13/17 documented as of this encounter Additional Source Comments The information contained in this document represents components of the legal health record. It is not the complete legal health record.[facility]
--- OUTSIDE RECORDS SUMMARY | 2025-04-15 14:50 | XMS_ITS | Data Portability ---
Author Organization [place] - [facility], Allergy Address [address] [place] [id number] Care Team Providers Care Furnace And Wash Equipment Operator Name Role Phone VETO ALICEA Primary Care [...] symptoms. 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 Procedures Surgical History Date Name Laterality Status Provider Name and Address Organization Details Recorded Time 09/17/19 Cerumen removal without microscope bilat completed Aisha Peters [facility] 09/16/2024 15:03:55 Cholecystectomy completed Senia Lanza [facility] 09/16/2024 14:50:57 septal myectomy completed Senia Lanza [facility] 09/16/2024 14:51:08 section completed Senia Lanza [place] - [facility] 09/16/2024 14:52:02 Imaging Results None recorded. Procedure Notes None recorded. Medical Equipment None Reported. Allergies Allergen ID Allergen Name Allergen Category Reaction Reaction Severity Criticality Documentation Date Start Date Code Code System Note Provider Name and Address Organization Details Recorded Time 120536 Product containin g penicilli n (product) medicatio n rash Not available low 09/16/2024 [id number] [id number] SNOMED Senia riggs [facility] 14:48:40 Medications Name Sig Start Date [...] Updated DateTime 09/16/2024 160.02 cm 39.9 kg/m2 553246.28 g Senia Lanza [place] - [facility] 09/16/2024 14:48:13 Social History None recorded. Functional Status Question Answer Note LastModified by Organization D etails LastModified Time What is your level of alcohol consumption? None [email or web address] Information not available 09/16/2024 Mental Status None recorded. Family History Nothing Reported. Medical History Condition Response Allergies/Hayfever N Heart Problems Y Anxiety Y Tonsil Infections N Emphysema N Migraines N Thyroid Problems Y Depression Y COPD N Developmental Delay N Glaucoma N Nasal or Sinus Problems N Anemia N Immune System Disorder N Anesthesia Complications N Heart Attack ([place]) N Other Skin Condition N Diabetes N [...] ICD10 Code Diagnosis IMO Codes Diagnosis Note [id number] AISHA PETERS PA-C [facility] [address] [address] 09/16/2024 14:27:44 09/16/2024 15:13:56 Impacted cerumen of bilateral ears [id number] H61.23 Posterior rhinorrhea 758 [address]5550 R09.82 Health Concerns Section Related Observation LastModified by Organization Detai ls LastModified Time None Recorded Concern Status LastModified by Organization Details LastModified Time None Recorded Advance Directives Directive None Recorded Payers Insurance Date Sequence Insurance Name Policy Number Policy Larson Covered Member ID Larson Member ID Guarantor Name 10/08/2024 2 [place] [id number] Alyse Razo [id number] Alyse Razo 10/08/2024 1 [place] [facility] Alyse Razo [id number] Alyse Razo Notes Date Note Type Note Provider Name and Address Organization Details Recorded Time 09/16/2024 text/html ROS as noted in the HPI 74 year old female presents for evaluation of the ears. Wears hearing aids, serviced at [facility] [employer]. They are about 2 years old. She [...] riggs [place] - [facility] 09/16/2024 15:16:36 OBGyn Episode No OBEpisode recorded.
== END 2025-04-15 11:52 | disposition home or self-care (01) ==
LOC: HO.LABR 11:51
PROVIDERS: PCP Internal Medicine; Visit Provider Internal Medicine
DX: K75.4 Autoimmune hepatitis (principal)
CPT/HCPCS: 36415; 80076; 93005; 99212

== ENCOUNTER 2025-04-15 12:00 | Outpatient (AMB) | payer MEDICARE, SELFPAY ==
--- NOTE | 2025-04-15 12:30 | MHC.OFFVIS ---
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 Patient has been having retrosternal chest discomfort usually after eating or when she is empty stomach when she wakes up in the morning. Symptoms have got better after she has discussed this with GI and she has been eating smaller meals. She is still having issues and struggling with weight loss. She is currently seeing bariatric service. She wants to get on GLP 1 antagonist but not sure in his worried about the cost issues. She has no other cardiac symptoms. Denies any orthopnea, PND, leg edema. Denies any exertional chest pain. No lightheadedness, syncope. [facility] Medical History Congestive heart failure with left ventricular diastolic dysfunction, NYHA class 2 Obesity (BMI 30-39.9) History of hypertrophic cardiomyopathy Morbid obesity due to excess calories Morbid obesity History of left bundle branch block (LBBB) Thyroid disease Arthritis GERD (gastroesophageal reflux disease) Depression History of fatty infiltration of liver LBBB (left bundle branch block) Surgical History H/O colonoscopy (~04/15/20) Hx of cataract surgery History of esophagogastroduodenoscopy (EGD) Status post ventricular septal myectomy Hx of section Hx of tubal ligation S/P cholecystectomy S/P total knee arthroplasty Family History Father Obesity Mother COPD (chronic obstructive pulmonary disease) Brother No problems noted. Son No problems noted. Daughter No problems noted. Social History Housing: House Alcohol intake: never Patient Tobacco Use Status: Former Tobacco user Years Smoked: 5 years e-Cigarette/Vaping Use: Never Used Second Hand Smoke Exposure: No service: No Current occupational status: retired Cognitive needs: No Hearing needs: Yes (b/l hearing aids) Vision needs: Yes (reading glasses) Review of Systems Const Denies chills, Denies fatigue, Denies fever(s), Denies frequent falls, Denies weakness, Denies weight gain and Denies weight loss ENT Denies dizziness Card Denies chest pain, Denies leg edema, Denies lightheadedness, Denies palpitations, Denies dyspnea, Denies dyspnea on exertion, Denies orthopnea and Denies other (loss of consciousness) Resp Denies cough, Denies dyspnea and Denies dyspnea on exertion GI Denies hematochezia and Denies change in stool character Musc Denies abnormal gait, Denies muscle weakness, Denies numbness, Denies radiating pain into limb and Denies tingling Neuro Denies abnormal gait, Denies dizziness, Denies frequent falls, Denies numbness, Denies tingling and Denies weakness Endo Denies fatigue and Denies palpitations Physical Exam Vital Signs: Last Vital Signs Pulse 57 04/15/25 12:31 BP 120/80 04/15/25 12:31 BMI result Body Mass Index 40.2 Const General: cooperative, healthy appearing, comfortable and no acute distress Nutritional Appearance: obese Orientation/consciousness: patient oriented x3 Neck Neck: Yes normal visual inspection Resp Effort & Inspection: normal respiratory effort Auscultation: clear to auscultation bilaterally, no crackles, no rales, no rhonchi and no wheezes Cardio Jugular venous distension: no JVD Rate: regular rate Rhythm: regular rhythm Heart sounds: S1 normal heart sound present, S2 normal heart sound present, no murmurs and no rubs Neuro General: patient oriented x3 Extrem General: Yes normal to inspection Psych Appearance: grossly normal Mental Status: mental status grossly normal Speech and movement: Normal speech and movement present Office Procedures EKG Details: EKG shows sinus bradycardia with left bundle-branch block, unchanged [id number], Complete Assessment & Plan Assessment & Plan (1) Cardiomyopathy: Code(s): I42.9 - Cardiomyopathy, unspecified Category: Medical Qualifiers: Cardiomyopathy type: unspecified Qualified Code(s): I42.9 - Cardiomyopathy, unspecified Plan: Patient with prior history of cardiomyopathy suspected to be related to left bundle-branch block. Last echocardiogram showed normalized LV ejection fraction on neurohormonal modulation. Will continue neurohormonal modulation with Entresto. Although she is currently on very low-dose of carvedilol he is not able to break the pills into halves adequately. Will change carvedilol to Toprol-XL 25 mg daily. Follow-up echocardiogram near future. Continue monitor for signs or symptoms of heart failure. (2) History of hypertrophic cardiomyopathy: Code(s): Z86.79 - Personal history of other diseases of the circulatory system Category: Medical Plan: Prior history of hypertrophic cardiomyopathy status post septal reduction therapy leading to left bundle-branch block. However she has done significantly well with treatment of hypertrophic cardiomyopathy no recurrent symptoms. Follow-up echocardiogram as above. (3) Morbid obesity: Code(s): E66.01 - Morbid (severe) obesity due to excess calories Category: Medical Plan: Morbid obesity which is a significant risk factor for her. She has been trying to lose weight. She is currently seeing bariatric surgery. I think she would benefit from GLP 1 antagonist therapy. We discussed various other options to participate in weight loss programs. (4) Chest pain: Code(s): R07.9 - Chest pain, unspecified Plan: Her chest pain syndrome appears to be more gastro intestinal in origin given association with larger meals as well as empty stomach. She has no exertional symptoms. Pursue lifestyle modification as well GI workup. Will follow up in the clinic otherwise in 1 year's time, sooner PRN. Thank you for allowing me to partake in her care Orders: Orders CA echo transthorac w con Today I42.9 - Cardiomyopathy, unspecified Medications: New metoprolol succinate ER (Toprol XL) 25 mg PO DAILY 30 tabs 5RF Coding Level of Care Code Est Pt Level 4 (91652) Complex EM visit Add On G2211 Diagnoses Cardiomyopathy, unspecified type I42.9 Cardiomyopathy type: unspecified History of hypertrophic cardiomyopathy Z86.79 Morbid obesity E66.01 Chest pain R07.9 CPT Codes EKG - CPT: 18802-[id number], Complete ([id number])
[2025-04-15 12:31] VITALS: BP 120/80; PULSE 57; BMI 40.2
== END 2025-04-15 12:56 | disposition home or self-care (01) ==
LOC: HO.HCS 12:01
PROVIDERS: PCP Internal Medicine; Visit Provider Internal Medicine Cardiovascular Disease
DX: I42.9 Cardiomyopathy, unspecified (principal); Z86.79 Personal history of other diseases of the circulatory system; E66.01 Morbid (severe) obesity due to excess calories; R07.9 Chest pain, unspecified
CPT/HCPCS: 93010; 99214; G2211

== ENCOUNTER 2025-05-27 10:28 | Outpatient (AMB) | payer MEDICARE, SELFPAY ==
--- OUTSIDE RECORDS SUMMARY | 2024-07-09 08:00 | XMS_ITS ---
Author Organization [facility] Address [address] [place] [address] Care Team Providers Care Web Engineer Name Role Phone Carlyn Patricio MD Primary Care Provider Unavailabl e Black, Candy Unavailable [phone] Allergies Allergen (clinical drug ingredient) Drug/Non Drug [...] 07/09/2024 Encounters Encounter Location Date Provider Diagnosis [facility] [address] [place] [address] 07/09/2024 Candy Suggs Plan Of Treatment No Information Progress Notes * Alyse SYKESDOB:[birth year] (74 yo F)Acc No.[id number]:07/09/2024 Progress Notes Patient: Alyse MARTINEZ Provider: Jae Suggs DPM :1950 A ge:74 Y S ex:Female Date:07/09/2024 Address:[address] [place], [place] [id number] Pcp:Carlyn Patricio MD Subjective: * Chief Complaints: [...] enies. C ardiovascular: Pacemaker d enies. M INCIDENT RESPONSE ENGINEER d enies. W PW d enies. C [...] 07/09/2024 Generated for Mark joe/Rogelio/Briseyda on: 1 07/28/2024 01:01 PM EST
--- NOTE | 2025-05-27 11:40 | MHC.OFFVISWM ---
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 Allergies Penicillins (PENICILLINS) Allergy (Intermediate, Verified 05/27/25 11:40) RASH Medication List - Last Reconciled 05/27/25 by Nilton Harris MD clotrimazole-betamethasone 1-0.05 % 1 appl topical DAILY escitalopram oxalate 15 mg PO DAILY PRN latanoprost 0.005% 1 drp ophthalmic (eye) BEDTIME levothyroxine (Levoxyl) 100 mcg PO DAILY metoprolol succinate ER (Toprol XL) 25 mg PO DAILY multivitamin 1 tab PO DAILY omeprazole 40 mg PO DAILY sacubitril-valsartan 49-51 mg (Entresto) 1 tab PO BID 90 days HPI 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: Details: Start time: 11.30am, End time: 12.10pm ?I spent 35 minutes speaking with the patient on the phone plus an additional 5 minutes reviewing and updating records for a total of 40 minutes HPI Comments Details: Previous weight loss efforts: WW, Intermittent fasting Wakes up: 6am, Sleeps: 10pm Breakfast: 8am (eggs, yogurt, oatmeal) Lunch: 1pm (grilled cheese, soup, burger) Dinner: 6pm (meat with vegetables) Snacks: 10am (candy, donuts), 4pm (sweets), 9pm (sweets) Exercise: none Beverages: Coffee: (3 cups/d with almond milk), Tea: none, Soda: none, Juice: none, ETOH: none PFSH Medical History (Updated 05/27/25 @ 11:54 by Nilton Harris MD) Anxiety Congestive heart failure with left ventricular diastolic dysfunction, NYHA class 2 Obesity (BMI 30-39.9) History of hypertrophic cardiomyopathy Morbid obesity due to excess calories Morbid obesity History of left bundle branch block (LBBB) Thyroid disease Arthritis GERD (gastroesophageal reflux disease) Depression History of fatty infiltration of liver LBBB (left bundle branch block) Surgical History H/O colonoscopy (~04/15/20) Hx of cataract surgery History of esophagogastroduodenoscopy (EGD) Status post ventricular septal myectomy Hx of section Hx of tubal ligation S/P cholecystectomy S/P total knee arthroplasty Family History Father Obesity Mother COPD (chronic obstructive pulmonary disease) Brother No problems noted. Son No problems noted. Daughter No problems noted. Social History Housing: House Alcohol intake: never Patient Tobacco Use Status: Former Tobacco user Years Smoked: 5 years e-Cigarette/Vaping Use: Never Used Second Hand Smoke Exposure: No service: No Current occupational status: retired Cognitive needs: No Hearing needs: Yes (b/l hearing aids) Vision needs: Yes (reading glasses) Telehealth Telehealth Telehealth Platform: Telephone Location of provider rendering services: practice address Location of patient: address on file Patient Identification confirmed using: Name, : Yes Telehealth method: voice only Patient verbally consented to treatment: Yes Patient verbally consented to billing insurance company: Yes Patient informed of any privacy concerns related to visit: Yes Minutes spent on Phone/Video with Pt.: 40 Assessment & Plan Assessment & Plan (1) Morbid obesity: Code(s): E66.01 - Morbid (severe) obesity due to excess calories Category: Medical Plan: 1.? Plan for lap sleeve gastrectomy. If diaphragmatic or ventral hernias are present at time of surgery, these will be repaired laparoscopically as well. I emphasized the importance of close follow-up, adherence to instructions and good communication. The surgery does not replace the need to change your lifestlyle which is the cause of the obesity problem. The surgery provides the motivation to try again to change your lifestyle, it reduces the appetite and make the transition to a better lifestyle easier and doubles the amount of weight you would lose compared to doing the lifestyle change without the surgery. You will need to be on a liquid diet with protein shakes for 2 weeks before surgery to maximize weight loss and boost your nutritional status to recover better from surgery and also for the first two weeks after surgery to let the stomach heal before we introduce other foods. After the first 2 weeks we will introduce protein bars and soft foods like scrambled eggs, cottage cheese and yogurt and after the 6th week will introduce meat, fish and cooked vegetables in small amounts. Over time you should be able to eat everything in small amounts. Side effects like nausea, vomiting, heartburn or abdominal pain are not common in the practice unless you are not following in the practice. This operation requires lifetime commitment to following in our practice and communication with me. You will much less weight and experience side effects if you don?t communicate or not following in the practice. Complications are rare and in our practice is about 1/10 of the national average. However, you can develop bleeding that may require transfusion (hasn?t happened for year in the practice), you may from complications (we did not have any deaths in the practice) and infections. Infections are usually a result of breakdown in communication or not understanding or following directions correctly. They are difficult to treat, they can happen during the first 6 weeks, they may require to be in the hospital for weeks or even months, not being able to eat by mouth and you may have drains and surgeries to try and correct the issue. 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 2. Nutritional counseling. Start with one premade PREMIER protein (buy at [employer] or [employer]) shake (mix 4oz of Premier mixed with 4oz low fat unsweetened almond milk each) at 7am-9am, one protein bar (Fit Crunch protein bar, buy at [employer], or [employer]) at 10am-12pm, another premade PREMIER protein shake (mix 4oz of Premier mixed with 4oz low fat unsweetened almond milk each) at 1pm-3pm, another [employer] protein bar,? dinner at 7pm (8 forks of protein and 8 forks of salad/vegetables) and HALF [employer]unch protein bar at 9pm-10pm. So you do 2 protein shakes, 2.5 protein bars and one meal per day. Meal to include lean meat (beef, fish, pork, turkey, chicken), or puerto rican yogurt, or egg whites, or beans with a salad with olive oil and fruits (berries, pears, apples, kiwi). Avoid salt, breads, potatoes, rice, pasta, desserts. 3. Each shake would be drunk slowly, like coffee in a period of 2 hours. 4. Cut each bar in 4 pieces and eat each piece in 30min ?to make each bar last 2 hours. 5. I emphasized the importance of measuring accurately the food portion and measure it when serving the food in plate 6. The meal portions include 8 full-size forks of meat and 8 full-size forks of salad. You always eat the meat portion but you can replace up to 4 forks for salad/vegetables with rice, potatoes or pasta, or a fruit ?if you like. The less you do it the better weight loss will be. 7. One full-size fork is what it can be scooped on the fork without falling aside and not what can be bit with the fork. Use regular forks like those you find in a typical restaurant. 8.? Please buy the body composition scale we discussed and send me weight measurements as soon as possible and then once a week. Always include your diet and exercise plan. 9. The best choice would be to purchase a stationary bike at home that can track calories. If you get one, please start stationary bike at a resistance level of 4.0 Increase level by 1.0 every 3 min to a max level of 10.0. Stay at this level for 3 min and then return to level 4.0 and repeat same steps until 300 calories are burned. Goal is to burn 2000 calories per week on exercise 10. Goal is to lose at least 1.5-2lbs per week 11. Goal to lose 10% of your weight before surgery, which is about 23lbs. Ultimate weight goal: 205lbs before surgery 12. Please follow the diet plan exactly without any change. If you don't like something about the plan or you feel hungry you need to communicate with me so I can help you revise the plan. You should not change the plan yourself 13. To be scheduled for EGD to assess the stomach's anatomy. The possibility of biopsies was discussed. Patient needs to avoid use of NSAIDs and aspirin for 1 week prior to EGD. You must be on liquids only the day before your endoscopy. Risks of perforation and bleeding was discussed with the patient. This will be an outpatient procedure with IV sedation. Orders: Orders Insulin Today E03.9 - Hypothyroidism, unspecified, E66.01 - Morbid (severe) obesity due to excess calories, G47.33 - Obstructive sleep apnea (adult) (pediatric), I42.9 - Cardiomyopathy, unspecified, I44.7 - Left bundle-branch block, unspecified, K21.9 - Gastro-esophageal reflux disease without esophagitis, Z86.79 - Personal history of other diseases of the circulatory system H Pylori Breath Test Today E03.9 - Hypothyroidism, unspecified, E66.01 - Morbid (severe) obesity due to excess calories, G47.33 - Obstructive sleep apnea (adult) (pediatric), I42.9 - Cardiomyopathy, unspecified, I44.7 - Left bundle-branch block, unspecified, K21.9 - Gastro-esophageal reflux disease without esophagitis, Z86.79 - Personal history of other diseases of the circulatory system Complete Blood Count Auto Diff Today E03.9 - Hypothyroidism, unspecified, E66.01 - Morbid (severe) obesity due to excess calories, G47.33 - Obstructive sleep apnea (adult) (pediatric), I42.9 - Cardiomyopathy, unspecified, I44.7 - Left bundle-branch block, unspecified, K21.9 - Gastro-esophageal reflux disease without esophagitis, Z86.79 - Personal history of other diseases of the circulatory system IRON PROFILE Today E03.9 - Hypothyroidism, unspecified, E66.01 - Morbid (severe) obesity due to excess calories, G47.33 - Obstructive sleep apnea (adult) (pediatric), I42.9 - Cardiomyopathy, unspecified, I44.7 - Left bundle-branch block, unspecified, K21.9 - Gastro-esophageal reflux disease without esophagitis, Z86.79 - Personal history of other diseases of the circulatory system Comprehensive Met. Panel Today E03.9 - Hypothyroidism, unspecified, E66.01 - Morbid (severe) obesity due to excess calories, G47.33 - Obstructive sleep apnea (adult) (pediatric), I42.9 - Cardiomyopathy, unspecified, I44.7 - Left bundle-branch block, unspecified, K21.9 - Gastro-esophageal reflux disease without esophagitis, Z86.79 - Personal history of other diseases of the circulatory system Vitamin B12 and Folate Today E03.9 - Hypothyroidism, unspecified, E66.01 - Morbid (severe) obesity due to excess calories, G47.33 - Obstructive sleep apnea (adult) (pediatric), I42.9 - Cardiomyopathy, unspecified, I44.7 - Left bundle-branch block, unspecified, K21.9 - Gastro-esophageal reflux disease without esophagitis, Z86.79 - Personal history of other diseases of the circulatory system Vitamin B1 Today E03.9 - Hypothyroidism, unspecified, E66.01 - Morbid (severe) obesity due to excess calories, G47.33 - Obstructive sleep apnea (adult) (pediatric), I42.9 - Cardiomyopathy, unspecified, I44.7 - Left bundle-branch block, unspecified, K21.9 - Gastro-esophageal reflux disease without esophagitis, Z86.79 - Personal history of other diseases of the circulatory system Vitamin A Today E03.9 - Hypothyroidism, unspecified, E66.01 - Morbid (severe) obesity due to excess calories, G47.33 - Obstructive sleep apnea (adult) (pediatric), I42.9 - Cardiomyopathy, unspecified, I44.7 - Left bundle-branch block, unspecified, K21.9 - Gastro-esophageal reflux disease without esophagitis, Z86.79 - Personal history of other diseases of the circulatory system TSH reflex Free T4 Today E03.9 - Hypothyroidism, unspecified, E66.01 - Morbid (severe) obesity due to excess calories, G47.33 - Obstructive sleep apnea (adult) (pediatric), I42.9 - Cardiomyopathy, unspecified, I44.7 - Left bundle-branch block, unspecified, K21.9 - Gastro-esophageal reflux disease without esophagitis, Z86.79 - Personal history of other diseases of the circulatory system US abdomen comp w elastography Today E03.9 - Hypothyroidism, unspecified, E66.01 - Morbid (severe) obesity due to excess calories, G47.33 - Obstructive sleep apnea (adult) (pediatric), I42.9 - Cardiomyopathy, unspecified, I44.7 - Left bundle-branch block, unspecified, K21.9 - Gastro-esophageal reflux disease without esophagitis, Z86.79 - Personal history of other diseases of the circulatory system FL upper GI w air Today E03.9 - Hypothyroidism, unspecified, E66.01 - Morbid (severe) obesity due to excess calories, G47.33 - Obstructive sleep apnea (adult) (pediatric), I42.9 - Cardiomyopathy, unspecified, I44.7 - Left bundle-branch block, unspecified, K21.9 - Gastro-esophageal reflux disease without esophagitis, Z86.79 - Personal history of other diseases of the circulatory system Hemoglobin A1c Today E03.9 - Hypothyroidism, unspecified, E66.01 - Morbid (severe) obesity due to excess calories, G47.33 - Obstructive sleep apnea (adult) (pediatric), I42.9 - Cardiomyopathy, unspecified, I44.7 - Left bundle-branch block, unspecified, K21.9 - Gastro-esophageal reflux disease without esophagitis, Z86.79 - Personal history of other diseases of the circulatory system Lipid Panel Today E03.9 - Hypothyroidism, unspecified, E66.01 - Morbid (severe) obesity due to excess calories, G47.33 - Obstructive sleep apnea (adult) (pediatric), I42.9 - Cardiomyopathy, unspecified, I44.7 - Left bundle-branch block, unspecified, K21.9 - Gastro-esophageal reflux disease without esophagitis, Z86.79 - Personal history of other diseases of the circulatory system Zinc Today E03.9 - Hypothyroidism, unspecified, E66.01 - Morbid (severe) obesity due to excess calories, G47.33 - Obstructive sleep apnea (adult) (pediatric), I42.9 - Cardiomyopathy, unspecified, I44.7 - Left bundle-branch block, unspecified, K21.9 - Gastro-esophageal reflux disease without esophagitis, Z86.79 - Personal history of other diseases of the circulatory system C Reactive Protein Today E03.9 - Hypothyroidism, unspecified, E66.01 - Morbid (severe) obesity due to excess calories, G47.33 - Obstructive sleep apnea (adult) (pediatric), I42.9 - Cardiomyopathy, unspecified, I44.7 - Left bundle-branch block, unspecified, K21.9 - Gastro-esophageal reflux disease without esophagitis, Z86.79 - Personal history of other diseases of the circulatory system Ferritin Today E03.9 - Hypothyroidism, unspecified, E66.01 - Morbid (severe) obesity due to excess calories, G47.33 - Obstructive sleep apnea (adult) (pediatric), I42.9 - Cardiomyopathy, unspecified, I44.7 - Left bundle-branch block, unspecified, K21.9 - Gastro-esophageal reflux disease without esophagitis, Z86.79 - Personal history of other diseases of the circulatory system Vitamin D 25-OH Total Today E03.9 - Hypothyroidism, unspecified, E66.01 - Morbid (severe) obesity due to excess calories, G47.33 - Obstructive sleep apnea (adult) (pediatric), I42.9 - Cardiomyopathy, unspecified, I44.7 - Left bundle-branch block, unspecified, K21.9 - Gastro-esophageal reflux disease without esophagitis, Z86.79 - Personal history of other diseases of the circulatory system XR chest 2V Today E03.9 - Hypothyroidism, unspecified, E66.01 - Morbid (severe) obesity due to excess calories, G47.33 - Obstructive sleep apnea (adult) (pediatric), I42.9 - Cardiomyopathy, unspecified, I44.7 - Left bundle-branch block, unspecified, K21.9 - Gastro-esophageal reflux disease without esophagitis, Z86.79 - Personal history of other diseases of the circulatory system ECG 12 lead EKG Today E03.9 - Hypothyroidism, unspecified, E66.01 - Morbid (severe) obesity due to excess calories, G47.33 - Obstructive sleep apnea (adult) (pediatric), I42.9 - Cardiomyopathy, unspecified, I44.7 - Left bundle-branch block, unspecified, K21.9 - Gastro-esophageal reflux disease without esophagitis, Z86.79 - Personal history of other diseases of the circulatory system Referrals Behavioral Health Referral E03.9 - Hypothyroidism, unspecified, E66.01 - Morbid (severe) obesity due to excess calories, G47.33 - Obstructive sleep apnea (adult) (pediatric), I42.9 - Cardiomyopathy, unspecified, I44.7 - Left bundle-branch block, unspecified, K21.9 - Gastro-esophageal reflux disease without esophagitis, Z86.79 - Personal history of other diseases of the circulatory system Nutrition/Dietitian Referral E03.9 - Hypothyroidism, unspecified, E66.01 - Morbid (severe) obesity due to excess calories, G47.33 - Obstructive sleep apnea (adult) (pediatric), I42.9 - Cardiomyopathy, unspecified, I44.7 - Left bundle-branch block, unspecified, K21.9 - Gastro-esophageal reflux disease without esophagitis, Z86.79 - Personal history of other diseases of the circulatory system
[2025-05-27 11:49] VITALS: BMI 40.5
--- OUTSIDE RECORDS SUMMARY | 2025-05-27 13:01 | XMS_ITS | Patient Health Record ---
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) Active confirmed Problem Pes planus (72219782) Flat foot [pes planus] (acquired), right foot (M21.41) Active confirmed Vital Signs Blood pressure diastolic 78 mm Hg 04/12/2025 Height 5ft2in in 04/12/2025 Blood pressure systolic 120 mm Hg 04/12/2025 Weight 230 lbs 04/12/2025 BMI 42.06 kg/m2 04/12/2025 Encounters Encounter Location Date Provider Diagnosis [facility] [address] 04/12/2025 Candy Black Pain in right foot M79.671 ; Posterior tibial tendinitis, right leg M76.821 ; Hypertrophy of bone, right ankle and foot M89.371 and Flat foot [pes planus] (acquired), right foot M21.[address] [address] 04/13/2025 Candy Black Assessments Encounter Date Diagnosis [...] Date Coverage End Date Medicare National Govt [email or web address] [address] [place] [address] [phone] [id number] Alyse Razo Self - patient is the insured [employer] [address] [place] [address] [phone] [id number] Alyse Razo Self - patient is [...] septal myectomy 2016 Hospitalization History Reason Date(Month/[place] [facility] [place]
--- OUTSIDE RECORDS SUMMARY | 2025-05-27 13:03 | XMS_ITS | Patient Health Record ---
Author Organization [facility] Address [address] [place] [address] Care Team Providers Care Sample Tailor Name Role Phone Carlyn Hall M.D. Primary Care Provider Avila Corona [phone] Allergies Allergen (clinical drug ingredient) Drug/Non Drug Allergy documented on EMR Reaction Allergy Type Onset Date Status Penicillin Unknown Drug Allergy Active Results Component Value Reference Range Flag Notes Liver Panel Reviewed date:06/24/2024 11:36:16 PM Interpretation: Performing Lab:[facility], [address] [place] [phone] Notes/Report: Bilirubin Total 0.4 0.0-1.0 mg/dL N Bilirubin Direct 0.1 0.0-0.5 mg/dL N Aspartate Amino Transferase 33 5-31 U/L H Alanine Aminotransferase 24 0-31 U/L N Total Protein 6.7 6.5-8.0 g/dL N Albumin Level 3.9 3.5-5.0 g/dL N Alkaline Phosphatase 85 39-117 U/L N Liver Panel Reviewed date:08/16/2024 12:52:18 PM Interpretation: Performing Lab:[facility], [address] [place] [phone] Notes/Report: Bilirubin Total 0.4 0.0-1.0 mg/dL N Bilirubin Direct 0.2 0.0-0.5 mg/dL N Aspartate Amino Transferase 41 5-31 U/L H Alanine Aminotransferase 36 0-31 U/L H Total Protein 7.0 6.5-8.0 g/dL N Albumin Level 3.8 3.5-5.0 g/dL N Alkaline Phosphatase 86 39-117 U/L N Liver Panel (Not yet reviewe d by provider) Interpretation: Performing Lab:[facility], [address] [place] [phone] Notes/Report: Bilirubin Total 0.6 0.0-1.0 mg/dL N Bilirubin Direct 0.2 0.0-0.5 mg/dL N Aspartate Amino Transferase 46 5-31 U/L H Alanine Aminotransferase 48 0-31 U/L H Total Protein 7.3 6.5-8.0 g/dL N Albumin Level 4.4 3.5-5.0 g/dL N Alkaline Phosphatase 79 39-117 U/L N Liver Panel Reviewed date:02/09/2025 09:14:03 AM Interpretation: Performing Lab:[facility], [address] [place] [phone] Notes/Report: Bilirubin Total 0.5 0.0-1.0 mg/dL N Bilirubin Direct 0.2 0.0-0.5 mg/dL N Aspartate Amino Transferase 39 5-31 U/L H Alanine Aminotransferase 43 0-31 U/L H Total Protein 6.6 6.5-8.0 g/dL N Albumin Level 3.9 3.5-5.0 g/dL N Alkaline Phosphatase 74 39-117 U/L N Liver Panel Reviewed date:01/03/2025 10:13:35 PM Interpretation: Performing Lab:[facility], [address] [place] [phone] Notes/Report: Bilirubin Total 0.6 0.0-1.0 mg/dL N Bilirubin Direct 0.3 0.0-0.5 mg/dL N Aspartate Amino Transferase 38 5-31 U/L H Alanine Aminotransferase 35 0-31 U/L H Total Protein 6.7 6.5-8.0 g/dL N Albumin Level 4.1 3.5-5.0 g/dL N Alkaline Phosphatase 65 39-117 U/L N Liver Panel Reviewed date:10/25/2024 11:41:56 PM Interpretation: Performing Lab:[facility], [address] [place] [phone] Notes/Report: Bilirubin Total 0.3 0.0-1.0 mg/dL N Bilirubin Direct 0.1 0.0-0.5 mg/dL N Aspartate Amino Transferase 36 5-31 U/L H Alanine Aminotransferase 37 0-31 U/L H Total Protein 6.8 6.5-8.0 g/dL N Albumin Level 3.9 3.5-5.0 g/dL N Alkaline Phosphatase 68 39-117 U/L N Reason For Referral No Information Medications Medication SIG (Take, Route, Frequency, Duration) Notes Start Date End Date Status Latanoprost 0.005 % Solution INSTILL 1 DROP INTO BOTH EYES NIGHTLY Ophthalmic; Duration: 74 Days Unknown Carvedilol 3.125 MG Tablet Oral; Duration: 90 Days Unknown Omeprazole 20 MG Capsule Delayed Release TAKE 1 CAPSULE BY MOUTH EVERY DAY FOR 90 DAYS; Duration: 90 Unknown Latanoprost 0.005 % Solution Ophthalmic; Duration: 74 Unk nown Escitalopram Oxalate 10 MG Tablet TAKE 1 AND 1/2 TABLET BY MOUTH EVERY DAY Oral; Duration: 90 Unknown Carvedilol 3.125 MG Tablet TAKE 1 TABLET BY MOUTH TWICE A DAY Oral; Duration: 90 Unknown Entresto 49-51 MG Tablet Oral; Duration: 90 Unknown Levothyroxine Sodium 100 MCG Capsule 1 capsule in the morning on an empty stomach Orally Once a day Unknown Multivitamin - Tablet 1 tablet Orally On ce a day; Duration: 30 day(s) Unknown Levothyroxine Sodium 125 MCG Tablet Oral; Duration: 90 Days Unkn own Escitalopram Oxalate 10 MG Tablet Oral; Duration: 90 Days Unkn own Levothyroxine Sodium 100 MCG Tablet TAKE 1 TABLET BY MOUTH EVERY DAY Oral; Duration: 90 Days Unknown Immunizations Vaccine Route Administration Date Status Comme nts Flu vaccine no Preserv 3 and > Unknown 04/16/2017 Admin istered Influenza Unknown 03/04/2019 Administered Influenza Unknown 02/09/2020 Administered Influenza Unknown 04/25/2021 Administered Influenza Unknown 03/24/2024 Administered Social History Social History Additional Details Category Social Info Options Details Miscellaneous: Marital status: Occupation: Retired 06/2013 Section Notes: Nonsmoker > 10 yrs ago; no s ig alcohol Nonsmoker > 10 yrs ago; no s ig alcohol Nonsmoker > 10 yrs ago; no s ig alcohol Nonsmoker > 10 yrs ago; no s ig alcohol Nonsmoker > 10 yrs ago; no s ig alcohol Nonsmoker > 10 yrs ago; no s ig alcohol Nonsmoker > 10 yrs ago; no s ig alcohol Nonsmoker > 10 yrs ago; no s ig alcohol Nonsmoker > 10 yrs ago; no s ig alcohol Nonsmoker > 10 yrs ago; no s ig alcohol Nonsmoker > 10 yrs ago; no s ig alcohol Nonsmoker > 10 yrs ago; no s ig alcohol Nonsmoker > 10 yrs ago; no s ig alcohol Nonsmoker > 10 yrs ago; no s ig alcohol Nonsmoker > 10 yrs ago; no s ig alcohol Nonsmoker > 10 yrs ago; no s ig alcohol Nonsmoker > 10 yrs ago; no s ig alcohol Problems Problem Type SNOMED Code ICD Code Onset Dates Problem Status W/U Status Risk Notes Problem Epigastric pain (83344097) Epigastric pain (R10.13) Active confirmed Problem Screening for malignant neoplasm of colon (409653264) Encounter for screening for malignant neoplasm of colon (Z12.11) Active confirmed Problem History of adenomatous polyp of colon (628026664) History of adenomatous polyp of colon (Z86.010) Active confirmed Problem Stricture of esophagus (03410241) Esophageal obstruction (K22.2) Active confirmed Problem Autoimmune hepatitis (146017796) Autoimmune hepatitis (K75.4) Active confirmed Problem Elevated liver enzymes level (173585925) Elevated liver function tests (R79.89) Active confirmed Problem Gastroesophageal reflux disease without esophagitis (183013780) Gastroesophageal reflux disease without esophagitis (K21.9) Active confirmed Problem Fatty liver (886019451) Fatty liver (K76.0) Active confirmed Problem Gastroesophageal reflux disease (826181809) Gastroesophageal reflux disease, esophagitis presence not specified (K21.9) Active confirmed Problem Hiatal hernia (96750838) Hiatal hernia (K44.9) Active confirmed Problem Esophageal ring (01095227) Esophageal ring (K22.2) Active confirmed Problem Gastroesophageal reflux disease (293799512) GERD (gastroesophageal reflux disease) (K21.9) Active confirmed Problem Esophageal dysphagia (07203970) Esophageal dysphagia (R13.14) Active confirmed Problem Esophageal dysphagia (03738940) Esophageal dysphagia (R13.10) Active confirmed Problem History of adenomatous polyp of colon (289999425) Hx of adenomatous polyp of colon (Z86.010) Active confirmed Vital Signs Temperature 98.0 degrees Fahrenheit 02/10/2025 Blood pressure diastolic 01 mm Hg 02/10/2025 Height 62.5 in 02/10/2025 Blood pressure systolic 001 mm Hg 02/10/2025 Weight 224.8 lbs 02/10/2025 BMI 40.46 kg/m2 02/10/2025 Encounters Encounter Location Date Provider Diagnosis [facility] [address] [place] [phone] 02/10/2025 Avila Stevenson Autoimmune hepatitis K75.4 ; History of adenomatous polyp of colon Z86.010 ; Esophageal obstruction K22.2 ; Gastroesophageal reflux disease, esophagitis presence not specified K21.9 ; Hiatal hernia K44.9 and Fatty liver K76.0 [facility] [address] [place] [phone] 2024 Avila Stevenson Autoimmune hepatitis K75.4 [facility] [address] [place] [phone] 07/17/2024 Avila Stevenson [facility] [address] [place] [phone] 08/17/2024 Avila Stevenson [facility] [address] [place] [phone] 08/19/2024 Avila Stevenson [facility] [address] [place] [phone] 08/20/2024 Avila Stevenson [facility] [address] [place] [phone] 02/10/2025 Avila Stevenson [facility] [address] [place] [phone] 04/14/2025 Avila Stevenson Assessments Encounter Date Diagnosis (ICD Code) Assessment Notes Treatment Notes Treatment Clinical Notes Section Notes 2024 Autoimmune hepatitis (ICD-10 - K75.4) 02/10/2025 History of adenomatous polyp of colon [...] 07/06/2020 CHEM 7 PROFILE 12/04/2022 LIVER PROFILE 12/04/2022 LIVER PROFILE 10/30/2020 LIVER PROFILE 02/26/2014 LIVER PROFILE 04/30/2014 LIVER PROFILE 10/14/2014 LIVER PROFILE 07/20/2015 LIVER PROFILE 12/06/2020 LIVER PROFILE 06/06/2021 LIVER PROFILE 02/19/2023 LIVER PROFILE 03/17/2014 LIVER PROFILE 08/25/2014 LIVER PROFILE 11/10/2015 LIVER PROFILE 01/06/2023 LIVER PROFILE 05/13/2023 LIVER PROFILE 2024 CRP 12/04/2022 CBC w DIFF 12/04/2022 SED RATE (ESR) 12/04/2022 XR BARIUM SWALLOW-ESOPHAGUS 08/22/2022 XR BARIUM SWALLOW-ESOPHAGUS 06/24/2017 XR GI SERIES 08/22/2022 FLUOR. ANTINUCLEAR AB SCREEN (PHIL) 11/09 Liver Panel 11/20/2023 Liver Panel 04/15/2025 Smooth Muscle Antibody 12/04/2022 Future Test Test Name Order Date UPPER GI ENDOSCOPY BALLOOON DILATION OF ESOPH 01/15/2020 COLONOSCOPY 01/15/2020 Next Appt Details Provider Name:Avila Stevenson , 08/11/2025 01:00:00 PM, [address] [place] [address], [address], [place], [address], Insurance Providers Payer Name Payer Address Payer Phone Subscriber Number Group Number Insured Name Patient Relationship to Insured Coverage Start Date Coverage End Date MEDICARE OF [place] [address] [place] [address] [id number] ALYSE SYKES Self - patient is the insured [employer] CLAIM[employer] [address] [place] [address] [id number] ALYSE SYKES Self - patient is the insured Medical (General) History Medical History History ICD Code Denies GA,DM,CVA,Lung disease,renal dise ase Depression 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 Henderson- done for the evaluation of anemia she reports that she is on m etoprolol in relation to a heart murmur- Idiopathic hypertrophic subaortic stenosis- may have surgery in [place]- had a cardiac cath with Dr. Vital in 11/2016- going to [facility] for possible surgery- had it done [...] right and left 2017 Septal myectomy-open heart [facility]- [facility] 04/10/2017 Sleep Apnea, needs CPAP machine
== END 2025-05-27 12:39 | disposition home or self-care (01) ==
LOC: HO.HBS 10:28
PROVIDERS: PCP Internal Medicine; Visit Provider Surgery
DX: E66.01 Morbid (severe) obesity due to excess calories (principal); Z68.41 Body mass index [BMI] 40.0-44.9, adult
CPT/HCPCS: 99204

== ENCOUNTER → 2025-06-01 10:44 | Outpatient (REF) | payer MEDICARE, SELFPAY ==
--- OUTSIDE RECORDS SUMMARY | 2024-07-09 08:00 | XMS_ITS ---
Author Organization [facility] Address [address] [place] [address] Care Team Providers Care Education And Development Manager Name Role Phone Carlyn Patricio MD Primary Care Provider Unavailabl e Black, Candy Unavailable [phone] Allergies Allergen (clinical drug ingredient) Drug/Non Drug Allergy documented on EMR Reaction Allergy Type Onset Date Status Penicillin rash Drug Allergy Active amoxicillin Amoxicillin rash Drug Allergy Act kimberlyn REASON FOR VISIT r/s for sooner apt Medications Medication SIG (Take, Route, Frequency, Duration) Notes Start Date End Date Status Entresto Active Carvedilol Active Escitalopram Oxalate 10 MG 1 tablet Oral ly Once a day; Duration: 30 day(s) Active Levothyroxine Sodium 125 MCG 1 tablet every morning on an empty stomach Orally Once a day; Duration: 30 day(s) Active Latanoprost Active Omeprazole 20 MG 1 capsule 30 minutes before morning meal Orally Once a day; Duration: 30 day(s) Unknown Metoprolol & Diet Manage Prod 50 MG as directed Orally Unknown Social History Tobacco Use: Social History Observation Description Date Details (start date - stop date) Former Smoker 11/10/2015 - NA Tobacco Use/Smoking Question Answer Notes Are you a: former smoker When did you start smoking? 11/10/2015 Additional Findings: Tobacco Non-User Ex-cigaret te smoker Alcohol Screen Question Answer Notes Did you have a drink containing alcohol in the p ast year? No Points 0 Interpretation Negative Tobacco use other than smoking: Question Answer Notes Are you an other tobacco user? No Vital Signs Height 5 ft 2 in in 07/09/2024 Weight 220 lbs 07/09/2024 BMI 40.23 kg/m2 07/09/2024 Encounters Encounter Location Date Provider Diagnosis [facility] [address] [place] [address] 07/09/2024 Candy Suggs Plan Of Treatment No Information Progress Notes * Alyse SYKESDOB:[birth year] (74 yo F)Acc No.[id number]:07/09/2024 Progress Notes Patient: Alyse MARTINEZ Provider: Jae Suggs DPM :1950 A ge:74 Y S ex:Female Date:07/09/2024 Address:[address] [place], [place] [id number] Pcp:Carlyn Patricio MD Subjective: * Chief Complaints: * 1 . R/s for sooner apt. * ROS: G eneral/Constitutional: Nausea d enies. V omiting d enies. H anne Thirst d enies. L oss appetite d enies. C hills d enies. F atigue a dmits.?Fever d enies. N ight Sweats d enies. U nexplained weight loss d enies. U nexplained weight gain d enies. H EENTM: Dentures d enies. D izziness a dmits. G lasses/contacts d enies. R etinopathy d enies. B lurred/double vision d enies. T MJ?denies. D ischarge/drainage d enies. I mplants d enies. S ore throat d enies. D ental implants d enies. H germán of hearing a dmits. D ifficulty chewing/swallowing/speaking d enies. N ose bleeds d enies. S ore mouth d enies. ? R espiratory: On Oxygen d enies. P neumonia/pleurisy d enies.?Bronchitis d enies. E mphysema d enies. C oughing d enies. C ough blood?denies. S hortness of breath a dmits. W heezing d enies. C ardiovascular: Pacemaker d enies. M HEAVY DUTY MECHANIC FARM EQUIPMENT d enies. W PW d enies. C HF a dmits. H eart attack d enies. S eptal defect d enies. R apid beat d enies. C hest pain d enies. A trial Fib. d enies. M urmur/Palpitations d enies. G astrointestinal: Hemorrhoids d enies. S tomach/Abdominal pain d enies. D ark blood stool d enies. I rritable bowel d enies. C onstipation d enies. D iarrhea d enies. H ematology: Swelling d enies. C lots d enies. V aricose Veins d enies. B ruising d enies. B leeding problem d enies. G enitourinary: Blood urine d enies. F requent/Painfu/urination/bladder control d enies. K idney stones d enies. I nfection (UTI) d enies. N ephropathy d enies. s ex trans dis (STD) d enies. P rostate d enies. M usculoskeletal: Hammertoes a dmits. B unions a dmits. B ack Pain d enies. M uscle Cramps/ Resting a dmits. M uscle cramps / walking d enies.?Generalized aches and pains d enies. W eakness d enies. I nteg.: Tello d enies. S cars d enies. C orns/calluses?denies. I ngrown nails d enies. P ainful nails d enies. O pen Sores d enies. R ashes d enies. N eurologic: Difficulty sleeping d enies. B rain disorder d enies. N umbness d enies. B alance trouble a dmits. C onfusion d enies. F ainting/blackouts d enies. T ingling d enies. T remors d enies. * Medical History: T hyroid disorder, Sinus conditions, Psoriasis, Measles, Joint implants/screws, Chicken pox, Arthritis, Anemia, Anxiety, Back,Hip,and Knee pain, Broken bones, Cataracts, Depression, Heart disease, Hepatitis, Hiatal hernia, Liver disease, Psychiatric disorder, Reflux ( GERD), Chronic sinusitis, Thyroid, Warts, Transfusions, Gall bladder problems, Glaucoma, Psoriasis/eczema, Mumps, Sleep apnea. * Surgical History: r ight knee replacement , left knee replacement , cholecystectomy , section 2x , septal myectomy 2015. * Hospitalization/Major Diagno stic Procedure: H - sleep apnea 01/30/2021. * Family History: M other: , foot problems - neuropathy, diagnosed with Family history of arthritis, Unspecified cerebral artery occlusion with cerebral infarction. F ather: . S iblings: defects. * Social History: T obacco Use: T obacco Use/Smoking A re you a: f ormer smoker W hen did you start smoking? 0 11/10/2015 A dditional Findings: Tobacco Non-User E x-cigarette smoker Tobacco use other than smoking A re you an other tobacco user? N o D rugs/Alcohol: D rugs H ave you used drugs other than those for medical reasons in the past 12 months? N o Alcohol Screen D id you have a drink containing alcohol in the past year? N o P oints 0 I nterpretation N egative M iscellaneous: C affeine: yes, 4 cups per day. Children: yes, 2. Exercise: yes, walking dog. Marital status: . 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 * Medications: T aking Entresto , Taking Carvedilol , Taking Latanoprost , Taking Escitalopram Oxalate 10 MG Tablet 1 tablet Orally Once a day , Taking Levothyroxine Sodium 125 MCG Tablet 1 tablet every morning on an empty stomach Orally Once a day , Unknown Omeprazole 20 MG Capsule Delayed Release 1 capsule 30 minutes before morning meal Orally Once a day , Unknown Metoprolol & Diet Manage Prod 50 MG Miscellaneous as directed Orally * Allergies: P enicillin: rash, Amoxicillin: rash. Objective: * Vitals: H t: 5 ft 2 in, Wt:220, BMI:40.23, Shoe size: 10.5, Ht-cm: 157.48 cm, Wt-k.79 kg. Assessment: Plan: * Treatment: * Images: * The named appointment provid er may or may not be the originator of this progress note, and it is not deemed complete until electronically signed by the appointment provider. Sign off status: Pending * Provider: Jae Suggs DPM Date: 0 07/09/2024 Generated for Mark joe/Rogelio/Briseyda on: 1 08/02/2024 12:01 PM EST
--- NOTE | 2025-06-01 10:47 | ECG_ITS ---
Test Reason : e66.01 Blood Pressure : */* mmHG Vent. Rate : 47 BPM Atrial Rate : 47 BPM P-R Int : 204 ms QRS Dur : 156 ms QT Int : 474 ms P-R-T Axes : 55 -25 128 degrees QTcB Int : 419 ms Sinus bradycardia Left bundle branch block Abnormal ECG When compared with ECG of 07-Dec-2023 16:25, T wave inversion more evident in Lateral leads QT has shortened Referred By: Nilton Harris Electronically Signed By: SALLY LUDWIG MD
--- NOTE | 2025-06-01 10:47 | CA_ITS ---
Transthoracic Echocardiogram Patient (Last, First, Middle): Alyse Razo A Gender: Female Date of : 1950 Age: 74 Procedure Date: 06/01/2025 Procedure Type: Transthoracic Echocardiogram Location: OP Height: 160. cm Weight: 104.33 kg BSA: 2.05 m2 Heart Rate: 47 bpm BP: 122 / 60 mmHg Demonstrator Knitting: MAL Referring MD: Jarred Vital MD Toll Line Mechanic: Jarred Vital MD Symptoms: I42.9 - Cardiomyopathy, unspecified Study Quality: Fair ECG Rhythm: Bradycardia Conclusions: - 1. Normal LV ejection fraction 55-60% with mild LVH with impaired relaxation filling pattern 2. Mildly dilated left atrium 3. Mild aortic regurgitation 4. Mildly dilated ascending aorta 4.3 cm 5. Normal RV systolic pressure 6. No gross pericardial effusion Findings Left Ventricle Normal left ventricular size and systolic function. There is mildly increased left ventricular wall thickness. The visually estimated ejection fraction is between 55-60%. There is paradoxical septal motion consistent with a left bundle branch block. Spectral Doppler is indicative of an impaired relaxation filling pattern. E/E prime ratio is between 8 and 15 consistent with indeterminate filling pressures. Wall Motion Rest Echo Findings The basal anteroseptal segment is akinetic. All other scored wall segments showed normal motion. Right Ventricle The right ventricle was not well visualized. Moderately increased right ventricular cavity size. There is borderline right ventricular systolic function. Atria The left atrium is mildly dilated. There is no evidence of interatrial shunt. The right atrium was not well visualized. Aortic Valve There is a doming trileaflet aortic valve. There is mild calcification of the aortic valve. There is no aortic valve stenosis. There is mild aortic valve regurgitation. Mitral Valve There is mild anterior and posterior mitral leaflet thickening. There is trace mitral valve regurgitation. There is no mitral valve stenosis. Pulmonic Valve The pulmonic valve is likely normal. Tricuspid Valve Normal tricuspid valve structure. There is trace tricuspid valve regurgitation. The right ventricular systolic pressure is normal. The right ventricular systolic pressure is 13 mmHg. Normal right atrial pressure. There is no evidence of pulmonary hypertension. Great Vessels The pulmonary artery was not well visualized. There is mild dilatation of the ascending aorta measuring 4.30 cm. Venous The inferior vena cava is normal in size and collapses greater than 50% with inspiration. Pericardium/Pleural There is no evidence of pericardial effusion. Prior Study Comparison No significant change compared to prior study dated: 03/16/2024. Measurements 2D Linear Measurements IVSd: 1.34 0.6-0.9/0.6-1.0 cm LVIDd: 4.66 3.9-5.3/4.2-5.9 cm LVIDd Index: 2.27 2.4-3.2/2.2-3.1 cm/m2 LVIDs: 2.73 2.0-3.6 cm LVPWd: 1.33 0.7-1.1 cm LA Diam: 3.60 2.7-3.8/3.0-4.0 cm LAIDs Index: 1.76 1.5-2.3 cm/m2 LV Mass: 304.34 67-162/88-224 g LV Mass Index: 148.46 43-95/49-115 g/m2 LVOT Diam: 2.00 3.0+(-)1.3 cm 2D Systolic Function EF 4C: 57.50 >55% EF 2C: 57.40 >55% EF BiP: 58.70 >55% Mitral Valve MV Pk E: 0.56 MV PK A: 0.72 MV Decel Time: 265.00 E/A: 0.80 E'Lateral: 5.98 E'Medial: 3.70 E/E' Med: 15.20 E/E' Lat: 9.40 PHT: 77.00 MVA PHT: 2.86 Decel Martin: 2.12 Aortic Valve AoV Pk Missael: 1.40 AoV Mn Missael: 0.90 AoV VTI: 0.29 AoV Pk Grad: 8.00 Aov Mn Grad: 4.00 ANDIE Cont.VTI: 2.49 AI Pk Missael: 3.26 AI Martin: 1.00 LVOT LVOT Pk Missael: 1.11 LVOT Mn Missael: 0.78 LVOT VTI: 0.23 LVOT Pk Grad: 5.00 LVOT Mn Grad: 3.00 LVOT Diam: 2.00 LVOT Area: 3.14 Diastolic Function MV Pk E: 0.56 MV Pk A: 0.72 E/A: 0.80 E'Medial: 3.70 E/E' Med: 15.20 E' Laterial: 5.98 E/E' Lat: 9.40 Right Ventricle TAPSE (mm): 17.10 TVS' Missael: 7.40 Tricuspid Valve TR Pk Missael: 1.56 TR Pk Grad: 10.00 RA Press: 3.00 RVSP: 13.00 Great Vessels Aorta Sinus of Valsalva: 3.40 2.0-3.5 cm Ao Asc: 4.30 2.1-3.4 cm Ao Arch: 3.60 Pulmonary Valve PV Pk Missael: 0.88 Peak PV Grad: 3.00 Updated in Other Vendor System with Status of Final Jarred Vital MD electronically signed on 06/02/2025 2:07:48 PM with status of Final
--- OUTSIDE RECORDS SUMMARY | 2025-06-01 12:03 | XMS_ITS | Patient Health Record ---
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) Active confirmed Problem Pes planus (55940963) Flat foot [pes planus] (acquired), right foot (M21.41) Active confirmed Vital Signs Blood pressure diastolic 78 mm Hg 04/12/2025 Height 5ft2in in 04/12/2025 Blood pressure systolic 120 mm Hg 04/12/2025 Weight 230 lbs 04/12/2025 BMI 42.06 kg/m2 04/12/2025 Encounters Encounter Location Date Provider Diagnosis [facility] [address] 04/12/2025 Candy Black Pain in right foot M79.671 ; Posterior tibial tendinitis, right leg M76.821 ; Hypertrophy of bone, right ankle and foot M89.371 and Flat foot [pes planus] (acquired), right foot M21.[address] [address] 04/13/2025 Candy Black Assessments Encounter Date Diagnosis [...] Date Coverage End Date Medicare National Govt [employer] [address] [place] [address] [phone] [id number] Alyse Razo Self - patient is the insured [employer] [address] [place] [address] [phone] [id number] Alyse Razo Self - patient is [...] septal myectomy 2016 Hospitalization History Reason Date(Month/Year) [facility] [place] apnea 01/30/2021
--- OUTSIDE RECORDS SUMMARY | 2025-06-01 12:03 | XMS_ITS | Patient Health Record ---
Author Organization [facility] Address [address] [place] [address] Care Team Providers Care Poll Clerk Name Role Phone Carlyn Hall M.D. Primary Care Provider Avila Corona [phone] Allergies Allergen (clinical drug ingredient) Drug/Non Drug Allergy documented on EMR Reaction Allergy Type Onset Date Status Penicillin Unknown Drug Allergy Active Results Component Value Reference Range Flag Notes Liver Panel Reviewed date:06/24/2024 11:36:16 PM Interpretation: Performing Lab:[facility], [address] [place] [phone] Notes/Report: Bilirubin Total 0.4 0.0-1.0 mg/dL N Bilirubin Direct 0.1 0.0-0.5 mg/dL N Aspartate Amino Transferase 33 5-31 U/L H Alanine Aminotransferase 24 0-31 U/L N Total Protein 6.7 6.5-8.0 g/dL N Albumin Level 3.9 3.5-5.0 g/dL N Alkaline Phosphatase 85 39-117 U/L N Liver Panel Reviewed date:08/16/2024 12:52:18 PM Interpretation: Performing Lab:[facility], [address] [place] [phone] Notes/Report: Bilirubin Total 0.4 0.0-1.0 mg/dL N Bilirubin Direct 0.2 0.0-0.5 mg/dL N Aspartate Amino Transferase 41 5-31 U/L H Alanine Aminotransferase 36 0-31 U/L H Total Protein 7.0 6.5-8.0 g/dL N Albumin Level 3.8 3.5-5.0 g/dL N Alkaline Phosphatase 86 39-117 U/L N Liver Panel Reviewed date:10/25/2024 11:41:56 PM Interpretation: Performing Lab:[address] [phone] Notes/Report: Bilirubin Total 0.3 0.0-1.0 mg/dL N Bilirubin Direct 0.1 0.0-0.5 mg/dL N Aspartate Amino Transferase 36 5-31 U/L H Alanine Aminotransferase 37 0-31 U/L H Total Protein 6.8 6.5-8.0 g/dL N Albumin Level 3.9 3.5-5.0 g/dL N Alkaline Phosphatase 68 39-117 U/L N Liver Panel Reviewed date:01/03/2025 10:13:35 PM Interpretation: Performing Lab:[facility], [address] [place] [phone] Notes/Report: Bilirubin Total 0.6 0.0-1.0 mg/dL N Bilirubin Direct 0.3 0.0-0.5 mg/dL N Aspartate Amino Transferase 38 5-31 U/L H Alanine Aminotransferase 35 0-31 U/L H Total Protein 6.7 6.5-8.0 g/dL N Albumin Level 4.1 3.5-5.0 g/dL N Alkaline Phosphatase 65 39-117 U/L N Liver Panel Reviewed date:02/09/2025 09:14:03 AM Interpretation: Performing Lab:[facility], [address] [place] [phone] Notes/Report: Bilirubin Total 0.5 0.0-1.0 mg/dL N Bilirubin Direct 0.2 0.0-0.5 mg/dL N Aspartate Amino Transferase 39 5-31 U/L H Alanine Aminotransferase 43 0-31 U/L H Total Protein 6.6 6.5-8.0 g/dL N Albumin Level 3.9 3.5-5.0 g/dL N Alkaline Phosphatase 74 39-117 U/L N Liver Panel (Not yet reviewe d by provider) Interpretation: Performing Lab:[address] [phone] Notes/Report: Bilirubin Total 0.6 0.0-1.0 mg/dL N Bilirubin Direct 0.2 0.0-0.5 mg/dL N Aspartate Amino Transferase 46 5-31 U/L H Alanine Aminotransferase 48 0-31 U/L H Total Protein 7.3 6.5-8.0 g/dL N Albumin Level 4.4 3.5-5.0 g/dL N Alkaline Phosphatase 79 39-117 U/L N Reason For Referral No [...] W/U Status Risk Notes Problem Epigastric pain (52212656) Epigastric pain (R10.13) Active confirmed Problem Screening for malignant neoplasm of colon (422527042) Encounter for screening for malignant neoplasm of colon (Z12.11) Active confirmed Problem History of adenomatous polyp of colon (938942055) History of adenomatous polyp of colon (Z86.010) Active confirmed Problem Stricture of esophagus (27482103) Esophageal obstruction (K22.2) Active confirmed Problem Autoimmune hepatitis (622933629) Autoimmune hepatitis (K75.4) Active confirmed Problem Elevated liver enzymes level (036758955) Elevated liver function tests (R79.89) Active confirmed Problem Gastroesophageal reflux disease without esophagitis (832169998) Gastroesophageal reflux disease without esophagitis (K21.9) Active confirmed Problem Fatty liver (012981703) Fatty liver (K76.0) Active confirmed Problem Gastroesophageal reflux disease (158756787) Gastroesophageal reflux disease, esophagitis presence not specified (K21.9) Active confirmed Problem Hiatal hernia (21605912) Hiatal hernia (K44.9) Active confirmed Problem Esophageal ring (12621865) Esophageal ring (K22.2) Active confirmed Problem Gastroesophageal reflux disease (304669471) GERD (gastroesophageal reflux disease) (K21.9) Active confirmed Problem Esophageal dysphagia (12978563) Esophageal dysphagia (R13.14) Active confirmed Problem Esophageal dysphagia (58784868) Esophageal dysphagia (R13.10) Active confirmed Problem History of adenomatous polyp of colon (553393082) Hx of adenomatous polyp of colon (Z86.010) Active confirmed Vital Signs Temperature 98.0 degrees Fahrenheit 02/10/2025 Blood pressure diastolic 01 mm Hg 02/10/2025 Height 62.5 in 02/10/2025 Blood pressure systolic 001 mm Hg 02/10/2025 Weight 224.8 lbs 02/10/2025 BMI 40.46 kg/m2 02/10/2025 Encounters Encounter Location Date Provider Diagnosis [facility] [address] [place] [phone] 02/10/2025 Avila Stevenson Autoimmune hepatitis K75.4 ; History of adenomatous polyp of colon Z86.010 ; Esophageal obstruction K22.2 ; Gastroesophageal reflux disease, esophagitis presence not specified K21.9 ; Hiatal hernia K44.9 and Fatty liver K76.0 [facility] [address] [place] [phone] 2024 Avila Stevenson Autoimmune hepatitis K75.4 [facility] [address] [place] [phone] 07/17/2024 Avila Stevenson [facility] [address] [place] [phone] 08/17/2024 Avila Stevenson [facility] [address] [place] [phone] 08/19/2024 Avila Stevenson [facility] [address] [place] [phone] 08/20/2024 Avila Stevenson [facility] [address] [place] [phone] 02/10/2025 Avila Stevenson [facility] [address] [place] [phone] 04/14/2025 Avila Stevenson Assessments Encounter Date Diagnosis [...] Provider Name:Avila Stevenson , 08/11/2025 01:00:00 PM, [address] [place] [address], [address], [place], [address], Insurance Providers Payer Name Payer Address Payer Phone Subscriber Number Group Number Insured Name Patient Relationship to Insured Coverage Start Date Coverage End Date MEDICARE OF [place] [address] [place] [address] [id number] ALYSE SYKES Self - patient is the insured [employer] CLAIMS [address] [place] [address] [id number] ALYSE SYKES Self - patient is the insured Medical (General) History Medical History History ICD Code Denies DC,DM,CVA,Lung disease,renal dise ase Depression 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 Henderson- done for the evaluation of anemia she reports that she is on m etoprolol in relation to a heart murmur- Idiopathic hypertrophic subaortic stenosis- may have surgery in [place]- had a cardiac cath with Dr. Vital in 11/2016- going to [facility] for possible surgery- had it done [...]
--- OUTSIDE RECORDS SUMMARY | 2025-06-01 12:03 | XMS_ITS | Data Portability ---
Author Organization [place] [facility], Allergy Address [address] [place] [address] Care Team Providers Care Bobbin Washer Name Role Phone VETO ALICEA Primary Care [...] symptoms. 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 15:04:06 Posterior rhinorrhea 02982428 Active 2024 SARA Coyle [facility] 15:15:48 Problem Notes None recorded. Procedures Surgical History Date Name Laterality Status Provider Name and Address Organization Details Recorded Time 09/17/19 Cerumen removal without microscope bilat completed Aisha Peters [facility] 09/16/2024 15:03:55 Cholecystectomy completed Senia Lanza [facility] 09/16/2024 14:50:57 septal myectomy completed Senia Lanza [facility] 09/16/2024 14:51:08 section completed Senia Lanza [place] [facility] 09/16/2024 14:52:02 Imaging Results None recorded. Procedure Notes None recorded. Medical Equipment None Reported. Allergies Allergen ID Allergen Name Allergen Category Reaction Reaction Severity Criticality Documentation Date Start Date Code Code System Note Provider Name and Address Organization Details Recorded Time 698502 Product containin g penicilli n (product) medicatio n rash Not available low 09/16/2024 12584 8001 SNOMED Senia riggs [facility] 14:48:40 Medications Name Sig Start Date [...] Updated DateTime 09/16/2024 160.02 cm 39.9 kg/m2 304893.28 g Senia Lanza [place] - [facility] 09/16/2024 14:48:13 Social History None recorded. [...] Disorder N Anesthesia Complications N Heart Attack (ND) N Other Skin Condition N Diabetes N Rhinitis N Bleeding Disorder N Food Allergy N Arthritis Y Hearing Loss N Hyperlipidemia N Cancer N Stroke N Dementia N Nasal polyps N Asthma N High Cholesterol N Sleep Disorder N GERD/Reflux N Liver Disease Y Headaches N Fibromyalgia N Hypertension N Speech Delay N Kidney Disease N Gynecological HistoryNo gynecological history recorded. Obstetrics History GPAL:G 0 P 0 0 0 0 Past Encounters Encounter ID Performer Location Encounter Start Date Encounter Closed Date Diagnosis/Indication Diagnosis SNOMED-CT Code Diagnosis ICD10 Code Diagnosis IMO Codes Diagnosis Note [id number] AISHA PETERS PA-C [facility] [address] [address] 09/16/2024 14:27:44 09/16/2024 15:13:56 Impacted cerumen of bilateral ears 9916674477 126094 H61.23 Posterior rhinorrhea 758 78693 R09.82 Health Concerns Section Related Observation LastModified by Organization Detai ls LastModified Time None Recorded Concern Status LastModified by Organization Details LastModified Time None Recorded Advance Directives Directive None Recorded Payers Insurance Date Sequence Insurance Name Policy Number Policy Larson Covered Member ID Larson Member ID Guarantor Name 10/08/2024 2 [place] [id number] Alyse Razo [id number] Alyse Razo 10/08/2024 1 [place] [facility] Alyse Razo [id number] Alyse Razo Notes Date Note Type Note Provider Name and Address Organization Details Recorded Time 09/16/2024 text/html ROS as noted in the HPI 74 year old female presents for evaluation of the ears. Wears hearing aids, serviced at [facility]. They are about 2 years old. She [...] [place] [facility] 09/16/2024 15:16:36 OBGyn Episode No OBEpisode recorded.
--- OUTSIDE RECORDS SUMMARY | 2025-06-01 12:03 | XMS_ITS | Clinical Summary ---
Author Organization [facility] Address [address] [place] [address] Phone Care Team Providers Care Flat Breakdown Processor Name Role Phone Bhanu Ramachandran MD Primary [...] Type Department Care Team Description 04/07/2025 Telephone [facility] [address] [place] [address] Unknown, Matty, Establish Care from Last 3 Months Family [...] Description 07/01/2025 2:20 PM EST Office Visit [facility] [address] [place] [address] Jeremy Godfrey DO [address] [place] [id number] [email or web address] Health Maintenance Due Date Last Done Comments [...] file Insurance [place] [id number] [facility] MEDEX SUPPLEMENT MEDICARE PART A & B [email or web address] MEDEX SUPPLEMENT MEDICARE PART A & B [email or web address] MEDEX SUPPLEMENT MEDICARE PART A & B [email or web address] MEDEX SUPPLEMENT MEDICARE PART A & B [email or web address] MEDEX SUPPLEMENT MEDICARE PART A & B [facility] MEDEX SUPPLEMENT Care Teams Flat Breakdown Processor Relationship Specialty Start Date End Date Bhanu Ramachandran MD [address] [place] [address] [place] [address] PCP - General 06/13/17 Additional Source Comments The information contained in this document represents components of the legal health record. It is not the complete legal health record.[facility]
== END ==
LOC: HO.CARD 10:44
PROVIDERS: PCP Internal Medicine; Visit Provider Internal Medicine Cardiovascular Disease
DX: I44.7 Left bundle-branch block, unspecified (principal); I42.9 Cardiomyopathy, unspecified; G47.33 Obstructive sleep apnea (adult) (pediatric); E66.01 Morbid (severe) obesity due to excess calories; E03.9 Hypothyroidism, unspecified; K21.9 Gastro-esophageal reflux disease without esophagitis; Z86.79 Personal history of other diseases of the circulatory system
CPT/HCPCS: 93005; 93306

== ENCOUNTER → 2025-06-01 10:47 | Outpatient (BNV) | payer MEDICARE, SELFPAY | PROVIDERS: PCP Internal Medicine; Visit Provider Internal Medicine Cardiovascular Disease | DX: I44.7 Left bundle-branch block, unspecified (principal); R00.1 Bradycardia, unspecified | CPT/HCPCS: 93010 ==